=== PATIENT | male | born 1930 | race Caucasian/White ===

== ENCOUNTER → 2016-09-11 | Outpatient (CLI) | payer MEDICARE, OTHER ==
[~2016-09-11] MED LIST: ASPI81TA2 PO; CARV12.5 PO; DOCU-168 PO; FURO20TA4 PO; INSU100V8 SQ; PRED10TA PO; SALINE FLUSH 10ml SYRINGE IVF ONE; TAMS-1 PO; WARF4TAB8 PO
== END ==
LOC: NWCC 11:20
PROVIDERS: ATTEND Surgery
DX: I87.2 Venous insufficiency (chronic) (peripheral) (principal); L97.212 Non-pressure chronic ulcer of right calf with fat layer exposed; L97.812 Non-pressure chronic ulcer of other part of right lower leg with fat layer exposed; R60.0 Localized edema; S91.301A Unspecified open wound, right foot, initial encounter
CPT/HCPCS: 29581; A6209; G0463

== ENCOUNTER → 2016-09-18 | Outpatient (CLI) | payer MEDICARE, OTHER ==
[~2016-09-18] MED LIST changes: +CALMOSEPTINE OINTMENT 3.5 G PACKET TOP ONE; -SALINE FLUSH 10ml SYRINGE IVF ONE; +SILVER NITRATE APPLICATOR TOP ONE
== END ==
LOC: NWCC 10:56
PROVIDERS: ATTEND Surgery
DX: I87.2 Venous insufficiency (chronic) (peripheral) (principal); L97.212 Non-pressure chronic ulcer of right calf with fat layer exposed; L97.812 Non-pressure chronic ulcer of other part of right lower leg with fat layer exposed; R60.0 Localized edema; S91.301A Unspecified open wound, right foot, initial encounter
CPT/HCPCS: 11042; 17250; A6209; A9270; G0463

== ENCOUNTER → 2016-10-02 | Outpatient (CLI) | payer MEDICARE, OTHER ==
[~2016-10-02] MED LIST changes: -SILVER NITRATE APPLICATOR TOP ONE
== END ==
LOC: NWCC 09:54
PROVIDERS: ATTEND Surgery
DX: I87.311 Chronic venous hypertension (idiopathic) with ulcer of right lower extremity (principal); L97.212 Non-pressure chronic ulcer of right calf with fat layer exposed; L97.812 Non-pressure chronic ulcer of other part of right lower leg with fat layer exposed; S91.301A Unspecified open wound, right foot, initial encounter; R60.0 Localized edema
CPT/HCPCS: 11042; A6209; A6210; A9270; G0463

== ENCOUNTER → 2016-10-16 | Outpatient (CLI) | payer MEDICARE, OTHER ==
[~2016-10-16] MED LIST changes: -CALMOSEPTINE OINTMENT 3.5 G PACKET TOP ONE; +SALINE FLUSH 10ml SYRINGE IVF ONE
== END ==
LOC: NWCC 10:51
PROVIDERS: ATTEND Surgery
DX: E11.621 Type 2 diabetes mellitus with foot ulcer (principal); L97.512 Non-pressure chronic ulcer of other part of right foot with fat layer exposed; I87.311 Chronic venous hypertension (idiopathic) with ulcer of right lower extremity; L97.812 Non-pressure chronic ulcer of other part of right lower leg with fat layer exposed; L97.212 Non-pressure chronic ulcer of right calf with fat layer exposed; R60.0 Localized edema; I87.2 Venous insufficiency (chronic) (peripheral); S91.301A Unspecified open wound, right foot, initial encounter
CPT/HCPCS: 15271; A6207; A6209; A6210; A6212; G0463; Q4101

== ENCOUNTER → 2016-10-23 | Outpatient (CLI) | payer MEDICARE, OTHER ==
[~2016-10-23] MED LIST changes: +ASPI-557 PO; +CAPS42.57 TOP; +CARV25TA2 PO; +FOLI1TAB15 PO; +FOLIC ACID PO; +LINA5TAB PO; +OMEP20CA10 PO; -SALINE FLUSH 10ml SYRINGE IVF ONE
== END ==
LOC: NWCC 10:24
PROVIDERS: ATTEND Surgery
DX: E11.621 Type 2 diabetes mellitus with foot ulcer (principal); I87.311 Chronic venous hypertension (idiopathic) with ulcer of right lower extremity; L97.512 Non-pressure chronic ulcer of other part of right foot with fat layer exposed; L97.212 Non-pressure chronic ulcer of right calf with fat layer exposed; L97.812 Non-pressure chronic ulcer of other part of right lower leg with fat layer exposed; S91.301A Unspecified open wound, right foot, initial encounter; R60.0 Localized edema
CPT/HCPCS: 11043; A6207; A6210; G0463

== ENCOUNTER → 2016-10-31 | Outpatient (CLI) | payer MEDICARE, OTHER ==
[~2016-10-31] MED LIST changes: +BISA10SU8 RECTALLY; +ENOX40DI SQ; +MAGN400O4 PO; +PIPE2.254 IV; +POLY17PO18 PO; +SALINE FLUSH 10ml SYRINGE IVF ONE
== END ==
LOC: NWCC 09:50
PROVIDERS: ATTEND Surgery
DX: E11.621 Type 2 diabetes mellitus with foot ulcer (principal); I87.311 Chronic venous hypertension (idiopathic) with ulcer of right lower extremity; L97.212 Non-pressure chronic ulcer of right calf with fat layer exposed; L97.812 Non-pressure chronic ulcer of other part of right lower leg with fat layer exposed; S91.301A Unspecified open wound, right foot, initial encounter; L97.512 Non-pressure chronic ulcer of other part of right foot with fat layer exposed; B96.89 Other specified bacterial agents as the cause of diseases classified elsewhere
CPT/HCPCS: 11042; 11043; 15002; 15271; 87070; 87075; 87076; 87077; 87181; 87186; 87205; A6207; A6209; A6212; G0463; Q4101

== ENCOUNTER 2016-11-06 11:37 | Inpatient (IN) | payer MEDICARE, OTHER ==
[~2016-11-06] VITALS: Ht 182.9 cm; Wt 81.2 kg
--- NOTE | 2016-11-06 11:35 | NUR ---
ADMIT PATIENT WAS ADMITTED TO ROOM 108 AT THIS TIME. PATIENT VITALS ARE STABLE AND PATIENT IS ON ROOM AIR.
[~2016-11-06 11:37] MED LIST changes: -ASPI-557 PO; -BISA10SU8 RECTALLY; -CAPS42.57 TOP; -CARV25TA2 PO; -ENOX40DI SQ; -FOLI1TAB15 PO; -FOLIC ACID PO; -LINA5TAB PO; -MAGN400O4 PO; -OMEP20CA10 PO; -PIPE2.254 IV; -POLY17PO18 PO; -SALINE FLUSH 10ml SYRINGE IVF ONE
[2016-11-06 11:39] VITALS: BP 154/64; PULSE 77; RESP 18; TEMP 96.4; O2SAT 100
[2016-11-06 11:42] VITALS: Ht 182.9 cm; Wt 81.2 kg
--- OUTSIDE RECORDS SUMMARY | 2016-11-06 11:46 | XMS REPORT | Continuity of Care Document ---
Author Author [facility] Organization [facility] Address Unknown Phone Unavailable Support Name Relationship Address Phone NICHOLAS HENSON DO Caregiver [address] [place] [address] Unavailable ADELINE MUÑIZ MD Caregiver [address] [place] [address] Unavailable ADELINE MUÑIZ MD Caregiver [address] [place] [address] Unavailable ELVIRA HERNANDEZ Next Of Kin [address] [place] [address] Insurance Providers Guarantor Cresencio Hernandez Address [address] [place] [address] Email DENIED 16 Payer Medicare Policy Number [id number] Subscriber's Name Cresencio Hernandez Relationship 18 Self Effective Date 96 Payer Mail Handlers Benefit Policy Number [id number] Subscriber's Name Cresencio Hernandez Relationship 18 Self Advance Directives Directive Response Recorded Date/Time Dr Yadav Resuscitation Status Do Not Resuscitate 08/10/16 11:10am Resuscitation Documents on File No 08/10/16 11:03am DPOA for Healthcare Only Yes 08/11/16 12:07pm Living Will No 08/10/16 11:03am Problems Active Problems Medical Problem Onset Date Status Acute on chronic systolic CHF (congestive heart failure) 03/25/2014 Chronic Anemia Unknown Chronic Anticoagulated Unknown Aphasia Unknown Resolved CAD (coronary artery disease) Unknown Chronic CHF (congestive heart failure) Unknown Acute CKD (chronic kidney disease), stage III Unknown Chronic Chest pain Unknown Acute Chronic anemia Unknown Chronic DVT (deep venous thrombosis) Unknown Acute Dyslipidemia Unknown Chronic Dyspnea Unknown Acute Dyspnea Unknown Acute Generalized weakness Unknown HS (hereditary spherocytosis) Unknown Chronic HTN (hypertension) Unknown Chronic Hx of cataract Unknown Hypoglycemia due to insulin Unknown Resolved Ischemic cardiomyopathy Unknown Mononeuritis multiplex Unknown Neuropathy Unknown Non-STEMI (non-ST elevated myocardial infarction) Unknown Acute Peripheral vascular disease Unknown Chronic Radiculopathy Unknown Sinoatrial node dysfunction Unknown Type 2 diabetes mellitus Unknown Chronic VTE (venous thromboembolism) Unknown Past Problems Medical Problem Onset Date Elevated serum creatinine Unknown Hyperkalemia Unknown Medications Current Home Medications Medication Dose Units Route Directions Days Qty Instructions Start Date Aspirin 81 Mg Tablet 81 Mg Oral Daily for Ascad 30 Days 03/25/14 Carvedilol (Coreg) 12.5 Mg Tablet 25 Mg Oral Twice Daily With Meals 30 Days 120 Tablet 08/06/16 Docusate Sodium (Colace) 100 Mg Capsule 100 Mg Oral Twice A Day as needed for Constipation 30 Days 60 Capsule schedule until patient has a bowel movement. hold for loose stools. 08/10/16 Furosemide 20 Mg Tablet 20 Mg Oral Daily 30 Days 30 Tablet 08/17/16 Insulin Glargine,Hum.rec.anlog (Lantus) 100 Unit/Ml Inj 8 Unit Sub-Q Bedtime 30 Days 1 08/10/16 Prednisone 10 Mg Tablet 10 Mg Oral Give With Breakfast 24 Tablet 30 mg daily for 4 days, then 20 mg daily for 4 days, then 10 mg daily for 4 days 08/17/16 Tamsulosin Hcl (Flomax) 0.4 Mg Capsule 0.4 Mg Oral Bedtime 30 Days 30 Capsule Take 1 capsule, by mouth, one time a day at BEDTIME. 08/04/16 Warfarin Sodium (Jantoven) 4 Mg Tablet 4 Mg Oral Give At Noon 10 Days 30 Tablet 08/17/16 Past Home Medications Medication Directions Ordered Status Atorvastatin Calcium (Lipitor) 40 Mg Tablet, 40 Mg Oral Bedtime 09/20/15 Discontinued Carvedilol (Coreg) 12.5 Mg Tablet, 12.5 Mg Oral Twice Daily With Meals Discontinued Dextrose (Glutose 15) 37.5 Gm Gel..gram., 37.5 G Oral As Needed as needed for Hypoglycemia 08/10/16 Discontinued Dextrose 50 % In Water (Dextrose 50%-Water Abboject) 50 Ml Syringe, 25 Ml Intraven As Needed as needed for Hypoglycemia 08/10/16 Discontinued Furosemide 20 Mg Tablet, 20 Mg Oral Per Comments 08/10/16 Discontinued Furosemide 20 Mg Tablet, 1 Tab Oral Daily as needed for Edema 03/25/14 Discontinued Hydrochlorothiazide 12.5 Mg Tablet, 12.5 Mg Oral Daily 02/14/11 Discontinued Insulin Detemir (Levemir Flextouch) 100 Unit/1 Ml Insuln.pen, 4 Unit Sub-Q Bedtime 08/04/16 Discontinued Insulin Detemir (Levemir Flextouch) 100 Unit/1 Ml Insuln.pen, 8 Unit Sub-Q Bedtime 09/15/15 Discontinued Insulin Lispro (Humalog) 100 Unit/1 Ml Cartridge, 1 Dose Sub-Q Per Comments 08/10/16 Discontinued Linagliptin (Tradjenta) 5 Mg Tablet, 1 Tab Oral Daily 08/04/16 Discontinued Metformin Hcl 500 Mg Tablet, 500 Mg Oral Twice Daily With Meals 09/15/15 Discontinued Metformin Hcl 1,000 Mg Tablet, 1000 Mg Oral Twice A Day 02/14/11 Discontinued Metoprolol Tartrate 50 Mg Tablet, 50 Mg Oral Twice A Day 02/14/11 Discontinued Prednisone 20 Mg Tablet, 40 Mg Oral Give With Breakfast 08/10/16 Discontinued Warfarin Sodium (Coumadin) 7.5 Mg Tablet, 7.5 Mg Oral Give At Noon 03/23/14 Discontinued Social History Social History Problem Response Recorded Date/Time Onset Date Status Reason for Hospitalization compression fx L2-L3 08/17/2016 3:37pm Not Applicable Not Applicable Hx Substance Use No 08/01/2016 11:04pm Not Applicable Not Applicable Hx Alcohol Use No 08/01/2016 11:04pm Not Applicable Not Applicable Has the pt used tobacco in the last 12 months No 08/10/2016 11:04am Not Applicable Not Applicable Tobacco Usage none 03/23/2014 6:45pm Not Applicable Not Applicable Query Response Start Date Stop Date Smoking Status Never smoker Hospital Discharge Instructions Instructions: Care Instructions: Reason for Hospitalization: compression fx L2-L3 I was in the hospital because (patient own words): "Dr. Henson was worried about my potassium level." Discharge Diet: Carb consistant Discharge Activity: Activity as tolerated Follow Up Appointments: Dr. Henson on 08/30/16 at 10:45am for follow up. [phone] [facility] will call you for an evaluation. [phone] Wound Center on 08/21/16 at 9:00am for follow up. [phone]. Pending Lab / Results: No Pending Lab Patient Instructions: Continue to work with PT/OT . Continue with wound care at wound center Coumadin 4 mg daily. Check INR at follow up apt with Dr Craig Wound/Incision Care: N/A Pain Scale Utilized to Educate Patient: 0-10 Pain Scale Pain Management/Treatment: Tylenol as needed for pain control Expected Signs/Symptoms: Continued improvement is strengthening Notify Physician If: Fever, chilld, weakness, change is pain or neurologic symtoms During Business Hours:: Please call the physician's office After Business Hours:: Please call [phone] and have the continuous loft operator page the physician. Condition at time of discharge: Fair Plan of Care Discharge Date 08/17/16 4:27pm Disposition 01 DISCHARGED HOME, SELF-CARE Instructions/Education Provided Vertebral Compression Fracture (DC) Prescriptions See Medication Section Care Plan and Goals See Discharge Instructions Section Functional Status Query Response Date Recorded Mobility Status Ambulatory w/assist August 17, 2016 3:37pm Assistive Devices Front Wheeled Walker August 17, 2016 3:37pm Activity Limitations Weakness August 17, 2016 3:37pm Feeding Ability Independent August 17, 2016 3:37pm Toileting Ability Assist August 17, 2016 3:37pm Grooming Ability Assist August 17, 2016 3:37pm Dressing Ability Assist August 17, 2016 3:37pm Driving Ability Dependent August 17, 2016 3:37pm Housework Ability Assist August 17, 2016 3:37pm Meal Preparation Ability Assist August 17, 2016 3:37pm Stair Climbing Ability Assist August 17, 2016 3:37pm Ability to complete ADL's impeded by Impaired Mobility August 17, 2016 3:37pm Cognitive/Perceptual Impairments Impaired vision August 17, 2016 3:37pm Visual Assistive Devices Glasses With patient August 16, 2016 11:01am Preferred Method of Learning Demonstration Listening Hands on August 16, 2016 11:01am Allergies, Adverse Reactions, Alerts No known allergies. Immunizations Query Response on File Recorded Date/Time Hx Influenza Vaccination Y 2015 ( a couple of months ago per pt.) 08/10/16 11 :04am Hx Pneumococcal Vaccination Y 2014 (per pt.) 08/10/16 11:04am Hx Influenza Vaccination Y 2015 ( a couple of months ago per pt.) 08/10/16 11 :04am Influenza Vaccine Hx 2016 (a couple of months ago per pt.) 08/10/16 11:10am Vital Signs Acute Vital Signs Vital Response Date/Time Temperature (Fahrenheit) 97.8 deg F (96.8 - 99.1) 08/17/2016 8:21am Temperature (Calculated Celsius) 36.40741 degrees C (36.0 - 37.3) 08/17/2016 8:21am Pulse Rate (adult) 74 bpm (60 - 100) 08/17/2016 12:26pm Respiratory Rate 18 breaths/min (10 - 20) 08/17/2016 12:26pm O2 Sat by Pulse Oximetry 98 % (90 - 100) 08/17/2016 8:21am Oxygen Delivery Method Room Air 08/17/2016 8:21am Fraction of Inspired Oxygen (FIO2) 21 % 08/02/2016 1:37am Blood Pressure 125/61 mm Hg 08/17/2016 8:21am Blood Pressure Source Automatic Cuff 08/17/2016 8:21am Height (Feet) 6 feet 08/17/2016 2:54pm Height (Inches) 0.00 inches 08/17/2016 2:54pm Weight (Kilograms) 74.800 kg 08/11/2016 1:31am Body Mass Index (BMI) 22.4 08/11/2016 1:31am Results Laboratory Results Test Name Result Units Flags Reference Collection Date/Time Result Date/ Time Comments Thyroid Stimulating Hormone (TSH) 2.77 MIU/L 0.47-4.68 08/02/2016 5: 01am 08/02/2016 6:31am Arterial Blood pH 7.380 7.350-7.450 08/04/2016 9:08/04/2016 9: 46am Arterial Blood Partial Pressure CO2 36 MMHG 34-45 08/04/2016 9: 9:46am Arterial Blood pO2 at Patient Temp 92 MMHG 80-100 08/04/2016 9: 9:46am Arterial Blood HCO3 21 MEQ/L L 22-08/04/2016 9:08/04/2016 9: 46am Arterial Blood Total CO2 22.4 MEQ/L L 23-27 08/04/2016 9:2016 9:46am Arterial Blood Base Excess -3.3 MMOL/L L -2.0-2.0 08/04/2016 9: 9:46am Arterial Blood Oxygen Saturation 97.0 % 95.0-98.0 08/04/2016 9: 9:46am Oxygen Delivery Method (LAB) ROOM AIR 08/04/2016 9:34am 08/04/2016 9:46am Urine Random Creatinine 71.3 MG/DL 08/02/2016 2:39am 08/02/2016 3: 18am Urine Random Sodium 131 MEQ/L H 30-90 08/02/2016 2:39am 08/02/2016 3: 18am Urine Random Urea Nitrogen 738.0 MG/DL 08/02/2016 2:39am 08/02/2016 3 :18am Stool Occult Blood NEGATIVE 08/03/2016 9:59am 08/03/2016 10:12am Angiotensin Converting Enzyme 25 U/L 8 - 53 08/04/2016 4:42am 2016 2:35pm Test Performed by: [place] [address] Vba Developer: Tima Fajardo II, M.D., Ph.D. DANIELLE performed at [facility], [address] [place] [address] Colon Therapist Scotty Rosenthal MD Free Cortisol 0.48 mcg/dL 08/04/2016 4:42am 08/16/2016 4:36pm Adult Reference Ranges for Cortisol, Free, . LC/MS/MS: . 8:00 - 10:00 AM 0.07-0.93 mcg/dL . 4:00 - 6:00 PM 0.04-0.45 mcg/dL . 10:00 - 11:00 PM 0.04-0.35 mcg/dL This test was developed and its analytical performance characteristics have been determined by [email or web address]. It has not been cleared or approved by FDA. This assay has been validated pursuant to the CLIA regulations and is used for clinical purposes. Test Performed by: [email or web address] [place] [address] [place] [address] Cortisol, [place] [address] Colon Therapist Scotty Rosenthal MD Renin <0.6 ng/mL/h 08/04/2016 4:42am 08/08/2016 3:30pm ------REFERENCE VALUE (Peripheral vein specimen) Na-deplete, upright: . Mean: 5.9 . Range: 2.9-10.8 Na-replete, upright: . Mean: 1.0 . Range: < or=0.6-3.0 ADDITIONAL INFORMATION Testing performed by Liquid Chromatography-Tandem Mass Spectrometry (LC-MS/MS). This test was developed and its performance characteristics determined by [facility] in a manner consistent with CLIA requirements. This test has not been cleared or approved by the U.S. Food and Drug Administration. Test Performed by: [place] [address] Vba Developer: Tima Fajardo II, M.D., Ph.D. [place]in [place] [address] Colon Therapist Scotty Rosenthal MD Neutrophils % (Manual) 91.0 % H 33-66 08/09/2016 5:08/09/2016 6: 43am Band Neutrophils % 2.0 % 0-6 08/09/2016 5:08/09/2016 6:43am Lymphocytes % (Manual) 6.0 % L 23-45 08/09/2016 5:08/09/2016 6: 43am Monocytes % (Manual) 1.0 % 0-9.0 08/09/2016 5:08/09/2016 6:43am Band Neutrophils # 0.1 T/MM3 08/09/2016 5:08/09/2016 6:43am Absolute Neutrophils (Manual) 4.1 T/MM3 1.8-7.7 08/09/2016 5:08/09 6:43am Lymphocytes # (Manual) 0.3 T/MM3 L 1-4.8 08/09/2016 5:08/09/2016 6: 43am Monocytes # (Manual) 0.0 T/MM3 0-0.8 08/09/2016 5:08/09/2016 6: 43am Red Cell Morphology Comment ABNORMAL 08/09/2016 5:17am 08/09/2016 6 :43am Poikilocytosis 3+ 08/09/2016 5:17am 08/09/2016 6:43am Ovalocytes 3+ 08/09/2016 5:17am 08/09/2016 6:43am Activated Partial Thromboplast Time 38.1 SEC H 24-36 08/08/2016 1:16pm 08/08/2016 1:48pm Phosphorus Level 4.2 MG/DL 2.5-4.5 08/08/2016 1:16pm 08/08/2016 1:50pm Total Creatine Kinase 168 U/L 55-170 08/08/2016 1:16pm 08/08/2016 1: 50pm Troponin I < 0.012 ng/ml 0-0.12 08/08/2016 1:16pm 08/08/2016 2:01pm Troponin values with a difference of 55% increase from orginal troponin value represent a true biological DELTA value. (%increase Calc=Orginal Troponin value, divided by subsequent Troponin value, multiplied by 100) C-Reactive Protein 211.7 MG/L H 0-9 08/08/2016 1:16pm 08/08/2016 3:19pm Magnesium Level 2.1 MG/DL 1.6-2.3 08/08/2016 1:16pm 08/08/2016 1:50pm Urine Collection Type CLEANCATCH-MIDSTREAM 08/08/2016 2:40pm 2016 2:57pm Urine Color YELLOW YELLOW 08/08/2016 2:40pm 08/08/2016 2:57pm Urine Turbidity CLEAR CLEAR 08/08/2016 2:40pm 08/08/2016 2:57pm Urine Specific [place] 1.015 1.015-1.025 08/08/2016 2:40pm 2016 2:57pm Urine pH 5.5 5.0-8.0 08/08/2016 2:40pm 08/08/2016 2:57pm Urine Leukocyte Esterase NEGATIVE NEGATIVE 08/08/2016 2:40pm 2016 2:57pm Urine Nitrite NEGATIVE NEGATIVE 08/08/2016 2:40pm 08/08/2016 2:57pm Urine Protein NEGATIVE NEGATIVE 08/08/2016 2:40pm 08/08/2016 2:57pm Urine Glucose (UA) NEGATIVE NEGATIVE 08/08/2016 2:40pm 08/08/2016 2: 57pm Urine Ketones NEGATIVE NEGATIVE 08/08/2016 2:40pm 08/08/2016 2:57pm Urine Urobilinogen 0.2 EU/DL NORMAL 08/08/2016 2:40pm 08/08/2016 2: 57pm Urine Bilirubin NEGATIVE NEGATIVE 08/08/2016 2:40pm 08/08/2016 2: 57pm Urine Blood TRACE-INTACT A NEGATIVE 08/08/2016 2:40pm 08/08/2016 2: 57pm Urine WBC NONE SEEN /HPF 0-5 08/08/2016 2:40pm 08/08/2016 3:03pm Urine RBC NONE SEEN /HPF 0-3 08/08/2016 2:40pm 08/08/2016 3:03pm Urine Squamous Epithelial Cells NONE SEEN 08/08/2016 2:40pm 2016 3:03pm Urine Bacteria TRACE H NEGATIVE 08/08/2016 2:40pm 08/08/2016 3:03pm Urine Culture Indicated CULT NOT INDICATED 08/08/2016 2:40pm 2016 3:03pm White Blood Count 7.4 T/MM3 4.5-11.0 08/17/2016 4:am 08/17/2016 5: 10am Red Blood Count 2.96 M/MM3 L 4.50-5.90 08/17/2016 4:08/17/2016 5: 10am Hemoglobin 8.7 GM/DL L 13.5-17.5 08/17/2016 4:08/17/2016 5:10am Hematocrit 26.3 % L 41-53 08/17/2016 4:08/17/2016 5:10am Mean Corpuscular Volume 88.9 UM3 80-100 08/17/2016 4:08/17/2016 5: 10am Mean Corpuscular Hemoglobin 29.4 UUG 26-34 08/17/2016 4:2016 5:10am Mean Corpuscular Hemoglobin Concent 33.1 GM/DL 31-37 08/17/2016 4:08/17/2016 5:10am RDW Standard Deviation 45.8 FL 36.9-50.2 08/17/2016 4:08/17/2016 5 :10am Platelet Count 283 T/MM3 130-400 08/17/2016 4:08/17/2016 5:10am Mean Platelet Volume 10.6 UM3 9.4-12.4 08/17/2016 4:08/17/2016 5: 10am Neutrophils (%) (Auto) 62.3 % 33-66 08/17/2016 4:08/17/2016 5: 10am Lymphocytes (%) (Auto) 27.6 % 23-45 08/17/2016 4:08/17/2016 5: 10am Monocytes (%) (Auto) 9.6 % H 0-9.0 08/17/2016 4:08/17/2016 5:10am Eosinophils (%) (Auto) 0.1 % 0-4 08/17/2016 4:08/17/2016 5:10am Basophils (%) (Auto) 0.1 % 0-2 08/17/2016 4:08/17/2016 5:10am Immature Granulocyte % (Auto) 0.3 % 0.0-0.5 08/17/2016 4:2016 5:10am Absolute Neutrophils (auto) 4.6 T/MM3 1.8-7.7 08/17/2016 4:2016 5:10am Absolute Lymphocytes (auto) 2.0 T/MM3 1-4.8 08/17/2016 4:2016 5:10am Absolute Monocytes (auto) 0.7 T/MM3 0-0.8 08/17/2016 4:08/17/2016 5:10am Absolute Eosinophils (auto) 0.0 T/MM3 0-0.5 08/17/2016 4:2016 5:10am Absolute Basophils (auto) 0.0 T/MM3 0-0.2 08/17/2016 4:08/17/2016 5:10am Absolute Immature Granulocyte (auto 0.02 T/MM3 0.00-0.03 08/17/2016 4: 08/17/2016 5:10am Prothromb Time International Ratio 2.85 H 0.76-1.04 08/17/2016 4:08/17/2016 5:16am THERAPUTIC RANGE=2.00-3.00 FOR ANTI-THROMBOSIS THERAPUTIC RANGE=2.50-3.50 FOR IMPLANTED VALVE Icterus Index < 2 0-7 08/17/2016 4:08/17/2016 5:25am Chemistry Specimen Hemolysis < 15 0-25 08/17/2016 4:08/17/2016 5 :25am 0-25: Specimen Exhibited No Hemolysis. Turbidity < 20 0-20 08/17/2016 4:08/17/2016 5:25am Sodium Level 137 MEQ/L 134-144 08/17/2016 4:08/17/2016 5:25am Potassium Level 4.7 MEQ/L 3.6-5 08/17/2016 4:08/17/2016 5:25am Chloride Level 105 MEQ/L 98-107 08/17/2016 4:08/17/2016 5:25am Carbon Dioxide Level 25 MEQ/L 22-30 08/17/2016 4:08/17/2016 5: 25am Anion Gap 7 MEQ/L 5-15 08/17/2016 4:08/17/2016 5:25am Blood Urea Nitrogen 41.0 MG/DL H 9-20 08/17/2016 4:08/17/2016 5: 25am Creatinine 1.4 MG/DL 0.8-1.5 08/17/2016 4:08/17/2016 5:25am BUN/Creatinine Ratio 29 RATIO H 6-26 08/17/2016 4:08/17/2016 5: 25am Glomerular Filtration Rate Calc 48 08/17/2016 4:08/17/2016 5: 25am Glucose Level 84 MG/DL 75-110 08/17/2016 4:08/17/2016 5:25am Calculated Osmolality 273 MOSM/KG 261-280 08/17/2016 4:08/17/2016 5:25am Calcium Level 8.6 MG/DL 8.4-10.2 08/17/2016 4:08/17/2016 5:25am Total Bilirubin 0.70 MG/DL 0.20-1.30 08/15/2016 5:am 08/15/2016 6: 02am Alkaline Phosphatase 81 U/L 38-126 08/15/2016 5:25am 08/15/2016 6:02am Total Protein 5.8 G/DL L 6.3-8.2 08/15/2016 5:25am 08/15/2016 6:02am Albumin 2.9 G/DL L 3.5-5.0 08/15/2016 5:25am 08/15/2016 6:02am Globulin 2.9 G/DL 2.4-3.6 08/15/2016 5:25am 08/15/2016 6:02am Albumin/Globulin Ratio 1.0 RATIO L 1.1-2.2 08/15/2016 5:25am 08/15/2016 6:02am Aspartate Amino Transf (AST/SGOT) 15 U/L L 17-59 08/15/2016 5:25am 08/15 6:02am Alanine Aminotransferase (ALT/SGPT) 30 U/L 21-72 08/15/2016 5:25am 02/2017 6:02am Glucometer 138 mg/dL H 75-110 08/17/2016 11:49am 08/17/2016 11:52am Microbiology Results Procedure Source Organism/Result Collection Date/Time Result Date/Time Result Status WOUND CULTURE DEEP TISS-AER/AN Unknown BACTEROIDES VULGATUS 07/12/2016 10: 40am 07/19/2016 7:52am Final ENTEROBACTER CLOACAE 07/12/2016 10:40am 07/19/2016 7:52am Final ESCHERICHIA COLI 07/12/2016 10:40am 07/19/2016 7:52am Final FINEGOLDIA MAGNA 07/12/2016 10:40am 07/19/2016 7:52am Final S. AUREUS, METH-RESISTANT 07/12/2016 10:40am 07/19/2016 7:52am Final PEPTONIPHILUS ASACCHAROLY 07/12/2016 10:40am 07/19/2016 7:52am Final Procedures Procedure Status Date Provider(s) Lower extremity study Completed 06/20/16 Extremity study Completed 06/20/16 Patsy subq tissue 20 sq cm/< Completed 06/26/16 Patsy subq tissue add-on Completed 06/26/16 382457"WOUND CLEANSERS, ANY TYPE, ANY SIZE" Completed 06/26/16 E&M LEVEL - FACILITY Completed 06/26/16 Patsy musc/fascia 20 sq cm/< Completed 07/24/16 862270"BORDER, EACH DRESSING" Completed 07/24/16 533284"BORDER, EACH DRESSING" Completed 07/24/16 975470"EQUAL TO 48 SQ. IN., WITHOUT ADHESIVE BORDER, EACH DR Completed [id number] ITEM OR SERVICE Completed 07/24/16 E&M LEVEL - FACILITY Completed 07/24/16 Patsy subq tissue 20 sq cm/< Completed 07/12/16 Patsy subq tissue add-on Completed 07/12/16 Culture othr specimn aerobic Completed 07/12/16 Cultr bacteria except blood Completed 07/12/16 Culture anaerobe ident each Completed 07/12/16 Culture anaerobe ident each Completed 07/12/16 Culture anaerobe ident each Completed 07/12/16 Culture aerobic identify Completed 07/12/16 Culture aerobic identify Completed 07/12/16 Culture type immunologic Completed 07/12/16 Culture type immunologic Completed 07/12/16 Microbe susceptible diffuse Completed 07/12/16 Microbe susceptible diffuse Completed 07/12/16 Microbe susceptible diffuse Completed 07/12/16 Microbe susceptible diffuse Completed 07/12/16 Microbe susceptible diffuse Completed 07/12/16 Microbe susceptible diffuse Completed 07/12/16 Microbe susceptible diffuse Completed 07/12/16 Microbe susceptible diffuse Completed 07/12/16 Microbe susceptible diffuse Completed 07/12/16 Microbe susceptible diffuse Completed 07/12/16 Microbe susceptible diffuse Completed 07/12/16 Microbe susceptible diffuse Completed 07/12/16 Microbe susceptible regis Completed 07/12/16 Microbe susceptible regis Completed 07/12/16 Microbe susceptible regis Completed 07/12/16 Smear gram stain Completed 07/12/16 470913"LESS, EACH DRESSING" Completed 07/12/16 933773"BORDER, EACH DRESSING" Completed 07/12/16 000283"EQUAL TO 48 SQ. IN., WITHOUT ADHESIVE BORDER, EACH DR Completed 680500"WOUND CLEANSERS, ANY TYPE, ANY SIZE" Completed 07/12/16 [id number] ITEM OR SERVICE Completed 07/12/16 E&M LEVEL - FACILITY Completed 07/12/16 Encounters Encounter Location Arrival/Admit Date Discharge/Depart Date Attending Provider Discharged Inpatient [facility] 08/10/16 10:16am 08/17/16 4:27pm ADELINE MUÑIZ MD Discharged Inpatient [facility] 08/09/16 3:15pm 08/10/16 10:15am NICHOLAS HENSON DO Discharged Inpatient [facility] 08/02/16 4:36pm 08/06/16 6:35pm NICHOLAS HENSON DO Registered [facility] 07/24/16 9:48am CRESENCIO HARDIN FACS, MD Registered [facility] 07/12/16 9:49am REX FORD MD Registered [facility] 06/26/16 9:58am CRESENCIO HARDIN FACS, MD Registered [facility] 06/20/16 4:59pm NICHOLAS HENSON DO
--- OUTSIDE RECORDS SUMMARY | 2016-11-06 11:47 | XMS REPORT | Continuity of Care Document ---
Demographics Preferred Language Unknown Marital Status Unknown Alevism Affiliation Unknown Race Unknown Ethnic Group Unknown Author Author [facility] Organization [facility] Address Unknown Phone Unavailable Allergies Active Description Code Type Severity Reaction Onset Reported/Identified Relationship to Patient Clinical Status Yes No Known Allergies NKMA N/A N/A 08/24/2014 Medications Problems Date Dx Coded Attending Type Code Diagnosis Diagnosed By 08/24/2014 Final 416.8 OTHER CHRONIC PULMONARY HEART DISEASES 08/24/2014 Final 428.0 CONGESTIVE HEART FAILURE, UNSPECIFIED 08/24/2014 Final 786.05 SHORTNESS OF BREATH 08/24/2014 Reason 786.2 COUGH 12/13/2014 Final 250.00 Diabetes mellitus without mention of complication, type II or unspecified t 12/13/2014 Final 272.4 OTHER AND UNSPECIFIED HYPERLIPIDEMIA 12/13/2014 Final 403.90 Hypertensive chronic kidney disease, unspecified, with chronic kidney disea 12/13/2014 Final 412 OLD MYOCARDIAL INFARCTION 12/13/2014 Final 414.01 CORONARY ATHEROSCLEROSIS OF [place] CORONARY ARTERY 12/13/2014 Final 414.8 OTHER SPECIFIED FORMS OF CHRONIC ISCHEMIC HEART DISEASE 12/13/2014 Final 426.3 OTHER LEFT BUNDLE BRANCH BLOCK 12/13/2014 Final 428.0 CONGESTIVE HEART FAILURE, UNSPECIFIED 12/13/2014 Reason 428.22 CHRONIC SYSTOLIC HEART FAILURE 12/13/2014 Final 585.9 Chronic kidney disease, unspecified 12/13/2014 Reason 428.22 CHRONIC SYSTOLIC HEART FAILURE Procedures Results Encounters ACCT No. Visit Date/Time Discharge Status Pt. Type Provider Facility Loc./Unit Complaint [id number] 12/07/2014 06:33:00 Document Registration [id number] 08/24/2014 08:57:00 Document Registration
--- OUTSIDE RECORDS SUMMARY | 2016-11-06 11:48 | XMS REPORT | Continuity of Care Document ---
Author Author [facility] Organization [facility] Address Unknown Phone Unavailable Support Name Relationship Address Phone NICHOLAS HENSON DO Caregiver [address] [place] [address] Unavailable ADELINE MUÑIZ MD Caregiver [address] [place] [address] Unavailable ADELINE MUÑIZ MD Caregiver [address] [place] [address] Unavailable ELVIRA HERNANDEZ Next Of Kin [address] [place] [address] Insurance Providers Guarantor Cresencio Hernandez Address [address] [place] [address] Email DENIED 16 Payer Medicare Policy Number [id number] Subscriber's Name Cresencio Hernandez Relationship 18 Self Effective Date 96 Payer Mail Hand[employer] Benefit Policy Number [id number] Subscriber's Name Cresencio Hernandez Relationship 18 Self [...] With Meals 30 Days 120 Tablet 08/06/16 Dextrose (Glutose 15) 37.5 Gm Gel..gram. 37.5 G Oral As Needed as needed for Hypoglycemia 30 Days 30 08/10/16 Dextrose 50 % In Water (Dextrose 50%-Water Abboject) 50 Ml Syringe 25 Ml Intraven As Needed as needed for Hypoglycemia 30 Days 30 Syringe 08/10/16 Docusate Sodium (Colace) 100 Mg Capsule 100 Mg Oral Twice A Day as needed for Constipation 30 Days 60 Capsule schedule until patient has a bowel movement. hold for loose stools. 08/10/16 Furosemide 20 Mg Tablet 20 Mg Oral Per Comments 30 Days 15 Tablet every other day. hold for systolic blood pressures less than 105. 08/10/16 Insulin Glargine,Hum.rec.anlog (Lantus) 100 Unit/Ml Inj 8 Unit Sub-Q Bedtime 30 Days 1 08/10/16 Insulin Lispro (Humalog) 100 Unit/1 Ml Cartridge 1 Dose Sub-Q Per Comments 30 Days 1 Vial per [facility] medium dose sliding scale protocol. 08/10/16 Prednisone 20 Mg Tablet 40 Mg Oral Give With Breakfast 10 Days 20 Tablet Take 2 (20 mg) tablets, by mouth, once a day with breakfast. will start tapering after 2 weeks. 08/10/16 Tamsulosin Hcl (Flomax) 0.4 Mg Capsule 0.4 Mg Oral Bedtime 30 Days 30 Capsule Take 1 capsule, by mouth, one time a day at BEDTIME. 08/04/16 Warfarin Sodium (Coumadin) 7.5 Mg Tablet 7.5 Mg Oral Give At Noon Take 1 tablet, by mouth, 1 time a day (at 5 pm). 03/23/14 Past Home Medications Medication Directions Ordered Status Atorvastatin Calcium (Lipitor) 40 Mg Tablet, 40 Mg Oral Bedtime 09/20/15 Discontinued Carvedilol (Coreg) 12.5 Mg Tablet, 12.5 Mg Oral Twice Daily With Meals Discontinued Furosemide 20 Mg Tablet, 1 Tab Oral Daily as needed for Edema 03/25/14 Discontinued Hydrochlorothiazide 12.5 Mg Tablet, 12.5 Mg Oral Daily 02/14/11 Discontinued Insulin Detemir (Levemir Flextouch) 100 Unit/1 Ml Insuln.pen, 4 Unit Sub-Q Bedtime 08/04/16 Discontinued Insulin Detemir (Levemir Flextouch) 100 Unit/1 Ml Insuln.pen, 8 Unit Sub-Q Bedtime 09/15/15 Discontinued Linagliptin (Tradjenta) 5 Mg Tablet, 1 Tab Oral Daily 08/04/16 Discontinued Metformin Hcl 500 Mg Tablet, 500 Mg Oral Twice Daily With Meals 09/15/15 Discontinued Metformin Hcl 1,000 Mg Tablet, 1000 Mg Oral Twice A Day 02/14/11 Discontinued Metoprolol Tartrate 50 Mg Tablet, 50 Mg Oral Twice A Day 02/14/11 Discontinued Social History Social History Problem Response Recorded Date/Time Onset Date Status Hx Substance Use No 08/01/2016 11:04pm Not Applicable Not Applicable Hx Alcohol Use No 08/01/2016 11:04pm Not Applicable Not Applicable Has the pt used tobacco in the last 12 months No 08/10/2016 11:04am Not Applicable Not Applicable Tobacco Usage none 03/23/2014 6:45pm Not Applicable Not Applicable Query Response Start Date Stop Date Smoking Status Never smoker Hospital Discharge Instructions No hospital discharge instructions. Plan of Care Disposition 30 STILL A PATIENT Prescriptions See Medication Section Functional Status Query Response Date Recorded Mobility Status Ambulatory w/assist August 10, 2016 1:37pm Assistive Devices Front Wheeled Walker August 10, 2016 1:37pm Activity Limitations Weakness Pain August 10, 2016 1:37pm Feeding Ability Independent August 10, 2016 1:37pm Toileting Ability Assist August 10, 2016 1:37pm Grooming Ability Assist August 10, 2016 1:37pm Dressing Ability Assist August 10, 2016 1:37pm Driving Ability Dependent August 10, 2016 1:37pm Housework Ability Assist August 10, 2016 1:37pm Meal Preparation Ability Assist August 10, 2016 1:37pm Stair Climbing Ability Assist August 10, 2016 1:37pm Ability to complete ADL's impeded by Impaired Mobility August 10, 2016 1:37pm Cognitive/Perceptual Impairments Impaired vision August 10, 2016 1:37pm Visual Assistive Devices Glasses With patient August 10, 2016 1:37pm Preferred Method of Learning Demonstration Listening Hands on August 10, 2016 1:37pm Allergies, Adverse Reactions, Alerts No known allergies. Immunizations Query Response on File Recorded Date/Time Hx Influenza Vaccination Y 2015 ( a couple of months ago per pt.) 08/10/16 11 :04am Hx Pneumococcal Vaccination Y 2014 (per pt.) 08/10/16 11:04am Hx Influenza Vaccination Y 2015 ( a couple of months ago per pt.) 08/10/16 11 :04am Influenza Vaccine Hx 2015 (a couple of months ago per pt.) 08/10/16 11:10am Vital Signs Acute Vital Signs Vital Response Date/Time Temperature (Fahrenheit) 97.8 deg F (96.8 - 99.1) 08/13/2016 8:07am Temperature (Calculated Celsius) 36.27974 degrees C (36.0 - 37.3) 08/13/2016 8:07am Pulse Rate (adult) 69 bpm (60 - 100) 08/13/2016 8:07am Respiratory Rate 14 breaths/min (10 - 20) 08/13/2016 8:07am O2 Sat by Pulse Oximetry 95 % (90 - 100) 08/13/2016 8:07am Oxygen Delivery Method Room Air 08/13/2016 8:07am Fraction of Inspired Oxygen (FIO2) 21 % 08/02/2016 1:37am Blood Pressure 101/63 mm Hg 08/13/2016 8:07am Blood Pressure Source Automatic Cuff 08/13/2016 8:07am Height (Feet) 6 feet 08/12/2016 7:55pm Height (Inches) 0.00 inches 08/12/2016 7:55pm Weight (Kilograms) 74.800 kg 08/11/2016 1:31am Body Mass Index (BMI) 22.4 08/11/2016 1:31am Results Laboratory Results Test Name Result Units Flags Reference Collection Date/Time Result Date/ Time Comments Thyroid Stimulating Hormone (TSH) 2.77 MIU/L 0.47-4.68 08/02/2016 5: 01am 08/02/2016 6:31am Arterial Blood pH 7.380 7.350-7.450 08/04/2016 9:34am 08/04/2016 9: 46am Arterial Blood Partial Pressure CO2 36 MMHG 34-45 08/04/2016 9:34am 9:46am Arterial Blood pO2 at Patient Temp 92 MMHG 80-100 08/04/2016 9:34am 9:46am Arterial Blood HCO3 21 MEQ/L L 22-08/04/2016 9:34a08/04/2016 9: 46am Arterial Blood Total CO2 22.4 MEQ/L L 23-27 08/04/2016 9:34am 2016 9:46am Arterial Blood Base Excess -3.3 MMOL/L L -2.0-2.0 08/04/2016 9:34a 9:46am Arterial Blood Oxygen Saturation 97.0 % 95.0-98.0 08/04/2016 9:34am 9:46am Oxygen Delivery Method (LAB) ROOM AIR 08/04/2016 9:34a08/04/2016 9:46am Urine Random Creatinine 71.3 MG/DL 08/02/2016 2:39am 08/02/2016 3: 18am Urine Random Sodium 131 MEQ/L H 30-90 08/02/2016 2:39am 08/02/2016 3: 18am Urine Random Urea Nitrogen 738.0 MG/DL 08/02/2016 2:39am 08/02/2016 3 :18am Stool Occult Blood NEGATIVE 08/03/2016 9:59am 08/03/2016 10:12am Angiotensin Converting Enzyme 25 U/L 8 - 53 08/04/2016 4:42am 2016 2:35pm Test Performed by: [place] [address] Rn Documentation: Tima Fajardo II, M.D., Ph.D. DANIELLE performed at [facility], [address] [place] [address] Rod Buster Scotty Rosenthal MD Renin <0.6 ng/mL/h 08/04/2016 4:42am 08/08/2016 3:30pm ------REFERENCE VALUE (Peripheral vein specimen) Na-deplete, upright: . Mean: 5.9 . Range: 2.9-10.8 Na-replete, upright: . Mean: 1.0 . Range: < or=0.6-3.0 ADDITIONAL INFORMATION Testing performed by Liquid Chromatography-Tandem Mass Spectrometry (LC-MS/MS). This test was developed and its performance characteristics determined by [facility] in a manner consistent with CLIA requirements. This test has not been cleared or approved by the U.S. Food and Drug Administration. Test Performed by: [place] [address] Rn Documentation: Tima Fajardo II, M.D., Ph.D. Renin Activity performed at [facility], [address] [place] [address] Rod Buster Scotty Rosenthal MD Neutrophils % (Manual) 91.0 [...] 43am Red Cell Morphology Comment ABNORMAL 08/09/2016 5:08/09/2016 6 :43am Poikilocytosis 3+ 08/09/2016 5:08/09/2016 6:43am Ovalocytes 3+ 08/09/2016 5:17am 08/09/2016 6:43am [...] CLEAR 08/08/2016 2:40pm 08/08/2016 2:57pm Urine Specific [place] 1.015 1.015-1.025 08/08/2016 2:40pm 2016 2:57pm Urine [...] 08/08/2016 2:40pm 2016 3:03pm White Blood Count 6.4 T/MM3 4.5-11.0 08/13/2016 4:42am 08/13/2016 5: 13am Red Blood Count 2.95 M/MM3 L 4.50-5.90 08/13/2016 4:42am 08/13/2016 5: 13am Hemoglobin 8.5 GM/DL L 13.5-17.5 08/13/2016 4:42am 08/13/2016 5:13am Hematocrit 26.2 % L 41-53 08/13/2016 4:42am 08/13/2016 5:13am Mean Corpuscular Volume 88.8 UM3 80-100 08/13/2016 4:42am 08/13/2016 5: 13am Mean Corpuscular Hemoglobin 28.8 UUG 26-34 08/13/2016 4:42am 2016 5:13am Mean Corpuscular Hemoglobin Concent 32.4 GM/DL 31-37 08/13/2016 4:42am 08/13/2016 5:13am RDW Standard Deviation 44.8 FL 36.9-50.2 08/13/2016 4:42am 08/13/2016 5 :13am Platelet Count 303 T/MM3 130-400 08/13/2016 4:42am 08/13/2016 5:13am Mean Platelet Volume 10.3 UM3 9.4-12.4 08/13/2016 4:42am 08/13/2016 5: 13am Neutrophils (%) (Auto) 68.5 % H 33-66 08/13/2016 4:42am 08/13/2016 5: 13am Lymphocytes (%) (Auto) 18.4 % L 23-45 08/13/2016 4:42am 08/13/2016 5: 13am Monocytes (%) (Auto) 12.9 % H 0-9.0 08/13/2016 4:42am 08/13/2016 5:13am Eosinophils (%) (Auto) 0.2 % 0-4 08/13/2016 4:42am 08/13/2016 5:13am Basophils (%) (Auto) 0.0 % 0-2 08/13/2016 4:42am 08/13/2016 5:13am Immature Granulocyte % (Auto) 0.0 % 0.0-0.5 08/13/2016 4:42am 2016 5:13am Absolute Neutrophils (auto) 4.4 T/MM3 1.8-7.7 08/13/2016 4:42am 2016 5:13am Absolute Lymphocytes (auto) 1.2 T/MM3 1-4.8 08/13/2016 4:42am 2016 5:13am Absolute Monocytes (auto) 0.8 T/MM3 0-0.8 08/13/2016 4:42am 08/13/2016 5:13am Absolute Eosinophils (auto) 0.0 T/MM3 0-0.5 08/13/2016 4:42am 2016 5:13am Absolute Basophils (auto) 0.0 T/MM3 0-0.2 08/13/2016 4:42am 08/13/2016 5:13am Absolute Immature Granulocyte (auto 0.00 T/MM3 0.00-0.03 08/13/2016 4: 42am 08/13/2016 5:13am Prothromb Time International Ratio 2.55 H 0.76-1.04 08/13/2016 4:42am 08/13/2016 5:16am THERAPUTIC RANGE=2.00-3.00 FOR ANTI-THROMBOSIS THERAPUTIC RANGE=2.50-3.50 FOR IMPLANTED VALVE Icterus Index < 2 0-7 08/13/2016 4:42am 08/13/2016 5:23am Chemistry Specimen Hemolysis < 15 0-25 08/13/2016 4:42am 08/13/2016 5 :23am 0-25: Specimen Exhibited No Hemolysis. Turbidity < 20 0-20 08/13/2016 4:42am 08/13/2016 5:23am Sodium Level 137 MEQ/L 134-144 08/13/2016 4:42am 08/13/2016 5:23am Potassium Level 4.2 MEQ/L 3.6-5 08/13/2016 4:42am 08/13/2016 5:23am Chloride Level 106 MEQ/L 98-107 08/13/2016 4:42am 08/13/2016 5:23am Carbon Dioxide Level 24 MEQ/L 22-30 08/13/2016 4:42am 08/13/2016 5: 23am Anion Gap 7 MEQ/L 5-15 08/13/2016 4:42am 08/13/2016 5:23am Blood Urea Nitrogen 43.0 MG/DL H 9-20 08/13/2016 4:42am 08/13/2016 5: 23am Creatinine 1.4 MG/DL 0.8-1.5 08/13/2016 4:42am 08/13/2016 5:23am BUN/Creatinine Ratio 31 RATIO H 6-26 08/13/2016 4:42am 08/13/2016 5: 23am Glomerular Filtration Rate Calc 48 08/13/2016 4:42am 08/13/2016 5: 23am Glucose Level 149 MG/DL H 75-110 08/13/2016 4:42am 08/13/2016 5:23am Calculated Osmolality 278 MOSM/KG 261-280 08/13/2016 4:42am 08/13/2016 5:23am Calcium Level 8.6 MG/DL 8.4-10.2 08/13/2016 4:42am 08/13/2016 5:23am Total Bilirubin 0.90 MG/DL 0.20-1.30 08/13/2016 4:42am 08/13/2016 5: 23am Alkaline Phosphatase 82 U/L 38-126 08/13/2016 4:42am 08/13/2016 5:23am Total Protein 6.0 G/DL L 6.3-8.2 08/13/2016 4:42am 08/13/2016 5:23am Albumin 3.0 G/DL L 3.5-5.0 08/13/2016 4:42am 08/13/2016 5:23am Globulin 3.0 G/DL 2.4-3.6 08/13/2016 4:42am 08/13/2016 5:23am Albumin/Globulin Ratio 1.0 RATIO L 1.1-2.2 08/13/2016 4:42am 08/13/2016 5:23am Aspartate Amino Transf (AST/SGOT) 18 U/L 17-59 08/13/2016 4:42am 2016 5:23am Alanine Aminotransferase (ALT/SGPT) 31 U/L 21-72 08/13/2016 4:42am 12/2016 5:23am Glucometer 145 mg/dL H 75-110 08/13/2016 6:10am 08/13/2016 6:35am Microbiology Results Procedure Source Organism/Result Collection Date/Time [...] 06/26/16 Patsy subq tissue add-on Completed 06/26/16 610069"WOUND CLEANSERS, ANY TYPE, ANY SIZE" Completed 06/26/16 E&M LEVEL - FACILITY Completed 06/26/16 Patsy subq tissue 20 sq cm/< Completed [...] Completed 07/12/16 Smear gram stain Completed 07/12/16 829282"LESS, EACH DRESSING" Completed 07/12/16 618621"BORDER, EACH DRESSING" Completed 07/12/16 [id number]"EQUAL TO 48 SQ. IN., WITHOUT ADHESIVE BORDER, EACH DR Completed 012623"WOUND CLEANSERS, ANY TYPE, ANY SIZE" Completed 07/12/16 [id number] ITEM OR SERVICE Completed 07/12/16 E&M LEVEL - FACILITY Completed 07/12/16 Encounters Encounter Location Arrival/Admit Date Discharge/Depart Date Attending Provider Admitted Inpatient [facility] 08/10/16 10:16am ADELINE MUÑIZ MD Discharged Inpatient [facility] 08/09/16 3:15pm 08/10/16 10:15am NICHOLAS HENSON DO Discharged Inpatient [facility] 08/02/16 4:36pm 08/06/16 6:35pm NICHOLAS HENSON DO Registered [facility] 07/24/16 9:48am CRESENCIO HARDIN FACS, MD [facility] 07/12/16 9:49am REX FORD MD Registered [facility] 06/26/16 9:58am CRESENCIO HARDIN FACS, MD [facility] 06/20/16 4:59pm NICHOLAS HENSON DO
--- OUTSIDE RECORDS SUMMARY | 2016-11-06 11:48 | XMS REPORT | Continuity of Care Document ---
Author Author [facility] Organization [facility] Address Unknown Phone Unavailable Support Name Relationship Address Phone ALEX KEYS DO Caregiver [address] [place] [address] YESSI KAUFMAN MD Caregiver [address] [place] [id number] ALESSIA BANDA Caregiver [address] [place] [phone] ELVIRA HERANNDEZ Next Of Kin [address] [place], [place] [phone] Insurance Providers Payer Name Policy Number Subscriber Name Relationship Medicare [id number] Cresencio Hernandez 18 Self Mail Hand[employer] Benefit [id number] Cresencio Hernandez 18 Self Advance Directives Directive Response Recorded Date/Time Advanced Directives Type Living Will 03/23/14 5:22pm Ordered Resuscitation Status Full Code 03/23/14 4:59pm Resuscitation Documents on File No 03/23/14 6:02pm Chief Complaint and Reason for Visit Chief Complaint CHF Reason for Visit Dyspnea CHF (congestive heart failure) Dyspnea HTN (hypertension) Type 2 diabetes mellitus CAD (coronary artery disease) Dyslipidemia DVT (deep venous thrombosis) Acute on chronic systolic CHF (congestive heart failure) Problems Medical Problems Problem Onset Date Status Dyspnea Unknown Active CHF (congestive heart failure) Unknown Active Dyspnea Unknown Active HTN (hypertension) Unknown Active Type 2 diabetes mellitus Unknown Active CAD (coronary artery disease) Unknown Active Dyslipidemia Unknown Active DVT (deep venous thrombosis) Unknown Active Acute on chronic systolic CHF (congestive heart failure) 03/25/2014 Active Medications Medication Dose Route Sig Days/Qty Instructions Order Date Discontinued Date Status Metoprolol Tartrate 50 Mg PO TWICE A DAY 02/14/11 03/25/14 Discontinued Metformin Hcl 1,000 Mg PO TWICE A DAY 02/14/11 03/25/14 Discontinued Lisinopril 10 Mg PO DAILY 08/10/11 Active Atorvastatin Calcium 10 Mg PO BEDTIME 02/14/11 Active Glipizide 5 Mg PO DAILY 02/14/11 Active Hydrochlorothiazide 12.5 Mg PO DAILY 02/14/11 04/19/12 Discontinued Warfarin Sodium 7.5 Mg PO 1700 Take 1 tablet, by mouth, 1 time a day ( at 5 pm). 03/23/14 Active Aspirin 81 Mg PO DAILY For ASCAD 30 Days 03/25/14 Active Carvedilol 12.5 Mg PO TWICE DAILY WITH MEALS 60 Qty 03/25/14 Active Spironolactone 25 Mg PO DAILY 30 Days 03/25/14 Active Furosemide 1 Tab PO DAILY PRN EDEMA 30 Qty 03/25/14 Active Social History Social History Problem Response Recorded Date/Time Smoking Status Never smoker 03/23/2014 5:58pm Hx Alcohol Use No 03/23/2014 3:59pm Has the pt used tobacco in the last 12 months No 03/23/2014 5:58pm Query Response Start Date Stop Date Smoking Status Never smoker Hospital Discharge Instructions Instructions: Care Instructions: Reason for Hospitalization: Acute CHF I was in the hospital because (patient own words): "I was having congestion." Discharge Diet: 2000 KCAL ADA low sodium, may have 2 quarts fluid/day Discharge Activity: As tolerated Follow Up Appointments: Alessia Banda in 1 week --Need BMP and INR at that time WITH DR. REA 04/05 AT 3:30PM, OFFICE WILL CALL WITH FURTHER INFO Patient Instructions: Daily weight, take Lasix (furosemide) with increased edema of legs, weight gain greater than 2 pounds, or increased shortness of breath Condition at time of discharge: Good Blood Clot prevention 1.Take your anticoagulant (Aspirin, Coumadin, Lovenox,etc) as directed Driving 1.May drive in 4 weeks if you had your LEFT extremity operated on. 2.May drive in 6 weeks if you had your RIGHT extremity operated on. Wound/Incision Care: Tegaderm 1.Clear dressing is to remain in place for 2 weeks. 2.Do not pick at it or scrub it while showering. 3.If the dressing begins to pull up, secure it with 4x4 gauze pad and tape. 4.You may shower; however, do not submerge yourself in water until the incision is completely healed. Mepilex 1.Dressing to remain in place until your follow up appointment. 2.If this dressing starts peeling up slightly, it may be reinforced, if it peels excessively, notify your surgeon's office. 3.You may shower with the dressing in place, but do not submerge in water 4.Do not allow water to seep under the dressing, if it should seep under, remove the dressing and notify your surgeon. Notify Physician If: Call your Surgeon if you have: 1.Chest pain, difficulty breathing, fever>100.5 degrees, chills, heart rate >100, confusion, or persistent nausea/vomitting. 2.Severe pain, swelling, redness, or warmth in either of your legs. 3.During office hours, call [phone] 4. After hours, please call [facility] at [phone], and have the four corner former machine operator page your Surgeon IN THE EVENT OF AN EMERGENCY, seek medical care at the nearest Emergency Room Condition at time of discharge: Good Good Plan of Care Discharge Date 03/25/14 4:05pm Disposition 01 DISCHARGED HOME, SELF-CARE Instructions/Education Provided [facility] [place] Congestive Heart Failure Prescriptions See Medications Section Functional Status Query Response Date Recorded Physical Hygiene Self March 25, 2014 2:53pm Disabilities None March 25, 2014 2:53pm Devices Used None March 25, 2014 2:53pm Dressing Self March 25, 2014 2:53pm Ambulation Self March 25, 2014 2:53pm Diet Self March 25, 2014 2:53pm Mental Status Alert Oriented March 25, 2014 2:53pm Disabilities None March 25, 2014 2:53pm Devices Used None March 25, 2014 2:53pm Physical Hygiene Self March 25, 2014 2:53pm Dressing Self March 25, 2014 2:53pm Ambulation Self March 25, 2014 2:53pm Diet Self March 25, 2014 2:53pm Allergies, Adverse Reactions, Alerts Allergen Type Severity Reaction Status Last Updated No Known Allergies Active 03/23/14 Immunizations Name Given Type Hx Influenza Vaccination Y FALL 2012 Historical Hx Pneumococcal Vaccination No Historical Hx Influenza Vaccination Y FALL 2012 Historical Vital Signs Acute Vital Signs Vital Response Date/Time Temperature (Fahrenheit) 97.0 deg F (96.8 - 99.1) Temperature (Calculated Celsius) 36.02190 degrees C (36.0 - 37.3) Temperature Source Oral Pulse Rate (adult) 88 bpm (60 - 100) Respiratory Rate 16 breaths/min (10 - 20) Height 5 ft 11 in Weight 174 lb Body Mass Index 24.0 kg/m^2 Results Test Source Date Result Interp. Ref. Range Comments Activated Partial Thromboplast Time March 23, 2014 3:59pm 39.0 SEC H 24-36 Alanine Aminotransferase (ALT/SGPT) March 23, 2014 3:59pm 50 U/L N 21-72 Albumin March 23, 2014 3:59pm 3.6 G/DL N 3.5-5.0 Albumin/Globulin Ratio March 23, 2014 3:59pm 1.2 RATIO N 1.1-2.2 Alkaline Phosphatase March 23, 2014 3:59pm 101 U/L N 38-126 Anion Gap March 25, 2014 5:05am 10 MEQ/L N 5-15 Anisocytosis March 06, 2011 9:01am 1+ - Aspartate Amino Transf (AST/SGOT) March 23, 2014 3:59pm 40 U/L N 17- 59 BUN/Creatinine Ratio March 25, 2014 5:05am 19 RATIO N 6-26 Band Neutrophils # April 23, 2012 4:50am 0.3 T/MM3 - Band Neutrophils % April 23, 2012 4:50am 3.0 % N 0-6 Basophils # (Auto) March 25, 2014 5:05am 0.0 T/MM3 N 0-0.2 Basophils (%) (Auto) March 25, 2014 5:05am 0.2 % N 0-2 Blood Urea Nitrogen March 25, 2014 5:05am 30.0 MG/DL H 9-20 Calcium Level March 25, 2014 5:05am 9.3 MG/DL N 8.4-10.2 Calculated Osmolality March 25, 2014 5:05am 273 MOSM/KG N 261-280 Carbon Dioxide Level March 25, 2014 5:05am 31 MEQ/L H 22-30 Chemistry Specimen Hemolysis March 25, 2014 5:05am < 15 0-25 0-25 : No Hemolysis.26-70: Slight Hemolysis - can falsely elevate K and Urine Protein. 71-285: Moderate Hemolysis - can falsely elevate K, Troponin I, CA 19-9, PTH, CSF GLucose, and Urine Protein, and can falsely decrease Phenytoin. 286-999: Gross Hemolysis - can falsely elevate K, Troponin I, CA 19-9, PTH, CSF Glucose, and Urine Protine, and can falsely decrease Phenytoin. Recommend specimen recollection. Chloride Level March 25, 2014 5:05am 97 MEQ/L L 98-107 Cholesterol Level March 24, 2014 4:46am 117 MG/DL L 132-199 Cholesterol/HDL Ratio March 24, 2014 4:46am 3.7 RATIO N 0-5.0 Creatinine March 25, 2014 5:05am 1.6 MG/DL H 0.8-1.5 D-Dimer March 23, 2014 4:00pm 507 NG/ML H 0-224 <224 NG/ML= PRESUMPTIVE NEGATIVE FOR PE OR DVT>224 NG/ML=ADDITIONAL EVALUATION FOR PE OR DVT RECOMMENDED Eosinophils # (Auto) March 25, 2014 5:05am 0.2 T/MM3 N 0-0.5 Eosinophils # (Manual) April 23, 2012 4:50am 0.1 T/MM3 N 0-0.5 Eosinophils % (Manual) April 23, 2012 4:50am 1.0 % N 0-4 Eosinophils (%) (Auto) March 25, 2014 5:05am 1.6 % N 0-4 Erythrocyte Sedimentation Rate April 27, 2008 9:25am 8 MM/HR - Ferritin April 20, 2012 5:20am 270 NG/ML N 18-464 COMMENT janell Globulin March 23, 2014 3:59pm 3.0 G/DL N 2.4-3.6 Glomerular Filtration Rate Calc March 25, 2014 5:05am 42 - Glucometer March 25, 2014 10:55am 281 mg/dL H 75-110 Glucose Level March 25, 2014 5:05am 110 MG/DL N 75-110 HDL Cholesterol Direct March 24, 2014 4:46am 32 MG/DL L 40-60 Hematocrit March 25, 2014 5:05am 34.2 % L 41-53 Hemoglobin March 25, 2014 5:05am 11.2 GM/DL L 13.5-17.5 Hemoglobin A1c March 25, 2014 5:05am 5.8 % L 6-7 <6.0 NON-DIABETIC RANGE6.0-7.0 ADA THERAPEUTIC RANGE >7.0 ACTION SUGGESTED Icterus Index March 25, 2014 5:05am < 2 0-7 Immature Granulocyte # (Auto) March 25, 2014 5:05am 0.02 T/MM3 N 0.00-0.03 Immature Granulocyte % (Auto) March 25, 2014 5:05am 0.2 % N 0.0-0.5 Iron Level April 20, 2012 5:20am 28 UG/DL L 49-181 COMMENT janell LDL Cholesterol, Calculated March 24, 2014 4:46am 71.4 N 66-159 Lab Scanned Report April 29, 2012 11:05am REFERENCE LAB [id number] - Lymphocytes # (Auto) March 25, 2014 5:05am 1.4 T/MM3 N 1-4.8 Lymphocytes # (Manual) April 23, 2012 4:50am 1.6 T/MM3 N 1-4.8 Lymphocytes % (Manual) April 23, 2012 4:50am 14.0 % L 23-45 Lymphocytes (%) (Auto) March 25, 2014 5:05am 13.3 % L 23-45 Magnesium Level March 25, 2014 5:05am 1.6 MG/DL N 1.6-2.3 Mean Corpuscular Hemoglobin March 25, 2014 5:05am 29.6 UUG N 26-34 Mean Corpuscular Hemoglobin Concent March 25, 2014 5:05am 32.7 GM/DL N 31-37 Mean Corpuscular Volume March 25, 2014 5:05am 90.2 UM3 N 80-100 Mean Platelet Volume March 25, 2014 5:05am 9.8 UM3 N 9.4-12.4 Monocytes # (Auto) March 25, 2014 5:05am 1.3 T/MM3 H 0-0.8 Monocytes # (Manual) April 23, 2012 4:50am 1.2 T/MM3 H 0-0.8 Monocytes % (Manual) April 23, 2012 4:50am 11.0 % H 0-9.0 Monocytes (%) (Auto) March 25, 2014 5:05am 12.3 % H 0-9.0 QH-Utx-M-Type Natriuretic Peptide March 23, 2014 3:59pm 22742 PG/ML H 0-175 Rule in cut points: <50 years old=450; 50-75 years old=900; >75 years old=1800; When utilizing ProBNP rule-in cut points, adjustment for impaired renal function is typically not required. Neutrophils # (Auto) March 25, 2014 5:05am 7.7 T/MM3 N 1.8-7.7 Neutrophils # (Manual) April 23, 2012 4:50am 8.0 T/MM3 H 1.8-7.7 Neutrophils % (Manual) April 23, 2012 4:50am 71.0 % H 33-66 Neutrophils (%) (Auto) March 25, 2014 5:05am 72.4 % H 33-66 Ovalocytes March 06, 2011 9:01am 1+ - Platelet Count March 25, 2014 5:05am 419 T/MM3 H 130-400 Potassium Level March 25, 2014 5:05am 3.9 MEQ/L N 3.6-5 Prealbumin March 23, 2014 3:59pm 13.9 MG/DL L 17.6-36.0 Procalcitonin March 23, 2014 3:59pm < 0.05 NG/ML - PCT </=0.5 ng/ mL - sepsis not likely;PCT >0.5 and </=2 ng/mL - sepsis possible; PCT >2 ng/mL - sepsis likely; PCT >/=10 ng/mL - systemic inflammatory response - sepsis or septic shock highly indicated. Prostate Specific Antigen Screen April 27, 2008 9:25am 1.14 NG/ML N 0- 4.0 Prothromb Time International Ratio March 25, 2014 5:06am 2.88 H 0.81 -1.09 THERAPUTIC RANGE=2.00-3.00 FOR ANTI-THROMBOSIS THERAPUTIC RANGE=2.50- 3.50 FOR IMPLANTED VALVE RDW Standard Deviation March 25, 2014 5:05am 43.1 FL N 36.9-50.2 Red Blood Count March 25, 2014 5:05am 3.79 M/MM3 L 4.50-5.90 Sodium Level March 25, 2014 5:05am 138 MEQ/L N 134-144 Thyroid Stimulating Hormone (TSH) March 23, 2014 3:59pm 2.75 MIU/L N 0.47-4.68 COMMENT blood in lab Thyroxine (T4) April 27, 2008 9:25am 7.0 UG/DL N 5.5-11 Total Bilirubin March 23, 2014 3:59pm 0.80 MG/DL N 0.20-1.30 Total Iron Binding Capacity April 20, 2012 5:20am 210 UG/DL L 261-497 COMMENT janell Total Protein March 23, 2014 3:59pm 6.6 G/DL N 6.3-8.2 Triglycerides Level March 24, 2014 4:46am 68 MG/DL N 40-160 Troponin I March 24, 2014 10:19am 0.014 ng/ml N 0-0.12 Turbidity March 25, 2014 5:05am < 20 0-20 Urinalysis Comment March 23, 2014 5:05pm Microscopic not ind. - Has specimen been collected/obtained? Y Urine Bacteria April 27, 2008 9:25am Trace - Urine Bilirubin March 23, 2014 5:05pm Negative - Has specimen been collected/obtained? Y Urine Blood March 23, 2014 5:05pm Negative - Has specimen been collected/obtained? Y Urine Collection Type March 23, 2014 5:05pm Castellanos indwelling - Has specimen been collected/obtained? Y Urine Color March 23, 2014 5:05pm Yellow - Has specimen been collected/obtained? Y Urine Glucose (UA) March 23, 2014 5:05pm Negative - Has specimen been collected/obtained? Y Urine Ketones March 23, 2014 5:05pm Negative - Has specimen been collected/obtained? Y Urine Leukocyte Esterase March 23, 2014 5:05pm Negative - Has specimen been collected/obtained? Y Urine Nitrite March 23, 2014 5:05pm Negative - Has specimen been collected/obtained? Y Urine Protein March 23, 2014 5:05pm Negative - Has specimen been collected/obtained? Y Urine RBC April 20, 2012 12:20am Trace /HPF - Has specimen been collected/obtained? Y Urine Specific [place] March 23, 2014 5:05pm 1.020 - Has specimen been collected/obtained? Y Urine Squamous Epithelial Cells April 27, 2008 9:25am None seen - Urine Turbidity March 23, 2014 5:05pm Clear - Has specimen been collected/obtained? Y Urine Urobilinogen March 23, 2014 5:05pm 0.2 EU/DL - Has specimen been collected/obtained? Y Urine WBC April 20, 2012 12:20am None seen /HPF - Has specimen been collected/obtained? Y Urine pH March 23, 2014 5:05pm 6.0 - Has specimen been collected/ obtained? Y VLDL Cholesterol March 24, 2014 4:46am 13.6 MG/DL N 0-28 Venous Blood Lactate March 23, 2014 3:59pm 1.5 MMOL/L N 0.6-2.2 Vitamin B12 Level March 23, 2014 3:59pm 727 PG/ML N 239-931 White Blood Count March 25, 2014 5:05am 10.6 T/MM3 N 4.5-11.0 Blood Culture Blood March 23, 2014 4:00pm NO GROWTH AFTER 48 HOURS Name: CRESENCIO HERNANDEZ Unit #: [id number] : 1930 Sex: M Loc / Svc: SRG DOS: 03/23/14 Signed Report #: [id number] DIAGNOSTIC IMAGING REPORT TYPE OF EXAM: CHEST, PA & LATERAL Dictated By: BC ALICIA MD INDICATION: ITS.REASON: F/U pulm edema CHEST 2-VIEWS UPRIGHT (PA & LAT): COMPARISON: March 23, 2014 FINDINGS: Congestive failure has improved with resolution of the pulmonary edema. Effusions are smaller. No new airspace consolidation. Heart size and mediastinal contours are unchanged. Impression: Improving congestive failure. . Procedures No known history of procedures. Encounters Encounter Location Date/Time Discharged Inpatient [facility] 03/23/14 5:21pm Recent Diagnosis Dyspnea CHF (congestive heart failure) Dyspnea HTN (hypertension) Type 2 diabetes mellitus CAD (coronary artery disease) Dyslipidemia DVT (deep venous thrombosis) Acute on chronic systolic CHF (congestive heart failure)
--- OUTSIDE RECORDS SUMMARY | 2016-11-06 11:49 | XMS REPORT ---
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
[2016-11-06] MEDS ORDERED: PIPERACILLIN/TAZOBACTAM 3.375 G in NORMAL SALINE 100 ML IV SCH (12:00)
[2016-11-06] MEDS ORDERED: ONDANSETRON 4mg/2ml INJECTION IV PRN (12:00)
[2016-11-06] MEDS ORDERED: MORPHINE SULFATE 2 MG SYRINGE IV PRN (12:00)
[2016-11-06] MEDS ORDERED: FOLIC ACID PO (12:08)
[2016-11-06] MEDS ORDERED: CARV25TA2 PO (12:08)
[2016-11-06] MEDS ORDERED: LINA5TAB PO (12:08)
[2016-11-06] MEDS ORDERED: ASPI-557 PO (12:08)
[2016-11-06 12:14] LABS: BASOPHILS % (AUTO) 0.4 % (0-2); EOSINOPHILS # (AUTO) 0.4 T/MM3 (0-0.5); EOSINOPHILS % (AUTO) 4.4 % (0-4); HCT - HEMATOCRIT 26.7 % (41-53); HGB - HEMOGLOBIN 8.7 GM/DL (13.5-17.5); IMMATURE GRANULOCYTE # (AUTO) 0.01 T/MM3 (0.00-0.03); IMMATURE GRANULOCYTE % (AUTO) 0.1 % (0.0-0.5); LYMPHOCYTES # (AUTO) 1.2 T/MM3 (1-4.8); LYMPHOCYTES % (AUTO) 14.9 % (23-45); MEAN CORPUSCULAR HGB 29.1 UUG (26-34); MEAN CORPUSCULAR HGB CONC(MCHC 32.6 GM/DL (31-37); MEAN CORPUSCULAR VOLUME 89.3 UM3 (80-100); MEAN PLATELET VOLUME 9.4 UM3 (9.4-12.4); MONOCYTES # (AUTO) 0.8 T/MM3 (0-0.8); MONOCYTES % (AUTO) 9.7 % (0-9.0); NEUTROPHILS #(AUTO)-ABSOLUTE 5.8 T/MM3 (1.8-7.7); NEUTROPHILS % (AUTO) 70.5 % (33-66); RED BLOOD COUNT 2.99 M/MM3 (4.50-5.90); WBC - WHITE BLOOD COUNT 8.3 T/MM3 (4.5-11.0)
[2016-11-06 12:23] LABS: ALBUMIN 3.3 G/DL (3.5-5.0); ALKALINE PHOSPHATASE 96 U/L (38-126); ALT (SGPT) 23 U/L (21-72); ANION GAP 11 MEQ/L (5-15); AST (SGOT) 14 U/L (17-59); BUN/CREATININE RATIO 27 RATIO (6-26); CHLORIDE 105 MEQ/L (98-107); CO2 - CARBON DIOXIDE 25 MEQ/L (22-30); CREATININE 1.7 MG/DL (0.8-1.5); GLOMERULAR FILTRATION RATE 38; GLUCOSE 176 MG/DL (75-110); MAGNESIUM 2.3 MG/DL (1.6-2.3); POTASSIUM 4.4 MEQ/L (3.6-5); SODIUM 141 MEQ/L (134-144); TOTAL PROTEIN 6.7 G/DL (6.3-8.2)
[2016-11-06 12:30] LABS: PREALBUMIN 9.8 MG/DL (17.6-36.0)
[2016-11-06 13:00] VITALS: PULSE 77; RESP 18
[2016-11-06 13:15] LABS: INR 1.72 (0.76-1.04); PROTHROMBIN TIME 18.7 SEC (9.31-12.49)
[2016-11-06] MEDS ORDERED: VANCOMYCIN 2,000 MG in NORMAL SALINE 500 ML IV SCH (13:15)
--- NOTE | 2016-11-06 13:19 | HPPDOC ---
PHOEBE MORALES APRN 11/06/16 1249: HPI - Adult Date DATE: 11/06/16 TIME: 12:33 General Chief Complaint: Right lower extremity wound History of Present Illness Tim is a pleasant 86 yr old gentleman who has been under the care of Dr Mcqueen for primary care. He has [place] [facility] [place] as a outpatient for ongoing wound treatment. Today he presented for evaluation by Dr Campbell and was found to have extension of the wound to the right lower ext. . The hospitalist services, Dr. Perkins was contacted directly for direct admission as an inpatient for ongoing acute evaluation and treatment. All admission laboratory studies are pending except for a wound culture taking from the right heel on 10/31/16. C/S reveled Enterobacter Cloacae, Enterococ Facalis, Strep Mitis/Oralis, and Anaerocuccus Prevotii. Tim is seen on initial examination, and is alert and oriented. He reports started outpatient wound treatment last fall, however, recently has been "doctoring it at home" using oxide. Posterior right heel wound extends to the Achilles tendon. Domo has a known history of Diabetes and last documented H[place] [facility] [place]. At this time is was 6.3. Vital signs on admission temperature 96.4, pulse 77, respiration 18, blood pressure 1 5464, room air saturations 100%. We did discuss advanced directives and patient does wish to be a full code. 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 Sinoatrial node dysfunction s/p pacemaker Chronic VTE and anticoagulation. INR goal from 2.0 to 3.0. Coronary artery disease Heriditary spherocytosis and chronic anemia DVT Chronic kidney disease secondary to the above Cataracts in the past Chronic peripheral vascular disease Mononeuritis multiplex Surgical History Patient's Surgical History: Pacemaker placement in 2014 ORIF Right femur- Dr Damico (2011) Coronary stent- 09/2015 (Dr Cole Quezada) Cataract repair in left eye Current Medications Home Meds Active Scripts Furosemide (Furosemide) 20 Mg Tablet, 20 MG PO DAILY for 30 Days, #30 TAB Prov:PHOEBE MORALES APRN 08/17/16 Warfarin Sodium (Jantoven) 4 Mg Tablet, 4 MG PO NOON for 10 Days, #30 TAB Prov:PHOEBE MORALES V PROCEDURE RN 08/17/16 Insulin Glargine,Hum.rec.anlog (Lantus) 100 Unit/Ml Inj, 8 UNIT SQ HS for 30 Days, #1 2 Refills Prov:NICHOLAS MCQUEEN DO 08/10/16 Docusate Sodium (Colace) 100 Mg Capsule, 100 MG PO BID Y for CONSTIPATION for 30 Days, #60 CAP 2 Refills schedule until patient has a bowel movement. hold for loose stools. Prov:NICHOLAS MCQUEEN DO 08/10/16 Tamsulosin HCl (Flomax) 0.4 Mg Capsule, 0.4 MG PO HS for 30 Days, #30 CAP 5 Refills Take 1 capsule, by mouth, one time a day at BEDTIME. Prov:NICHOLAS MCQUEEN DO 08/04/16 Reported Medications Capsaicin (Capsaicin) 42.5 Gm Cream..g., 1 APPLIC TOP PRN Y for ARTHRITIS, G 11/06/16 Omeprazole (Omeprazole) 20 Mg Capsule.dr, 20 MG PO ACB, CAP Take 1 capsule, by mouth, one time a day (before breakfast). 11/06/16 Folic Acid (Folic Acid) 1 Mg Tablet, 1 TAB PO NOON, TAB 11/06/16 Aspirin (Aspir 81) 81 Mg Tablet.dr, 1 TAB PO HS, TAB 11/06/16 Linagliptin (Tradjenta) 5 Mg Tablet, 1 TAB PO DAILY, TAB 11/06/16 Carvedilol (Carvedilol) 25 Mg Tablet, 1 TAB PO BIDWM, TAB BEST WITH FOOD. 11/06/16 Discontinued Scripts Carvedilol (Coreg) 12.5 Mg Tablet, 25 MG PO BIDWM for 30 Days, #120 TAB 5 Refills Prov:NICHOLAS MCQUEEN DO 08/06/16 Allergies: Coded Allergies: No Known Allergies (Unverified , 11/06/16) Family History Family History: Family hx of DM Social History Smoking Status: Never smoker Does patient use chewing tobac: No Second Hand Exposure: No Substance Use Type: does not use Alcohol Intake: none Sexuality: female partner Current Occupational Status: retired Advance Directives: Yes DPOA for Healthcare Only, Yes Full Code Social History Comments PCP Dr Mcqueen Review of Systems Integumentary Skin: infections (RLE wound), see HPI, ulcers All Other Systems All Other Systems: Reviewed (remainder of 10-point ROS Neg.) Physical Exam General General Nourishment: well nourished, well developed Vital Signs Vital Signs Date Time Temp Pulse Resp B/P Pulse Ox O2 Delivery O2 Flow Rate FiO2 11/06/16 11:39 96.4 77 18 154/64 100 Room Air Height (Feet): 6 Height (Inches): 0.00 ENMT Brief: FOUND: mucosa moist, normal dentition, NOT FOUND: pharnyx erythema Neck Brief: NOT FOUND: adenopathy Respiratory Brief: FOUND: clear all miller, equal bilaterally Cardiovascular (brief) Cardiac Brief: FOUND: regular rate, regular rhythm, NOT FOUND: murmur, pedal edema Abdomen (brief) Abdominal Brief: FOUND: BS normo active x4, soft, NOT FOUND: distended, tender Integumentary (brief) Integumentary Brief: FOUND: dry, pink, warm Neurologic RN Documented GCS Eye Opening: Verbal: Motor: Total: Laboratory Laboratory Tests Test 11/06/16 12:06 White Blood Count 8.3T/MM3 Red Blood Count 2.99M/MM3 Hemoglobin 8.7GM/DL Hematocrit 26.7% Mean Corpuscular Volume 89.3UM3 Mean Corpuscular Hemoglobin 29.1UUG Mean Corpuscular Hemoglobin Concent 32.6GM/DL RDW Standard Deviation 43.5FL Platelet Count 344T/MM3 Mean Platelet Volume 9.4UM3 Immature Granulocyte % (Auto) 0.1% Neutrophils (%) (Auto) 70.5% Lymphocytes (%) (Auto) 14.9% Monocytes (%) (Auto) 9.7% Eosinophils (%) (Auto) 4.4% Basophils (%) (Auto) 0.4% Absolute Immature Granulocyte (auto 0.01T/MM3 Absolute Neutrophils (auto) 5.8T/MM3 Absolute Lymphocytes (auto) 1.2T/MM3 Absolute Monocytes (auto) 0.8T/MM3 Absolute Eosinophils (auto) 0.4T/MM3 Absolute Basophils (auto) 0.0T/MM3 Turbidity < 20 Sodium Level 141MEQ/L Potassium Level 4.4MEQ/L Chloride Level 105MEQ/L Carbon Dioxide Level 25MEQ/L Anion Gap 11MEQ/L Blood Urea Nitrogen 45.0MG/DL Creatinine 1.7MG/DL Glomerular Filtration Rate Calc 38 BUN/Creatinine Ratio 27RATIO Glucose Level 176MG/DL Calculated Osmolality 287MOSM/KG Calcium Level 9.0MG/DL Magnesium Level 2.3MG/DL Total Bilirubin 0.70MG/DL Icterus Index < 2 Aspartate Amino Transf (AST/SGOT) 14U/L Alanine Aminotransferase (ALT/SGPT) 23U/L Alkaline Phosphatase 96U/L Total Protein 6.7G/DL Albumin 3.3G/DL Globulin 3.4G/DL Albumin/Globulin Ratio 1.0RATIO Prealbumin 9.8MG/DL Plasma Lactate 1.0MMOL/L Chemistry Specimen Hemolysis < 15 Assessment & Plan Problems: (1) Diabetes with ulcer of lower extremity Status: Acute Assessment & Plan: Present on admission, Right lower ext. Failed outpatient treatment (2) Diabetes mellitus Status: Chronic Qualifiers: Diabetes mellitus type: type 2 (3) CAD (coronary artery disease) Status: Chronic (4) CHF (congestive heart failure) Status: Chronic Qualifiers: Congestive heart failure type: diastolic Congestive heart failure chronicity: chronic Qualified Codes: I50.32 - Chronic diastolic (congestive) heart failure (5) Dyslipidemia Status: Chronic (6) CKD (chronic kidney disease), stage III Status: Chronic (7) Ischemic cardiomyopathy Status: Chronic (8) HS (hereditary spherocytosis) Status: Chronic (9) Chronic anemia Status: Chronic (10) Peripheral vascular disease Status: Chronic (11) DVT (deep venous thrombosis) Status: Chronic (12) Neuropathy Status: Chronic (13) Anticoagulated Status: Chronic Assessment & Plan: Chronically on Coumadin (14) Hx of cataract Status: Resolved Plan/Intensity of Service Admit patient to inpatient status under the care of Dr. Perkins for right lower extremity wound, diabetic ulcer, failed outpatient treatment. On admission, we will obtain the following laboratory studies. CBC, CMP, magnesium, pro calcitonin, pre-albumin, venous lactate, blood culture 2. Will initiate IV Zosyn and Vancomycin for antimicrobial coverage of all 4 pathogens found in wound culture from 10/31/16. Place consult to Dr Castorena to infectious disease treatment recommendations Consult to Dr Campbell for further surgical and wound management Will obtain a hemoglobin A1c for diabetes surveillance. Monitor Accu-Cheks, and continue with home insulin including Lantus 8 units at at bedtime. Will also continue with Tradjenta by mouth daily Given chronic anticoagulation will obtain an INR. Will need to discuss anticoagulation further with Dr Perkins and surgical team. May need to switch to Lovenox if patient will potentially have a surgical procedure. Zofran as needed for nausea and Morphine as needed for pain control SCD to LLE for DVT prophylaxis. Recheck CBC and BMP tomorrow morning to follow blood counts, renal function and electrolytes At time of discharge medical care is to return to PCP Dr Mcqueen at [facility] Code Status Full Code Hospital Course Summary Disclaimer The hospital course summary below is not to be considered part of the above Progress Note. Hospital Course Summary Admit patient to inpatient status under the care of Dr. Perkins for right lower extremity wound, diabetic ulcer, failed outpatient treatment. On admission, we will obtain the following laboratory studies. CBC, CMP, magnesium, pro calcitonin, pre-albumin, venous lactate, blood culture 2. Will initiate IV Zosyn and Vancomycin for antimicrobial coverage of all 4 pathogens found in wound culture from 10/31/16. Place consult to Dr Castorena to infectious disease treatment recommendations Consult to Dr Campbell for further surgical and wound management Will obtain a hemoglobin A1c for diabetes surveillance. Monitor Accu-Cheks, and continue with home insulin including Lantus 8 units at at bedtime. Will also continue with Tradjenta by mouth daily Given chronic anticoagulation will obtain an INR. Will need to discuss anticoagulation further with Dr Perkins and surgical team. May need to switch to Lovenox if patient will potentially have a surgical procedure. Zofran as needed for nausea and Morphine as needed for pain control SCD to LLE for DVT prophylaxis. Recheck CBC and BMP tomorrow morning to follow blood counts, renal function and electrolytes At time of discharge medical care is to return to PCP Dr Mcqueen at [facility] YESSI PERKINS MD 11/06/16 1627: Past Medical History Current Medications Home Meds Active Scripts Furosemide (Furosemide) 20 Mg Tablet, 20 MG PO DAILY for 30 Days, #30 TAB Prov:PHOEBE MORALES APRN 08/17/16 Warfarin Sodium (Jantoven) 4 Mg Tablet, 4 MG PO NOON for 10 Days, #30 TAB Prov:PHOEBE MORALES APRN 08/17/16 Insulin Glargine,Hum.rec.anlog (Lantus) 100 Unit/Ml Inj, 8 UNIT SQ HS for 30 Days, #1 2 Refills Prov:NICHOLAS MCQUEEN DO 08/10/16 Docusate Sodium (Colace) 100 Mg Capsule, 100 MG PO BID Y for CONSTIPATION for 30 Days, #60 CAP 2 Refills schedule until patient has a bowel movement. hold for loose stools. Prov:NICHOLAS MCQUEEN DO 08/10/16 Tamsulosin HCl (Flomax) 0.4 Mg Capsule, 0.4 MG PO HS for 30 Days, #30 CAP 5 Refills Take 1 capsule, by mouth, one time a day at BEDTIME. Prov:NICHOLAS MCQUEEN DO 08/04/16 Reported Medications Capsaicin (Capsaicin) 42.5 Gm Cream..g., 1 APPLIC TOP PRN Y for ARTHRITIS, G 11/06/16 Omeprazole (Omeprazole) 20 Mg Capsule.dr, 20 MG PO ACB, CAP Take 1 capsule, by mouth, one time a day (before breakfast). 11/06/16 Folic Acid (Folic Acid) 1 Mg Tablet, 1 TAB PO NOON, TAB 11/06/16 Aspirin (Aspir 81) 81 Mg Tablet.dr, 1 TAB PO HS, TAB 11/06/16 Linagliptin (Tradjenta) 5 Mg Tablet, 1 TAB PO DAILY, TAB 11/06/16 Carvedilol (Carvedilol) 25 Mg Tablet, 1 TAB PO BIDWM, TAB BEST WITH FOOD. 11/06/16 Discontinued Scripts Carvedilol (Coreg) 12.5 Mg Tablet, 25 MG PO BIDWM for 30 Days, #120 TAB 5 Refills Prov:NICHOLAS MCQUEEN DO 08/06/16 Allergies: Coded Allergies: No Known Allergies (Unverified , 11/06/16) Assessment & Plan Problems: (1) Diabetes with ulcer of lower extremity Status: Acute Assessment & Plan: Present on admission, Right lower ext. Failed outpatient treatment (2) Diabetes mellitus Status: Chronic Qualifiers: Diabetes mellitus type: type 2 (3) CAD (coronary artery disease) Status: Chronic (4) CHF (congestive heart failure) Status: Chronic Qualifiers: Congestive heart failure type: diastolic Congestive heart failure chronicity: chronic Qualified Codes: I50.32 - Chronic diastolic (congestive) heart failure Assessment & Plan: EF 45% last ECHO (5) Ischemic cardiomyopathy Status: Chronic (6) Dyslipidemia Status: Chronic (7) CKD (chronic kidney disease), stage III Status: Chronic (8) HS (hereditary spherocytosis) Status: Chronic (9) Chronic anemia Status: Chronic (10) Peripheral vascular disease Status: Chronic (11) DVT (deep venous thrombosis) Status: Chronic (12) Neuropathy Status: Chronic (13) Anticoagulated Status: Chronic Assessment & Plan: Chronically on Coumadin (14) Hx of cataract Status: Resolved Plan/Intensity of Service Have independently interviewed and examined pt. Chart reviewed. Case discussed with Dr Campbell and my PROCEDURE RN. Care plan developed with my supervision; agree with above. Struggling with a wound on his lower right leg. Not having much pain or discomfort-sometimes feels a 'zig' of pain, but overall not too bothersome. No f /c/sweats. Seen in wound clinic today and Dr Campbell felt wound needed more intensive care than what could be provided in the outpatient setting. Recommending further debridement and wound vac placement. Medically, has been feeling well. Breathing stable-not having SOA, cough or congestion. No chest pressure or pain. Denies ab pain, nausea or decreased appetite. Stools slow at times, but nothing problematic. No urinary symptoms. Lungs: clear CV: regular AB: soft nt/nd +BS MSE: awake alert appropriate; communicates well Plan: Inpatient admission for treatment of leg wound. IV Zosyn and Vanco for coverage-will consult with Dr Castorena for antimicrobial recommendations. PICC line placement due to use of Vancomycin. Consult with Dr Campbell for wound evaluation and treatments. Continue home medications - will hold Coumadin initially due to need for debridement. Monitor blood sugars. Monitor blood counts - will check Iron and Ferritin due to anemia. Continue home medications. DVT Prophylaxis: SCD'S, Coumadin PHOEBE MORALES APRN November 06, 2016 12:49 YESSI PERKINS MD November 06, 2016 16:27
--- NOTE | 2016-11-06 14:08 | NUR ---
VANCOMYCIN CONSULT: Dx: RIGHT FOOT WOUND Current Renal Fx: SCr = 1.7mg/dl. Will give Vancomycin 1,500mg loading dose then 1,000mg ivpb q24h. Will continue to monitor and adjust regimen to maintain therapeutic levels. Thank you.
[2016-11-06] MEDS ORDERED: FOLI1TAB15 PO (14:18)
[2016-11-06] MEDS ORDERED: CAPS42.57 TOP (14:18)
[2016-11-06] MEDS ORDERED: OMEP20CA10 PO (14:18)
[2016-11-06] MEDS ORDERED: VANCOMYCIN 1,500 MG in NORMAL SALINE 500 ML IV ONE ×2 (15:00→17:00)
[2016-11-06] MEDS ORDERED: VANCOMYCIN 1,000 MG in NORMAL SALINE 250 ML IV SCH (15:00)
--- NOTE | 2016-11-06 15:34 | PDWOUND ---
Wound Documentation Wound Management Wound : Location Modifier: Posterior, Proximal Wound Location: Foot (Right achilles tendon) Wound Dressing Frequency: two times per week Wound Duration: three weeks Wound Dressing Status: FOUND: Moist Wound Drainage Amount: Moderate Wound Drainage Description: Serous Wound Drainage Odor: None/Absent Wound General Appearance: FOUND Tendon Visible, FOUND Unapproximated Wound Bed: slough Periwound Description: erythematous Wound Length (cm): 4.7 Wound Width (cm): 3 Wound Depth (cm): 0.4 Exposed: tendon Wound Cleanser: NS Wound Solution/Irrigant: Saline Irrigant Wound Packing Type: FOUND: Black Foam Wound Primary Dressing Type: Clear Adhesive Cover Comments Pt know to the wound clinic. At this time wound measurements obtained, skin prepped with barrier, vac drape, black veraflow cleanse applied to wound bed and covered with clear occlusive drsg. Sensor track applied good suction obtained, instill NS 20ml to dwell for 10mins every 3 1/2 hrs . pt tolerated procedure well. LUZ MUSA RN November 06, 2016 15:33
[2016-11-06 15:44] VITALS: BP 142/55; PULSE 84; RESP 16; TEMP 97; O2SAT 96
[2016-11-06] MEDS ORDERED: MAG-AL + SIM LIQUID 30 ML UDC PO PRN (15:45)
[2016-11-06] MEDS ORDERED: MILK OF MAGNESIA 30 ML SUSP PO PRN (15:45)
[2016-11-06] MEDS ORDERED: POLYETHYL.GLYCOL 3350 PACKET 17gm PO PRN (15:45)
[2016-11-06] MEDS ORDERED: BISACODYL 10 MG SUPPOSITORY RECTALLY PRN (15:45)
[2016-11-06] MEDS ORDERED: NITROGLYCERIN 0.4 MG SUBLINGUAL TABLET SL PRN (15:45)
[2016-11-06] MEDS ORDERED: PRN ORDERS MC (15:45)
[2016-11-06] MEDS: PIPERACILLIN/TAZOBACTAM 2.25 G in NORMAL SALINE 100 ML IV SCH ×2 (16:09→21:23)
--- NOTE | 2016-11-06 17:09 | CONSPD ---
Consultation Info Date DATE: 11/06/16 TIME: 17:04 Date of Consultation: November 06, 2016 Attending Physician: Hospitalist team Reason for Consultation: wound HPI - Adult Date DATE: 11/06/16 TIME: 17:04 General Chief Complaint: Right lower extremity wound History of Present Illness Per Dr. 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 Sinoatrial node dysfunction s/p pacemaker Chronic VTE and anticoagulation. INR goal from 2.0 to 3.0. Coronary artery disease Heriditary spherocytosis and chronic anemia DVT Chronic kidney disease secondary to the above Cataracts in the past Chronic peripheral vascular disease Mononeuritis multiplex Surgical History Patient's Surgical History: Pacemaker and stents in 2014 ORIF Right femur- Dr Damico (2011) Coronary stent- 09/2015 (Dr Cole Quezada) Cataract repair in left eye Current Medications Home Meds Active Scripts Furosemide (Furosemide) 20 Mg Tablet, 20 MG PO DAILY for 30 Days, #30 TAB Prov:PHOEBE MORALES V FLOSSER 08/17/16 Warfarin Sodium (Jantoven) 4 Mg Tablet, 4 MG PO NOON for 10 Days, #30 TAB Prov:PHOEBE MORALES V FLOSSER 08/17/16 Insulin Glargine,Hum.rec.anlog (Lantus) 100 Unit/Ml Inj, 8 UNIT SQ HS for 30 Days, #1 2 Refills Prov:NICHOLAS HENSON DO 08/10/16 Docusate Sodium (Colace) 100 Mg Capsule, 100 MG PO BID Y for CONSTIPATION for 30 Days, #60 CAP 2 Refills schedule until patient has a bowel movement. hold for loose stools. Prov:NICHOLAS HENSON DO 08/10/16 Tamsulosin HCl (Flomax) 0.4 Mg Capsule, 0.4 MG PO HS for 30 Days, #30 CAP 5 Refills Take 1 capsule, by mouth, one time a day at BEDTIME. Prov:NICHOLAS HENSON DO 08/04/16 Reported Medications Capsaicin (Capsaicin) 42.5 Gm Cream..g., 1 APPLIC TOP PRN Y for ARTHRITIS, G 11/06/16 Omeprazole (Omeprazole) 20 Mg Capsule.dr, 20 MG PO ACB, CAP Take 1 capsule, by mouth, one time a day (before breakfast). 11/06/16 Folic Acid (Folic Acid) 1 Mg Tablet, 1 TAB PO NOON, TAB 11/06/16 Aspirin (Aspir 81) 81 Mg Tablet.dr, 1 TAB PO HS, TAB 11/06/16 Linagliptin (Tradjenta) 5 Mg Tablet, 1 TAB PO DAILY, TAB 11/06/16 Carvedilol (Carvedilol) 25 Mg Tablet, 1 TAB PO BIDWM, TAB BEST WITH FOOD. 11/06/16 Discontinued Scripts Carvedilol (Coreg) 12.5 Mg Tablet, 25 MG PO BIDWM for 30 Days, #120 TAB 5 Refills Prov:NICHOLAS HENSON DO 08/06/16 Allergies: Coded Allergies: No Known Allergies (Unverified , 11/06/16) Family History Family History: Family hx of DM Social History Smoking Status: Never smoker Does patient use chewing tobac: No Second Hand Exposure: No Substance Use Type: does not use Alcohol Intake: none Sexuality: female partner Current Occupational Status: retired Advance Directives: Yes DPOA for Healthcare Only, Yes Full Code GS Review of Systems Gastrointestional REPORTS constipation Musculoskeletal REPORTS joint pain Neurological REPORTS muscle weakness Endocrine REPORTS diabetes Hematologic REPORTS easy bruising, REPORTS history of blood clots, REPORTS use of blood thinners 10-point Review of Systems otherwise negative except HPI GS Physical Exam Vital Signs Date Time Temp Pulse Resp B/P Pulse Ox O2 Delivery O2 Flow Rate FiO2 11/06/16 15:44 97.0 84 16 142/55 96 Room Air Height (Feet): 6 Height (Inches): 0.00 Weight (Kilograms): 75.200 BMI 22.5 Wound Management Wound : Location Modifier: Posterior, Proximal Wound Location: Foot (Right achilles tendon) Wound Dressing Frequency: two times per week Wound Duration: three weeks Wound Dressing Status: FOUND: Moist Wound Drainage Amount: Moderate Wound Drainage Description: Serous Wound Drainage Odor: None/Absent Wound General Appearance: FOUND Tendon Visible, FOUND Unapproximated Wound Bed: slough Periwound Description: erythematous Wound Length (cm): 4.7 Wound Width (cm): 3 Wound Depth (cm): 0.4 Exposed: tendon Wound Cleanser: NS Wound Solution/Irrigant: Saline Irrigant Wound Packing Type: FOUND: Black Foam Wound Primary Dressing Type: Clear Adhesive Cover Laboratory Laboratory Tests 11/06/16 12:06 Laboratory Tests 11/06/16 12:06 FLORENTINO MCCALL APRN November 06, 2016 17:07
[2016-11-06 17:20] VITALS: PULSE 84; RESP 16; O2SAT 96
[2016-11-06] MEDS: CARVEDILOL 25 MG TABLET PO SCH (18:45)
--- NOTE | 2016-11-06 19:13 | CONSF ---
DATE OF CONSULTATION November 06, 2016 FINDINGS Mr. Hernandez is an 86-year-old gentleman who is well known to my wound care practice. I saw the patient earlier in our wound center in followup in regards to a wound involving his right anterior tibial surface as well as a new wound that had recently begun to develop involving the right posterior heel/Achilles region. The patient was noted upon entering the wound center today that he was "limping" to a greater extent than usual. The patient's inform me that the "wound was looking worse" involving the posterior heel region. Tim denied any increasing pain or discomfort associated with the wound. He denied any element of fever or chills. PAST MEDICAL HISTORY, PAST SURGICAL HISTORY, MEDICATIONS, ALLERGIES, SOCIAL HISTORY, FAMILY HISTORY, REVIEW OF SYSTEMS Performed by my nurse practitioner, Rigo Decker APRN. PHYSICAL EXAMINATION GENERAL: Mr. Hernandez is an 86-year-old male whom I saw earlier today in our wound center. He did not appear to be in acute distress. VITAL SIGNS: Last recorded vitals include temperature 97.0, pulse 64, respirations 16, blood pressure 142/55, SAO2 96% on room air. HEENT: Normocephalic. PERRL. NECK: Supple. Without lymphadenopathy. CHEST: Clear to auscultation bilaterally. HEART: Regular rate and rhythm. Normal S1 and S2 without gallops, murmurs or clicks. ABDOMEN: Palpation of the abdomen reveals it to be soft and nontender. I do not appreciate any evidence for hepatosplenomegaly or other abnormal masses. EXTREMITIES: Attention was focused to the right lower extremity. The wound involving the right anterior tibial surface has made marked improvement. There is reepithelialization occurring. There is no necrotic material present. Attention was then focused to the wound involving the right posterior heel/Achilles region. Unfortunately, there was liberty purulence coming forth from the wound. There has been significant progression of necrosis involving the wound. A good portion of the Achilles tendon was frankly necrotic. There was a component of some periwound erythema. NEURO: Cranial nerves II-XII grossly intact. Patient is without focal motor or sensory deficits. LABORATORY/RADIOGRAPHIC EVALUATION The patient had a CBC upon admission and was found to be anemic with a hemoglobin of 8.7. He did not have marked leukocytosis with a white count of 8.3. CMP was obtained as well as a CRP. Creatinine was elevated with a BUN and creatinine of 45.0 and 1.7, respectively. Blood sugar was elevated at 176. CRP was elevated at 119. INR was 1.72. The patient had blood cultures obtained upon admission. The patient had prior wound cultures obtained on 10/31/2016. Results were polymicrobial in nature with Enterobacter, Strep and Anaerococcus. ASSESSMENT An 86-year-old gentleman with multiple associated medical comorbidities with progressive necrosis and increasing infection involving right lower extremity. PLAN It was my recommendation to the patient that he be admitted to our facility for further care and initiation of broad-spectrum antibiotics and utilization of a VeraFlo wound VAC. At the wound center earlier today a sharp surgical excisional debridement of the necrotic fascia was undertaken and perhaps 80% of the necrotic material was able to be debrided at the bedside. There is still a portion of the necrotic material, however, that does tunnel beneath the surface of the skin which could not be formally debrided at the bedside in the wound center. Hospitalist system was gracious enough to admit the patient for further care. I agree with current management of this patient by placing him on broad-spectrum antibiotics including vancomycin and consulting ID physician for further antibiotic recommendations. From a wound care standpoint, it would be my recommendation that we place a VeraFlo wound VAC to the wound involving right lower extremity. Hopefully within the next 24-48 hours the patient will be able to be returned to the operative suite where a more formal debridement will be able to be undertaken of the necrotic material still present within the wound. Hopefully we can prevent further necrosis of his Achilles tendon. Will continue to follow along in the patient's care at this time. GREY
[2016-11-06] MEDS ORDERED: DEXTROSE 50% SYRINGE 50ml (Eq. 1 AMP) IV PRN (19:30)
[2016-11-06] MEDS ORDERED: GLUCOSE ORAL GEL 40% 37.5 G TUBE PO PRN (19:30)
--- NOTE | 2016-11-06 19:38 | NUR ---
SHIFT SUMMARY PATIENT IS ALERT AND ORIENTED X3. PATIENT VITALS ARE STABLE AND PATIENT IS ON ROOM AIR. PATIENT DENIES CP, NAUSEA, AND SOA. PATIENT HAS AMBULATED TO THE BATHROOM ONLY AT THIS TIME. PATIENT IS UP WITH 2X ASSIST. PATIENT DRESSING IS CLEAN, DRY, AND INTACT. WOUND VAC IS PATENT AND DRAINING. WILL CONTINUE TO MONITOR.
[2016-11-06] MEDS: TAMSULOSIN 0.4 MG CAPSULE PO SCH (21:15)
[2016-11-06] MEDS: DOCUSATE SODIUM 100 MG CAPSULE PO SCH (21:15)
[2016-11-06] MEDS: INSULIN GLARGINE 100 UNIT/ML SQ SCH (21:24)
[2016-11-06] MEDS: INSULIN REGULAR 100 UNIT/ML SQ PRN (21:24)
[2016-11-06 22:35] LABS: BLOOD, URINE NEGATIVE (NEGATIVE); COLOR,URINE YELLOW (YELLOW); LEUKOCYTE ESTERASE ,URINE NEGATIVE (NEGATIVE); NITRITE,URINE NEGATIVE (NEGATIVE)
[2016-11-06 23:10] VITALS: BP 114/54; PULSE 75; RESP 16; TEMP 99.1; O2SAT 94
--- NOTE | 2016-11-06 23:23 | NUR ---
Chart Check 24 hour chart check completed
[2016-11-07 04:00] VITALS: TEMP 97.7
[2016-11-07] MEDS: PIPERACILLIN/TAZOBACTAM 2.25 G in NORMAL SALINE 100 ML IV SCH ×4 (04:00→21:12)
[2016-11-07 05:19] LABS: BASOPHILS % (AUTO) 0.3 % (0-2); EOSINOPHILS # (AUTO) 0.4 T/MM3 (0-0.5); EOSINOPHILS % (AUTO) 4.9 % (0-4); HCT - HEMATOCRIT 23.7 % (41-53); HGB - HEMOGLOBIN 7.6 GM/DL (13.5-17.5); IMMATURE GRANULOCYTE # (AUTO) 0.02 T/MM3 (0.00-0.03); IMMATURE GRANULOCYTE % (AUTO) 0.3 % (0.0-0.5); LYMPHOCYTES # (AUTO) 1.5 T/MM3 (1-4.8); LYMPHOCYTES % (AUTO) 19.7 % (23-45); MEAN CORPUSCULAR HGB 28.8 UUG (26-34); MEAN CORPUSCULAR HGB CONC(MCHC 32.1 GM/DL (31-37); MEAN CORPUSCULAR VOLUME 89.8 UM3 (80-100); MEAN PLATELET VOLUME 9.8 UM3 (9.4-12.4); MONOCYTES # (AUTO) 0.8 T/MM3 (0-0.8); MONOCYTES % (AUTO) 10.3 % (0-9.0); NEUTROPHILS #(AUTO)-ABSOLUTE 4.8 T/MM3 (1.8-7.7); NEUTROPHILS % (AUTO) 64.5 % (33-66); RED BLOOD COUNT 2.64 M/MM3 (4.50-5.90); WBC - WHITE BLOOD COUNT 7.4 T/MM3 (4.5-11.0)
[2016-11-07 05:30] LABS: INR 1.86 (0.76-1.04); PROTHROMBIN TIME 20.3 SEC (9.31-12.49)
[2016-11-07 05:34] LABS: ANION GAP 10 MEQ/L (5-15); BUN/CREATININE RATIO 23 RATIO (6-26); CALCIUM 8.6 MG/DL (8.4-10.2); CHLORIDE 109 MEQ/L (98-107); CO2 - CARBON DIOXIDE 23 MEQ/L (22-30); CREATININE 1.6 MG/DL (0.8-1.5); GLOMERULAR FILTRATION RATE 41; GLUCOSE 98 MG/DL (75-110); SODIUM 142 MEQ/L (134-144)
--- NOTE | 2016-11-07 05:56 | NUR ---
HGB THIS RN NOTIFIED DR. FARRAR VIA TIGER TEXT OF PTS HGB THIS MORNING OF 7.6. NO NEW ORDERS AT THIS TIME. WILL CONTINUE TO MONITOR.
[2016-11-07] MEDS: OMEPRAZOLE 20 MG CAPSULE PO SCH (06:38)
--- NOTE | 2016-11-07 06:39 | NUR ---
SHIFT SUMMARY PATIENT HAS SLEPT SOUNDLY THROUGHOUT THE NIGHT, ALERT AND ORIENTED X 3. VSS, ON RA. DENIES PAIN/N/V/SOA. PT USING URINAL AT BEDSIDE. UP WITH ASSIST X 1-2 WITH GB AND WALKER. PATIENT DRESSING ON RLE C/D/I. WOUND VAC INSTILLING NS, WITH MINIMAL SEROUS DRAINAGE. NPO SINCE MIDNIGHT FOR POSSIBLE I & D TODAY PER SHIFT CHANGE REPORT LAST NIGHT. IVL IN RIGHT UPPER PICC LINE, FLUSHES AND ASPIRATES WELL. SCD ON LEFT LEG. BGM THIS AM WAS 97. BED LOCKED AND LOW, BED ALARM ON. CALL LIGHT WITHIN REACH. WILL CONTINUE TO MONITOR.
[2016-11-07 07:16] VITALS: BP 97/56; PULSE 77; RESP 16; TEMP 96.6; O2SAT 95
[2016-11-07 07:55] VITALS: BP 111/60
[2016-11-07 08:04] VITALS: PULSE 77; RESP 18
[2016-11-07] MEDS: ENOXAPARIN 40 MG/0.4 ML INJECTION SQ SCH (08:39)
[2016-11-07] MEDS: LINAGLIPTIN 5 MG TABLET PO SCH (08:39)
[2016-11-07] MEDS: FUROSEMIDE 20 MG TABLET PO SCH (08:39)
[2016-11-07] MEDS: DOCUSATE SODIUM 100 MG CAPSULE PO SCH ×2 (08:39→21:12)
[2016-11-07] MEDS: CARVEDILOL 25 MG TABLET PO SCH ×2 (08:39→17:38)
--- NOTE | 2016-11-07 09:30 | PNPDOC ---
PHOEBE MORALES V POLICE CAPTAIN 11/07/16 0909: Subjective Date DATE: 11/07/16 TIME: 08:57 Subjective Tim is seen this morning resting in bed. He is alert and doing well and reports that he slept well. Denies having any pain to his foot, and wound vac is intact with 50 ml of output overnight. Otherwise no complaints, as he denies abdominal pain, or shortness of breath. Noted Hgb decreased overnight to 7.6. BP this morning was a little low initially at 97/56. Objective Vital Signs Vital signs Vital Signs Date Time Temp Pulse Resp B/P Pulse Ox O2 Delivery O2 Flow Rate FiO2 11/07/16 08:04 77 18 11/07/16 07:55 111/60 11/07/16 07:16 96.6 95 Room Air Height (Feet): 6 Height (Inches): 0.00 Weight (Kilograms): 94.700 General General Appearance: Alert, Orientated x 3, Cooperative, No Acute Distress Eyes (Brief) Eyes: FOUND: EOMI ENMT (Brief) ENMT: FOUND: mucosa moist, normal dentition, NOT FOUND: pharnyx erythema Neck (Brief) Neck: FOUND: midline, NOT FOUND: adenopathy, carotid bruits, tracheal deviation Respiratory (Brief) Respiratory: FOUND: clear all miller, equal bilaterally, NOT FOUND: wheezes Cardiovascular (Brief) Cardiac: FOUND: regular rate, regular rhythm, NOT FOUND: murmur, pedal edema Capillary Refill: <2 sec Abdomen (Brief) Abdominal: FOUND: BS normo active x4, soft, NOT FOUND: distended, tender Extremities (Brief) Extremity : Side: Right Extremity: leg (wound), foot Lymphatic (Brief) Lymphatic: NOT FOUND: adenopathy Musculoskeletal (Brief) Musculoskeletal: NOT FOUND: tenderness Integumentary (Brief) Integumentary: FOUND: dry, pink, warm Neurologic (Brief) Neurological: FOUND: cranial 2-12 intact Psychiatric (Brief) Psychiatric: FOUND: alert, attentive, normal affect, oriented Laboratory Laboratory Laboratory Tests 11/06/16 12:06 11/07/16 04:21 Laboratory Tests 11/06/16 12:06 11/07/16 04:21 Microbiology Microbiology Microbiology Date/Time Source Procedure Growth Status 11/06/16 12:06 Peripheral/Iv Start Blood Culture - Preliminary CULTURE INITIATED - RESULTS PENDING Resulted 11/06/16 12:06 Peripheral/Iv Start Blood Culture - Preliminary CULTURE INITIATED - RESULTS PENDING Resulted Assessment & Plan Problems: (1) Diabetes with ulcer of lower extremity Status: Acute Assessment & Plan: Present on admission, Right lower ext. Failed outpatient treatment (2) Diabetes mellitus Status: Chronic Qualifiers: Diabetes mellitus type: type 2 (3) CAD (coronary artery disease) Status: Chronic (4) CHF (congestive heart failure) Status: Chronic Qualifiers: Congestive heart failure type: diastolic Congestive heart failure chronicity: chronic Qualified Codes: I50.32 - Chronic diastolic (congestive) heart failure Assessment & Plan: EF 45% last ECHO (5) Ischemic cardiomyopathy Status: Chronic (6) Dyslipidemia Status: Chronic (7) CKD (chronic kidney disease), stage III Status: Chronic (8) HS (hereditary spherocytosis) Status: Chronic (9) Chronic anemia Status: Chronic (10) Peripheral vascular disease Status: Chronic (11) DVT (deep venous thrombosis) Status: Chronic (12) Neuropathy Status: Chronic (13) Anticoagulated Status: Chronic Assessment & Plan: Chronically on Coumadin (14) Hx of cataract Status: Resolved (15) Anemia Status: Chronic Plan/Intensity of Service 11/07/16 Appreciate surgical management as per Dr Campbell. Continue with wound Vac to right lower ext Vancomycin and Zosyn IV for antimicrobial coverage. Appreciate consultation with Dr Castorena for ongoing ID recommendations Hgb is decreased to 7.6 this morning. Further anemia workup including stool for occult blood, Iron studies are pending. Likely related to chronic anemia. Chronic Coumadin on hold since admission and Lovenox 40 mg SQ daily started. Will need to hold on day surgical procedure. INR this morning 1.86 Monitor blood sugars and continue on Tradjenta and Novolin sliding scale One episode of hypotension this morning. Continue to monitor. Recheck CBC and BMP tomorrow to follow blood counts, renal function and electrolytes Code Status Full Code Hospital Course Summary Disclaimer The hospital course summary below is not to be considered part of the above Progress Note. Hospital Course Summary Admit patient to inpatient status under the care of Dr. Perkins for right lower extremity wound, diabetic ulcer, failed outpatient treatment. On admission, we will obtain the following laboratory studies. CBC, CMP, magnesium, pro calcitonin, pre-albumin, venous lactate, blood culture 2. Will initiate IV Zosyn and Vancomycin for antimicrobial coverage of all 4 pathogens found in wound culture from 10/31/16. Place consult to Dr Castorena to infectious disease treatment recommendations Consult to Dr Campbell for further surgical and wound management Will obtain a hemoglobin A1c for diabetes surveillance. Monitor Accu-Cheks, and continue with home insulin including Lantus 8 units at at bedtime. Will also continue with Tradjenta by mouth daily Given chronic anticoagulation will obtain an INR. Will need to discuss anticoagulation further with Dr Perkins and surgical team. May need to switch to Lovenox if patient will potentially have a surgical procedure. Zofran as needed for nausea and Morphine as needed for pain control SCD to LLE for DVT prophylaxis. Recheck CBC and BMP tomorrow morning to follow blood counts, renal function and electrolytes At time of discharge medical care is to return to PCP Dr Mcqueen at [facility] 11/07/16 Appreciate surgical management as per Dr Campbell. Continue with wound Vac to right lower ext Vancomycin and Zosyn IV for antimicrobial coverage. Appreciate consultation with Dr Castorena for ongoing ID recommendations Hgb is decreased to 7.6 this morning. Further anemia workup including stool for occult blood, Iron studies are pending. Likely related to chronic anemia. Chronic Coumadin on hold since admission and Lovenox 40 mg SQ daily started. Will need to hold on day surgical procedure. INR this morning 1.86 Monitor blood sugars and continue on Tradjenta and Novolin sliding scale One episode of hypotension this morning. Continue to monitor. Recheck CBC and BMP tomorrow to follow blood counts, renal function and electrolytes YESSI PERKINS MD 11/07/16 0674: Assessment & Plan Problems: (1) Diabetes with ulcer of lower extremity Status: Acute Assessment & Plan: Present on admission, Right lower ext. Failed outpatient treatment (2) Diabetes mellitus Status: Chronic Qualifiers: Diabetes mellitus type: type 2 (3) CAD (coronary artery disease) Status: Chronic (4) CHF (congestive heart failure) Status: Chronic Qualifiers: Congestive heart failure type: diastolic Congestive heart failure chronicity: chronic Qualified Codes: I50.32 - Chronic diastolic (congestive) heart failure Assessment & Plan: EF 45% last ECHO (5) Ischemic cardiomyopathy Status: Chronic (6) Dyslipidemia Status: Chronic (7) CKD (chronic kidney disease), stage III Status: Chronic (8) HS (hereditary spherocytosis) Status: Chronic (9) Chronic anemia Status: Chronic (10) Peripheral vascular disease Status: Chronic (11) DVT (deep venous thrombosis) Status: Chronic (12) Neuropathy Status: Chronic (13) Anticoagulated Status: Chronic Assessment & Plan: Chronically on Coumadin (14) Hx of cataract Status: Resolved (15) Anemia Status: Chronic Plan/Intensity of Service Have independently interviewed and examined pt. Chart reviewed. Case discussed with CM and my POLICE CAPTAIN. Care plan developed with my supervision; agree with above. Doing well. No f/c. Not having pain to LE. Breathing well. No chest pain. No ab pain or nausea. Lungs: clear bilaterally, no distress on RA. CV; regular AB: soft nt/nd BS decreased MSE: awake alert appropriate Plan; Continue with Zosyn and Vancomycin for antimicrobial coverage. Wound Vac placed. Sx debridement anticipated tomorrow - will hold tomorrows am dose of Lovenox until after Sx and recheck INR. Continue supportive care. DVT Prophylaxis: SCD'S, Lovenox, Coumadin PHOEBE MORALES APRN November 07, 2016 09:09 YESSI PERKINS MD November 07, 2016 13:58
[2016-11-07] MEDS: INSULIN REGULAR 100 UNIT/ML SQ PRN ×2 (11:49→21:12)
[2016-11-07] MEDS: FOLIC ACID 1 MG TABLET PO SCH (11:50)
--- NOTE | 2016-11-07 13:21 | NUR ---
CM CM IN TO VISIT PT. CM EXPLAINS ROLE AND PROVIDED CONTACT INFORMATION. PT DENIES HOME NEEDS AND IS AWARE TO CONTACT CM SHOULD NEEDS ARISE.
--- NOTE | 2016-11-07 14:33 | CONSF ---
DATE OF CONSULTATION November 07, 2016 CHIEF COMPLAINT Infectious disease consultation was requested by Dr. Campbell for antibiotic recommendations for a right Achilles wound. HISTORY OF PRESENT ILLNESS Mr. Hernandez is an 86-year-old man who has been following with Dr. Campbell in the wound clinic in regards to a wound on the right anterior tibia which he states is related to an injury he sustained from dropping a foreign object on his leg. He had his leg wrapped with Bogdan bandages and he states that the wrapping was really tight and then he developed a blister posterior to the right heel in the Achilles area and that progressed and became a more significant wound. He was seen on November 06 in the wound clinic by Dr. Campbell and there was liberty purulence coming from this wound with necrosis noted. A good portion of the Achilles tendon was necrotic. This was debrided at the bedside, but the patient was admitted for a more formal debridement procedure. He had blood cultures drawn and was started initially on vancomycin and Zosyn. There are plans for him to go to surgery tomorrow with Dr. Campbell. He had a wound culture from this wound obtained October 31 which had moderate gram-positive cocci in pairs, few gram-negative rods on the gram stain and it grew Enterobacter cloacae heavy growth, also heavy growth of Enterococcus faecalis, moderate growth of Strep mitis and moderate growth of Anaerococcus prevotii. The susceptibilities for the Enterobacter are resistance only to cefazolin. The Enterococcus was sensitive to linezolid and vancomycin. Ampicillin is not reported. PAST MEDICAL HISTORY Diabetes mellitus, insulin-requiring. Coronary artery disease. Congestive heart failure. Hyperlipidemia. Chronic kidney disease stage 3. Hereditary spherocytosis. Peripheral vascular disease. He has a history of right lower extremity DVT. He has peripheral neuropathy. He also relates a history of a right femur fracture. He has a history of mononeuritis multiplex. PAST SURGICAL HISTORY He is status post pacemaker placement and stents - 2014. Open reduction internal fixation, right femur, by Dr. Damico - 2011. Coronary stents - September 2015. Cataract repair in the left eye. FAMILY HISTORY Family history is significant for diabetes. SOCIAL HISTORY He is retired and worked for the post [employer] in [place]. He never smoked. No history of alcohol or drug use. ALLERGIES No known medical allergies. CURRENT MEDICATIONS Are reviewed in the electronic medical record. He is on vancomycin and Zosyn. REVIEW OF SYSTEMS He denies any recent fevers, chills or sweats. He denies any nausea, vomiting or diarrhea. He denies any cough or shortness of breath. He denies any headache or visual changes. He denies any dysuria or other urinary complaints. He reports some discomfort related to his wound on the right posterior heel area. The rest of the review of systems is negative other than that mentioned above. PHYSICAL EXAMINATION Temperature 96.6. Blood pressure 111/60. Pulse 77. Respirations 16. Oxygen saturation 95% on room air. GENERAL: He appears comfortable and is in no acute distress. HEENT: Pupils equal, round, reactive to light. Extraocular movements are intact. Dentition is fair. NECK: Supple. HEART: Regular rate and rhythm. No murmurs noted. LUNGS: Clear to auscultation bilaterally anteriorly. ABDOMEN: Soft and nontender. He has bowel sounds present. No guarding or rebound. EXTREMITIES: No joint effusions are noted. He has 1+ pitting edema noted to the right lower extremity. He does not have any significant edema noted to the left lower extremity. He has a wound VAC over the right Achilles tendon area. He has superficial wound on the right anterior tibial area which appears relatively clean and without any significant erythema or drainage noted. He has a PICC line in the right upper extremity. NEURO EXAM: Grossly nonfocal. He is alert and oriented x 3. Speech is normal. Affect is appropriate. LABORATORY Was reviewed. IMPRESSION 1. Wound infection, right posterior heel area, with necrosis of the Achilles tendon noted and purulence, status post superficial debridement, outpatient cultures with Enterobacter cloacae, Enterococcus faecalis, Strep mitis and an anaerobe. 2. Diabetes mellitus type 2, insulin-requiring. 3. History of right lower extremity DVT. 4. Chronic systolic congestive heart failure. 5. Status post pacemaker placement. 6. Coronary artery disease. 7. Hereditary spherocytosis. 8 Chronic kidney disease. 9. Status post open reduction internal fixation of the right femur. RECOMMENDATIONS I would continue with broad-spectrum antibiotics including vancomycin and Zosyn for now. I would anticipate that he would have additional wound cultures obtained in his surgery which is scheduled for tomorrow. I discussed with the patient that with necrotic tendon I would anticipate that he would need approximately 4 weeks of IV antibiotic therapy for that. If there is concern for infection of the bone, then I would extend that to 6 weeks. I will follow up with him next week. If he is discharged before I am able to return to follow up with him then I would be happy to see him in followup in the wound clinic. Thank you for allowing me to participate in the care of this patient. GREY
[2016-11-07 16:12] VITALS: BP 131/66; PULSE 77; RESP 16; TEMP 97.8; O2SAT 86
--- NOTE | 2016-11-07 16:25 | NUR ---
High Risk Screen R/T to decubitus ulcer Diet:CC 1800 Based on Damon Del Castillo with an activity factor of 1.3 and an injury factor of 1.0 calorie needs are ~ 2179 Patient was agreeable to increasing his diet to CC 1999 & adding Arginaid to his lunch time trays. Nursing has been notified to advance diet to CC 1999 RD available @ 1400 Addendum: 11/07/16 at [address] Student charting reviewed by Global Implementation Manager.
[2016-11-07] MEDS: VANCOMYCIN 1,000 MG in NORMAL SALINE 250 ML IV SCH (16:28)
--- NOTE | 2016-11-07 17:28 | NUR ---
SHIFT SUMMARY PT A&OX3. VS STABLE ON RA. PT UP WITH X1 AND WALKER. PT HAD A COPIOUS BM TODAY. DENIES PAIN AND N/V. DRESSSING TO THE RLE C/D/I. WOUND VAC IN PLACE TO RIGHT HEEL WITH NS, MINIMAL SEROUS OUTPUT THIS SHIFT. PICC LINE TO THE RIGHT UPPER ARM FLUSHES AND ASPIRATES WELL, GREEN CUROS CAP IN PLACE. SIDE RAILS UP X2, CALL LIGHT W/IN REACH, BED ALARM ON.
--- NOTE | 2016-11-07 20:25 | PNF ---
DATE OF SERVICE 11/07/ Tim this evening was in good spirits. He denied much in way of pain or discomfort. EXAM VITAL SIGNS: Afebrile, normotensive. Last recorded vitals include temperature 97.8, pulse 77, respirations 16, blood pressure 131/66, SAO2 86% on room air. CHEST: Clear to auscultation bilaterally. HEART: Regular rate and rhythm. Normal S1 and S2 without gallops, murmurs or clicks. EXTREMITIES: Attention was focused to his right lower extremity. Wound VAC is in place and functioning involving the right lower extremity. I did not see any significant periwound erythema surrounding the Steri-Drape upon the wound VAC. ASSESSMENT 86-year-old gentleman with progressive necrotic wound involving right posterior heel. Patient with associated polymicrobial infection. PLAN I did review Dr. Castorena's notes who has recommended continuation of broad-spectrum antibiotics over the course of the next four weeks intravenously. It was my recommendation to Tim that we take him to the operative suite and perform a more formal debridement tomorrow. I did discuss with the patient what an excisional surgical debridement of his residual necrotic material involving the right posterior heel region would entail and its associated risks which included but was not inclusive of bleeding and/or infection. I do see that his INR is elevated at 1.8. I do feel that this debridement can be carried out with his elevated INR. I do see that his Coumadin has been held and that he is currently on Lovenox. Will recheck INR in a.m. MTDD
[2016-11-07] MEDS: INSULIN GLARGINE 100 UNIT/ML SQ SCH ×2 (21:11→21:20)
[2016-11-07] MEDS: TAMSULOSIN 0.4 MG CAPSULE PO SCH (21:12)
--- NOTE | 2016-11-07 22:54 | NUR ---
SHIFT SUMMARY PATIENT IS ALERT AND ORIENTED X3 THIS SHIFT. VITAL SIGNS ARE STABLE ON ROOM AIR. PATIENT IS UP WITH ASSIST X1. PATIENT DID AWAKE A LITTLE DISORIENTED BELIEVING THAT HE WAS AT HOME, BUT WAS EASILY REORIENTED TO CURRENT ENVIRONMENT. BED ALARM IS IN USE. PATIENT DENIES ANY PAIN, NAUSEA, OR VOMITING THIS SHIFT. PATIENT HAS HAD 75ML OUT OF WOUND VAC SINCE LAST DOCUMENTATION. DRESSINGS ARE DRY AND INTACT. CONSENT FOR PROCEDURE TOMORROW IS SIGNED AND ON THE CHART. WILL CONTINUE TO MONITOR.
[2016-11-08] VITALS (29 sets, daily range): BP systolic 108–153; BP diastolic 48–85; PULSE 64–85; RESP 14–24; TEMP 96.1–98.5; O2SAT 94–100
[2016-11-08] MEDS: ACETAMINOPHEN 325 MG TABLET PO PRN (02:13)
[2016-11-08] MEDS: PIPERACILLIN/TAZOBACTAM 2.25 G in NORMAL SALINE 100 ML IV SCH ×4 (02:30→21:27)
--- NOTE | 2016-11-08 02:30 | NUR ---
Wound vac sucking / Pain Pt's bed alarm alarming and I went into the room. Pt confused to where he was and what he was doing. Pt able to be reoriented, but in the process of him attempting to get up, Pt pulled on wound vac area of the heel and wound vac was making loud sucking noise. Wound vac put on hold and area around heel reinforced with wound vac sealant tape and wound vac turned back on. Sealed complete and loud sucking noise gone away. Pt c/o pain in bilateral knees and didn't want "anything heavy", tylenol offered and Pt did take tylenol, see eMAR. Will continue to monitor. Call light in reach. Bed locked and low. Bed alarm on.
[2016-11-08] MEDS: NS 500 ML IV PRN (02:31)
[2016-11-08 05:11] LABS: BASOPHILS % (AUTO) 0.3 % (0-2); EOSINOPHILS # (AUTO) 0.6 T/MM3 (0-0.5); EOSINOPHILS % (AUTO) 7.1 % (0-4); HCT - HEMATOCRIT 24.5 % (41-53); HGB - HEMOGLOBIN 7.7 GM/DL (13.5-17.5); IMMATURE GRANULOCYTE # (AUTO) 0.02 T/MM3 (0.00-0.03); IMMATURE GRANULOCYTE % (AUTO) 0.3 % (0.0-0.5); LYMPHOCYTES # (AUTO) 1.5 T/MM3 (1-4.8); LYMPHOCYTES % (AUTO) 19.6 % (23-45); MEAN CORPUSCULAR HGB 28.4 UUG (26-34); MEAN CORPUSCULAR HGB CONC(MCHC 31.4 GM/DL (31-37); MEAN CORPUSCULAR VOLUME 90.4 UM3 (80-100); MEAN PLATELET VOLUME 9.8 UM3 (9.4-12.4); MONOCYTES # (AUTO) 0.7 T/MM3 (0-0.8); MONOCYTES % (AUTO) 8.7 % (0-9.0); RED BLOOD COUNT 2.71 M/MM3 (4.50-5.90); WBC - WHITE BLOOD COUNT 7.8 T/MM3 (4.5-11.0)
[2016-11-08 05:18] LABS: INR 1.9 (0.76-1.04); PROTHROMBIN TIME 20.7 SEC (9.31-12.49)
[2016-11-08 05:23] LABS: ANION GAP 10 MEQ/L (5-15); BUN/CREATININE RATIO 18 RATIO (6-26); CALCIUM 8.7 MG/DL (8.4-10.2); CHLORIDE 109 MEQ/L (98-107); CO2 - CARBON DIOXIDE 24 MEQ/L (22-30); CREATININE 1.7 MG/DL (0.8-1.5); GLOMERULAR FILTRATION RATE 38; GLUCOSE 83 MG/DL (75-110); SODIUM 143 MEQ/L (134-144)
[2016-11-08] MEDS: OMEPRAZOLE 20 MG CAPSULE PO SCH (05:46)
--- NOTE | 2016-11-08 06:37 | NUR ---
Summary Pt has been pleasant and cooperative. Pt has been oriented to self, place and part of date. Pt would wake up not knowing where he was until reoriented and then Pt calm and cool. Pt takes meds whole without difficulty with sip of water. Pt remains NPO except for medications. Pt in no acute distress. Pt wound vac remains sucking as it should; and settings remain the same, output of 45mls including NS that is draining wound. Pt pain in knees is better. No other c/o voiced. Pt in bed and slept most of the night. Bed locked and low. Bed alarm on. Call light in reach.
[2016-11-08] MEDS: CARVEDILOL 25 MG TABLET PO SCH ×2 (08:58→17:38)
[2016-11-08] MEDS: FUROSEMIDE 20 MG TABLET PO SCH (08:58)
[2016-11-08] MEDS: DOCUSATE SODIUM 100 MG CAPSULE PO SCH ×2 (08:58→21:27)
[2016-11-08] MEDS: LINAGLIPTIN 5 MG TABLET PO SCH (08:58)
--- NOTE | 2016-11-08 12:05 | PNPDOC ---
PHOEBE MORALES V GMAT INSTRUCTOR 11/08/16 1204: Subjective Date DATE: 11/08/16 TIME: 11:58 Subjective Tim is seen today in follow up. He is resting in bed anxiously awaiting surgical procedure later today. He denies having any pain or feeling shortness of breath. Denies foot pain and wound vac is intact. Hemoglobin remains decreased at 7.7. Blood pressure remained stable 133/67 Objective Vital Signs Vital signs Vital Signs Date Time Temp Pulse Resp B/P Pulse Ox O2 Delivery O2 Flow Rate FiO2 11/08/16 07:20 71 16 11/08/16 07:14 97.3 133/67 100 Room Air Height (Feet): 6 Height (Inches): 0.00 Weight (Kilograms): 74.600 General General Appearance: Alert, Orientated x 3, Cooperative, No Acute Distress Eyes (Brief) Eyes: FOUND: EOMI ENMT (Brief) ENMT: FOUND: mucosa moist, normal dentition, NOT FOUND: pharnyx erythema Neck (Brief) Neck: FOUND: midline, NOT FOUND: adenopathy, carotid bruits, tracheal deviation Respiratory (Brief) Respiratory: FOUND: clear all miller, equal bilaterally, NOT FOUND: wheezes Cardiovascular (Brief) Cardiac: FOUND: regular rate, regular rhythm, NOT FOUND: murmur, pedal edema Capillary Refill: <2 sec Abdomen (Brief) Abdominal: FOUND: BS normo active x4, soft, NOT FOUND: distended, tender Extremities (Brief) Extremity : Side: Right Extremity: foot Lymphatic (Brief) Lymphatic: NOT FOUND: adenopathy Musculoskeletal (Brief) Musculoskeletal: NOT FOUND: tenderness Integumentary (Brief) Integumentary: FOUND: dry, pink, warm Neurologic (Brief) Neurological: FOUND: cranial 2-12 intact Psychiatric (Brief) Psychiatric: FOUND: alert, attentive, normal affect, oriented Laboratory Laboratory Laboratory Tests 11/06/16 12:06 11/07/16 04:21 11/08/16 04:30 Laboratory Tests 11/06/16 12:06 11/07/16 04:21 11/08/16 04:30 Microbiology Microbiology Microbiology Date/Time Source Procedure Growth Status 11/06/16 12:06 Peripheral/Iv Start Blood Culture - Preliminary NO GROWTH AFTER 24 HOURS Resulted 11/06/16 12:06 Peripheral/Iv Start Blood Culture - Preliminary NO GROWTH AFTER 24 HOURS Resulted Assessment & Plan Problems: (1) Diabetes with ulcer of lower extremity Status: Acute Assessment & Plan: Present on admission, Right lower ext. Failed outpatient treatment (2) Diabetes mellitus Status: Chronic Qualifiers: Diabetes mellitus type: type 2 (3) CAD (coronary artery disease) Status: Chronic (4) CHF (congestive heart failure) Status: Chronic Qualifiers: Congestive heart failure type: diastolic Congestive heart failure chronicity: chronic Qualified Codes: I50.32 - Chronic diastolic (congestive) heart failure Assessment & Plan: EF 45% last ECHO (5) Ischemic cardiomyopathy Status: Chronic (6) Dyslipidemia Status: Chronic (7) CKD (chronic kidney disease), stage III Status: Chronic (8) HS (hereditary spherocytosis) Status: Chronic (9) Chronic anemia Status: Chronic (10) Peripheral vascular disease Status: Chronic (11) DVT (deep venous thrombosis) Status: Chronic (12) Neuropathy Status: Chronic (13) Anticoagulated Status: Chronic Assessment & Plan: Chronically on Coumadin (14) Hx of cataract Status: Resolved (15) Anemia Status: Chronic Plan/Intensity of Service 11/08/16 Planning for foot wound debridement this afternoon with Dr Campbell. Lovenox on hold today for scheduled procedure. Continue with Zosyn and Vancomycin for antimicrobial coverage. Ratio Dr. Castorena recommendations. Will continue with IV antibiotics 4 weeks. If wound appears to have osteomyelitis. She recommends extending this to 6 weeks of treatment. Patient continues to have anemia, hemoglobin today 7.7. Iron studies pending, Stool for occult blood was negative. Likely chronic anemia. Will consider transfusion if Hgb drops <7. Continue to monitor blood sugars. Fasting sugar this morning 97. Patient currently nothing by mouth. Continue to monitor renal function, creatinine 1.7. Baseline appears 1.4. Recheck CBC and BMP tomorrow morning to follow renal function, electrolytes and blood counts Code Status Full Code Hospital Course Summary Disclaimer The hospital course summary below is not to be considered part of the above Progress Note. Hospital Course Summary Admit patient to inpatient status under the care of Dr. Perkins for right lower extremity wound, diabetic ulcer, failed outpatient treatment. On admission, we will obtain the following laboratory studies. CBC, CMP, magnesium, pro calcitonin, pre-albumin, venous lactate, blood culture 2. Will initiate IV Zosyn and Vancomycin for antimicrobial coverage of all 4 pathogens found in wound culture from 10/31/16. Place consult to Dr Castorena to infectious disease treatment recommendations Consult to Dr Campbell for further surgical and wound management Will obtain a hemoglobin A1c for diabetes surveillance. Monitor Accu-Cheks, and continue with home insulin including Lantus 8 units at at bedtime. Will also continue with Tradjenta by mouth daily Given chronic anticoagulation will obtain an INR. Will need to discuss anticoagulation further with Dr Perkins and surgical team. May need to switch to Lovenox if patient will potentially have a surgical procedure. Zofran as needed for nausea and Morphine as needed for pain control SCD to LLE for DVT prophylaxis. Recheck CBC and BMP tomorrow morning to follow blood counts, renal function and electrolytes At time of discharge medical care is to return to PCP Dr Mcqueen at [facility] 11/07/16 Appreciate surgical management as per Dr Campbell. Continue with wound Vac to right lower ext Vancomycin and Zosyn IV for antimicrobial coverage. Appreciate consultation with Dr Castorena for ongoing ID recommendations Hgb is decreased to 7.6 this morning. Further anemia workup including stool for occult blood, Iron studies are pending. Likely related to chronic anemia. Chronic Coumadin on hold since admission and Lovenox 40 mg SQ daily started. Will need to hold on day surgical procedure. INR this morning 1.86 Monitor blood sugars and continue on Tradjenta and Novolin sliding scale One episode of hypotension this morning. Continue to monitor. Recheck CBC and BMP tomorrow to follow blood counts, renal function and electrolytes 11/08/16 Planning for foot wound debridement this afternoon with Dr Campbell. Lovenox on hold today for scheduled procedure. Continue with Zosyn and Vancomycin for antimicrobial coverage. Ratio Dr. Castorena recommendations. Will continue with IV antibiotics 4 weeks. If wound appears to have osteomyelitis. She recommends extending this to 6 weeks of treatment. Patient continues to have anemia, hemoglobin today 7.7. Iron studies pending, Stool for occult blood was negative. Likely chronic anemia. Will consider transfusion if Hgb drops <7. Continue to monitor blood sugars. Fasting sugar this morning 97. Patient currently nothing by mouth. Continue to monitor renal function, creatinine 1.7. Baseline appears 1.4. Recheck CBC and BMP tomorrow morning to follow renal function, electrolytes and blood counts YESSI PERKINS MD 11/08/16 1801: Assessment & Plan Plan/Intensity of Service Have independently interviewed and examined pt. Chart reviewed. Case discussed with CM and my GMAT INSTRUCTOR. Care plan developed with my supervision; agree with above. Doing well this evening. Tolerated Sx well. No post op pain-not hurting or feeling uncomfortable. No f/c. Breathing well-not having SOA, cough or congestion. No nausea. Lungs: decreased, no distress CV: regular AB: soft nt/nd +BS MSE: awake alert appropriate Plan: Continue antimicrobial therapy. Continue wound vac. Will check Iron due to anemia. Can restart Lovenox. Recheck INR in am along with CBC. Continue with supportive care. PHOEBE MORALES APRN November 08, 2016 12:04 YESSI PERKINS MD November 08, 2016 18:01
[2016-11-08] MEDS: FOLIC ACID 1 MG TABLET PO SCH (12:28)
--- NOTE | 2016-11-08 13:03 | NUR ---
OFF UNIT PT TRANSFERRED TO PERIANESTHESIA AT THIS TIME VIA CART. VS STABLE ON RA.
[2016-11-08] MEDS: NORMAL SALINE 1,000 ML IV PRN (13:34)
--- NOTE | 2016-11-08 13:51 | ANESPREOP ---
Anesthesia Record Date and Time DATE: 11/08/16 TIME: 13:40 Proposed Surgical Procedure lower leg wound debridement Allergies: Coded Allergies: No Known Allergies (Unverified , 11/06/16) Ht/Wt/BMI Height: 6 ' 0.00 " Weight: 74.600 kg BMI: 22.5 kg/m2 Vital Signs Date Time Temp Pulse Resp B/P Pulse Ox O2 Delivery O2 Flow Rate FiO2 11/08/16 13:08 97.6 74 16 151/68 100 Room Air Medications Inpatient Medications Current Medications Medications (Trade) Dose Ordered Sig/Antoine Start Time Stop Time Status Last Admin Dose Admin Piperacillin Sod/ Tazobactam Sod/ Sodium Chloride (Zosyn/NS) 100 ml @ 200 mls/hr Q6H 11/06/16 12:00 11/06/16 14:56 DC Ondansetron HCl (Zofran) 4 mg Q6H PRN 11/06/16 12:00 Morphine Sulfate 1-2 Q2H PRN 11/06/16 12:00 Vancomycin HCl 2000 mg/Sodium Chloride 500 ml @ 250 mls/hr Q12H 11/06/16 13:15 11/06/16 13:32 DC Vancomycin HCl/ Sodium Chloride (Vancocin/NS) 250 ml @ 250 mls/hr Q24H 11/06/16 15:00 Cancel Sodium Chloride 500 ml 500 ml PRN PRN 11/06/16 15:00 11/08/16 02:31 500 ML Piperacillin Sod/ Tazobactam Sod/ Sodium Chloride (Zosyn/NS) 100 ml @ 200 mls/hr Q6H 11/06/16 15:00 11/08/16 08:58 200 MLS/HR Carvedilol (Coreg) 25 mg BIDWM 11/06/16 17:30 11/08/16 08:58 25 MG Folic Acid (Folate) 1 mg NOON 11/07/16 12:00 11/08/16 12:28 1 MG Furosemide (Lasix) 20 mg DAILY 11/07/16 09:00 11/08/16 08:58 20 MG Insulin Glargine (Lantus) 8 unit HS 11/06/16 22:00 11/07/16 21:20 8 UNIT Linagliptin (Tradjenta) 5 mg DAILY 11/07/16 09:00 11/08/16 08:58 5 MG Omeprazole (Prilosec) 20 mg ACB 11/07/16 06:30 11/08/16 05:46 20 MG Tamsulosin HCl (FLOMAX 0.4 mg) 0.4 mg HS 11/06/16 22:00 11/07/16 21:12 0.4 MG Miscellaneous Medication (May use PRN orders) PRN PRN 11/06/16 15:45 Magnesium Hydroxide (Mom) 30 ml DAILY PRN 11/06/16 15:45 Bisacodyl (Dulcolax) 10 mg DAILY PRN 11/06/16 15:45 Al Hydroxide/Mg Hydroxide (Maalox) 30 ml Q3H PRN 11/06/16 15:45 Acetaminophen (Tylenol Regular Strength) 1-2 TABS PO Q5H PRN 11/06/16 15:45 11/08/16 02:13 650 MG Nitroglycerin (Nitrostat) 0.4 mg Q5M PRN 11/06/16 15:45 Docusate Sodium (Colace) 100 mg BID 11/06/16 21:00 11/08/16 08:58 100 MG Polyethylene Glycol 17 g 17 g DAILY PRN 11/06/16 15:45 Vancomycin HCl/ Sodium Chloride (Vancocin/NS) 250 ml @ 250 mls/hr Q24H 11/07/16 16:00 11/07/16 16:28 250 MLS/HR Glucose (Glutose 15) 37.5 g PRN PRN 11/06/16 19:30 Dextrose (D50w) 25 ml PRN PRN 11/06/16 19:30 Insulin Human Regular (Novolin R) SS PRN 11/06/16 19:30 11/07/16 21:12 2 UNIT Enoxaparin Sodium 40 mg 40 mg DAILY 11/07/16 09:00 Future Hold 11/07/16 08:39 40 MG Sodium Chloride (Normal Saline IV) 1,000 ml @ 0 mls/hr Q0M PRN 11/08/16 13:29 11/08/16 13:34 50 MLS/HR Aspirin (Aspir 81) 81 Mg Tablet.dr, 1 TAB PO HS, (Reported) Last Taken: on 11/05/162199 Capsaicin (Capsaicin) 42.5 Gm Cream..g., 1 APPLIC TOP PRN PRN for ARTHRITIS, (Reported) Last Taken: on Unknown Date & Time Carvedilol (Carvedilol) 25 Mg Tablet, 1 TAB PO BIDWM, (Reported) BEST WITH FOOD. Last Taken: on Unknown Date & Time Docusate Sodium (Colace) 100 Mg Capsule , 100 MG PO BID PRN for CONSTIPATION schedule until patient has a bowel movement. hold for loose stools. Last Taken: on Unknown Date & Time Folic Acid (Folic Acid) 1 Mg Tablet, 1 TAB PO NOON, (Reported) Last Taken: on Unknown Date & Time Furosemide (Furosemide) 20 Mg Tablet, 20 MG PO DAILY Last Taken: on 11/06/16 0800 Insulin Glargine,Hum.rec.anlog (Lantus) 100 Unit /Ml Inj, 8 UNIT SQ HS Last Taken: on 11/05/16 2200 Linagliptin (Tradjenta) 5 Mg Tablet, 1 TAB PO DAILY, (Reported) Last Taken: on Unknown Date & Time Omeprazole (Omeprazole) 20 Mg Capsule.dr , 20 MG PO ACB, (Reported) Take 1 capsule, by mouth, one time a day (before breakfast). Last Taken: on Unknown Date & Time Tamsulosin HCl (Flomax) 0.4 Mg Capsule, 0.4 MG PO HS Take 1 capsule, by mouth, one time a day at BEDTIME. Last Taken: on 11/05/16 2200 Warfarin Sodium (Jantoven) 4 Mg Tablet, 4 MG PO NOON Last Taken: on 11/06/16 0800 Discontinued Medications Carvedilol (Coreg) 12.5 Mg Tablet, 25 MG PO BIDWM Discontinued Reason: Wrong Medication Currently on Beta Crystal: Yes Beta Crystal Last Taken: COREG @ 0858 11/08/16 Medical/Surgical History Anesthesia PMH: Reports: *Diabetes, *Hypertension, *[place] (2007, 09/21/15), CHF, Clotting Problems (takes coumadin q day, HX OF BLOOD CLOT RIGHT LEG), Deep Vein Thrombosis, Pacemaker, Pneumonia (MAYBE), Denies: *Angina, *Dyspnea, Asthma, Blood Transfusion Reac, COPD, CVA/Stroke/TIA, Cancer, Headaches, Reflux, Renal Disease, Seizures, Sleep Apnea, Thyroid Disease Smoking Status: Never smoker Use Chewing Tobacco?: No Second Hand Exposure: No Substance Use Type: does not use Alcohol Intake: none Past Surgical History Orthopedic Surgeries: No Abdominal Surgeries: No Genitourinary Surgeries: No Cardiac Surgeries: Yes - pacemaker placement in 2015, coronary stents Endocrine Surgeries: No Reproductive Surgeries: No Neurological Surgeries: No Ear Surgeries: No Nose Surgeries: No Throat Surgeries: No Other Surgeries: Yes - cataract repair in both eyes, molars removed Anesthesia Adverse Reactions: FOUND none Family Hx of Anesthesia Advers: none Hx of Motion Sickness: No Pertinent Findings Laboratory Tests 11/08/16 04:30 Test 11/08/16 04:30 Prothromb Time International Ratio 1.90 (0.76-1.04) EKG Ectopy: PVC Physical Exam Respiratory: Lungs clear Cardiovascular: FOUND Regular rate, rhythm Airway Assessment Mallampati Score: II TMD: 3 Fingerbreadths Neck Extension: Fair Overall Assessment: No Airway Concerns ASA: 3 Plan Anesthesia Plan: TIVA Discussion Discussed risks/options/alternatives of anesthesia and questions answered. Patient consents. Nursing pain assessment noted. Present: Spouse Attestation Statement Prior to the delivery of any anesthetic medication, I examined the patient, developed the plan, obtained the patient's consent and discussed the risk and benefits of the procedure with the patient/guardian. PAO KIRBY CRNA November 08, 2016 13:51
[2016-11-08] MEDS ORDERED: FENTANYL 100mcg/2ml INJECTION ONE (13:55)
[2016-11-08] MEDS ORDERED: BUPIVACAINE 0.25%/EPI 1:200,000 30ml SDV ONE (14:10)
--- NOTE | 2016-11-08 15:03 | ANESPO ---
Post-Op Note Date 11/08/16 Time: 15:03 Status Pt Participated in Evaluation: Pt participated in person Vital Signs Date Time Temp Pulse Resp B/P Pulse Ox O2 Delivery O2 Flow Rate FiO2 11/08/16 13:08 97.6 74 16 151/68 100 Room Air Respiratory Function: Airway patent Cardiovascular Function: Regular pulse Mental Status: Alert/oriented Pain Level Intensity: 0 Unable to Assess Pain Due To: Pt Sleeping Hydration: IV infusing Complications during Recovery None apparent Follow-Up Instructions Instructions Per Surgeon PAO KIRBY CRNA November 08, 2016 15:03
--- NOTE | 2016-11-08 15:35 | NUR ---
Back to floor Pt transferred self from cart to bed at this time. Pt A&O X3. VS stable on RA. Family present in room at time of transfer. Post op VS started. Wound vac in place to right heel. Mepilex dressing to right rao, c/d/i. Mepilex dressing to skin tear on left elbow, drainage circled. Side rails up X2, call light w/in reach, bed alarm on.
--- NOTE | 2016-11-08 15:42 | NUR ---
STATUS: AFTER TRANSFERRING PATIENT FROM CART TO BED, WOUND VAC DRESSING APPEARS TO HAVE SMALL AMOUNT BLOODY DRAINAGE AT BASE OF DRESSING AND DOES NOT APPEAR TO BE FULLY DEPRESSED WITH SUCTION. NO APPARENT LEAK IDENTIFIED. JAKE MUSA WITH WOUND CARE NOTIFIED AND WILL SEE PATIENT AND ASSESS DRESSING IN PATIENT ROOM. REPORT GIVEN TO XOCHITL ROMAN RN.
[2016-11-08] MEDS ORDERED: HYDROCODONE/APAP 5 mg/325 mg TABLET PO PRN (16:00)
[2016-11-08] MEDS: VANCOMYCIN 1,000 MG in NORMAL SALINE 250 ML IV SCH (16:54)
--- NOTE | 2016-11-08 17:15 | PDWOUND ---
Wound Documentation Wound Management Wound : Location Modifier: Posterior, Proximal Wound Location: Foot (Right achilles tendon) Wound Type: Surgical Wound Dressing Frequency: two times per week Wound Duration: three weeks Wound Dressing Status: FOUND: Moist Wound Drainage Amount: Moderate Wound Drainage Description: Serous Wound Drainage Odor: None/Absent Wound General Appearance: FOUND Tendon Visible, FOUND Unapproximated Wound Bed: gran red, slough Periwound Description: erythematous Wound Length (cm): 7 Wound Width (cm): 5 Wound Depth (cm): 1 Exposed: tendon Wound Cleanser: NS Wound Solution/Irrigant: Saline Irrigant Wound Packing Type: FOUND: Black Foam Wound Primary Dressing Type: Clear Adhesive Cover Comments Pt in OR post debridment, wound larger after I & D. instilling NS every 3.5 hours at 20cc to dwell for 20 mins. LUZ MUSA RN November 08, 2016 17:15
--- NOTE | 2016-11-08 18:34 | NUR ---
SUMMARY PT A&OX3. VS STABLE ON RA. PT HAS BEEN USING URINAL WITH ADEQUATE URINE OUTPUT. PT DENIES PAIN AND NAUSEA AT THIS TIME. WOUND VAC IN PLACE TO THE RIGHT HEEL. MEPILEX DRESSING TO THE RIGHT MCMAHAN, C/D/I. MEPILEX DRESSING TO THE LEFT ELBOW, DRAINAGE CIRCLED. PT TOLERATED DINNER WELL WITH NO COMPLAINTS OF NAUSEA. PICC LINE TO THE RIGHT UPPER ARM FLUSHES AND ASPIRATES WELL, GREEN CUROS CAP IN PLACE. POSITIONING SELF IN BED. SIDE RAILS UP X2, CALL LIGHT W/IN REACH, BED ALARM ON.
[2016-11-08 18:56] LABS: BASOPHILS % (AUTO) 0.5 % (0-2); EOSINOPHILS # (AUTO) 0.4 T/MM3 (0-0.5); EOSINOPHILS % (AUTO) 5.4 % (0-4); HCT - HEMATOCRIT 26.2 % (41-53); HGB - HEMOGLOBIN 8.3 GM/DL (13.5-17.5); IMMATURE GRANULOCYTE # (AUTO) 0.01 T/MM3 (0.00-0.03); IMMATURE GRANULOCYTE % (AUTO) 0.1 % (0.0-0.5); LYMPHOCYTES # (AUTO) 1.4 T/MM3 (1-4.8); LYMPHOCYTES % (AUTO) 18.3 % (23-45); MEAN CORPUSCULAR HGB 28.7 UUG (26-34); MEAN CORPUSCULAR HGB CONC(MCHC 31.7 GM/DL (31-37); MEAN CORPUSCULAR VOLUME 90.7 UM3 (80-100); MEAN PLATELET VOLUME 9.9 UM3 (9.4-12.4); MONOCYTES # (AUTO) 0.7 T/MM3 (0-0.8); MONOCYTES % (AUTO) 8.4 % (0-9.0); NEUTROPHILS #(AUTO)-ABSOLUTE 5.2 T/MM3 (1.8-7.7); NEUTROPHILS % (AUTO) 67.3 % (33-66); RED BLOOD COUNT 2.89 M/MM3 (4.50-5.90); WBC - WHITE BLOOD COUNT 7.7 T/MM3 (4.5-11.0)
[2016-11-08] MEDS: TAMSULOSIN 0.4 MG CAPSULE PO SCH (21:27)
[2016-11-08] MEDS: INSULIN REGULAR 100 UNIT/ML SQ PRN (21:28)
[2016-11-08] MEDS: INSULIN GLARGINE 100 UNIT/ML SQ SCH (21:28)
[2016-11-09 00:49] LABS: TOTAL IRON BINDING CAPACITY 181 UG/DL (261-497)
--- NOTE | 2016-11-09 02:15 | NUR ---
Chart Check 24 hour chart check completed
[2016-11-09 02:56] LABS: IRON 21 UG/DL (49-181); IRON % SAT (TRANSF %SAT)(CALC) 12 % (13-59)
[2016-11-09] MEDS: PIPERACILLIN/TAZOBACTAM 2.25 G in NORMAL SALINE 100 ML IV SCH ×4 (02:56→21:00)
[2016-11-09 03:32] LABS: FERRITIN 204 NG/ML (18-464)
[2016-11-09 04:14] VITALS: BP 107/56; PULSE 85; RESP 16; TEMP 99.3; O2SAT 96
--- NOTE | 2016-11-09 04:29 | NUR ---
STATUS PATIENT IS ALTER AND ORIENTEDX3.PATIENT SLEPT BETWEEN CARES. PATIENT DENIES ANY PAIN ,NAUSEA OR VOMITING THIS SHIFT. GOOD BLOOD RETURN AND FLUSHED WELL THROUGH PICC . WOUND VAC IN PLACE .DRESSING DRY AND INTACT. PATIENT USED URINAL AND HAD ADEQUATE URINE OUTPUT. ON ROOM AIR. SCD USED TO LT LEG. T 99.3 THIS MORNING. ENCOURAGE PATIENT TO DRINK MORE FLUIDS.SIDE RAIL UPX2. CALL LIGHT WITHIN REACH . BED ALARM ON.CONTINUE TO MONITOR.
[2016-11-09 05:19] LABS: BASOPHILS % (AUTO) 0.4 % (0-2); EOSINOPHILS # (AUTO) 0.4 T/MM3 (0-0.5); HCT - HEMATOCRIT 25.1 % (41-53); LYMPHOCYTES # (AUTO) 1.2 T/MM3 (1-4.8); LYMPHOCYTES % (AUTO) 14.3 % (23-45); MEAN CORPUSCULAR HGB 28.7 UUG (26-34); MEAN CORPUSCULAR HGB CONC(MCHC 31.9 GM/DL (31-37); MEAN PLATELET VOLUME 9.9 UM3 (9.4-12.4); MONOCYTES # (AUTO) 0.9 T/MM3 (0-0.8); MONOCYTES % (AUTO) 10.3 % (0-9.0); NEUTROPHILS #(AUTO)-ABSOLUTE 5.9 T/MM3 (1.8-7.7); RED BLOOD COUNT 2.79 M/MM3 (4.50-5.90); WBC - WHITE BLOOD COUNT 8.5 T/MM3 (4.5-11.0)
[2016-11-09 05:29] LABS: ANION GAP 11 MEQ/L (5-15); BUN/CREATININE RATIO 15 RATIO (6-26); CALCIUM 8.4 MG/DL (8.4-10.2); CHLORIDE 111 MEQ/L (98-107); CO2 - CARBON DIOXIDE 23 MEQ/L (22-30); CREATININE 1.7 MG/DL (0.8-1.5); GLOMERULAR FILTRATION RATE 38; GLUCOSE 72 MG/DL (75-110); POTASSIUM 3.7 MEQ/L (3.6-5); SODIUM 145 MEQ/L (134-144)
[2016-11-09] MEDS: OMEPRAZOLE 20 MG CAPSULE PO SCH (05:41)
[2016-11-09 07:55] VITALS: BP 144/64; PULSE 79; RESP 16; TEMP 98.4; O2SAT 98
[2016-11-09] MEDS: DOCUSATE SODIUM 100 MG CAPSULE PO SCH ×2 (09:00→21:34)
[2016-11-09] MEDS: LINAGLIPTIN 5 MG TABLET PO SCH (09:00)
[2016-11-09] MEDS: FUROSEMIDE 20 MG TABLET PO SCH (09:00)
[2016-11-09] MEDS: CARVEDILOL 25 MG TABLET PO SCH ×2 (09:00→17:54)
[2016-11-09 10:19] LABS: INR 1.67 (0.76-1.04); PROTHROMBIN TIME 18.2 SEC (9.31-12.49)
--- NOTE | 2016-11-09 10:54 | PNPDOC ---
PHOEBE MORALES V BOARD FINISHER 11/09/16 1047: Subjective Date DATE: 11/09/16 TIME: 10:43 Subjective Tim is seen this morning while eating breakfast. He is in good spirits and is without complaints of pain or shortness of breath. Tolerated surgical debridement of foot wound yesterday afternoon and wound vac remains intact. Appetite is good and bowels are moving regularly. BP 144/64. Objective Vital Signs Vital signs Vital Signs Date Time Temp Pulse Resp B/P Pulse Ox O2 Delivery O2 Flow Rate FiO2 11/09/16 07:55 98.4 79 16 144/64 98 Room Air Height (Feet): 6 Height (Inches): 0.00 Weight (Kilograms): 74.500 General General Appearance: Alert, Orientated x 3, Cooperative, No Acute Distress Eyes (Brief) Eyes: FOUND: EOMI ENMT (Brief) ENMT: FOUND: mucosa moist, normal dentition, NOT FOUND: pharnyx erythema Neck (Brief) Neck: FOUND: midline, NOT FOUND: adenopathy, carotid bruits, tracheal deviation Respiratory (Brief) Respiratory: FOUND: clear all miller, equal bilaterally, NOT FOUND: wheezes Cardiovascular (Brief) Cardiac: FOUND: regular rate, regular rhythm, NOT FOUND: murmur, pedal edema Capillary Refill: <2 sec Abdomen (Brief) Abdominal: FOUND: BS normo active x4, soft, NOT FOUND: distended, tender Extremities (Brief) Extremity : Side: Right Extremity: foot (wound Vac in place) Lymphatic (Brief) Lymphatic: NOT FOUND: adenopathy Musculoskeletal (Brief) Musculoskeletal: NOT FOUND: tenderness Integumentary (Brief) Integumentary: FOUND: dry, pink, warm Neurologic (Brief) Neurological: FOUND: cranial 2-12 intact Psychiatric (Brief) Psychiatric: FOUND: alert, attentive, normal affect, oriented Laboratory Laboratory Laboratory Tests 11/08/16 04:30 11/09/16 04:10 Laboratory Tests 11/08/16 04:30 11/08/16 18:05 11/09/16 04:10 Microbiology Microbiology Microbiology Date/Time Source Procedure Growth Status 11/06/16 12:06 Peripheral/Iv Start Blood Culture - Preliminary NO GROWTH AFTER 48 HOURS Resulted 11/06/16 12:06 Peripheral/Iv Start Blood Culture - Preliminary NO GROWTH AFTER 48 HOURS Resulted Assessment & Plan Problems: (1) Diabetes with ulcer of lower extremity Status: Acute Assessment & Plan: Present on admission, Right lower ext. Failed outpatient treatment (2) Diabetes mellitus Status: Chronic Qualifiers: Diabetes mellitus type: type 2 (3) CAD (coronary artery disease) Status: Chronic (4) CHF (congestive heart failure) Status: Chronic Qualifiers: Congestive heart failure type: diastolic Congestive heart failure chronicity: chronic Qualified Codes: I50.32 - Chronic diastolic (congestive) heart failure Assessment & Plan: EF 45% last ECHO (5) Ischemic cardiomyopathy Status: Chronic (6) Dyslipidemia Status: Chronic (7) CKD (chronic kidney disease), stage III Status: Chronic (8) HS (hereditary spherocytosis) Status: Chronic (9) Chronic anemia Status: Chronic (10) Peripheral vascular disease Status: Chronic (11) DVT (deep venous thrombosis) Status: Chronic (12) Neuropathy Status: Chronic (13) Anticoagulated Status: Chronic Assessment & Plan: Chronically on Coumadin (14) Hx of cataract Status: Resolved (15) Anemia Status: Chronic Plan/Intensity of Service 11/09/16 Tim tolerated wound debridement procedure well yesterday Continue with Vanco and Zosyn IV for antimicrobial coverage. Blood cultures remain negative. Awaiting further culture results from yesterday procedure He will need 4-6 weeks of to microbial coverage depending on if there is increased suspicion for osteomyelitis Will resume Lovenox subcutaneous daily for DVT prophylaxis. Continue to follow anemia. Hemoglobin today 8.0. Continue to monitor renal function. As creatinine is slightly elevated from baseline. Currently 1.7. Baseline appears to be 1.4 Continue to monitor Accu-Cheks, continue Lantus 8 units at at bedtime and sliding scale NovoLog [place] as needed for pain control. We'll recheck CBC and BMP tomorrow morning to follow blood counts, renal function and electrolytes. Code Status Full Code Hospital Course Summary Disclaimer The hospital course summary below is not to be considered part of the above Progress Note. Hospital Course Summary Admit patient to inpatient status under the care of Dr. Perkins for right lower extremity wound, diabetic ulcer, failed outpatient treatment. On admission, we will obtain the following laboratory studies. CBC, CMP, magnesium, pro calcitonin, pre-albumin, venous lactate, blood culture 2. Will initiate IV Zosyn and Vancomycin for antimicrobial coverage of all 4 pathogens found in wound culture from 10/31/16. Place consult to Dr Castorena to infectious disease treatment recommendations Consult to Dr Campbell for further surgical and wound management Will obtain a hemoglobin A1c for diabetes surveillance. Monitor Accu-Cheks, and continue with home insulin including Lantus 8 units at at bedtime. Will also continue with Tradjenta by mouth daily Given chronic anticoagulation will obtain an INR. Will need to discuss anticoagulation further with Dr Perkins and surgical team. May need to switch to Lovenox if patient will potentially have a surgical procedure. Zofran as needed for nausea and Morphine as needed for pain control SCD to LLE for DVT prophylaxis. Recheck CBC and BMP tomorrow morning to follow blood counts, renal function and electrolytes At time of discharge medical care is to return to PCP Dr Mcqueen at [facility] 11/07/16 Appreciate surgical management as per Dr Campbell. Continue with wound Vac to right lower ext Vancomycin and Zosyn IV for antimicrobial coverage. Appreciate consultation with Dr Castorena for ongoing ID recommendations Hgb is decreased to 7.6 this morning. Further anemia workup including stool for occult blood, Iron studies are pending. Likely related to chronic anemia. Chronic Coumadin on hold since admission and Lovenox 40 mg SQ daily started. Will need to hold on day surgical procedure. INR this morning 1.86 Monitor blood sugars and continue on Tradjenta and Novolin sliding scale One episode of hypotension this morning. Continue to monitor. Recheck CBC and BMP tomorrow to follow blood counts, renal function and electrolytes 11/08/16 Planning for foot wound debridement this afternoon with Dr Campbell. Lovenox on hold today for scheduled procedure. Continue with Zosyn and Vancomycin for antimicrobial coverage. Ratio Dr. Castorena recommendations. Will continue with IV antibiotics 4 weeks. If wound appears to have osteomyelitis. She recommends extending this to 6 weeks of treatment. Patient continues to have anemia, hemoglobin today 7.7. Iron studies pending, Stool for occult blood was negative. Likely chronic anemia. Will consider transfusion if Hgb drops <7. Continue to monitor blood sugars. Fasting sugar this morning 97. Patient currently nothing by mouth. Continue to monitor renal function, creatinine 1.7. Baseline appears 1.4. Recheck CBC and BMP tomorrow morning to follow renal function, electrolytes and blood counts 11/09/16 Tim tolerated wound debridement procedure well yesterday Continue with Vanco and Zosyn IV for antimicrobial coverage. Blood cultures remain negative. Awaiting further culture results from yesterday procedure He will need 4-6 weeks of to microbial coverage depending on if there is increased suspicion for osteomyelitis Will resume Lovenox subcutaneous daily for DVT prophylaxis. Continue to follow anemia. Hemoglobin today 8.0. Continue to monitor renal function. As creatinine is slightly elevated from baseline. Currently 1.7. Baseline appears to be 1.4 Continue to monitor Accu-Cheks, continue Lantus 8 units at at bedtime and sliding scale NovoLog [place] as needed for pain control. We'll recheck CBC and BMP tomorrow morning to follow blood counts, renal function and electrolytes. YESSI PERKINS MD 11/09/16 7726: Assessment & Plan Plan/Intensity of Service Have independently interviewed and examined pt. Chart reviewed. Case discussed with CM, Dr Campbell and my BOARD FINISHER. Care plan developed with my supervision; agree with above. Doing well. Notes minimal discomfort to right leg-mild pain, slightly tight. No f/c/sweats. Breathing well-not SOA or having cough/congestion. No chest pain or pressure. Denies nausea or ab pain. Stools moving daily. Lungs: decreased, no distress CV: regular AB: Soft nt/nd +BS EXT: not edema. Wound vac in place on RLE MSE: awake alert appropriate Plan: Continue with vancomycin and Zosyn for antimicrobial cover. Continue wound vac. Consult PT to help improve functional status. Restart Coumadin-pharm to manage per protocol. Recheck CBC in am due to anemia. Monitor BMP due to CKD and medication use. Daily INR ordered. DVT Prophylaxis: Lovenox PHOEBE MORALES APRN November 09, 2016 10:47 YESSI PERKINS MD November 09, 2016 16:27
[2016-11-09] MEDS: FOLIC ACID 1 MG TABLET PO SCH (12:49)
[2016-11-09] MEDS: INSULIN REGULAR 100 UNIT/ML SQ PRN ×3 (12:49→21:34)
--- NOTE | 2016-11-09 12:51 | OPNOTEF ---
DATE OF SERVICE 11/08/2016 SURGEON Tim Campbell MD PREOPERATIVE DIAGNOSIS Wound involving right posterior heel with associated necrotic tissue. POSTOPERATIVE DIAGNOSIS Wound involving right posterior heel with associated necrotic tissue. PROCEDURE Excisional surgical debridement of necrotic subcutaneous tissues and fascia from right posterior ankle/heel region. Area debrided 5 cm x 2.5 cm. Application of wound VAC. ANESTHESIA TIVA/local BRIEF HISTORY/INDICATIONS Mr. Hernandez is an 86-year-old diabetic gentleman who has had the misfortune of developing progressive wound involving the left posterior heel/ankle region. He was found to have frankly necrotic tissue within the depth of the wound. He was admitted to the hospital for further care. It was recommended that he undergo additional excisional surgical debridement in an operative setting. For completeness please refer to notes included in the patient's chart. DESCRIPTION OF PROCEDURE After informed consent was obtained, patient was brought to the operative suite, placed on the table in supine fashion. The right lower extremity was then prepped and draped in sterile fashion. Formal time-out was then completed. 0.25% Marcaine was injected circumferentially around the wound which was present involving the right posterior ankle/distal calf region. Wound itself was on the order of about 5 cm x 2.5 cm. Unfortunately there was necrotic subcutaneous tissues and a good portion of the underlying Achilles tendon was frankly necrotic as well. A 15 blade and tissue forceps were utilized and the necrotic tissue was sharply debrided until a minimal amount of bleeding began to occur. At the cephalad aspect of the wound, an incision was made at this location for the wound did tunnel in a cephalad fashion. A 2 cm incision was made along the cephalad aspect of the wound. Dissection was carried down to the underlying subcutaneous tissue. One could see some residual necrotic Achilles tendon at this location. This additional tendon was debrided sharply back to viable tissue. Surgical curette was also utilized during the process of debridement and once all nonviable tissue had been debrided, the wound was irrigated with saline. A VeraFlo wound VAC was subsequently applied. Patient is in the process of awakening from his anesthetic and will be sent back to the recovery room once deemed in stable condition. [facility] HOSPITALRudy
--- NOTE | 2016-11-09 14:25 | NUR ---
CM CM IN TO VISIT WITH PT. PT DENIES HOME NEEDS AT THIS TIME AND IS AWARE TO CONTACT CM SHOULD NEEDS ARISE.
--- NOTE | 2016-11-09 16:43 | NUR ---
VANCOMYCIN CONSULT: Vancomycin Trough = 13.7 mcg/ml. Today's SCr = 1.7 mg/dl. Will increase Vancomycin to 1250 mg IV q24hrs. Will continue to monitor and make adjustments accordingly. Thank you.
--- NOTE | 2016-11-09 17:07 | NUR ---
COUMADIN CONSULT (Initial): Dx: DVT PROPHYLAXIS Baseline INR = 1.67. Will give Warfarin 4 mg today. This is patient's home dose. Will continue to monitor and make adjustments accordingly. Thank you.
[2016-11-09] MEDS ORDERED: WARFARIN 4 MG TABLET PO ONE (17:15)
[2016-11-09 17:49] VITALS: BP 143/63; PULSE 78; RESP 18; TEMP 97.8; O2SAT 92
--- NOTE | 2016-11-09 18:13 | PNF ---
DATE OF SERVICE 11/09/2016 FINDINGS Mr. Hernandez today is without complaints. He denied much in the way of incisional discomfort. EXAM VITAL SIGNS: Afebrile, normotensive. Please refer to EMR. EXTREMITIES: Attention was focused to the right lower extremity. Wound VAC is in place involving posterior heel region. The skin surrounding the Steri-Drape is without evidence for significant erythema. ASSESSMENT 86-year-old gentleman with progressive wound involving right posterior heel with associated infection/cellulitis. PLAN Patient doing well today. We were yesterday able to debride the majority of the necrotic material throughout the wound bed. All visible nonviable tissue was able to be excised. Will continue with negative wound pressure therapy and broad-spectrum antibiotics over the course of the weekend. On Saturday hopefully the patient will be able to be discharged to home with home VAC and arrangements for outpatient infusion for his infected tendon/fascia. I am not planning on seeing the patient over the course of the weekend. If assistance is needed from general surgical standpoint, please contact Dr. Arellano. GREY
--- NOTE | 2016-11-09 18:37 | NUR ---
SHIFT SUMMARY PATIENT IS ALERT AND ORIENTED X3. PATIENT VITALS ARE STABLE AND PATIENT IS ON ROOM AIR. PATIENT HAS NOT REQUIRED PRN PO PAIN MEDICATION THIS SHIFT. PATIENT WOUND VAC IS PATENT AND DRAINING. PATIENT DRESSING IS CLEAN, DRY, AND INTACT. PATIENT IS UP WITH 2X ASSIST WITH GB, AND PERSONAL 4 WHEEL WALKER. PATIENT HAS REQUIRED SS INSULIN. WILL CONTINUE TO MONITOR.
[2016-11-09] MEDS: VANCOMYCIN 1,250 MG in NORMAL SALINE 250 ML IV SCH (18:51)
[2016-11-09 20:00] VITALS: BP 120/65; PULSE 87; RESP 19; TEMP 98.5; O2SAT 98
[2016-11-09] MEDS: INSULIN GLARGINE 100 UNIT/ML SQ SCH (21:34)
[2016-11-09] MEDS: TAMSULOSIN 0.4 MG CAPSULE PO SCH (21:34)
[2016-11-09] MEDS: NS 500 ML IV PRN (23:23)
[2016-11-09 23:57] VITALS: BP 147/66; PULSE 88; RESP 12; TEMP 100.3; O2SAT 94
[2016-11-10 02:15] VITALS: TEMP 100.1
[2016-11-10] MEDS: ACETAMINOPHEN 325 MG TABLET PO PRN (02:51)
[2016-11-10] MEDS: PIPERACILLIN/TAZOBACTAM 2.25 G in NORMAL SALINE 100 ML IV SCH ×4 (03:00→21:33)
[2016-11-10 04:04] VITALS: BP 103/52; PULSE 83; RESP 14; TEMP 99.7; O2SAT 93
--- NOTE | 2016-11-10 04:52 | NUR ---
SHIFT SUMMARY PATIENT IS ALERT AND ORIENTED X3 THIS SHIFT. VITAL SIGNS HAVE BEEN STABLE ON ROOM AIR. PATIENT HAS NOT LEFT BED THIS SHIFT. URINAL AT BEDSIDE. CANISTER AND SALINE BAG WERE CHANGED ON WOUND VAC THIS SHIFT. WOUND VAC IS PATENT AND DRAINING WITH DRESSING CLEAN, DRY, AND INTACT. PATIENT HAD AN EPISODE OF "NOT FEELING WELL" LATE THIS SHIFT. DURING THIS TIME HE REPORTED PAIN AT AN 8. HE WAS SAT UP ON THE EDGE OF THE BED AND OFFERED THE AVAILABLE NORCO 5, BUT DECLINED IN FAVOR OF AVAILABLE TYLENOL. AFTER CHECKING BACK HE REPORTED INCREASED COMFORT AND DESIRED TO LAY BACK DOWN AT THIS TIME. PATIENT HAS SLEPT WELL SINCE. WILL CONTINUE TO MONITOR.
[2016-11-10 05:15] LABS: BASOPHILS % (AUTO) 0.3 % (0-2); EOSINOPHILS # (AUTO) 0.3 T/MM3 (0-0.5); EOSINOPHILS % (AUTO) 3.1 % (0-4); HCT - HEMATOCRIT 26.6 % (41-53); HGB - HEMOGLOBIN 8.5 GM/DL (13.5-17.5); IMMATURE GRANULOCYTE # (AUTO) 0.01 T/MM3 (0.00-0.03); IMMATURE GRANULOCYTE % (AUTO) 0.1 % (0.0-0.5); LYMPHOCYTES % (AUTO) 9.6 % (23-45); MEAN CORPUSCULAR HGB 28.6 UUG (26-34); MEAN CORPUSCULAR VOLUME 89.6 UM3 (80-100); MONOCYTES % (AUTO) 10.2 % (0-9.0); NEUTROPHILS #(AUTO)-ABSOLUTE 7.6 T/MM3 (1.8-7.7); NEUTROPHILS % (AUTO) 76.7 % (33-66); RED BLOOD COUNT 2.97 M/MM3 (4.50-5.90); WBC - WHITE BLOOD COUNT 9.9 T/MM3 (4.5-11.0)
[2016-11-10 05:16] LABS: INR 1.51 (0.76-1.04); PROTHROMBIN TIME 16.5 SEC (9.31-12.49)
[2016-11-10 05:27] LABS: ANION GAP 13 MEQ/L (5-15); BUN/CREATININE RATIO 14 RATIO (6-26); CALCIUM 8.9 MG/DL (8.4-10.2); CHLORIDE 107 MEQ/L (98-107); CO2 - CARBON DIOXIDE 22 MEQ/L (22-30); CREATININE 1.7 MG/DL (0.8-1.5); GLOMERULAR FILTRATION RATE 38; GLUCOSE 104 MG/DL (75-110); POTASSIUM 3.7 MEQ/L (3.6-5); SODIUM 142 MEQ/L (134-144)
[2016-11-10] MEDS: OMEPRAZOLE 20 MG CAPSULE PO SCH (06:14)
[2016-11-10 07:40] VITALS: BP 118/66; PULSE 91; RESP 16; TEMP 99.8; O2SAT 100
[2016-11-10] MEDS: CARVEDILOL 25 MG TABLET PO SCH ×3 (08:00→18:32)
[2016-11-10] MEDS: FUROSEMIDE 20 MG TABLET PO SCH (08:53)
[2016-11-10] MEDS: DOCUSATE SODIUM 100 MG CAPSULE PO SCH ×3 (08:53→21:00)
[2016-11-10] MEDS: NORMAL SALINE 1,000 ML IV PRN (08:53)
[2016-11-10] MEDS: ENOXAPARIN 40 MG/0.4 ML INJECTION SQ SCH (08:54)
[2016-11-10] MEDS: LINAGLIPTIN 5 MG TABLET PO SCH (08:54)
--- NOTE | 2016-11-10 10:43 | NUR ---
COUMADIN CONSULT: s: 86 yo male was admitted with a wound on his right posterior heel extending to his Achilles tendon. He has been treated at the wound center and apparently lately he has been treating at home. He was admitted to hospital to treat the wound more aggressively. He is taking Coumadin 4 mg daily for DVT prophyllaxis. O: Date INR Dose 11/09 1.67 4 mg 11/10 1.51 Plan 5 mg A/P: I plan to give Warfarin 5 mg po today as the INR is subtherapeutic and has dropped from 1.67 yesterday. The pharmacy will continue to monitor the INRs and adjust the dosage of the Coumadin accordingly. Thanks for the Warfarin Dosing Protocol, Liam Goetz RPh.
[2016-11-10] MEDS: INSULIN REGULAR 100 UNIT/ML SQ PRN ×2 (11:38→21:34)
[2016-11-10] MEDS: FERROUS SULFATE 324 MG TABLET PO SCH (11:39)
[2016-11-10] MEDS: FOLIC ACID 1 MG TABLET PO SCH (11:39)
[2016-11-10 12:00] VITALS: BP 116/68; PULSE 83; RESP 16; TEMP 99.3; O2SAT 97
[2016-11-10] MEDS ORDERED: WARFARIN 5 MG TABLET PO SCH (12:00)
--- NOTE | 2016-11-10 12:12 | PNPDOC ---
PHOEBE MORALES V MARYLOU 11/10/16 1200: Subjective Date DATE: 11/10/16 TIME: 11:53 Subjective Tim is seen today in follow up. He is up sitting in the chair today. He is alert and pleasant and states he would like to be at home as he has some much yard work to do. He does complain of having some right knee discomfort as he feels that he is moving his right foot and leg differently with the wound VAC intact. He is noted to have some minimal right medial knee swelling. No warmth or erythema is noted. Low-grade temp overnight max of 100.3 Objective Vital Signs Vital signs Vital Signs Date Time Temp Pulse Resp B/P Pulse Ox O2 Delivery O2 Flow Rate FiO2 11/10/16 07:40 99.8 91 16 118/66 100 Room Air Height (Feet): 6 Height (Inches): 0.00 Weight (Kilograms): 74.600 General General Appearance: Alert, Orientated x 3, Cooperative, No Acute Distress Eyes (Brief) Eyes: FOUND: EOMI ENMT (Brief) ENMT: FOUND: mucosa moist, normal dentition, NOT FOUND: pharnyx erythema Neck (Brief) Neck: FOUND: midline, NOT FOUND: adenopathy, carotid bruits, tracheal deviation Respiratory (Brief) Respiratory: FOUND: clear all miller, equal bilaterally, NOT FOUND: wheezes Cardiovascular (Brief) Cardiac: FOUND: regular rate, regular rhythm, NOT FOUND: murmur, pedal edema Capillary Refill: <2 sec Abdomen (Brief) Abdominal: FOUND: BS normo active x4, soft, NOT FOUND: distended, tender Extremities (Brief) Extremity : Side: Right Extremity: foot (wound Vac intact), other (knee, swelling) Lymphatic (Brief) Lymphatic: NOT FOUND: adenopathy Musculoskeletal (Brief) Musculoskeletal: NOT FOUND: tenderness Integumentary (Brief) Integumentary: FOUND: dry, pink, warm Neurologic (Brief) Neurological: FOUND: cranial 2-12 intact Psychiatric (Brief) Psychiatric: FOUND: alert, attentive, normal affect, oriented Laboratory Laboratory Laboratory Tests 11/09/16 04:10 11/10/16 03:46 Laboratory Tests 11/08/16 18:05 11/09/16 04:10 11/10/16 03:46 Assessment & Plan Problems: (1) Diabetes with ulcer of lower extremity Status: Acute Assessment & Plan: Present on admission, Right lower ext. Failed outpatient treatment (2) Diabetes mellitus Status: Chronic Qualifiers: Diabetes mellitus type: type 2 (3) CAD (coronary artery disease) Status: Chronic (4) CHF (congestive heart failure) Status: Chronic Qualifiers: Congestive heart failure type: diastolic Congestive heart failure chronicity: chronic Qualified Codes: I50.32 - Chronic diastolic (congestive) heart failure Assessment & Plan: EF 45% last ECHO (5) Ischemic cardiomyopathy Status: Chronic (6) Dyslipidemia Status: Chronic (7) CKD (chronic kidney disease), stage III Status: Chronic (8) HS (hereditary spherocytosis) Status: Chronic (9) Chronic anemia Status: Chronic (10) Peripheral vascular disease Status: Chronic (11) DVT (deep venous thrombosis) Status: Chronic (12) Neuropathy Status: Chronic (13) Anticoagulated Status: Chronic Assessment & Plan: Chronically on Coumadin (14) Hx of cataract Status: Resolved (15) Anemia Status: Chronic Plan/Intensity of Service 11/10/16 Continue with vancomycin and Zosyn for antimicrobial coverage. Recommended between 4 and 6 weeks of IV coverage. Wound culture from 10/31 did reveal multi organism growth that is covered by Zosyn and vancomycin. Awaiting further cultures from surgical debridement on 11/08 Wound Vac to RLE. Appreciate consultation by Dr. Campbell and Dr. Castorena for ongoing recommendations. May use ice or heat to left knee due to increased pain. Monitor for evidence of erythema or warmth. Hgb has remained stable at 8.5, will continue to monitor. Continue to monitor renal function is patient's chronic creatinine appears to be 1.4-1.7 Intended to monitor blood sugars, Lantus 8 units at at bedtime along with sliding scale Novolin. Lovenox subcutaneous daily bridging to therapeutic INR with Coumadin. Being managed by pharmacy. Will recheck CBC and BMP tomorrow morning to follow blood counts, renal function , electrolytes Code Status Full Code Hospital Course Summary Disclaimer The hospital course summary below is not to be considered part of the above Progress Note. Hospital Course Summary Admit patient to inpatient status under the care of Dr. Perkins for right lower extremity wound, diabetic ulcer, failed outpatient treatment. On admission, we will obtain the following laboratory studies. CBC, CMP, magnesium, pro calcitonin, pre-albumin, venous lactate, blood culture 2. Will initiate IV Zosyn and Vancomycin for antimicrobial coverage of all 4 pathogens found in wound culture from 10/31/16. Place consult to Dr Castorena to infectious disease treatment recommendations Consult to Dr Campbell for further surgical and wound management Will obtain a hemoglobin A1c for diabetes surveillance. Monitor Accu-Cheks, and continue with home insulin including Lantus 8 units at at bedtime. Will also continue with Tradjenta by mouth daily Given chronic anticoagulation will obtain an INR. Will need to discuss anticoagulation further with Dr Perkins and surgical team. May need to switch to Lovenox if patient will potentially have a surgical procedure. Zofran as needed for nausea and Morphine as needed for pain control SCD to LLE for DVT prophylaxis. Recheck CBC and BMP tomorrow morning to follow blood counts, renal function and electrolytes At time of discharge medical care is to return to PCP Dr Mcqueen at [facility] 11/07/16 Appreciate surgical management as per Dr Campbell. Continue with wound Vac to right lower ext Vancomycin and Zosyn IV for antimicrobial coverage. Appreciate consultation with Dr Castorena for ongoing ID recommendations Hgb is decreased to 7.6 this morning. Further anemia workup including stool for occult blood, Iron studies are pending. Likely related to chronic anemia. Chronic Coumadin on hold since admission and Lovenox 40 mg SQ daily started. Will need to hold on day surgical procedure. INR this morning 1.86 Monitor blood sugars and continue on Tradjenta and Novolin sliding scale One episode of hypotension this morning. Continue to monitor. Recheck CBC and BMP tomorrow to follow blood counts, renal function and electrolytes 11/08/16 Planning for foot wound debridement this afternoon with Dr Campbell. Lovenox on hold today for scheduled procedure. Continue with Zosyn and Vancomycin for antimicrobial coverage. Ratio Dr. Castorena recommendations. Will continue with IV antibiotics 4 weeks. If wound appears to have osteomyelitis. She recommends extending this to 6 weeks of treatment. Patient continues to have anemia, hemoglobin today 7.7. Iron studies pending, Stool for occult blood was negative. Likely chronic anemia. Will consider transfusion if Hgb drops <7. Continue to monitor blood sugars. Fasting sugar this morning 97. Patient currently nothing by mouth. Continue to monitor renal function, creatinine 1.7. Baseline appears 1.4. Recheck CBC and BMP tomorrow morning to follow renal function, electrolytes and blood counts 11/09/16 Tim tolerated wound debridement procedure well yesterday Continue with Vanco and Zosyn IV for antimicrobial coverage. Blood cultures remain negative. Awaiting further culture results from yesterday procedure He will need 4-6 weeks of to microbial coverage depending on if there is increased suspicion for osteomyelitis Will resume Lovenox subcutaneous daily for DVT prophylaxis. Continue to follow anemia. Hemoglobin today 8.0. Continue to monitor renal function. As creatinine is slightly elevated from baseline. Currently 1.7. Baseline appears to be 1.4 Continue to monitor Accu-Cheks, continue Lantus 8 units at at bedtime and sliding scale NovoLog Oliver as needed for pain control. We'll recheck CBC and BMP tomorrow morning to follow blood counts, renal function and electrolytes. 11/10/16 Continue with vancomycin and Zosyn for antimicrobial coverage. Recommended between 4 and 6 weeks of IV coverage. Wound culture from 10/31 did reveal multi organism growth that is covered by Zosyn and vancomycin. Awaiting further cultures from surgical debridement on 11/08 Wound Vac to RLE. Appreciate consultation by Dr. Campbell and Dr. Castorena for ongoing recommendations. May use ice or heat to left knee due to increased pain. Monitor for evidence of erythema or warmth. Hgb has remained stable at 8.5, will continue to monitor. Continue to monitor renal function is patient's chronic creatinine appears to be 1.4-1.7 Intended to monitor blood sugars, Lantus 8 units at at bedtime along with sliding scale Novolin. Lovenox subcutaneous daily bridging to therapeutic INR with Coumadin. Being managed by pharmacy. Will recheck CBC and BMP tomorrow morning to follow blood counts, renal function , electrolytes GAIL CORDERO MD 11/10/16 1530: Assessment & Plan Assessment 11/10/2016-I reviewed this chart, the patient history, and the WAREHOUSE SHIPPING RECEIVING CLERK's/PA's documented findings as above. We discussed and formulated the assessment and plan as above with the additions below.-Dr. Cordero Patient is seen this afternoon in his room. He states he is feeling well. He denies any shortness of breath or cough. He denies any headache, chest pain or abdominal pain. He does have some pain in the back of his right leg and foot but it is getting better. He denies any nausea, vomiting or diarrhea. He states he's having normal bowel movements. He feels like he is urinating without difficulties. He noticed some feverishness and not feeling well last night but feels well today. On exam he is alert and oriented 3 and in no acute distress. HEENT reveals sclerae to be anicteric and oral pharynx is moist. Neck is supple. Chest is clear to auscultation. Cardiovascular reveals a regular rate and rhythm without murmur. Abdomen is soft and nontender. Extremities reveal +1 pedal and pretibial edema. Impression and plan Regarding right heel necrotic and infected wound-continue Zosyn and vancomycin. Continue wound VAC. Feverishness-currently resolved, check blood cultures if he continues to have fever Regarding history of right lower extremity DVT-Coumadin was on hold for his procedure yesterday. Coumadin restarted today. He is on low-dose Lovenox 40 mg once daily Regarding chronic kidney disease-creatinine is 1.7 and baseline is around 1.3- 1.4. Postvoid residual was 255. Will check renal sonogram Regarding iron deficiency anemia-start oral iron now and consider IV iron when infection is better Regarding chronic systolic CHF with ejection fraction of 45%, continue Lasix and Coreg. Regarding anemia/hereditary spherocytosis, continue to monitor-no transfusion needed at this time Regarding diabetes, continue current treatment DVT Prophylaxis: Lovenox, Coumadin PHOEBE MORALES APRN November 10, 2016 12:00 GAIL CORDERO MD November 10, 2016 15:30
--- NOTE | 2016-11-10 15:00 | NUR ---
PHYSICIAN CONTACT DR. WILKES IN ROOM FOR PT EVAL/ASSMT
[2016-11-10] MEDS: VANCOMYCIN 1,250 MG in NORMAL SALINE 250 ML IV SCH (15:53)
[2016-11-10 16:00] VITALS: BP 129/63; PULSE 88; RESP 16; TEMP 99.7; O2SAT 100
--- NOTE | 2016-11-10 18:41 | NUR ---
SUMMARY PT IMPROVED IN TRANSFERS WITH EACH TIME. STILL RECOMMEND 2 PEOPLE ASSIST. PT CONTINUES TO DENY DISCOMFORT. TOLERATING SOLID FOOD WITHOUT N/V. WOUND VAC REMAINS PATENT WITH SEROUS DRAINAGE IN CANISTER.
[2016-11-10 20:41] VITALS: BP 111/40; PULSE 74; RESP 20; TEMP 98.4; O2SAT 92
[2016-11-10] MEDS: INSULIN GLARGINE 100 UNIT/ML SQ SCH (21:34)
[2016-11-10] MEDS: TAMSULOSIN 0.4 MG CAPSULE PO SCH (21:35)
[2016-11-11] VITALS (7 sets, daily range): BP systolic 103–138; BP diastolic 44–63; PULSE 74–80; RESP 14–18; TEMP 97.7–99.2; O2SAT 95–100
[2016-11-11] MEDS: PIPERACILLIN/TAZOBACTAM 2.25 G in NORMAL SALINE 100 ML IV SCH ×4 (02:29→20:48)
[2016-11-11 03:46] LABS: HCT - HEMATOCRIT 22.6 % (41-53); HGB - HEMOGLOBIN 7.2 GM/DL (13.5-17.5); MEAN CORPUSCULAR HGB 28.7 UUG (26-34); MEAN CORPUSCULAR HGB CONC(MCHC 31.9 GM/DL (31-37); MEAN PLATELET VOLUME 9.8 UM3 (9.4-12.4); RED BLOOD COUNT 2.51 M/MM3 (4.50-5.90); WBC - WHITE BLOOD COUNT 8.8 T/MM3 (4.5-11.0)
[2016-11-11 03:54] LABS: ANION GAP 10 MEQ/L (5-15); BUN/CREATININE RATIO 17 RATIO (6-26); CALCIUM 8.7 MG/DL (8.4-10.2); CHLORIDE 108 MEQ/L (98-107); CO2 - CARBON DIOXIDE 21 MEQ/L (22-30); CREATININE 1.6 MG/DL (0.8-1.5); GLOMERULAR FILTRATION RATE 41; GLUCOSE 105 MG/DL (75-110); MAGNESIUM 1.9 MG/DL (1.6-2.3); PHOSPHORUS 3.7 MG/DL (2.5-4.5); POTASSIUM 3.7 MEQ/L (3.6-5); SODIUM 139 MEQ/L (134-144)
[2016-11-11 03:56] LABS: INR 1.53 (0.76-1.04); PROTHROMBIN TIME 16.7 SEC (9.31-12.49)
[2016-11-11 05:52] LABS: BAND NEUTROPHILS # 0.3 T/MM3; EOSINOPHILS # (MANUAL) 0.5 T/MM3 (0-0.5); LYMPHOCYTES # (MANUAL) 1.8 T/MM3 (1-4.8); MONOCYTES # (MANUAL) 0.8 T/MM3 (0-0.8); NEUTROPHILS #(MANUAL)-ABSOLUTE 5.5 T/MM3 (1.8-7.7); NUCLEATED RED BLOOD CELLS 1; TOTAL CELLS COUNTED 100 %
[2016-11-11 05:53] LABS: ANISOCYTOSIS 3+; OVALOCYTES 3+; POIKILOCYTOSIS 3+
[2016-11-11] MEDS: OMEPRAZOLE 20 MG CAPSULE PO SCH (06:10)
--- NOTE | 2016-11-11 09:12 | NUR ---
COUMADIN CONSULT: s: 86 yo male was admitted with a wound on his right posterior heel extending to his Achilles tendon. He has been treated at the wound center and apparently lately he has been treating at home. He was admitted to hospital to treat the wound more aggressively. He is taking Coumadin 4 mg daily for DVT prophyllaxis. O: Date INR Dose 11/09 1.67 4 mg 11/10 1.51 5 MG 11/11 1.53 Plan 5 mg A/P: I plan to give Warfarin 5 mg po today as the INR is still subtherapeutic and but has increased from 1.51 yesterday. The pharmacy will continue to monitor the INRs and adjust the dosage of the Coumadin accordingly. Thanks for the Warfarin Dosing Protocol, Liam Goetz RPh.
[2016-11-11] MEDS: LINAGLIPTIN 5 MG TABLET PO SCH (09:24)
[2016-11-11] MEDS: DOCUSATE SODIUM 100 MG CAPSULE PO SCH ×2 (09:25→20:47)
[2016-11-11] MEDS: ENOXAPARIN 40 MG/0.4 ML INJECTION SQ SCH (09:25)
[2016-11-11] MEDS: CARVEDILOL 25 MG TABLET PO SCH ×2 (09:25→17:56)
[2016-11-11] MEDS: FERROUS SULFATE 324 MG TABLET PO SCH (09:25)
[2016-11-11] MEDS: FUROSEMIDE 20 MG TABLET PO SCH (09:25)
--- NOTE | 2016-11-11 09:48 | NUR ---
RENAL DOSING: S: 86 yr old male who has been under the care of Dr Mcqueen for primary care. He has been seeing the [facility] wound [facility] center as a outpatient for ongoing wound treatment. Today he presented for evaluation by Dr Campbell and was found to have extension of the wound to the right lower ext. All admission laboratory studies are pending except for a wound culture taking from the right heel on 10/31/16. C/S reveled Enterobacter Cloacae, Enterococ Facalis, Strep Mitis/Oralis, and Anaerocuccus Prevotii. The patient is was seen on initial examination, and is alert and oriented. He reports started outpatient wound treatment last fall, however, recently has been "doctoring it at home" using oxide. Posterior right heel wound extends to the Achilles tendon. Domo has a known history of Diabetes and last documented Hgb A1c at [facility] was in 2016. At this time is was 6.3. Vital signs on admission temperature 96.4, pulse 77, respiration 18, blood pressure 154/64, room air saturations 100%. O: SCr = 1.6 mg/dL CrCl ~ 36 mL/min A/P: Need watch renal function closely as both Pip/Tazo and Vanco are renal toxic. Recommend continuing the Pip.Tazo 2.25 g iv every 6 hours. The Vanco is being adjusted by Pharmacy Vancomycin Pharmacokinetic Program. Thanks, Liam Goetz RP.
[2016-11-11] MEDS: FOLIC ACID 1 MG TABLET PO SCH (11:32)
--- NOTE | 2016-11-11 11:41 | PNPDOC ---
MIMI CONNOR HOSE WRAPPER 11/11/16 1130: Subjective Date DATE: 11/11/16 TIME: 11:26 Subjective Tim was sleeping comfortably in bed and I did not awaken him. His right leg was exposed and the wound vac was intact. I spoke with his nurse - he had his renal sono this morning. She reported that he had a black bowel movement, but he told her that's fairly typical since he's on iron. Stool was neg for occult blood on 11/07. Continues to have low-grade temps. He's been eating well. Objective Vital Signs Vital signs Vital Signs Date Time Temp Pulse Resp B/P Pulse Ox O2 Delivery O2 Flow Rate FiO2 11/11/16 08:00 98.9 74 18 127/59 100 Room Air Height (Feet): 6 Height (Inches): 0.00 Weight (Kilograms): 74.600 General General Appearance: No Acute Distress Respiratory (Brief) Respiratory: FOUND: clear all miller, equal bilaterally Cardiovascular (Brief) Cardiac: FOUND: regular rate, regular rhythm Abdomen (Brief) Abdominal: NOT FOUND: distended Extremities (Brief) Extremity : Side: Right Extremity: leg Extremity Finding: FOUND: edema Comments dressing to right rao + wound vac intact and draining Musculoskeletal (Brief) Musculoskeletal: NOT FOUND: deformity Integumentary (Brief) Integumentary: FOUND: dry Laboratory Laboratory Laboratory Tests 11/10/16 03:46 11/11/16 03:13 Laboratory Tests 11/10/16 03:46 11/11/16 03:13 Assessment & Plan Problems: (1) Diabetes with ulcer of lower extremity Status: Acute Assessment & Plan: Present on admission, Right lower ext. Failed outpatient treatment (2) Anemia Status: Chronic (3) CHF (congestive heart failure) Status: Chronic Qualifiers: Congestive heart failure type: diastolic Congestive heart failure chronicity: chronic Qualified Codes: I50.32 - Chronic diastolic (congestive) heart failure Assessment & Plan: EF 45% last ECHO (4) Ischemic cardiomyopathy Status: Chronic (5) CAD (coronary artery disease) Status: Chronic (6) Dyslipidemia Status: Chronic (7) CKD (chronic kidney disease), stage III Status: Chronic (8) HS (hereditary spherocytosis) Status: Chronic (9) Peripheral vascular disease Status: Chronic (10) DVT (deep venous thrombosis) Status: Chronic (11) Neuropathy Status: Chronic (12) Anticoagulated Status: Chronic Assessment & Plan: Chronically on Coumadin Assessment Polymicrobial right heel wound-continue Zosyn and vancomycin. Continue wound VAC. History of right lower extremity DVT-Coumadin and Lovenox 40 mg once daily Chronic kidney disease-baseline creatinine is around 1.3-1.4. Iron deficiency anemia-start oral iron now and consider IV iron when infection is better Chronic systolic CHF with ejection fraction of 45%, continue Lasix and Coreg. Anemia/hereditary spherocytosis, continue to monitor Diabetes, continue current treatment Plan/Intensity of Service Acute on chronic anemia - hgb down to 7.2. Repeat hgb has been ordered as well as type and screen. Repeat stool for occult blood (neg on 11/07). INR still subtherapeutic - continues on Lovenox for now. Continue vancomycin and Zosyn and wound vac/wound care per Dr. Castorena, Dr. Campbell. BC neg at 4 days. Elevated creatinine - renal u/s done this am. Report pending. DM2 - most blood sugars have been less than 180; cont current mgt. DVT Prophylaxis: Lovenox, Coumadin Code Status Full Code Hospital Course Summary Disclaimer The hospital course summary below is not to be considered part of the above Progress Note. Hospital Course Summary Admit patient to inpatient status under the care of Dr. Perkins for right lower extremity wound, diabetic ulcer, failed outpatient treatment. On admission, we will obtain the following laboratory studies. CBC, CMP, magnesium, pro calcitonin, pre-albumin, venous lactate, blood culture 2. Will initiate IV Zosyn and Vancomycin for antimicrobial coverage of all 4 pathogens found in wound culture from 10/31/16. Place consult to Dr Castorena to infectious disease treatment recommendations Consult to Dr Campbell for further surgical and wound management Will obtain a hemoglobin A1c for diabetes surveillance. Monitor Accu-Cheks, and continue with home insulin including Lantus 8 units at at bedtime. Will also continue with Tradjenta by mouth daily Given chronic anticoagulation will obtain an INR. Will need to discuss anticoagulation further with Dr Perkins and surgical team. May need to switch to Lovenox if patient will potentially have a surgical procedure. Zofran as needed for nausea and Morphine as needed for pain control SCD to LLE for DVT prophylaxis. Recheck CBC and BMP tomorrow morning to follow blood counts, renal function and electrolytes At time of discharge medical care is to return to PCP Dr Mcqueen at [facility] 11/07/16 Appreciate surgical management as per Dr Campbell. Continue with wound Vac to right lower ext Vancomycin and Zosyn IV for antimicrobial coverage. Appreciate consultation with Dr Castorena for ongoing ID recommendations Hgb is decreased to 7.6 this morning. Further anemia workup including stool for occult blood, Iron studies are pending. Likely related to chronic anemia. Chronic Coumadin on hold since admission and Lovenox 40 mg SQ daily started. Will need to hold on day surgical procedure. INR this morning 1.86 Monitor blood sugars and continue on Tradjenta and Novolin sliding scale One episode of hypotension this morning. Continue to monitor. Recheck CBC and BMP tomorrow to follow blood counts, renal function and electrolytes 11/08/16 Planning for foot wound debridement this afternoon with Dr Campbell. Lovenox on hold today for scheduled procedure. Continue with Zosyn and Vancomycin for antimicrobial coverage. Ratio Dr. Castorena recommendations. Will continue with IV antibiotics 4 weeks. If wound appears to have osteomyelitis. She recommends extending this to 6 weeks of treatment. Patient continues to have anemia, hemoglobin today 7.7. Iron studies pending, Stool for occult blood was negative. Likely chronic anemia. Will consider transfusion if Hgb drops <7. Continue to monitor blood sugars. Fasting sugar this morning 97. Patient currently nothing by mouth. Continue to monitor renal function, creatinine 1.7. Baseline appears 1.4. Recheck CBC and BMP tomorrow morning to follow renal function, electrolytes and blood counts 11/09/16 Tim tolerated wound debridement procedure well yesterday Continue with Vanco and Zosyn IV for antimicrobial coverage. Blood cultures remain negative. Awaiting further culture results from yesterday procedure He will need 4-6 weeks of to microbial coverage depending on if there is increased suspicion for osteomyelitis Will resume Lovenox subcutaneous daily for DVT prophylaxis. Continue to follow anemia. Hemoglobin today 8.0. Continue to monitor renal function. As creatinine is slightly elevated from baseline. Currently 1.7. Baseline appears to be 1.4 Continue to monitor Accu-Cheks, continue Lantus 8 units at at bedtime and sliding scale NovoLog Alden as needed for pain control. We'll recheck CBC and BMP tomorrow morning to follow blood counts, renal function and electrolytes. 11/10/16 Continue with vancomycin and Zosyn for antimicrobial coverage. Recommended between 4 and 6 weeks of IV coverage. Wound culture from 10/31 did reveal multi organism growth that is covered by Zosyn and vancomycin. Awaiting further cultures from surgical debridement on 11/08 Wound Vac to RLE. Appreciate consultation by Dr. Campbell and Dr. Castorena for ongoing recommendations. May use ice or heat to left knee due to increased pain. Monitor for evidence of erythema or warmth. Hgb has remained stable at 8.5, will continue to monitor. monitor blood sugars, Lantus 8 units at at bedtime along with sliding scale Novolin. Lovenox subcutaneous daily bridging to therapeutic INR with Coumadin. Being managed by pharmacy. 11/11/16 Acute on chronic anemia - hgb down to 7.2. Repeat hgb has been ordered as well as type and screen. Repeat stool for occult blood (neg on 11/07). INR still subtherapeutic - continues on Lovenox for now. Continue vancomycin and Zosyn and wound vac/wound care per Dr. Castorena, Dr. Campbell. BC neg at 4 days. Elevated creatinine - renal u/s done this am. Report pending. DM2 - most blood sugars have been less than 180; cont current mgt. GAIL CORDERO MD 11/11/16 1624: Assessment & Plan Assessment 11/11/2016-I reviewed this chart, the patient history, and the HOSE WRAPPER's/PA's documented findings as above. We discussed and formulated the assessment and plan as above with the additions below.-Dr. Cordero Patient states he's feeling well. He denies feeling feverish or having chills or sweats. He is eating and drinking well. He denies any shortness of breath or cough. He denies any chest pain or abdominal pain. He states he felt constipated earlier but no longer feels constipated after having good bowel movements. He is urinating without difficulties. He denies any lightheadedness. Hemoglobin this afternoon was 7.4 up from 7.2. The patient had mild elevated temperature without true fever. He has no left shift or elevated white count. On exam he is alert and oriented and in no acute distress. Chest is clear to auscultation. Cardiovascular reveals regular rate and rhythm. Abdomen is soft and nontender. Extremities reveal +1 edema. Right lower extremity has wound VAC in place and anterior rao has a new dressing. Overall, the patient appears to be doing well. We'll start incentive spirometer regarding mild elevation in temperature. Continue Vanco and Zosyn. Continue wound VAC. Repeat CBC and basic metabolic profile tomorrow. Renal function is stable. Congestive heart failure appears to be stable. The patient does not appear to need a transfusion at this time. He would like to avoid a transfusion if possible. Oral iron was started and we can consider IV iron in the future. B- 12 level was ordered and is pending. MIMI CONNOR APRN November 11, 2016 11:30 GAIL CORDERO MD November 11, 2016 16:24
[2016-11-11] MEDS ORDERED: WARFARIN 5 MG TABLET PO SCH (12:00)
[2016-11-11 12:02] LABS: HGB - HEMOGLOBIN 7.4 GM/DL (13.5-17.5)
[2016-11-11] MEDS: NORMAL SALINE 1,000 ML IV PRN (15:09)
[2016-11-11] MEDS: VANCOMYCIN 1,250 MG in NORMAL SALINE 250 ML IV SCH (15:58)
[2016-11-11] MEDS: INSULIN REGULAR 100 UNIT/ML SQ PRN (17:20)
--- NOTE | 2016-11-11 17:43 | DI ---
Indication: ITS.REASON: rule out hydronephrosis PROCEDURE: US RENAL: Encounter: Initial Comparison: August 02, 2016 Technique: Grayscale and color Doppler sonographic imaging of both kidneys was performed. FINDINGS: Both kidneys are present with normal cortical thickness and echogenicity. No evidence for collecting system dilatation, contour deforming mass, nephrolithiasis, or abnormal perinephric fluid collection. The right kidney measures 11 cm in length, and the left kidney measures 10.9 cm in length. IMPRESSION: Normal renal sonogram. There is a preliminary report by [facility]. .
--- NOTE | 2016-11-11 18:18 | NUR ---
END OF SHIFT REPORT PATIENT A/OX3. VITAL SIGNS STABLE. ROOM AIR. AFEBRILE. NO PRNS GIVEN DURING THE SHIFT. PT DENIES N/V, CHEST PAIN, AND SOA. PATIENT STATES RIGHT LEG IS "SORE" BUT NOT PAINFUL. UP WITH ASSIST X1-2. STAND PIVOT WITH GB TO CHAIR. WOUND VAC DRESSING REINFORCED DURING THE SHIFT. WOUND VAC WAS ALARMING BROKEN SEAL. NEW MEPILEX APPLIED TO RIGHT LEG. WILL CONTINUE TO MONITOR.
[2016-11-11] MEDS: TAMSULOSIN 0.4 MG CAPSULE PO SCH (20:47)
[2016-11-11] MEDS: INSULIN GLARGINE 100 UNIT/ML SQ SCH (20:57)
--- NOTE | 2016-11-11 22:06 | NUR ---
left elbow dressing promogran dressing with moderate drainage on left elbow skin tear. this rn removed promogran dressing and tegaderm and applied new promogran 4x4 dressing and secured with tegaderm. will continue to monitor.
--- NOTE | 2016-11-11 22:43 | NUR ---
Chart Check 24 hour chart check completed
[2016-11-12] VITALS (9 sets, daily range): BP systolic 102–165; BP diastolic 51–70; PULSE 62–88; RESP 16–20; TEMP 97.5–98.9; O2SAT 92–99
[2016-11-12] MEDS: PIPERACILLIN/TAZOBACTAM 2.25 G in NORMAL SALINE 100 ML IV SCH ×2 (02:14→08:38)
[2016-11-12 05:02] LABS: BASOPHILS % (AUTO) 0.5 % (0-2); EOSINOPHILS # (AUTO) 0.7 T/MM3 (0-0.5); EOSINOPHILS % (AUTO) 8.5 % (0-4); HCT - HEMATOCRIT 23.2 % (41-53); HGB - HEMOGLOBIN 7.4 GM/DL (13.5-17.5); IMMATURE GRANULOCYTE # (AUTO) 0.02 T/MM3 (0.00-0.03); IMMATURE GRANULOCYTE % (AUTO) 0.2 % (0.0-0.5); LYMPHOCYTES # (AUTO) 1.2 T/MM3 (1-4.8); LYMPHOCYTES % (AUTO) 14.5 % (23-45); MEAN CORPUSCULAR HGB 28.6 UUG (26-34); MEAN CORPUSCULAR HGB CONC(MCHC 31.9 GM/DL (31-37); MEAN CORPUSCULAR VOLUME 89.6 UM3 (80-100); MONOCYTES # (AUTO) 0.9 T/MM3 (0-0.8); MONOCYTES % (AUTO) 11.3 % (0-9.0); NEUTROPHILS #(AUTO)-ABSOLUTE 5.3 T/MM3 (1.8-7.7); RED BLOOD COUNT 2.59 M/MM3 (4.50-5.90); WBC - WHITE BLOOD COUNT 8.1 T/MM3 (4.5-11.0)
--- NOTE | 2016-11-12 05:11 | NUR ---
SHIFT SUMMARY PATIENT ALERT AND ORIENTED X 3. PT SLEPT OFF AND ON DURING THE NIGHT, SWITCHING FROM LAYING DOWN IN BED TO SITTING AT SIDE OF BED A FEW TIMES. VSS, PT ON RA. PT DENIES PAIN/N/V/SOA. NO PRNS GIVEN. USING URINAL AT BEDSIDE. WOUND VAC DRESSING C/D/I WITH MINIMAL SEROUS DRAINAGE. DRESSING ON RIGHT MCMAHAN C/D/I, DRESSING ON LEFT ELBOW CHANGED LAST NIGHT-SEE PREVIOUS NOTE. 1800 ADA DIET. IVL IN RIGHT PICC, FLUSHES AND ASPIRATES WELL. SCD ON LEFT LOWER EXT. BED LOCKED AND LOW, BED ALARM ON. CALL LIGHT WITHIN REACH. WILL CONTINUE TO MONITOR.
[2016-11-12 05:19] LABS: INR 1.45 (0.76-1.04); PROTHROMBIN TIME 15.8 SEC (9.31-12.49)
[2016-11-12 05:29] LABS: ANION GAP 10 MEQ/L (5-15); BUN/CREATININE RATIO 16 RATIO (6-26); CALCIUM 8.8 MG/DL (8.4-10.2); CHLORIDE 108 MEQ/L (98-107); CO2 - CARBON DIOXIDE 22 MEQ/L (22-30); CREATININE 1.6 MG/DL (0.8-1.5); GLOMERULAR FILTRATION RATE 41; GLUCOSE 92 MG/DL (75-110); POTASSIUM 3.6 MEQ/L (3.6-5); SODIUM 140 MEQ/L (134-144)
[2016-11-12] MEDS: OMEPRAZOLE 20 MG CAPSULE PO SCH (05:30)
[2016-11-12] MEDS ORDERED: CYANOCOBALAMIN (B-12) 500mcg TABLET PO ONE (07:45)
--- NOTE | 2016-11-12 08:12 | NUR ---
RENAL DOSING: Today's SCr = 1.6 mg/dl. Calculated CrCl = 39 ml/min. I will continue the Pip/Tazo 2.25 g iv every 6 hours and Vanco 1,250 mg iv every 24 hours as currently ordered. The pharmacy will continue to review the renal function and adjust the medications accordingly. Thanks, Liam Goetz [facility]
[2016-11-12] MEDS: CARVEDILOL 25 MG TABLET PO SCH (08:38)
[2016-11-12] MEDS: LINAGLIPTIN 5 MG TABLET PO SCH (08:38)
[2016-11-12] MEDS: ENOXAPARIN 40 MG/0.4 ML INJECTION SQ SCH (08:38)
[2016-11-12] MEDS: DOCUSATE SODIUM 100 MG CAPSULE PO SCH ×2 (08:39→09:30)
[2016-11-12] MEDS: FERROUS SULFATE 324 MG TABLET PO SCH (08:39)
[2016-11-12] MEDS: FUROSEMIDE 20 MG TABLET PO SCH (08:39)
--- NOTE | 2016-11-12 09:33 | NUR ---
WARFARIN CONSULT S: 86 y/o M on warfarin for hx of recurrent DVTs; home dose is 4 mg daily. Goal INR 2-3. O: Date INR Warfarin Dose (last home dose on 11/06) 11/09 1.67 4 mg 11/10 1.51 5 mg 11/11 1.53 5 mg 11/12 1.45 PLAN: 5 mg A/P: INR subtherapeutic; likely partly due to no warfarin doses on 11/07 and 11/08 (consult was started on 11/09). Will order warfarin 5 mg PO today. Will continue to monitor & make adjustments accordingly. Thank you for the consult. Lupe Patricio, PharmD, BCPS
--- NOTE | 2016-11-12 10:02 | PNPDOC ---
Subjective Date DATE: 11/12/16 TIME: 09:12 Subjective Tim is doing well today. He states he would like to be discharged home if possible. However, he states that he is worried about his , "running the machine". He has many questions about being discharged home with a wound VAC and also about IV antibiotics. He knows that he will need some physical therapy , because walking is still a little bit difficult. He has anemia, but he denies any symptoms such as difficulty breathing, weakness, dizziness, lightheadedness , or difficulty breathing. He denies any abdominal pain, nausea or vomiting. Objective Vital Signs Vital signs Vital Signs Date Time Temp Pulse Resp B/P Pulse Ox O2 Delivery O2 Flow Rate FiO2 11/12/16 07:40 98.5 88 16 143/67 94 Room Air Height (Feet): 6 Height (Inches): 0.00 Weight (Kilograms): 74.600 General General Appearance: Alert, Orientated x 3, Well Nourished, Well Developed, No Acute Distress Eyes (Brief) Eyes: FOUND: PERRL, NOT FOUND: scleral icterus ENMT (Brief) ENMT: FOUND: mucosa moist, NOT FOUND: pharnyx erythema Respiratory (Brief) Respiratory: FOUND: clear all miller, equal bilaterally Cardiovascular (Brief) Cardiac: FOUND: murmur, regular rate, regular rhythm Abdomen (Brief) Abdominal: FOUND: BS normo active x4, soft, NOT FOUND: distended, tender Extremities (Brief) Extremity : Side: Bilateral Extremity: leg Extremity Finding: FOUND: edema (1+) Musculoskeletal (Brief) Musculoskeletal: FOUND: extremities move equally Integumentary (Brief) Integumentary: FOUND: dry, warm, NOT FOUND: pink (PALLOR) Comments dressing to right anterior rao Wound vac removed - achilles tendon exposed; granulation tissue noted. Dr. Campbell at bedside. Psychiatric (Brief) Psychiatric: FOUND: alert, attentive, normal affect, oriented Laboratory Laboratory Laboratory Tests 11/11/16 03:13 11/12/16 03:52 Laboratory Tests 11/11/16 03:13 11/11/16 11:50 11/12/16 03:52 Assessment & Plan Problems: (1) Diabetes with ulcer of lower extremity Status: Acute Assessment & Plan: Present on admission, Right lower ext. Failed outpatient treatment (2) Anemia Status: Chronic (3) CHF (congestive heart failure) Status: Chronic Qualifiers: Congestive heart failure type: diastolic Congestive heart failure chronicity: chronic Qualified Codes: I50.32 - Chronic diastolic (congestive) heart failure Assessment & Plan: EF 45% last ECHO (4) Ischemic cardiomyopathy Status: Chronic (5) CAD (coronary artery disease) Status: Chronic (6) Dyslipidemia Status: Chronic (7) CKD (chronic kidney disease), stage III Status: Chronic (8) HS (hereditary spherocytosis) Status: Chronic (9) Peripheral vascular disease Status: Chronic (10) DVT (deep venous thrombosis) Status: Chronic (11) Neuropathy Status: Chronic (12) Anticoagulated Status: Chronic Assessment & Plan: Chronically on Coumadin Plan/Intensity of Service Acute on chronic anemia - hgb 7.4. Continue iron. Patient would prefer not to have a blood transfusion if possible. B12 level was low-normal at 390, and he received a dose of vitamin B12 this morning. INR still subtherapeutic - continues on Lovenox for now. Continue vancomycin and Zosyn and wound vac/wound care per Dr. Castorena, Dr. Campbell. Dr. Campbell will be applying a home wound VAC today. BC neg after 5 days. Elevated creatinine -improving, creatinine is 1.6. Renal ultrasound done yesterday was negative. DM2 - most blood sugars have been less than 180; cont current mgt. Discussed with case management, they are planning on reviewing discharge options with the patient and his . DVT Prophylaxis: Lovenox, Coumadin Code Status Full Code Hospital Course Summary Disclaimer The hospital course summary below is not to be considered part of the above Progress Note. Hospital Course Summary Admit patient to inpatient status under the care of Dr. Perkins for right lower extremity wound, diabetic ulcer, failed outpatient treatment. On admission, we will obtain the following laboratory studies. CBC, CMP, magnesium, pro calcitonin, pre-albumin, venous lactate, blood culture 2. Will initiate IV Zosyn and Vancomycin for antimicrobial coverage of all 4 pathogens found in wound culture from 10/31/16. Place consult to Dr Castorena to infectious disease treatment recommendations Consult to Dr Campbell for further surgical and wound management Will obtain a hemoglobin A1c for diabetes surveillance. Monitor Accu-Cheks, and continue with home insulin including Lantus 8 units at at bedtime. Will also continue with Tradjenta by mouth daily Given chronic anticoagulation will obtain an INR. Will need to discuss anticoagulation further with Dr Perkins and surgical team. May need to switch to Lovenox if patient will potentially have a surgical procedure. Zofran as needed for nausea and Morphine as needed for pain control SCD to LLE for DVT prophylaxis. Recheck CBC and BMP tomorrow morning to follow blood counts, renal function and electrolytes At time of discharge medical care is to return to PCP Dr Mcqueen at [facility] 11/07/16 Appreciate surgical management as per Dr Campbell. Continue with wound Vac to right lower ext Vancomycin and Zosyn IV for antimicrobial coverage. Appreciate consultation with Dr Castorena for ongoing ID recommendations Hgb is decreased to 7.6 this morning. Further anemia workup including stool for occult blood, Iron studies are pending. Likely related to chronic anemia. Chronic Coumadin on hold since admission and Lovenox 40 mg SQ daily started. Will need to hold on day surgical procedure. INR this morning 1.86 Monitor blood sugars and continue on Tradjenta and Novolin sliding scale One episode of hypotension this morning. Continue to monitor. Recheck CBC and BMP tomorrow to follow blood counts, renal function and electrolytes 11/08/16 Planning for foot wound debridement this afternoon with Dr Campbell. Lovenox on hold today for scheduled procedure. Continue with Zosyn and Vancomycin for antimicrobial coverage. Ratio Dr. Castorena recommendations. Will continue with IV antibiotics 4 weeks. If wound appears to have osteomyelitis. She recommends extending this to 6 weeks of treatment. Patient continues to have anemia, hemoglobin today 7.7. Iron studies pending, Stool for occult blood was negative. Likely chronic anemia. Will consider transfusion if Hgb drops <7. Continue to monitor blood sugars. Fasting sugar this morning 97. Patient currently nothing by mouth. Continue to monitor renal function, creatinine 1.7. Baseline appears 1.4. Recheck CBC and BMP tomorrow morning to follow renal function, electrolytes and blood counts 11/09/16 Tim tolerated wound debridement procedure well yesterday Continue with Vanco and Zosyn IV for antimicrobial coverage. Blood cultures remain negative. Awaiting further culture results from yesterday procedure He will need 4-6 weeks of to microbial coverage depending on if there is increased suspicion for osteomyelitis Will resume Lovenox subcutaneous daily for DVT prophylaxis. Continue to follow anemia. Hemoglobin today 8.0. Continue to monitor renal function. As creatinine is slightly elevated from baseline. Currently 1.7. Baseline appears to be 1.4 Continue to monitor Accu-Cheks, continue Lantus 8 units at at bedtime and sliding scale NovoLog [place] as needed for pain control. We'll recheck CBC and BMP tomorrow morning to follow blood counts, renal function and electrolytes. 11/10/16 Continue with vancomycin and Zosyn for antimicrobial coverage. Recommended between 4 and 6 weeks of IV coverage. Wound culture from 10/31 did reveal multi organism growth that is covered by Zosyn and vancomycin. Awaiting further cultures from surgical debridement on 11/08 Wound Vac to RLE. Appreciate consultation by Dr. Campbell and Dr. Castorena for ongoing recommendations. May use ice or heat to left knee due to increased pain. Monitor for evidence of erythema or warmth. Hgb has remained stable at 8.5, will continue to monitor. monitor blood sugars, Lantus 8 units at at bedtime along with sliding scale Novolin. Lovenox subcutaneous daily bridging to therapeutic INR with Coumadin. Being managed by pharmacy. 11/11/16 Acute on chronic anemia - hgb down to 7.2. Repeat hgb has been ordered as well as type and screen. Repeat stool for occult blood (neg on 11/07). INR still subtherapeutic - continues on Lovenox for now. Continue vancomycin and Zosyn and wound vac/wound care per Dr. Castorena, Dr. Campbell. BC neg at 4 days. Elevated creatinine - renal u/s done this am. Report pending. DM2 - most blood sugars have been less than 180; cont current mgt. 11/12/16 Acute on chronic anemia - hgb 7.4. Continue iron. Patient would prefer not to have a blood transfusion if possible. B12 level was low-normal at 390, and he received a dose of vitamin B12 this morning. INR still subtherapeutic - continues on Lovenox for now. Continue vancomycin and Zosyn and wound vac/wound care per Dr. Castorena, Dr. Campbell. Dr. Campbell will be applying a home wound VAC today. BC neg after 5 days. Elevated creatinine -improving, creatinine is 1.6. Renal ultrasound done yesterday was negative. DM2 - most blood sugars have been less than 180; cont current mgt. Discussed with case management, they are planning on reviewing discharge options with the patient and his . MIMI CONNOR REMOTELY PILOTED [employer]ICLE [employer]ER November 12, 2016 09:14
[2016-11-12] MEDS ORDERED: IRON DEXTRAN 100mg/2ml INJECTION IV ONE (10:30)
--- NOTE | 2016-11-12 10:30 | PDWOUND ---
Wound Documentation Wound Management Wound : Location Modifier: Posterior, Proximal Wound Location: Foot (Right achilles tendon) Wound Type: Surgical Wound Dressing Frequency: two times per week Wound Duration: three weeks Wound Dressing Status: FOUND: Moist Wound Drainage Amount: Moderate Wound Drainage Description: Serous Wound Drainage Odor: None/Absent Wound General Appearance: FOUND Tendon Visible, FOUND Unapproximated Wound Bed: gran red Periwound Description: erythematous Wound Length (cm): 5.5 Wound Width (cm): 2.5 Wound Depth (cm): 0.5 Exposed: tendon Wound Cleanser: NS Wound Packing Type: FOUND: Black Foam Wound Primary Dressing Type: Clear Adhesive Cover Comments After MD saw pt this am with wound vac off and assessed the site orders to place wound vac no instill. periwound skin protected in the usual manner, black foam to the wound bed, covered with clear occlusive drsg, sensor track in place and good suction obtained. Pt instructed to not pull on tubing and to ask for help when wanting to get out of bed. LUZ MUSA RN November 12, 2016 10:29
[2016-11-12] MEDS: NORMAL SALINE 1,000 ML IV PRN (10:53)
--- NOTE | 2016-11-12 10:53 | NUR ---
IRON TEST DOSE IRON TEST DOSE ADMINISTERED AT THIS TIME. RIGHT UPPER PICC FLUSHES/ASPIRATES WELL PRIOR TO ADMINISTRATION. BASELINE VITAL SIGNS ARE FOLLOWS: 148/69, HR 77, PULSE OX 93% ON ROOM AIR, 16 RR, AND 97.5 ORALLY. NORMAL SALINE STARTED AT 15 MLS/HR PER PHARMACY PROTOCOL. THIS RN TO BE IN THE ROOM FOR THE FIRST FIFTEEN MINUTES ASSESSING VS AND S/S OF A REACTION. PT AT THIS CURRENT TIME DENIES ITCHING, THROAT TINGLING, ETC. WILL CONTINUE TO MONITOR.
--- NOTE | 2016-11-12 11:36 | NUR ---
IRU referral received. Spoke with Mr. Hernandez about rehab option. He feels he would benefit from participation to regain strength and return home. Acceptance pending OT evaluation and medical records receptionist determination. CM notified of status.
--- NOTE | 2016-11-12 11:40 | NUR ---
CM IN TO VISIT WITH PT AND . PT AND HAVE CHOSEN TO GO [place] IR[place] [facility] [place] PT AND AWARE TO CONTACT CM SHOULD NEEDS ARISE.
--- NOTE | 2016-11-12 11:56 | PNPDOC ---
Subjective Date DATE: 11/12/16 TIME: 11:51 Subjective He denies F/C, N/V/D. Has no specific complaints today. Objective Vital Signs: RN Vital Signs have been reviewed: Yes, Temperature: 97.5, Heart Rate: 74, Respiratory Rate: 18, BP: 165/70, Pulse Oximetry: 98 Height (Feet): 6 Height (Inches): 0.00 General: FOUND: Alert, NOT FOUND: Acute Distress Skin: NOT FOUND: Rash HEENT: FOUND NC/AT, NOT FOUND Oral Lesions Neck: NOT FOUND: Meningismus Cardiac: FOUND: Murmur (II/ JUAN MANUEL), Regular Rate/Rhythm Lungs: FOUND: Clear to Auscultation, NOT FOUND: Respiratory Distress Abdomen: FOUND: Non-tender, Soft Extremities: NOT FOUND Edema (Bilateral Lower Extremitites) Neurological: FOUND A/A/A, NOT FOUND Focal Deficits Psychological: FOUND Intact and Appropriate Wound RLE with VAC on, wrapped IV Site: PICC Antbiotics Zosyn, Vancomycin Laboratory Laboratory Tests 11/12/16 03:52 Laboratory Tests 11/12/16 03:52 Cultures Outpatient cultures reviewed. Assessment & Plan Assessment IMPRESSION 1. Wound infection, right posterior heel area, with necrosis of the Achilles tendon noted and purulence, status post superficial debridement, outpatient cultures with Enterobacter cloacae, Enterococcus faecalis, Strep mitis and an anaerobe. S/p operative debridement 11/09/16, no additional cultures obtained. 2. Diabetes mellitus type 2, insulin-requiring. 3. History of right lower extremity DVT. 4. Chronic systolic congestive heart failure. 5. Status post pacemaker placement. 6. Coronary artery disease. 7. Hereditary spherocytosis. 8 Chronic kidney disease. 9. Status post open reduction internal fixation of the right femur. Plan/Intensity of Service I would recommend continuing with IV antibiotics for 2-3 weeks, most likely followed by po. Will D/C Vancomycin and continue Zosyn. He states he is looking at going to the IRU. If he is discharged, he could be changed to [place]. KOKO MYLES MD November 12, 2016 11:56
[2016-11-12] MEDS ORDERED: WARFARIN 5 MG TABLET PO ONE (12:00)
[2016-11-12] MEDS: FOLIC ACID 1 MG TABLET PO SCH (12:09)
[2016-11-12] MEDS ORDERED: IRON DEXTRAN IV ONE (13:00)
[2016-11-12] MEDS ORDERED: NORMAL SALINE IV ONE (13:00)
[2016-11-12] MEDS ORDERED: BISA10SU8 RECTALLY (13:17)
[2016-11-12] MEDS ORDERED: POLY17PO18 PO (13:17)
[2016-11-12] MEDS ORDERED: MAGN400O4 PO (13:17)
[2016-11-12] MEDS ORDERED: ENOX40DI SQ (13:17)
[2016-11-12] MEDS ORDERED: PIPE2.254 IV (13:18)
--- NOTE | 2016-11-12 13:23 | DSPDOC ---
MIMI CONNOR ELEMENTARY ASSISTANT TEACHER 11/12/16 1203: General Date Date DATE: 11/12/16 TIME: 11:59 Attending Physician Eliza Cordero MD Admitting Physician Eliza Cordero MD Consulting Physician Koko Myles MD, John MD Admitting Diagnosis RLE wound failing outpatient treatment Discharge Diagnosis Diabetic ulcer, right lower extremity anemia chronic kidney disease stage III Procedures 11/06/16 PICC line 11/08/16 Excisional surgical debridement of necrotic subcutaneous tissues and fascia from right posterior ankle/heel region. Area debrided 5 cm x 2.5 cm. Application of wound VAC. 11/12/16 wound VAC changed Laboratory Laboratory Tests Test 11/11/16 03:13 11/11/16 03:15 11/11/16 06:10 11/11/16 11:36 White Blood Count 8.8T/MM3 (4.5-11.0) Red Blood Count 2.51M/MM3 (4.50-5.90) Hemoglobin 7.2GM/DL (13.5-17.5) Hematocrit 22.6% (41-53) Mean Corpuscular Volume 90.0UM3 (80-100) Mean Corpuscular Hemoglobin 28.7UUG (26-34) Mean Corpuscular Hemoglobin Concent 31.9GM/DL (31-37) RDW Standard Deviation 42.1FL (36.9-50.2) Platelet Count 275T/MM3 (130-400) Mean Platelet Volume 9.8UM3 (9.4-12.4) Neutrophils % (Manual) 62.0% (33-66) Band Neutrophils % 3.0% (0-6) Lymphocytes % (Manual) 20.0% (23-45) Monocytes % (Manual) 9.0% (0-9.0) Eosinophils % (Manual) 6.0% (0-4) Absolute Neutrophils (Manual) 5.5T/MM3 (1.8-7.7) Band Neutrophils # 0.3T/MM3 Lymphocytes # (Manual) 1.8T/MM3 (1-4.8) Monocytes # (Manual) 0.8T/MM3 (0-0.8) Eosinophils # (Manual) 0.5T/MM3 (0-0.5) Nucleated Red Blood Cells 1 Poikilocytosis 3+ Anisocytosis 3+ Ovalocytes 3+ Red Cell Morphology Comment Abnormal Prothromb Time International Ratio 1.53 (0.76-1.04) Turbidity < 20 (0-20) Sodium Level 139MEQ/L (134-144) Potassium Level 3.7MEQ/L (3.6-5) Chloride Level 108MEQ/L (98-107) Carbon Dioxide Level 21MEQ/L (22-30) Anion Gap 10MEQ/L (5-15) Blood Urea Nitrogen 27.0MG/DL (9-20) Creatinine 1.6MG/DL (0.8-1.5) Glomerular Filtration Rate Calc 41 BUN/Creatinine Ratio 17RATIO (6-26) Glucose Level 105MG/DL (75-110) Calculated Osmolality 273MOSM/KG (261-280) Calcium Level 8.7MG/DL (8.4-10.2) Phosphorus Level 3.7MG/DL (2.5-4.5) Magnesium Level 1.9MG/DL (1.6-2.3) Icterus Index < 2 (0-7) Albumin 3.0G/DL (3.5-5.0) Chemistry Specimen Hemolysis < 15 (0-25) Vitamin B12 Level 390PG/ML (239-931) Glucometer 104mg/dL (75-110) 144mg/dL (75-110) Test 11/11/16 11:50 11/11/16 17:16 11/11/16 20:41 11/12/16 03:52 Hemoglobin 7.4GM/DL (13.5-17.5) 7.4GM/DL (13.5-17.5) Glucometer 179mg/dL (75-110) 146mg/dL (75-110) White Blood Count 8.1T/MM3 (4.5-11.0) Red Blood Count 2.59M/MM3 (4.50-5.90) Hematocrit 23.2% (41-53) Mean Corpuscular Volume 89.6UM3 (80-100) Mean Corpuscular Hemoglobin 28.6UUG (26-34) Mean Corpuscular Hemoglobin Concent 31.9GM/DL (31-37) RDW Standard Deviation 41.9FL (36.9-50.2) Platelet Count 313T/MM3 (130-400) Mean Platelet Volume 10.0UM3 (9.4-12.4) Immature Granulocyte % (Auto) 0.2% (0.0-0.5) Neutrophils (%) (Auto) 65.0% (33-66) Lymphocytes (%) (Auto) 14.5% (23-45) Monocytes (%) (Auto) 11.3% (0-9.0) Eosinophils (%) (Auto) 8.5% (0-4) Basophils (%) (Auto) 0.5% (0-2) Absolute Immature Granulocyte (auto 0.02T/MM3 (0.00-0.03) Absolute Neutrophils (auto) 5.3T/MM3 (1.8-7.7) Absolute Lymphocytes (auto) 1.2T/MM3 (1-4.8) Absolute Monocytes (auto) 0.9T/MM3 (0-0.8) Absolute Eosinophils (auto) 0.7T/MM3 (0-0.5) Absolute Basophils (auto) 0.0T/MM3 (0-0.2) Prothromb Time International Ratio 1.45 (0.76-1.04) Turbidity < 20 (0-20) Sodium Level 140MEQ/L (134-144) Potassium Level 3.6MEQ/L (3.6-5) Chloride Level 108MEQ/L (98-107) Carbon Dioxide Level 22MEQ/L (22-30) Anion Gap 10MEQ/L (5-15) Blood Urea Nitrogen 25.0MG/DL (9-20) Creatinine 1.6MG/DL (0.8-1.5) Glomerular Filtration Rate Calc 41 BUN/Creatinine Ratio 16RATIO (6-26) Glucose Level 92MG/DL (75-110) Calculated Osmolality 273MOSM/KG (261-280) Calcium Level 8.8MG/DL (8.4-10.2) Icterus Index < 2 (0-7) Chemistry Specimen Hemolysis < 15 (0-25) Test 11/12/16 05:33 11/12/16 11:30 Glucometer 96mg/dL (75-110) 127mg/dL (75-110) Microbiology Blood cultures: No growth after [address]: CRESENCIO HARDIN MD, FACS, CWS Source: HEEL RIGHT Procedure Result Verified MICROBIOLOGY GRAM STAIN Final 10/31/16-2924 RESULT MODERATE GRAM POSITIVE COCCI IN PAIRS FEW GRAM NEGATIVE RODS FEW WHITE BLOOD CELLS WOUND CULTURE DEEP TISS-AER/AN Final 11/04/16-6224 Organism 1 ENTEROBACTER CLOACAE QUANTITY: HEAVY GROWTH Organism 2 ENTEROCOC FAECALIS - (GROUP D) QUANTITY: HEAVY GROWTH Organism 3 STREP MITIS/ORALIS QUANTITY: MODERATE GROWTH Organism 4 ANAEROCOCCUS PREVOTII QUANTITY: MODERATE GROWTH Radiology Renal ultrasound on 11/11/16: Normal. History of Present Illness Cresencio is a pleasant 86 yr old gentleman who has been under the care of Dr. Mcqueen for primary care. He has been [place] [facility] [place] [facility] as a outpatient for ongoing wound treatment. Today he presented for evaluation by Dr Hardin and was found to have extension of the wound to the right lower ext. The hospitalist services, Dr. Perkins was contacted directly for direct admission as an inpatient for ongoing acute evaluation and treatment. All admission laboratory studies are pending except for a wound culture taking from the right heel on 10/31/16. C/S reveled Enterobacter Cloacae, Enterococ Facalis, Strep Mitis/Oralis, and Anaerocuccus Prevotii. Cresencio is seen on initial examination, and is alert and oriented. He reports started outpatient wound treatment last fall, however, recently has been "doctoring it at home" using oxide. Posterior right heel wound extends to the Achilles tendon. Patient has a known history of Diabetes and last documented Hgb A1c at [facility] was in 2016. At this time is was 6.3. Vital signs on admission temperature 96.4, pulse 77, respiration 18, blood pressure 154/64, room air saturations 100%. We did discuss advanced directives and patient does wish to be a full code. Hospital Course Mr. Hernandez was admitted to inpatient status on 11/06/16 for right lower extremity wound, diabetic ulcer, failed outpatient treatment. A PICC line was inserted and he was started on IV Zosyn and Vancomycin. Dr. Myles and Dr. Hardin were both consulted. Home insulin regimen was continued for DM2 with relatively good glucose control. Coumadin was held and he was bridged with Lovenox. He went to the OR on 11/08/16 for debridement and placement of wound VAC. Dr. Myles recommended 4 weeks of antibiotics from the date of debridement. Labs during hospitalization were closely monitored - his hgb decreased into the low-7 range. He never had symptoms with anemia and did not want a blood transfusion if he could safely avoid it. Stool was negative for occult blood. Iron studies were drawn and he was noted to have iron deficiency. Oral iron was initiated and IV iron was also ordered. Creatinine was elevated above baseline - he typically runs around 1.4 but he was consistently 1.7. A renal ultrasound was done, showing normal kidneys. Dr. Hardin and Dr. Myles both saw him on - his wound VAC was changed. Dr. Myles stopped Vancomycin and continued Zosyn for 2-3 more weeks. While Coumadin was restarted after surgery, INR was slow to increase and Lovenox was continued at time of discharge. Discharge options were explored, and the patient was felt to be a good candidate for IRU. He was transferred there in stable condition on 11/12/16, where wound care and ID consultation plus IV abx (Zosyn) will be continued. Also, he should continue IS while in IRU. This is a general summation of [facility] course. Please refer to acute hospitalization documents for more details. Time spent in discharge process: 40 min. Problems: (1) Diabetes with ulcer of lower extremity Status: Acute (2) Anemia Status: Chronic (3) CHF (congestive heart failure) Status: Chronic Assessment & Plan: EF 45% last ECHO (4) Ischemic cardiomyopathy Status: Chronic (5) CAD (coronary artery disease) Status: Chronic (6) Dyslipidemia Status: Chronic (7) CKD (chronic kidney disease), stage III Status: Chronic (8) HS (hereditary spherocytosis) Status: Chronic (9) Peripheral vascular disease Status: Chronic (10) DVT (deep venous thrombosis) Status: Chronic (11) Neuropathy Status: Chronic (12) Anticoagulated Status: Chronic Assessment & Plan: Chronically on Coumadin DVT Prophylaxis: Lovenox, Coumadin Code Status Full Code Home Meds Active Scripts Piperacillin Sodium/Tazobactam (Zosyn 2.25 Gram Vial) 2.25 Gm Vial, 2.25 G IV Q6H for 21 Days, VIAL Prov:MIMI CONNOR APRN 11/12/16 Polyethylene Glycol 3350 (Healthylax) 17 Gm Powd.pack, 17 G PO DAILY Y for CONSTIPATION for 30 Days Prov:MIMI CONNOR APRN 11/12/16 Magnesium Hydroxide (Milk of Magnesia) 400 Mg/5 Ml Oral.susp, 30 ML PO DAILY Y for CONSTIPATION for 30 Days Prov:MIMI CONNOR APRN 11/12/16 Bisacodyl (Bisacodyl) 10 Mg Supp.rect, 10 MG RECTALLY DAILY Y for CONSTIPATION for 7 Days Prov:MIMI CONNOR APRN 11/12/16 Enoxaparin Sodium (Lovenox) 40 Mg/0.4 Ml Inj, 40 MG SQ DAILY for 30 Days, #30 Prov:MIMI CONNOR APRN 11/12/16 Furosemide (Furosemide) 20 Mg Tablet, 20 MG PO DAILY for 30 Days, #30 TAB Prov:PHOEBE MORALES APRN 08/17/16 Warfarin Sodium (Jantoven) 4 Mg Tablet, 4 MG PO NOON for 10 Days, #30 TAB Prov:PHOEBE MORALES APRN 08/17/16 Insulin Glargine,Hum.rec.anlog (Lantus) 100 Unit/Ml Inj, 8 UNIT SQ HS for 30 Days, #1 2 Refills Prov:NICHOLAS MCQUEEN DO 08/10/16 Docusate Sodium (Colace) 100 Mg Capsule, 100 MG PO BID Y for CONSTIPATION for 30 Days, #60 CAP 2 Refills schedule until patient has a bowel movement. hold for loose stools. Prov:NICHOLAS MCQUEEN DO 08/10/16 Tamsulosin HCl (Flomax) 0.4 Mg Capsule, 0.4 MG PO HS for 30 Days, #30 CAP 5 Refills Take 1 capsule, by mouth, one time a day at BEDTIME. Prov:NICHOLAS MCQUEEN DO 08/04/16 Reported Medications Capsaicin (Capsaicin) 42.5 Gm Cream..g., 1 APPLIC TOP PRN Y for ARTHRITIS, G 11/06/16 Omeprazole (Omeprazole) 20 Mg Capsule.dr, 20 MG PO ACB, CAP Take 1 capsule, by mouth, one time a day (before breakfast). 11/06/16 Folic Acid (Folic Acid) 1 Mg Tablet, 1 TAB PO NOON, TAB 11/06/16 Aspirin (Aspir 81) 81 Mg Tablet.dr, 1 TAB PO HS, TAB 11/06/16 Linagliptin (Tradjenta) 5 Mg Tablet, 1 TAB PO DAILY, TAB 11/06/16 Carvedilol (Carvedilol) 25 Mg Tablet, 1 TAB PO BIDWM, TAB BEST WITH FOOD. 11/06/16 Discontinued Scripts Carvedilol (Coreg) 12.5 Mg Tablet, 25 MG PO BIDWM for 30 Days, #120 TAB 5 Refills Prov:NICHOLAS MCQUEEN DO 08/06/16 Face to Face Encounter I met with patient on the day of dismissal and discussed follow up appointments , medications, and safety plan. Discharge Disposition DC to IRU, stable Copies To 1: KOKO MYLES MD; CRESENCIO HARDIN MD, FACS, CWS; NICHOLAS MCQUEEN DO Documentation Requirements Documenting Diagnosis Anemia, Chronic Kidney Disease, Diabetes Chronic Kidney Disease Stage of CKD: Stage 3 GFR 30-59 Anemia Anemia Etiology: Iron Deficiency Anemia Acuity: Chronic Diabetes Diabetes Type: Type 2 Diabetes Is Diabetes Contolled?: Contolled Related to Diabetes: Related to ELIZA CORDERO MD 11/12/16 7255: Hospital Course 11/12/2016-I reviewed this chart, the patient history, and the ELEMENTARY ASSISTANT TEACHER's/PA's documented findings as above. We discussed and formulated the assessment and plan as above with the additions below.-Dr. Cordero Patient states he's feeling well today. He denies any pain. He denies shortness of breath or chest discomfort. He states he's eating and drinking well. He is having normal bowel movements. He states he's not having difficulties urinating. On exam he is alert and oriented 3 and in no acute distress. Chest is clear to auscultation. Cardiovascular reveals a regular rate and rhythm. Abdomen is soft and nontender. Extremities reveal +1 pretibial edema. Lab today shows hemoglobin stable at 7.4. Platelets are normal. BUNs 25 and creatinine is stable at 1.6. Vitamin B-12 was 390. Regarding his polymicrobial Achilles area wound, Dr. Myles has recommended 2-3 weeks of Zosyn and then possibly switching to oral antibiotics. The patient will continued to require wound VAC and he did not think his could handle this at home. Plans were made for transfer to inpatient rehabilitation here at [facility] to continue his 2-3 week course of IV Zosyn and continue wound care with wound VAC. He will also work with therapy to get stronger. Regarding iron deficiency anemia, I did speak with Dr. Myles and she stated it would be okay to give IV iron. He has received about half of his IV iron dose and is feeling well. His oral iron can be discontinued. Regarding history of DVT, continue with oral Coumadin and pharmacy consultation. Continue Lovenox low-dose bridging until INR is therapeutic. We'll repeat CBC, BMP and INR tomorrow. For borderline low B-12 will give oral B 12 in light of his anemia. Continue to monitor renal function regarding chronic kidney disease. The patient appears stable for transfer to inpatient rehabilitation. Discussed today with Dr. Hardin, Dr. Myles, and case management. Problems: Home Meds Active Scripts Piperacillin Sodium/Tazobactam (Zosyn 2.25 Gram Vial) 2.25 Gm Vial, 2.25 G IV Q6H for 21 Days, VIAL Prov:MIMI CONNOR APRN 11/12/16 Polyethylene Glycol 3350 (Healthylax) 17 Gm Powd.pack, 17 G PO DAILY Y for CONSTIPATION for 30 Days Prov:MIMI CONNOR APRN 11/12/16 Magnesium Hydroxide (Milk of Magnesia) 400 Mg/5 Ml Oral.susp, 30 ML PO DAILY Y for CONSTIPATION for 30 Days Prov:MIMI CONNOR APRN 11/12/16 Bisacodyl (Bisacodyl) 10 Mg Supp.rect, 10 MG RECTALLY DAILY Y for CONSTIPATION for 7 Days Prov:MIMI CONNOR ELEMENTARY ASSISTANT TEACHER 11/12/16 Enoxaparin Sodium (Lovenox) 40 Mg/0.4 Ml Inj, 40 MG SQ DAILY for 30 Days, #30 Prov:MIMI CONNOR ELEMENTARY ASSISTANT TEACHER 11/12/16 Furosemide (Furosemide) 20 Mg Tablet, 20 MG PO DAILY for 30 Days, #30 TAB Prov:PHOEBE MORALES V ELEMENTARY ASSISTANT TEACHER 08/17/16 Warfarin Sodium (Jantoven) 4 Mg Tablet, 4 MG PO NOON for 10 Days, #30 TAB Prov:PHOEBE MORALES V ELEMENTARY ASSISTANT TEACHER 08/17/16 Insulin Glargine,Hum.rec.anlog (Lantus) 100 Unit/Ml Inj, 8 UNIT SQ HS for 30 Days, #1 2 Refills Prov:NICHOLAS MCQUEEN DO 08/10/16 Docusate Sodium (Colace) 100 Mg Capsule, 100 MG PO BID Y for CONSTIPATION for 30 Days, #60 CAP 2 Refills schedule until patient has a bowel movement. hold for loose stools. Prov:NICHOLAS MCQUEEN DO 08/10/16 Tamsulosin HCl (Flomax) 0.4 Mg Capsule, 0.4 MG PO HS for 30 Days, #30 CAP 5 Refills Take 1 capsule, by mouth, one time a day at BEDTIME. Prov:NICHOLAS MCQUEEN DO 08/04/16 Reported Medications Capsaicin (Capsaicin) 42.5 Gm Cream..g., 1 APPLIC TOP PRN Y for ARTHRITIS, G 11/06/16 Omeprazole (Omeprazole) 20 Mg Capsule.dr, 20 MG PO ACB, CAP Take 1 capsule, by mouth, one time a day (before breakfast). 11/06/16 Folic Acid (Folic Acid) 1 Mg Tablet, 1 TAB PO NOON, TAB 11/06/16 Aspirin (Aspir 81) 81 Mg Tablet.dr, 1 TAB PO HS, TAB 11/06/16 Linagliptin (Tradjenta) 5 Mg Tablet, 1 TAB PO DAILY, TAB 11/06/16 Carvedilol (Carvedilol) 25 Mg Tablet, 1 TAB PO BIDWM, TAB BEST WITH FOOD. 11/06/16 Discontinued Scripts Carvedilol (Coreg) 12.5 Mg Tablet, 25 MG PO BIDWM for 30 Days, #120 TAB 5 Refills Prov:NICHOLAS MCQUEEN DO 08/06/16 Copies To 1: KOKO MYLES MD; CRESENCIO HARDIN MD, FACS, CWS; NICHOLAS MCQUEEN KAREN D APRN November 12, 2016 12:03 ELIZA CORDERO MD November 12, 2016 17:25
--- NOTE | 2016-11-12 13:55 | NUR ---
High Risk Screen F/U Diet: CC 2201 internal corrosion specialist visited with patient about PO intake and appetite. Patient is eating 100% of recorded intake. With CKD patient's intake of sodium and protein has been moderate. RD available @ 1947
--- NOTE | 2016-11-12 14:45 | NUR ---
MEDICATIONS PATIENT CURRENTLY HAS IV IRON INFUSING THROUGH SINCE LUMEN PICC IN RIGHT UPPER ARM. PATIENT TO HAVE ZOSYN AT 1500 AND VANCO AT 1600. BOTH OF THESE MEDICATIONS ARE IV. IV IRON WILL NOT BE DONE UNTIL 1800. THIS RN LOOKED FOR AN IV SITE BUT COULD NOT FIND PERIPHERAL ACCESS. PER DR. WILKES, ANTIBIOTICS CAN BE RETIMED UNTIL AFTER PATIENT'S IV IRON IS COMPLETE. WILL CONTINUE TO MONITOR.
--- NOTE | 2016-11-12 16:05 | NUR ---
DISMISSAL PATIENT DISMISSED TO IRU AT THIS TIME VIA WHEELCHAIR AND ESCORTED BY THIS RN. PERSONAL BELONGINGS SENT WITH PATIENT. A/OX3 AND STABLE ON ROOM AIR AT TIME OF TRANSFER. REPORT CALLED TO ESAU SANDHU ON IRU. TOPICS DISCUSSED INCLUDED: MEDICATIONS, COG STATUS, FUNCTIONAL STATUS, WOUND CARE, AND FAMILY SUPPORT. RIGHT UPPER ARM PICC REMAINS IN PLACE. IV IRON INFUSING AT TIME OF DISCHARGE.
--- NOTE | 2016-11-12 16:32 | NUR ---
PT NOTE: Pt not seen d/t being D/C to IRU. Call [phone] with questions.
[2016-11-12] MEDS ORDERED: VANCOMYCIN 1,250 MG in NORMAL SALINE 250 ML IV SCH (19:00)
--- NOTE | 2016-11-13 07:42 | PNF ---
DATE 11/12/2016 FINDINGS Mr. Hernandez was seen earlier this morning on rounds. He was in good spirits. His mobility is still fairly limited. He did have a hard time getting out of the chair and into the bed. This did require a moderate amount of assistance. VITALS: Afebrile. Normotensive. Please refer to EMR. CHEST: Clear to auscultation bilaterally. HEART: Regular rate and rhythm. Normal S1 and S2 without gallops, murmurs or clicks. EXTREMITIES: Attention was focused the area of concern involving the right posterior heel/Achilles region. I am quite pleased to see the appearance of the wound. There is good granulation tissue now forming within the wound itself. There has been no further necrosis. There is no liberty purulent material that is present. ASSESSMENT 86-year-old gentleman with history of traumatic wound involving right anterior tibial surface and new development of a wound involving right posterior heel with associated cellulitis/infection. A prior wound culture was polymicrobial in nature. PLAN Infectious Disease has recommended that we continue with ongoing IV antibiotics. I was pleased to find out the patient apparently has qualified for our rehab facility. I do believe this would aid greatly in the patient's recovery. Hopefully the patient will be able to be transferred to our rehab facility and we will be able to continue with negative wound pressure therapy to facilitate healing and ongoing intravenous antibiotics. I am pleased with the patient's progress at this time. [facility]
== END 2016-11-12 16:05 | DRG 623 ==
LOC: SRG 11:37
PROVIDERS: ADMIT Hospitalist; ATTEND Internal Medicine
PROC: 0JBQ0ZZ Excision of Right Foot Subcutaneous Tissue and Fascia, Open Approach (ICD-10-PCS; principal; 2016-11-08 14:13)
DX: E11.621 Type 2 diabetes mellitus with foot ulcer (principal); L97.412 Non-pressure chronic ulcer of right heel and midfoot with fat layer exposed; L03.115 Cellulitis of right lower limb; I13.0 Hypertensive heart and chronic kidney disease with heart failure and stage 1 through stage 4 chronic kidney disease, or unspecified chronic kidney disease; I50.32 Chronic diastolic (congestive) heart failure; E78.5 Hyperlipidemia, unspecified; I25.10 Atherosclerotic heart disease of native coronary artery without angina pectoris; E11.22 Type 2 diabetes mellitus with diabetic chronic kidney disease; N18.3 Chronic kidney disease, stage 3 (moderate); E11.51 Type 2 diabetes mellitus with diabetic peripheral angiopathy without gangrene; E11.40 Type 2 diabetes mellitus with diabetic neuropathy, unspecified; I25.5 Ischemic cardiomyopathy; D58.0 Hereditary spherocytosis; D50.9 Iron deficiency anemia, unspecified; B95.2 Enterococcus as the cause of diseases classified elsewhere; Z86.718 Personal history of other venous thrombosis and embolism; Z95.0 Presence of cardiac pacemaker; Z79.4 Long term (current) use of insulin; Z79.899 Other long term (current) drug therapy; Z79.82 Long term (current) use of aspirin; Z79.01 Long term (current) use of anticoagulants
CPT/HCPCS: 36415; 80048; 80053; 80069; 80202; 81003; 82272; 82607; 82728; 82948; 83036; 83540; 83550; 83605; 83735; 84134; 84145; 85007; 85018; 85025; 85027; 85610; 86140; 86850; 86900; 86901; 87040

== ENCOUNTER 2016-11-12 16:10 | Inpatient (IN) | payer MEDICARE, OTHER ==
[~2016-11-12] VITALS: Ht 182.9 cm; Wt 73.2 kg
[2016-11-12 16:10] VITALS: BP 138/69; PULSE 83; RESP 20; TEMP 98.7; O2SAT 98; Ht 182.9 cm; Wt 73.2 kg
[~2016-11-12 16:10] MED LIST changes: +ASPI-557 PO; -ASPI81TA2 PO; +BISA10SU8 RECTALLY; +CAPS42.57 TOP; -CARV12.5 PO; +CARV25TA2 PO; +ENOX40DI SQ; +FOLI1TAB15 PO; +LINA5TAB PO; +MAGN400O4 PO; +OMEP20CA10 PO; +PIPE2.254 IV; +POLY17PO18 PO; -PRED10TA PO
[2016-11-12 16:50] VITALS: BP 146/70; PULSE 83; RESP 20; TEMP 98.7; O2SAT 97
--- OUTSIDE RECORDS SUMMARY | 2016-11-12 17:02 | XMS REPORT | Continuity of Care Document ---
Demographics Preferred Language Unknown Marital Status Unknown Spiritism Affiliation Unknown Race Unknown Ethnic Group Unknown Author Author [facility] Organization [facility] Address Unknown Phone Unavailable Allergies [...] INFARCTION 12/13/2014 Final 414.01 CORONARY ATHEROSCLEROSIS OF [place] CORONARY ARTERY 12/13/2014 Final 414.8 OTHER SPECIFIED [...] Status Pt. Type Provider Facility Loc./Unit Complaint [id number] 12/07/2014 06:33:00 Document Registration [id number] 08/24/2014 08:57:00 Document Registration
--- OUTSIDE RECORDS SUMMARY | 2016-11-12 17:04 | XMS REPORT | Continuity of Care Document ---
Author Author [facility] Organization [facility] Address Unknown Phone Unavailable Support Name Relationship Address Phone ALEX KEYS DO Caregiver [address] [place] [address] YESSI KAUFMAN MD Caregiver [address] [place] [phone] ALESSIA BANDA Caregiver [address] [place] [phone] ELVIRA HERNANDEZ Next Of Kin [address] [place], [place] [phone] Insurance Providers Payer Name Policy Number Subscriber Name Relationship Medicare [id number] Cresencio Hernandez 18 Self Mail Hand[employer] Benefit [id number] Cresencio Hernandez 18 Self Advance Directives Directive [...] of your legs. 3.During office hours, call [phone] 4. After hours, please call [facility] at [phone], and have the cutter operator page your Surgeon IN THE EVENT OF AN EMERGENCY, seek medical care at the nearest Emergency Room Condition at time of discharge: Good Good Plan of Care Discharge Date 03/25/14 4:05pm Disposition 01 DISCHARGED HOME, SELF-CARE Instructions/Education Provided [facility] Congestive Heart Failure Prescriptions See Medications Section [...] F (96.8 - 99.1) Temperature (Calculated Celsius) 36.12322 degrees C (36.0 - 37.3) Temperature Source [...] Report April 29, 2012 11:05am REFERENCE LAB [id number] - Lymphocytes # (Auto) March 25, 2014 [...] 25, 2014 5:05am 12.3 % H 0-9.0 NA-Ihs-I-Type Natriuretic Peptide March 23, 2014 3:59pm 16253 PG/ML H 0-175 Rule in cut points: [...] Has specimen been collected/obtained? Y Urine Specific [place] March 23, 2014 5:05pm 1.020 - Has [...] 48 HOURS Name: CRESENCIO HERNANDEZ Unit #: [id number] : 1930 Sex: M Loc / Svc: SRG DOS: 03/23/14 Signed Report #: [id number] DIAGNOSTIC IMAGING REPORT TYPE OF EXAM: CHEST, [...] procedures. Encounters Encounter Location Date/Time Discharged Inpatient [facility] 03/23/14 5:21pm Recent Diagnosis Dyspnea CHF (congestive heart failure) Dyspnea HTN (hypertension) Type 2 diabetes mellitus CAD (coronary artery disease) Dyslipidemia DVT (deep venous thrombosis) Acute on chronic systolic CHF (congestive heart failure)
--- OUTSIDE RECORDS SUMMARY | 2016-11-12 17:04 | XMS REPORT | Continuity of Care Document ---
Author Author [facility] Organization [facility] Address Unknown Phone Unavailable Support Name Relationship Address Phone YESSI KAUFMAN MD Caregiver [address] [place] [address] [place] [address] Unavailable GAIL WILKES MD Caregiver [address] [place] [address] [place] [address] Unavailable NICHOLAS HENSON DO Caregiver [address] [place] [address] Unavailable ELVIRA HERNANDEZ Next Of Kin [address] [place] [address] Insurance Providers Guarantor Cresencio Hernandez Address [address] [place] [address] Email DIRECT ADMIT 11/06/16 Payer Medicare Policy Number [id number] Subscriber's Name Cresencio Hernandez Relationship 18 Self Effective Date 07/08/96 Payer [employer] Benefit Policy Number [id number] Subscriber's Name Cresencio Hernandez Relationship 18 Self Advance Directives Directive Response Recorded Date/Time Ordered Resuscitation Status Full Code 11/06/16 11:54am Resuscitation Documents on File Yes 11/06/16 11:44am DPOA for Healthcare Only Yes 11/06/16 5:09pm Living Will Yes 11/06/16 11:44am Problems Active Problems Medical Problem Onset Date Status Acute on chronic systolic CHF (congestive heart failure) 03/25/2014 Chronic Anemia Unknown Chronic Anemia Unknown Chronic Anticoagulated Unknown Chronic Aphasia Unknown Resolved CAD (coronary artery disease) Unknown Chronic CAD (coronary artery disease) Unknown Chronic CHF (congestive heart failure) Unknown Chronic CKD (chronic kidney disease), stage III Unknown Chronic Chest pain Unknown Acute Chronic anemia Unknown Chronic DVT (deep venous thrombosis) Unknown Chronic Diabetes mellitus Unknown Chronic Diabetes with ulcer of lower extremity Unknown Acute Dyslipidemia Unknown Chronic Dyspnea Unknown Acute Generalized weakness Unknown HS (hereditary spherocytosis) Unknown Chronic HTN (hypertension) Unknown Chronic Hx of cataract Unknown Resolved Hypoglycemia due to insulin Unknown Resolved Ischemic cardiomyopathy Unknown Chronic L2 vertebral fracture Unknown Acute Mononeuritis multiplex Unknown Neuropathy Unknown Chronic Non-STEMI (non-ST elevated myocardial infarction) Unknown Acute Peripheral vascular disease Unknown Chronic Radiculopathy Unknown Chronic Sinoatrial node dysfunction Unknown Type 2 diabetes mellitus Unknown Chronic VTE (venous thromboembolism) Unknown Past Problems Medical Problem Onset Date Elevated serum creatinine Unknown Hyperkalemia Unknown Medications Current Home Medications Medication Dose Units Route Directions Days Qty Instructions Start Date Aspirin (Aspir 81) 81 Mg Tablet.dr 1 Tab Oral Bedtime 11/06/16 Bisacodyl 10 Mg Supp.rect 10 Mg Rectally Daily as needed for Constipation 7 Days 11/12/16 Capsaicin 42.5 Gm Cream..g. 1 Applic Topically As Needed as needed for Arthritis 11/06/16 Carvedilol 25 Mg Tablet 1 Tab Oral Twice Daily With Meals BEST WITH FOOD. 11/06/16 Docusate Sodium (Colace) 100 Mg Capsule 100 Mg Oral Twice A Day as needed for Constipation 30 Days 60 Capsule schedule until patient has a bowel movement. hold for loose stools. 08/10/16 Enoxaparin Sodium (Lovenox) 40 Mg/0.4 Ml Inj 40 Mg Sub-Q Daily 30 Days 30 11/12/16 Folic Acid 1 Mg Tablet 1 Tab Oral Give At Noon 11/06/16 Furosemide 20 Mg Tablet 20 Mg Oral Daily 30 Days 30 Tablet 08/17/16 Insulin Glargine,Hum.rec.anlog (Lantus) 100 Unit/Ml Inj 8 Unit Sub-Q Bedtime 30 Days 1 08/10/16 Linagliptin (Tradjenta) 5 Mg Tablet 1 Tab Oral Daily 11/06/16 Magnesium Hydroxide (Milk Of Magnesia) 400 Mg/5 Ml Oral.susp 30 Ml Oral Daily as needed for Constipation 30 Days 11/12/16 Omeprazole 20 Mg Capsule. 20 Mg Oral Before Breakfast Take 1 capsule, by mouth, one time a day (before breakfast). 11/06/16 Piperacillin Sodium/Tazobactam (Zosyn 2.25 Gram Vial) 2.25 Gm Vial 2.25 G Intraven Every 6 Hours 21 Days 11/12/16 Polyethylene Glycol 3350 (Healthylax) 17 Gm Powd.pack 17 G Oral Daily as needed for Constipation 30 Days 11/12/16 Tamsulosin Hcl (Flomax) 0.4 Mg Capsule 0.4 [...] 09/20/15 Discontinued Carvedilol (Coreg) 12.5 Mg Tablet, 25 Mg Oral Twice Daily With Meals Discontinued Carvedilol (Coreg) 12.5 Mg Tablet, 12.5 [...] Date/Time Onset Date Status Reason for Hospitalization diabetic ulcer 11/12/2016 2:41pm Not Applicable Not Applicable Hx Substance Use No 08/01/2016 11:04pm Not Applicable Not Applicable Hx Alcohol Use No 08/01/2016 11:04pm Not Applicable Not Applicable Has the pt used tobacco in the last 12 months No 11/06/2016 11:54am Not Applicable Not Applicable Tobacco Usage none 03/23/2014 6:45pm Not Applicable Not Applicable Query Response Start Date Stop Date Smoking Status Never smoker Hospital Discharge Instructions Instructions: Care Instructions: Reason for Hospitalization: diabetic ulcer I was in the hospital because (patient own words): "INFECTION ON MY RIGHT LOWER LEG" Discharge Diet: Diabetic, 2200 kcal/day Discharge Activity: Per Dr. Muñiz Follow Up Appointments: Dr. Raffaele Hardin PCP 1-2 weeks after IRU discharge Pending Lab / Results: Follow up w/ provider Patient Instructions: You are being discharged to IRU. Continue Zosyn x 2-[address] Castorena and Dr. Hardin will continue to see you while on IRU. We will continue to monitor your blood sugars and hgb levels. Pharmacy will help us dose your Coumadin, but you will receive Lovenox until your INR is therapeutic. Wound/Incision Care: per Dr. Hardin and Wound Care team Durable Medical Equipment: wound VAC Pain Scale Utilized to Educate Patient: 0-10 Pain Scale Pain Management/Treatment: Tylenol as needed Expected Signs/Symptoms: pain - will monitor while in IRU Notify Physician If: fever, new symptoms or any concerns During Business Hours:: Please call for your nurse After Business Hours:: Please call [phone] and have the plant control operator page the physician. Condition at time of discharge: Good Plan of Care Discharge Date 11/12/16 4:05pm Disposition 62 TO REHAB UNIT/FACILITY Instructions/Education Provided Acute Wound Care (DC) Wound Healing and Your Diet (DC) Blood Transfusion (GEN) Prescriptions See Medication Section Care Plan and Goals See Discharge Instructions Section Functional Status Query Response Date Recorded Mobility Status Ambulatory w/assist November 12, 2016 2:41pm Assistive Devices Front Wheeled Walker November 12, 2016 2:41pm Feeding Ability Independent November 12, 2016 2:41pm Toileting Ability Assist November 12, 2016 11:51am Grooming Ability Assist November 12, 2016 2:41pm Dressing Ability Assist November 12, 2016 2:41pm Driving Ability Dependent November 12, 2016 2:41pm Housework Ability Dependent November 12, 2016 2:41pm Meal Preparation Ability Dependent November 12, 2016 2:41pm Stair Climbing Ability Dependent November 12, 2016 2:41pm Ability to complete ADL's impeded by Impaired Mobility November 12, 2016 2:41pm Cognitive/Perceptual Impairments None November 12, 2016 2:41pm Visual Assistive Devices Glasses With patient November 12, 2016 11:51am Preferred Method of Learning Hands on November 12, 2016 11:51am Allergies, Adverse Reactions, Alerts No known allergies. Immunizations Query Response on File Recorded Date/Time Hx Influenza Vaccination Y 2015 ( a couple of months ago per pt.) 11/06/16 11 :54am Hx Pneumococcal Vaccination Y 201411/06/16 11:54am Hx Influenza Vaccination Y 2015 ( a couple of months ago per pt.) 11/06/16 11 :54am Influenza Vaccine Hx 04/201611/06/16 7:15pm Vital Signs Acute Vital Signs Vital Response Date/Time Temperature (Fahrenheit) 97.5 deg F (96.8 - 99.1) 11/12/2016 2:50pm Temperature (Calculated Celsius) 36.81845 degrees C (36.0 - 37.3) 11/12/2016 2:50pm Temperature Source Oral 11/12/2016 2:50pm Pulse Rate (adult) 78 bpm (60 - 100) 11/12/2016 2:50pm Respiratory Rate 20 breaths/min (10 - 20) 11/12/2016 2:50pm O2 Sat by Pulse Oximetry 98 % (90 - 100) 11/12/2016 2:50pm Oxygen Delivery Method Room Air 11/12/2016 2:50pm Oxygen Delivery Method Room Air 11/08/2016 8:04pm Blood Pressure 114/63 mm Hg 11/12/2016 2:50pm Blood Pressure Source Automatic Cuff 11/12/2016 2:50pm Height (Feet) 6 feet 11/12/2016 11:56am Height (Inches) 0.00 inches 11/12/2016 11:56am Weight (Kilograms) 81.200 kg 11/12/2016 11:05am Body Mass Index (BMI) 22.5 11/06/2016 11:42am Results Laboratory Results Test Name Result Units Flags Reference Collection Date/Time Result Date/ Time Comments White Blood Count 8.1 T/MM3 4.5-11.0 11/12/2016 3:5211/12/2016 5: 02am Red Blood Count 2.59 M/MM3 L 4.50-5.90 11/12/2016 3:5211/12/2016 5: 02am Hemoglobin 7.4 GM/DL L 13.5-17.5 11/12/2016 3:52am 11/12/2016 5:02am Hematocrit 23.2 % L 41-53 11/12/2016 3:52am 11/12/2016 5:02am Mean Corpuscular Volume 89.6 UM3 80-100 11/12/2016 3:52am 11/12/2016 5: 02am Mean Corpuscular Hemoglobin 28.6 UUG 26-34 11/12/2016 3:522016 5:02am Mean Corpuscular Hemoglobin Concent 31.9 GM/DL 31-37 11/12/2016 3:5211/12/2016 5:02am RDW Standard Deviation 41.9 FL 36.9-50.2 11/12/2016 3:52am 11/12/2016 5 :02am Platelet Count 313 T/MM3 130-400 11/12/2016 3:52am 11/12/2016 5:02am Mean Platelet Volume 10.0 UM3 9.4-12.4 11/12/2016 3:52am 11/12/2016 5: 02am Neutrophils (%) (Auto) 65.0 % 33-66 11/12/2016 3:52am 11/12/2016 5: 02am Lymphocytes (%) (Auto) 14.5 % L 23-45 11/12/2016 3:5211/12/2016 5: 02am Monocytes (%) (Auto) 11.3 % H 0-9.0 11/12/2016 3:5211/12/2016 5:02am Eosinophils (%) (Auto) 8.5 % H 0-4 11/12/2016 3:5211/12/2016 5:02am Basophils (%) (Auto) 0.5 % 0-2 11/12/2016 3:52am 11/12/2016 5:02am Immature Granulocyte % (Auto) 0.2 % 0.0-0.5 11/12/2016 3:2016 5:02am Absolute Neutrophils (auto) 5.3 T/MM3 1.8-7.7 11/12/2016 3:2016 5:02am Absolute Lymphocytes (auto) 1.2 T/MM3 1-4.8 11/12/2016 3:2016 5:02am Absolute Monocytes (auto) 0.9 T/MM3 H 0-0.8 11/12/2016 3:2016 5:02am Absolute Eosinophils (auto) 0.7 T/MM3 H 0-0.5 11/12/2016 3:2016 5:02am Absolute Basophils (auto) 0.0 T/MM3 0-0.2 11/12/2016 3:11/12/2016 5:02am Absolute Immature Granulocyte (auto 0.02 T/MM3 0.00-0.03 11/12/2016 3: 11/12/2016 5:02am Neutrophils % (Manual) 62.0 % 33-66 11/11/2016 3:11/11/2016 5: 53am Band Neutrophils % 3.0 % 0-6 11/11/2016 3:11/11/2016 5:53am Lymphocytes % (Manual) 20.0 % L 23-45 11/11/2016 3:11/11/2016 5: 53am Monocytes % (Manual) 9.0 % 0-9.0 11/11/2016 3:11/11/2016 5:53am Eosinophils % (Manual) 6.0 % H 0-4 11/11/2016 3:11/11/2016 5:53am Band Neutrophils # 0.3 T/MM3 11/11/2016 3:11/11/2016 5:53am Absolute Neutrophils (Manual) 5.5 T/MM3 1.8-7.7 11/11/2016 3:11/11 5:53am Lymphocytes # (Manual) 1.8 T/MM3 1-4.8 11/11/2016 3:11/11/2016 5: 53am Monocytes # (Manual) 0.8 T/MM3 0-0.8 11/11/2016 3:11/11/2016 5: 53am Eosinophils # (Manual) 0.5 T/MM3 0-0.5 11/11/2016 3:11/11/2016 5: 53am Nucleated Red Blood Cells 1 11/11/2016 3:11/11/2016 5:53am Red Cell Morphology Comment ABNORMAL 11/11/2016 3:11/11/2016 5 :53am Anisocytosis 3+ 11/11/2016 3:11/11/2016 5:53am Poikilocytosis 3+ 11/11/2016 3:11/11/2016 5:53am Ovalocytes 3+ 11/11/2016 3:11/11/2016 5:53am Prothromb Time International Ratio 1.45 H 0.76-1.04 11/12/2016 3:5211/12/2016 5:19am THERAPUTIC RANGE=2.00-3.00 FOR ANTI-THROMBOSIS THERAPUTIC RANGE=2.50-3.50 FOR IMPLANTED VALVE Icterus Index < 2 0-7 11/12/2016 3:52am 11/12/2016 5:29am Chemistry Specimen Hemolysis < 15 0-25 11/12/2016 3:5211/12/2016 5 :29am 0-25: Specimen Exhibited No Hemolysis. Turbidity < 20 0-20 11/12/2016 3:5211/12/2016 5:29am Sodium Level 140 MEQ/L 134-144 11/12/2016 3:5211/12/2016 5:29am Potassium Level 3.6 MEQ/L 3.6-5 11/12/2016 3:52am 11/12/2016 5:29am Chloride Level 108 MEQ/L H 98-107 11/12/2016 3:52am 11/12/2016 5:29am Carbon Dioxide Level 22 MEQ/L 22-30 11/12/2016 3:52am 11/12/2016 5: 29am Anion Gap 10 MEQ/L 5-15 11/12/2016 3:52am 11/12/2016 5:29am Blood Urea Nitrogen 25.0 MG/DL H 9-20 11/12/2016 3:52am 11/12/2016 5: 29am Creatinine 1.6 MG/DL H 0.8-1.5 11/12/2016 3:52am 11/12/2016 5:29am BUN/Creatinine Ratio 16 RATIO 6-26 11/12/2016 3:52am 11/12/2016 5:29am Glomerular Filtration Rate Calc 41 11/12/2016 3:52am 11/12/2016 5: 29am Glucose Level 92 MG/DL 75-110 11/12/2016 3:52am 11/12/2016 5:29am Calculated Osmolality 273 MOSM/KG 261-280 11/12/2016 3:5211/12/2016 5:29am Calcium Level 8.8 MG/DL 8.4-10.2 11/12/2016 3:52am 11/12/2016 5:29am Phosphorus Level 3.7 MG/DL 2.5-4.5 11/11/2016 3:1311/11/2016 3:54am Total Bilirubin 0.70 MG/DL 0.20-1.30 11/06/2016 12:06pm 11/06/2016 12: 23pm Alkaline Phosphatase 96 U/L 38-126 11/06/2016 12:pm 11/06/2016 12: 23pm Total Protein 6.7 G/DL 6.3-8.2 11/06/2016 12:pm 11/06/2016 12:23pm Albumin 3.0 G/DL L 3.5-5.0 11/11/2016 3:1311/11/2016 3:54am Globulin 3.4 G/DL 2.4-3.6 11/06/2016 12:06pm 11/06/2016 12:23pm Albumin/Globulin Ratio 1.0 RATIO L 1.1-2.2 11/06/2016 12:06pm 2016 12:23pm Aspartate Amino Transf (AST/SGOT) 14 U/L L 17-59 11/06/2016 12:pm 08/2016 12:23pm Alanine Aminotransferase (ALT/SGPT) 23 U/L 21-72 11/06/2016 12:pm 08/2016 12:23pm C-Reactive Protein 119.0 MG/L H 0-9 11/06/2016 12:06pm 11/06/2016 4: 07pm Magnesium Level 1.9 MG/DL 1.6-2.3 11/11/2016 3:13am 11/11/2016 3:54am Plasma Lactate 1.0 MMOL/L 0.6-2.2 11/06/2016 12:06pm 11/06/2016 12: 24pm Procalcitonin < 0.05 NG/ML 11/06/2016 12:06pm 11/06/2016 12:39pm PCT </=0.5 ng/mL - sepsis not likely; PCT >0.5 and </=2 ng/mL - sepsis possible; PCT >2 ng/mL - sepsis likely; PCT >/=10 ng/mL - systemic inflammatory response - sepsis or septic shock highly indicated. Iron Level 21 UG/DL L 49-181 11/07/2016 4:21am 11/09/2016 2:56am Total Iron Binding Capacity 181 UG/DL L 261-497 11/07/2016 4:21am 2016 12:49am Percent Iron Saturation 12 % L 13-59 11/07/2016 4:21am 11/09/2016 2: 56am Ferritin 204 NG/ML 18-464 11/07/2016 4:21am 11/09/2016 3:32am Vitamin B12 Level 390 PG/ML 239-931 11/11/2016 3:15am 11/12/2016 2: 38am Vancomycin Level Trough 13.66 UG/ML L 15-20 11/09/2016 3:33pm 2016 4:07pm Prealbumin 9.8 MG/DL L 17.6-36.0 11/06/2016 12:06pm 11/06/2016 12:30pm Hemoglobin A1c 6.9 % 6.1-7.9 11/06/2016 12:01pm 11/06/2016 12:56pm < 6.0 NON-DIABETIC RANGE 6.1-7.9 [employer] [employer] TARGET RANGE >8.0 ACTION SUGGESTED Stool Occult Blood NEGATIVE 11/07/2016 10:14am 11/07/2016 10:27am Urine Color YELLOW YELLOW 11/06/2016 10:28pm 11/06/2016 10:35pm Urine Turbidity CLEAR CLEAR 11/06/2016 10:28pm 11/06/2016 10:35pm Urine Specific [place] 1.015 1.015-1.025 11/06/2016 10:28pm 2016 10:35pm Urine pH 7.0 5.0-8.0 11/06/2016 10:28pm 11/06/2016 10:35pm Urine Leukocyte Esterase NEGATIVE NEGATIVE 11/06/2016 10:28pm 2016 10:35pm Urine Nitrite NEGATIVE NEGATIVE 11/06/2016 10:28pm 11/06/2016 10: 35pm Urine Protein NEGATIVE NEGATIVE 11/06/2016 10:28pm 11/06/2016 10: 35pm Urine Glucose (UA) NEGATIVE NEGATIVE 11/06/2016 10:28pm 11/06/2016 10 :35pm Urine Ketones NEGATIVE NEGATIVE 11/06/2016 10:28pm 11/06/2016 10: 35pm Urine Urobilinogen 1.0 EU/DL NORMAL 11/06/2016 10:28pm 11/06/2016 10: 35pm Urine Bilirubin NEGATIVE NEGATIVE 11/06/2016 10:28pm 11/06/2016 10: 35pm Urine Blood NEGATIVE NEGATIVE 11/06/2016 10:28pm 11/06/2016 10:35pm Urinalysis Comment MICROSCOPIC NOT IND. 11/06/2016 10:28pm 2016 10:35pm Glucometer 241 mg/dL H 75-110 11/12/2016 2:30pm 11/12/2016 2:37pm Microbiology Results Procedure Source Organism/Result Collection Date/Time Result Date/Time Result Status WOUND CULTURE DEEP TISS-AER/AN Heel, Right ANAEROCOCCUS PREVOTII 10/31/2016 10:30am 11/04/2016 6:44am Final ENTEROBACTER CLOACAE 10/31/2016 10:30am 11/04/2016 6:44am Final ENTEROCOC FAECALIS - (GROUP D) 10/31/2016 10:30am 11/04/2016 6:44am Final STREP MITIS/ORALIS 10/31/2016 10:30am 11/04/2016 6:44am Final Blood Culture Peripheral/Iv Start NO GROWTH AFTER 5 DAYS 11/06/2016 12: 06pm 11/11/2016 12:10pm Final Name: CRESENCIO HERNANDEZ Unit #: [id number] : 1930 Sex: M Admit Date: 11/06/16 Loc / Svc: SRG Discharge Date: DIAGNOSTIC IMAGING REPORT Report #: [id number] [facility] WONG Ar[place] Indication: ITS.REASON: rule out hydronephrosis PROCEDURE: US RENAL: Encounter: Initial Comparison: August 02, 2016 Technique: Grayscale and color Doppler sonographic imaging of both kidneys was performed. FINDINGS: Both kidneys are present with normal cortical thickness and echogenicity. No evidence for collecting system dilatation, contour deforming mass, nephrolithiasis, or abnormal perinephric fluid collection. The right kidney measures 11 cm in length, and the left kidney measures 10.9 cm in length. IMPRESSION: Normal renal sonogram. There is a preliminary report by [facility]. . Procedures Procedure Status Date Provider(s) Gait training therapy Completed 08/10/16 ADELINE MUÑIZ MD Pt eval mod complex 30 min Completed 08/10/16 ADELINE MUÑIZ MD Therapeutic exercises Completed 08/10/16 ADELINE MUÑIZ MD Ot eval mod complex 45 min Completed 08/10/16 ADELINE MUÑIZ MD GAIT TRAINING/AMBULAT TREATMENT USING ASSIST EQUIPMENT Completed 08/10/16 ADELINE MUÑIZ MD THERAPEUTIC EXERCISE TREATMENT OF MUSCULOSK WHOLE Completed 08/10/16 ADELINE MUÑIZ MD HOME MANAGEMENT TREATMENT Completed 08/10/16 ADELINE MUÑIZ MD [id number]"BORDER, EACH DRESSING" Completed 08/21/16 [id number] ITEM OR SERVICE Completed 08/21/16 E&M LEVEL - FACILITY Completed 08/21/16 Patsy subq tissue 20 sq cm/< Completed 09/04/16 Apply multlay comprs lwr leg Completed 09/04/16 [id number]"BORDER, EACH DRESSING" Completed 09/04/16 [id number]"BORDER, EACH DRESSING" Completed 09/04/16 [id number]"BORDER, EACH DRESSING" Completed 09/04/16 [id number] ITEM OR SERVICE Completed 09/04/16 E&M LEVEL - FACILITY Completed 09/04/16 Apply multlay comprs lwr leg Completed 09/11/16 [id number]"BORDER, EACH DRESSING" Completed 09/11/16 [id number]"BORDER, EACH DRESSING" Completed 09/11/16 E&M LEVEL - FACILITY Completed 09/11/16 Patsy subq tissue 20 sq cm/< Completed 09/18/16 Chemical cautery tissue Completed 09/18/16 [id number]"BORDER, EACH DRESSING" Completed 09/18/16 [id number] ITEM OR SERVICE Completed 09/18/16 [id number] ITEM OR SERVICE Completed 09/18/16 E&M LEVEL - FACILITY Completed 09/18/16 Patsy subq tissue 20 sq cm/< Completed 10/02/16 [id number]"BORDER, EACH DRESSING" Completed 10/02/16 [id number]"EQUAL TO 48 SQ. IN., WITHOUT ADHESIVE BORDER, EACH DR Completed [id number] ITEM OR SERVICE Completed 10/02/16 E&M LEVEL - FACILITY Completed 10/02/16 Skin sub graft trnk/arm/leg Completed 10/16/16 [id number] Completed 10/16/16 [id number]"BORDER, EACH DRESSING" Completed 10/16/16 046535"EQUAL TO 48 SQ. IN., WITHOUT ADHESIVE BORDER, EACH DR Completed [id number]"BORDER, EACH DRESSING" Completed 10/16/16 E&M LEVEL - FACILITY Completed 10/16/16 APLIGRAF SKIN SUBSTITUTE Completed 10/16/16 APLIGRAF SKIN SUBSTITUTE Completed 10/16/16 Patsy musc/fascia 20 sq cm/< Completed 10/23/16 [id number] Completed 10/23/16 [id number] Completed 10/23/16 [id number]"EQUAL TO 48 SQ. IN., WITHOUT ADHESIVE BORDER, EACH DR Completed E&M LEVEL - FACILITY Completed 10/23/16 Wound debridement Completed 11/08/16 CRESENCIO HARDIN MD, FACS, CWS Encounters Encounter Location Arrival/Admit Date Discharge/Depart Date Attending Provider Discharged Inpatient [facility] 11/06/16 11:37am 11/12/16 4:05pm GAIL WILKES MD Registered [facility] 11/06/16 10:26am CRESENCIO HARDIN FACS, MD [facility] 10/31/16 9:50am CRESENCIO HARDIN FACS, MD [facility] 10/23/16 10:24am CRESENCIO HARDIN FACS, MD [facility] 10/16/16 10:51am CRESENCIO HARDIN FACS, MD Registered [facility] 10/02/16 9:54am CRESECNIO HARDIN FACS, MD Registered [facility] 09/25/16 1:50pm NICHOLAS HENSON DO Registered [facility] 09/18/16 10:56am CRESENCIO AHRDIN FACS, MD Registered [facility] 09/11/16 11:20am CRESENCIO HARDIN FACS, MD Registered [facility] 09/04/16 9:55am CRESENCIO HARDIN FACS, MD Registered [facility] 08/21/16 8:59am CRESENCIO HARDIN FACS, MD Discharged Inpatient [facility] 08/10/16 10:16am 08/17/16 4:27pm ADELINE MUÑIZ MD
[2016-11-12] MEDS ORDERED: POLYETHYL.GLYCOL 3350 PACKET 17gm PO PRN (17:15)
[2016-11-12] MEDS ORDERED: PRN ORDERS MC (17:15)
[2016-11-12] MEDS ORDERED: BISACODYL 10 MG SUPPOSITORY RECTALLY PRN (17:15)
[2016-11-12] MEDS ORDERED: DOCUSATE SODIUM 100 MG CAPSULE PO PRN (17:15)
[2016-11-12] MEDS ORDERED: MILK OF MAGNESIA 30 ML SUSP PO PRN (17:15)
[2016-11-12] MEDS ORDERED: TAZOBACTAM IV SCH (18:00)
[2016-11-12] MEDS ORDERED: PIPERACILLIN IV SCH (18:00)
[2016-11-12 18:05] VITALS: BP 143/67; PULSE 79; RESP 20; TEMP 98.8; O2SAT 99
[2016-11-12 18:54] VITALS: BP 154/67; PULSE 91; RESP 16; TEMP 98.7; O2SAT 97
[2016-11-12] MEDS: CARVEDILOL 25 MG TABLET PO SCH (19:26)
[2016-11-12] MEDS: PIPERACILLIN/TAZOBACTAM 2.25 G in NORMAL SALINE 100 ML IV SCH (19:31)
[2016-11-12] MEDS: ASPIRIN *EC* 81mg TABLET PO SCH (20:42)
[2016-11-12] MEDS: DOCUSATE SODIUM 100 MG CAPSULE PO SCH (20:43)
[2016-11-12] MEDS: TAMSULOSIN 0.4 MG CAPSULE PO SCH (20:43)
[2016-11-12 21:04] VITALS: BP 116/53; PULSE 80; TEMP 98.9; O2SAT 93
[2016-11-12] MEDS: INSULIN GLARGINE 100 UNIT/ML SQ SCH (22:06)
[2016-11-13] MEDS: PIPERACILLIN/TAZOBACTAM 2.25 G in NORMAL SALINE 100 ML IV SCH ×5 (00:54→23:51)
[2016-11-13 04:50] LABS: BASOPHILS % (AUTO) 0.2 % (0-2); EOSINOPHILS # (AUTO) 0.3 T/MM3 (0-0.5); EOSINOPHILS % (AUTO) 3.8 % (0-4); HCT - HEMATOCRIT 22.8 % (41-53); HGB - HEMOGLOBIN 7.5 GM/DL (13.5-17.5); IMMATURE GRANULOCYTE # (AUTO) 0.02 T/MM3 (0.00-0.03); IMMATURE GRANULOCYTE % (AUTO) 0.2 % (0.0-0.5); LYMPHOCYTES % (AUTO) 11.4 % (23-45); MEAN CORPUSCULAR HGB 29.2 UUG (26-34); MEAN CORPUSCULAR HGB CONC(MCHC 32.9 GM/DL (31-37); MEAN CORPUSCULAR VOLUME 88.7 UM3 (80-100); MEAN PLATELET VOLUME 9.9 UM3 (9.4-12.4); MONOCYTES % (AUTO) 11.4 % (0-9.0); NEUTROPHILS #(AUTO)-ABSOLUTE 6.3 T/MM3 (1.8-7.7); RED BLOOD COUNT 2.57 M/MM3 (4.50-5.90); WBC - WHITE BLOOD COUNT 8.6 T/MM3 (4.5-11.0)
[2016-11-13 04:56] LABS: INR 1.55 (0.76-1.04); PROTHROMBIN TIME 16.9 SEC (9.31-12.49)
[2016-11-13 05:01] LABS: ANION GAP 11 MEQ/L (5-15); BUN/CREATININE RATIO 16 RATIO (6-26); CHLORIDE 106 MEQ/L (98-107); CO2 - CARBON DIOXIDE 21 MEQ/L (22-30); CREATININE 1.6 MG/DL (0.8-1.5); GLOMERULAR FILTRATION RATE 41; GLUCOSE 145 MG/DL (75-110); POTASSIUM 3.8 MEQ/L (3.6-5); SODIUM 138 MEQ/L (134-144)
[2016-11-13] MEDS: OMEPRAZOLE 20 MG CAPSULE PO SCH (06:24)
[2016-11-13] MEDS ORDERED: FERROUS SULFATE 324 MG TABLET PO SCH (08:00)
[2016-11-13 08:33] VITALS: BP 133/68; PULSE 79; RESP 20; TEMP 98.9; O2SAT 100
[2016-11-13] MEDS: FUROSEMIDE 20 MG TABLET PO SCH (08:36)
[2016-11-13] MEDS: CARVEDILOL 25 MG TABLET PO SCH ×2 (08:36→17:44)
[2016-11-13] MEDS: CYANOCOBALAMIN (B-12) 500mcg TABLET PO SCH (08:37)
[2016-11-13] MEDS: DOCUSATE SODIUM 100 MG CAPSULE PO SCH ×2 (08:37→21:00)
[2016-11-13] MEDS: ENOXAPARIN 40 MG/0.4 ML INJECTION SQ SCH (08:38)
[2016-11-13] MEDS: LINAGLIPTIN 5 MG TABLET PO SCH (08:38)
[2016-11-13] MEDS: ACETAMINOPHEN 325 MG TABLET PO PRN (09:27)
--- NOTE | 2016-11-13 10:11 | CONSPD ---
PHOEBE MORALES V INVASIVE CARDIOLOGIST 11/13/16 1002: Consultation Info Date DATE: 11/13/16 TIME: 09:54 Date of Consultation: November 13, 2016 Attending Physician: Gil Reason for Consultation: medical management of diabetes HPI - Adult Date DATE: 11/13/16 TIME: 09:54 General Chief Complaint: right lower extremity wound History of Present Illness Tim is a pleasant 86-year-old male who is well known to the hospitalist services as he was recently admitted acutely on 11/06/16 for evaluation and treatment of a right lower extremity wound. He is generally under the primary care of Dr. Henson at [facility], however is being followed by the hospitalist services. He underwent excisional surgical debridement of necrotic subcutaneous tissue from the right posterior ankle/heel region. The area of debridement was approximately 5 centimeters by 2.5 centimeters. This procedure was completed on 11/08/16. At that time, a wound VAC was placed. He is followed by both Dr. Campbell as well as Dr. Castorena in consultation. Vancomycin was stopped on 11/12 and it is recommended to continue Zosyn for the next 2-3 weeks. Postprocedure chronic Coumadin was restarted and patient is currently using Lovenox to bridge until INR is therapeutic. Tim has had some anemia which has been followed carefully. He declined a blood transfusion if at all possible. Other anemia workup was performed including Hemoccult stool, which were negative as well as iron studies. Iron was found to be low at 21 and he did receive IV iron supplementation on 11/12. Given Tim's level of independence prior to this incident. He was accepted to the inpatient rehabilitation unit for ongoing therapy and strengthening. He is seen this morning during breakfast. 6. He states that he is "grouchy" however is unable to define the cause. He denies having any pain or shortness of breath. He states he was able to sleep overnight. Did review this morning's laboratory studies. The WBC count 8.6, RBCs 2.57, hemoglobin 7.5, hematocrit 22.8, platelet count 331. Sodium is 138, potassium 3.8, BUNs 26, creatinine 1.6 , fasting glucose 145. Vital signs are all within normal limits. 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 Sinoatrial node dysfunction s/p pacemaker Chronic VTE and anticoagulation. INR goal from 2.0 to 3.0. Coronary artery disease Heriditary spherocytosis and chronic anemia DVT Chronic kidney disease secondary to the above Cataracts in the past Chronic peripheral vascular disease Mononeuritis multiplex Surgical History Patient's Surgical History: Debridement of right foot wound with wound Vac placement- 11/08/16 ( Dr Campbell) Pacemaker and stents in 2014 ORIF Right femur- Dr Damico (2011) Coronary stent- 09/2015 (Dr Cole Quezada) Cataract repair in left eye Current Medications Home Meds Active Scripts Piperacillin Sodium/Tazobactam (Zosyn 2.25 Gram Vial) 2.25 Gm Vial, 2.25 G IV Q6H for 21 Days, VIAL Prov:MIMI CONNOR APRN 11/12/16 Polyethylene Glycol 3350 (Healthylax) 17 Gm Powd.pack, 17 G PO DAILY Y for CONSTIPATION for 30 Days Prov:MIMI CONNOR APRN 11/12/16 Magnesium Hydroxide (Milk of Magnesia) 400 Mg/5 Ml Oral.susp, 30 ML PO DAILY Y for CONSTIPATION for 30 Days Prov:MIMI CONNOR APRN 11/12/16 Bisacodyl (Bisacodyl) 10 Mg Supp.rect, 10 MG RECTALLY DAILY Y for CONSTIPATION for 7 Days Prov:MIMI CONNOR APRN 11/12/16 Enoxaparin Sodium (Lovenox) 40 Mg/0.4 Ml Inj, 40 MG SQ DAILY for 30 Days, #30 Prov:MIMI CONNOR APRN 11/12/16 Furosemide (Furosemide) 20 Mg Tablet, 20 MG PO DAILY for 30 Days, #30 TAB Prov:PHOEBE MORALES APRN 08/17/16 Warfarin Sodium (Jantoven) 4 Mg Tablet, 4 MG PO NOON for 10 Days, #30 TAB Prov:PHOEBE MORALES APRN 08/17/16 Insulin Glargine,Hum.rec.anlog (Lantus) 100 Unit/Ml Inj, 8 UNIT SQ HS for 30 Days, #1 2 Refills Prov:NICHOLAS HENSON DO 08/10/16 Docusate Sodium (Colace) 100 Mg Capsule, 100 MG PO BID Y for CONSTIPATION for 30 Days, #60 CAP 2 Refills schedule until patient has a bowel movement. hold for loose stools. Prov:NICHOLAS HENSON DO 08/10/16 Tamsulosin HCl (Flomax) 0.4 Mg Capsule, 0.4 MG PO HS for 30 Days, #30 CAP 5 Refills Take 1 capsule, by mouth, one time a day at BEDTIME. Prov:NICHOLAS HENSON DO 08/04/16 Reported Medications Capsaicin (Capsaicin) 42.5 Gm Cream..g., 1 APPLIC TOP PRN Y for ARTHRITIS, G 11/06/16 Omeprazole (Omeprazole) 20 Mg Capsule.dr, 20 MG PO ACB, CAP Take 1 capsule, by mouth, one time a day (before breakfast). 11/06/16 Folic Acid (Folic Acid) 1 Mg Tablet, 1 TAB PO NOON, TAB 11/06/16 Aspirin (Aspir 81) 81 Mg Tablet.dr, 1 TAB PO HS, TAB 11/06/16 Linagliptin (Tradjenta) 5 Mg Tablet, 1 TAB PO DAILY, TAB 11/06/16 Carvedilol (Carvedilol) 25 Mg Tablet, 1 TAB PO BIDWM, TAB BEST WITH FOOD. 11/06/16 Discontinued Scripts Carvedilol (Coreg) 12.5 Mg Tablet, 25 MG PO BIDWM for 30 Days, #120 TAB 5 Refills Prov:NICHOLAS HENSON DO 08/06/16 Allergies: Coded Allergies: No Known Allergies (Unverified , 11/06/16) Family History Family History: Family hx of DM Social History Does patient use chewing tobac: No Second Hand Exposure: No Substance Use Type: does not use Alcohol Intake: none Sexuality: female partner Current Occupational Status: retired Advance Directives: Yes Full Code, No DPOA for Healthcare Only Social History Comments PCP Dr Henson- [facility] Review of Systems Constitutional: REPORTS: fatigue Integumentary Skin: infections (Right foot wound. Wound Vac intact), see HPI All Other Systems All Other Systems: Reviewed (remainder of 10-point ROS Neg.) Physical Exam General General Nourishment: well nourished, well developed Vital Signs Vital Signs Date Time Temp Pulse Resp B/P Pulse Ox O2 Delivery O2 Flow Rate FiO2 11/13/16 08:33 98.9 79 20 133/68 100 Room Air Height (Feet): 6 Height (Inches): 0.00 Eyes Brief: FOUND: EOMI, PERRL ENMT Brief: FOUND: mucosa moist, normal dentition Respiratory Brief: FOUND: clear all miller, equal bilaterally, NOT FOUND: wheezes Cardiovascular (brief) Cardiac Brief: FOUND: regular rate, regular rhythm, NOT FOUND: murmur, pedal edema Abdomen (brief) Abdominal Brief: FOUND: BS normo active x4, soft, NOT FOUND: distended, tender Musculoskeletal (brief) Musculoskeletal Brief: FOUND: tenderness (Right foot) Comments Wound VAC intact to the right foot/heel Integumentary (brief) Integumentary Brief: FOUND: dry, pink, warm Neurologic (brief) Neurological Brief: FOUND: cranial 2-12 intact Neurologic RN Documented GCS Eye Opening: Verbal: Motor: Total: Psychiatric (brief) FOUND: alert, attentive, normal affect, oriented Laboratory Laboratory Tests Test 11/12/16 17:33 11/12/16 20:38 11/13/16 04:15 11/13/16 06:05 Glucometer 225mg/dL 254mg/dL 156mg/dL White Blood Count 8.6T/MM3 Red Blood Count 2.57M/MM3 Hemoglobin 7.5GM/DL Hematocrit 22.8% Mean Corpuscular Volume 88.7UM3 Mean Corpuscular Hemoglobin 29.2UUG Mean Corpuscular Hemoglobin Concent 32.9GM/DL RDW Standard Deviation 41.3FL Platelet Count 331T/MM3 Mean Platelet Volume 9.9UM3 Immature Granulocyte % (Auto) 0.2% Neutrophils (%) (Auto) 73.0% Lymphocytes (%) (Auto) 11.4% Monocytes (%) (Auto) 11.4% Eosinophils (%) (Auto) 3.8% Basophils (%) (Auto) 0.2% Absolute Immature Granulocyte (auto 0.02T/MM3 Absolute Neutrophils (auto) 6.3T/MM3 Absolute Lymphocytes (auto) 1.0T/MM3 Absolute Monocytes (auto) 1.0T/MM3 Absolute Eosinophils (auto) 0.3T/MM3 Absolute Basophils (auto) 0.0T/MM3 Prothromb Time International Ratio 1.55 Turbidity < 20 Sodium Level 138MEQ/L Potassium Level 3.8MEQ/L Chloride Level 106MEQ/L Carbon Dioxide Level 21MEQ/L Anion Gap 11MEQ/L Blood Urea Nitrogen 26.0MG/DL Creatinine 1.6MG/DL Glomerular Filtration Rate Calc 41 BUN/Creatinine Ratio 16RATIO Glucose Level 145MG/DL Calculated Osmolality 274MOSM/KG Calcium Level 9.0MG/DL Icterus Index 3 Chemistry Specimen Hemolysis < 15 Impression/Recommendation Problems: (1) Diabetes with ulcer of lower extremity Status: Acute Assessment & Plan: Right lower extremity wound, wound VAC intact (2) Anemia Status: Chronic (3) CAD (coronary artery disease) Status: Chronic (4) Diabetes mellitus Status: Chronic (5) CHF (congestive heart failure) Status: Chronic (6) CAD (coronary artery disease) Status: Chronic (7) HTN (hypertension) Status: Chronic (8) Dyslipidemia Status: Chronic (9) CKD (chronic kidney disease), stage III Status: Chronic (10) Peripheral vascular disease Status: Chronic (11) HS (hereditary spherocytosis) Status: Chronic (12) Anticoagulated Status: Chronic Assessment & Plan: Chronically anticoagulated on Coumadin Recommendation Agree with admission to the inpatient rehabilitation unit under the care of Dr. Madera for ongoing therapy for strengthening and improve function. Consultation placed to the wound team for ongoing evaluation and changing of wound VAC. Appreciate ongoing consultation by Dr. Castorena for long-term recommendations. At this time we'll continue with IV Zosyn for the next 2-3 weeks. Vancomycin was discontinued yesterday, 11/12/16. Will monitor patient's diabetes closely. Continue on Lantus 8 units at at bedtime and Cogentin 5 milligrams daily. Patient chronically anticoagulated on Coumadin. INR today 1.55. Patient being bridged with subcutaneous Lovenox. Coumadin dosing managed by pharmacy. NT need to monitor regular hemoglobin given anemia. Hemoglobin today is 7.5. Iron was found to be low, and patient did receive IV iron supplementation yesterday 11/12. Patient would like to avoid blood transfusion if safely possible. Will continue to monitor carefully. Appreciate the patient for medical management of his 6 existing comorbidities. The hospitalist services will continue to follow patient during his stay on the IRU unit. At time of discharge medical care [facility], Dr. Henson. 1230- Into re-evaluate patient after phone call from nursing staff regarding pain in bilateral lower ext with increased stiffness. She complains of myalgias to bilateral thighs and knees. Complains of pain with flexion and extension of the lower extremities, this is new today. Denies any back pain, numbness or tingling to the lower extremities. No change in urinary or bowel continence. Did discuss potential IV iron side effect with pharmacist. He does verify this is likely a side effect to iron. The patient received yesterday. There is no specific treatment. However, this should resolve on its own over time. Discussed this with patient and . GAIL CORDERO MD 11/13/16 1722: Past Medical History Current Medications Home Meds Active Scripts Piperacillin Sodium/Tazobactam (Zosyn 2.25 Gram Vial) 2.25 Gm Vial, 2.25 G IV Q6H for 21 Days, VIAL Prov:MIMI CONNOR APRN 11/12/16 Polyethylene Glycol 3350 (Healthylax) 17 Gm Powd.pack, 17 G PO DAILY Y for CONSTIPATION for 30 Days Prov:MIMI CONNOR APRN 11/12/16 Magnesium Hydroxide (Milk of Magnesia) 400 Mg/5 Ml Oral.susp, 30 ML PO DAILY Y for CONSTIPATION for 30 Days Prov:MIMI CONNOR APRN 11/12/16 Bisacodyl (Bisacodyl) 10 Mg Supp.rect, 10 MG RECTALLY DAILY Y for CONSTIPATION for 7 Days Prov:MIMI CONNOR APRN 11/12/16 Enoxaparin Sodium (Lovenox) 40 Mg/0.4 Ml Inj, 40 MG SQ DAILY for 30 Days, #30 Prov:MIMI CONNOR APRN 11/12/16 Furosemide (Furosemide) 20 Mg Tablet, 20 MG PO DAILY for 30 Days, #30 TAB Prov:PHOEBE MORALES APRN 08/17/16 Warfarin Sodium (Jantoven) 4 Mg Tablet, 4 MG PO NOON for 10 Days, #30 TAB Prov:PHOEBE MORALES APRN 08/17/16 Insulin Glargine,Hum.rec.anlog (Lantus) 100 Unit/Ml Inj, 8 UNIT SQ HS for 30 Days, #1 2 Refills Prov:NICHOLAS HENSON DO 08/10/16 Docusate Sodium (Colace) 100 Mg Capsule, 100 MG PO BID Y for CONSTIPATION for 30 Days, #60 CAP 2 Refills schedule until patient has a bowel movement. hold for loose stools. Prov:NICHOLAS HENSON DO 08/10/16 Tamsulosin HCl (Flomax) 0.4 Mg Capsule, 0.4 MG PO HS for 30 Days, #30 CAP 5 Refills Take 1 capsule, by mouth, one time a day at BEDTIME. Prov:NICHOLAS HENSON DO 08/04/16 Reported Medications Capsaicin (Capsaicin) 42.5 Gm Cream..g., 1 APPLIC TOP PRN Y for ARTHRITIS, G 11/06/16 Omeprazole (Omeprazole) 20 Mg Capsule.dr, 20 MG PO ACB, CAP Take 1 capsule, by mouth, one time a day (before breakfast). 11/06/16 Folic Acid (Folic Acid) 1 Mg Tablet, 1 TAB PO NOON, TAB 11/06/16 Aspirin (Aspir 81) 81 Mg Tablet.dr, 1 TAB PO HS, TAB 11/06/16 Linagliptin (Tradjenta) 5 Mg Tablet, 1 TAB PO DAILY, TAB 11/06/16 Carvedilol (Carvedilol) 25 Mg Tablet, 1 TAB PO BIDWM, TAB BEST WITH FOOD. 11/06/16 Discontinued Scripts Carvedilol (Coreg) 12.5 Mg Tablet, 25 MG PO BIDWM for 30 Days, #120 TAB 5 Refills Prov:NICHOLAS HENSON DO 08/06/16 Allergies: Coded Allergies: No Known Allergies (Unverified , 11/06/16) Impression/Recommendation Impression 11/13/2016-I reviewed this chart, the patient history, and the INVASIVE CARDIOLOGIST's/PA's documented findings as above. We discussed and formulated the assessment and plan as above with the additions below.-Dr. Cordero Patient was seen this evening. He states that his leg pains are better now than they were earlier. He states he has been having some leg pains for a week or 2. He states his legs were not any weaker today than they have been. He states overall he is feeling better now though. He is eating and drinking well. He denies any shortness of breath. On exam he is alert and oriented 3 and in no acute distress. He did get a skin tear on his right wrist and his nurse did cover it. Chest is clear to auscultation. Cardiovascular reveals a regular rate and rhythm. Abdomen is soft and nontender. We'll continue with current treatment. Will consult the dietitian regarding malnutrition with low prealbumin. Continue with vitamin B-12 supplementation. Regarding diabetes, we'll monitor Accu-Cheks. Hemoglobin A1c last week showed fairly good control at 6.9. Thank you for this consultation and we will continue to follow along with you. PHOEBE MORALES APRN November 13, 2016 10:02 GAIL CORDERO MD November 13, 2016 17:22
[2016-11-13] MEDS: HYDROCODONE/APAP 5 mg/325 mg TABLET PO PRN (10:35)
[2016-11-13] MEDS ORDERED: WARFARIN 6 MG TABLET PO ONE (12:00)
--- NOTE | 2016-11-13 13:28 | HPPDOC ---
HPI Date DATE: 11/13/16 TIME: 13:21 General Chief Complaint: right lower extremity wound History of Present Illness 86 yo male with right foot wound. He has been going to wound clinic for care of a pressure ulcer on foot. However , he c/o increasing pain from the foot and a new ulceration was noted. Sharp debridement was performed and a Wound VAC was placed. Pt is unable to maintain ADL's due to pain and debility from the combination of wounds. No fever or chills, no n/v. He has pronounced weakness by history. 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 Sinoatrial node dysfunction s/p pacemaker Chronic VTE and anticoagulation. INR goal from 2.0 to 3.0. Coronary artery disease Heriditary spherocytosis and chronic anemia DVT Chronic kidney disease secondary to the above Cataracts in the past Chronic peripheral vascular disease Mononeuritis multiplex Surgical History Patient's Surgical History: Debridement of right foot wound with wound Vac placement- 11/08/16 ( Dr Campbell) Pacemaker and stents in 2014 ORIF Right femur- Dr Damico (2011) Coronary stent- 09/2015 (Dr Cole Quezada) Cataract repair in left eye Current Medications Home Meds Active Scripts Piperacillin Sodium/Tazobactam (Zosyn 2.25 Gram Vial) 2.25 Gm Vial, 2.25 G IV Q6H for 21 Days, VIAL Prov:MIMI CONNOR APRN 11/12/16 Polyethylene Glycol 3350 (Healthylax) 17 Gm Powd.pack, 17 G PO DAILY Y for CONSTIPATION for 30 Days Prov:MIMI CONNOR APRN 11/12/16 Magnesium Hydroxide (Milk of Magnesia) 400 Mg/5 Ml Oral.susp, 30 ML PO DAILY Y for CONSTIPATION for 30 Days Prov:MIMI CONNOR APRN 11/12/16 Bisacodyl (Bisacodyl) 10 Mg Supp.rect, 10 MG RECTALLY DAILY Y for CONSTIPATION for 7 Days Prov:MIMI CONNOR APRN 11/12/16 Enoxaparin Sodium (Lovenox) 40 Mg/0.4 Ml Inj, 40 MG SQ DAILY for 30 Days, #30 Prov:MIMI CONNOR APRN 11/12/16 Furosemide (Furosemide) 20 Mg Tablet, 20 MG PO DAILY for 30 Days, #30 TAB Prov:PHOEBE MORALES V [employer]LLANT CHARGE LOADER 08/17/16 Warfarin Sodium (Jantoven) 4 Mg Tablet, 4 MG PO NOON for 10 Days, #30 TAB Prov:PHOEBE MORALES V [employer]LL[employer]GE LOADER 08/17/16 Insulin Glargine,Hum.rec.anlog (Lantus) 100 Unit/Ml Inj, 8 UNIT SQ HS for 30 Days, #1 2 Refills Prov:NICHOLAS HENSON DO 08/10/16 Docusate Sodium (Colace) 100 Mg Capsule, 100 MG PO BID Y for CONSTIPATION for 30 Days, #60 CAP 2 Refills schedule until patient has a bowel movement. hold for loose stools. Prov:NICHOLAS HENSON DO 08/10/16 Tamsulosin HCl (Flomax) 0.4 Mg Capsule, 0.4 MG PO HS for 30 Days, #30 CAP 5 Refills Take 1 capsule, by mouth, one time a day at BEDTIME. Prov:NICHOLAS HENSON DO 08/04/16 Reported Medications Capsaicin (Capsaicin) 42.5 Gm Cream..g., 1 APPLIC TOP PRN Y for ARTHRITIS, G 11/06/16 Omeprazole (Omeprazole) 20 Mg Capsule.dr, 20 MG PO ACB, CAP Take 1 capsule, by mouth, one time a day (before breakfast). 11/06/16 Folic Acid (Folic Acid) 1 Mg Tablet, 1 TAB PO NOON, TAB 11/06/16 Aspirin (Aspir 81) 81 Mg Tablet.dr, 1 TAB PO HS, TAB 11/06/16 Linagliptin (Tradjenta) 5 Mg Tablet, 1 TAB PO DAILY, TAB 11/06/16 Carvedilol (Carvedilol) 25 Mg Tablet, 1 TAB PO BIDWM, TAB BEST WITH FOOD. 11/06/16 Discontinued Scripts Carvedilol (Coreg) 12.5 Mg Tablet, 25 MG PO BIDWM for 30 Days, #120 TAB 5 Refills Prov:NICHOLAS HENSON DO 08/06/16 Allergies: Coded Allergies: No Known Allergies (Unverified , 11/06/16) Family History Family History: Family hx of DM Social History Smoking Status: Never smoker Does patient use chewing tobac: No Second Hand Exposure: No Substance Use Type: does not use Alcohol Intake: none Sexuality: female partner Current Occupational Status: retired Advance Directives: Yes Full Code, No DPOA for Healthcare Only Review of Systems Cardiovascular see HPI Pulmonary Respiratory: see HPI GI Upper Abdomen: see HPI Musculoskeletal General: see HPI Integumentary Skin: see HPI All Other Systems All Other Systems: Reviewed Physical Exam General General Nourishment: well nourished, apparent age, adult General Body Habitus: well groomed Vital Signs Vital Signs Date Time Temp Pulse Resp B/P Pulse Ox O2 Delivery O2 Flow Rate FiO2 11/13/16 08:33 98.9 79 20 133/68 100 Room Air Height (Feet): 6 Height (Inches): 0.00 Eyes Brief: FOUND: EOMI, PERRL ENMT Brief: FOUND: TM clear, TM good light reflex Neck Brief: NOT FOUND: adenopathy, carotid bruits, thyromegaly Respiratory Brief: FOUND: clear all miller, equal bilaterally Cardiovascular (brief) Cardiac Brief: FOUND: regular rate, regular rhythm Abdomen (brief) Abdominal Brief: FOUND: BS normo active x4, soft, NOT FOUND: tender Integumentary (brief) Comments Generaliized weakness with 4+ LE bilat. Neurologic RN Documented GCS Eye Opening: Verbal: Motor: Total: Psychiatric (brief) FOUND: alert, oriented Laboratory Laboratory Tests Test 11/12/16 17:33 11/12/16 20:38 11/13/16 04:15 11/13/16 06:05 Glucometer 225mg/dL 254mg/dL 156mg/dL White Blood Count 8.6T/MM3 Red Blood Count 2.57M/MM3 Hemoglobin 7.5GM/DL Hematocrit 22.8% Mean Corpuscular Volume 88.7UM3 Mean Corpuscular Hemoglobin 29.2UUG Mean Corpuscular Hemoglobin Concent 32.9GM/DL RDW Standard Deviation 41.3FL Platelet Count 331T/MM3 Mean Platelet Volume 9.9UM3 Immature Granulocyte % (Auto) 0.2% Neutrophils (%) (Auto) 73.0% Lymphocytes (%) (Auto) 11.4% Monocytes (%) (Auto) 11.4% Eosinophils (%) (Auto) 3.8% Basophils (%) (Auto) 0.2% Absolute Immature Granulocyte (auto 0.02T/MM3 Absolute Neutrophils (auto) 6.3T/MM3 Absolute Lymphocytes (auto) 1.0T/MM3 Absolute Monocytes (auto) 1.0T/MM3 Absolute Eosinophils (auto) 0.3T/MM3 Absolute Basophils (auto) 0.0T/MM3 Prothromb Time International Ratio 1.55 Turbidity < 20 Sodium Level 138MEQ/L Potassium Level 3.8MEQ/L Chloride Level 106MEQ/L Carbon Dioxide Level 21MEQ/L Anion Gap 11MEQ/L Blood Urea Nitrogen 26.0MG/DL Creatinine 1.6MG/DL Glomerular Filtration Rate Calc 41 BUN/Creatinine Ratio 16RATIO Glucose Level 145MG/DL Calculated Osmolality 274MOSM/KG Calcium Level 9.0MG/DL Icterus Index 3 Chemistry Specimen Hemolysis < 15 Test 11/13/16 10:16 Glucometer 215mg/dL Assessment & Plan Problems: (1) Radiculopathy Status: Chronic Assessment & Plan: PT and OT will work to increase strength and improve the pts pain control.. (2) Neuropathy Status: Chronic Assessment & Plan: allowed for decub ulcer on foot. Medical to manage. (3) Decubitus ulcer of heel, right, unstageable Assessment & Plan: Wound covered with wound VAC. Wound care to manage. (4) Type 2 diabetes mellitus Status: Chronic (5) Myopathy Assessment & Plan: PT and OT will manage care plan. reeval in 48 hours. Code Status Full Code Interventions to Obtain Goals PT Treatment Plan: Therapeutic Exercise, Gait Training, Functional Activities , Patient/Family Education, Balance/Proprioception OT Treatment Plan: ADL's (basic care), Ther. Exercise for ADL's Hospital Course Summary Disclaimer The hospital course summary below is not to be considered part of the above Progress Note. ADELINE MUÑIZ MD November 13, 2016 13:24
--- NOTE | 2016-11-13 13:39 | IRU24PDOC ---
24 Hour Post Admission Eval Relevant Changes Relevant Changes: No I have reviewed the patient's information and concur with the finding and results of the pre-admission screen. Certification I certify the patient for rehabilitation. Patient Condition Prior Medical Conditions: (1) Radiculopathy Status: Chronic Additional Information: PT and OT will work to increase strength and improve the pts pain control.. (2) Neuropathy Status: Chronic Additional Information: allowed for decub ulcer on foot. Medical to manage. (3) Decubitus ulcer of heel, right, unstageable Additional Information: Wound covered with wound VAC. Wound care to manage. (4) Type 2 diabetes mellitus Status: Chronic (5) Myopathy Additional Information: PT and OT will manage care plan. reeval in 48 hours. Current Medical Conditions: (1) Radiculopathy Status: Chronic Additional Information: PT and OT will work to increase strength and improve the pts pain control.. (2) Neuropathy Status: Chronic Additional Information: allowed for decub ulcer on foot. Medical to manage. (3) Decubitus ulcer of heel, right, unstageable Additional Information: Wound covered with wound VAC. Wound care to manage. (4) Type 2 diabetes mellitus Status: Chronic (5) Myopathy Additional Information: PT and OT will manage care plan. reeval in 48 hours. Prior Functional Condition Lives With: Spouse Residence Type: Private home/apartment Assistive Devices: 4-Wheeled Walker Prior Functional Status: Indep. at home or school Current Functional Status Failed Alternative Therapy Tri: Arrived from acute care Patient Requirements * Patient has been determined to have significant functional limitations requiring at least two therapy disciplines. * Rehabilitation medical practitioner will provide admission approval, assessment and oversight and program coordination at least daily. * Intensive rehabilitative nursing services on site and available 24 hours a day. * The treatment plan will be developed within 24 hours of admission. * Interdisciplinary and goal oriented treatment by professional nursing, social worker clinical, and rehabilitation therapist. * Interdisciplinary team meeting weekly inclusive of ongoing comprehensive discharge planning. First team meeting by . Weekly meetings to follow. * Rehab Physician is the team meeting leader. * Pharmacy and diagnostic services will be available. * Ongoing comprehensive rehab program with at least 2 disciplines and greater than or equal to 3 hours a day, 5 days a week. Limitations require: limited mobility, ADL impairment Physical Therapy Minutes: 90 Occupational Therapy Minutes: 90 Therapy The patient is to receive therapy at least 5 days a week. Current Functional Status: Using assistive device PT Treatment Plan: Therapeutic Exercise, Gait Training, Functional Activities , Patient/Family Education, Balance/Proprioception Treatment Plan Frequency: five times per week Treatment Plan Duration: two weeks Plan of Care Comment: 6x/week for first week; 5x/week for following weeks OT Treatment Plan: ADL's (basic care), Ther. Exercise for ADL's OT Treatment Plan Frequency: five times per week OT Treatment Plan Duration: three weeks ROM Deficit: Left Lower Extremity, Right Lower Extremity ROM Comment: AROM of R knee lacking 40 degrees from 0 - with pain AROM of L knee lacking 80 degrees from 0 - with pain PROM of R knee lacking 60 degrees from 0 - with pain PROM of L knee lacking 70 degrees from 0 - with pain B ankle DF AROM/PROM grossly WFL (some pain with R ankle DF d/t surgical site and wound vac) B hip flex AROM/PROM is grossly WFL See OT eval for UE ROM Muscle Weakness Location: Left Lower Extremity, Right Lower Extremity Complication/Comorbidities Patient Complication Risk: (1) Radiculopathy Status: Chronic Comments: PT and OT will work to increase strength and improve the pts pain control.. (2) Neuropathy Status: Chronic Comments: allowed for decub ulcer on foot. Medical to manage. (3) Decubitus ulcer of heel, right, unstageable Comments: Wound covered with wound VAC. Wound care to manage. (4) Type 2 diabetes mellitus Status: Chronic (5) Myopathy Comments: PT and OT will manage care plan. reeval in 48 hours. Impact on Functional Outcomes Limitedd ability to increase balance and strength with decub ulcer of foot. Barriers to Discharge: weakness, endurance, pain control, medical stability Plan to Avoid Complications Plan to Avoid Complications The patient cannot receive this care in a lesser intensive setting such as Retirement or Outpatient Therapy due to the patient requiring the following medical supervisin ofDiabetes and profound myopathy. The patient requires oversight by a rehabilitation physician to manage their rehabilitation treatment plan and the multidisciplinary approach to care that can only be provided in an IRF and requires a multidisciplinary approach to care , provided by professional PTs, OTs, STs, dieticians, RTs, rehabilitation nurses and is not available in lesser levels of care. The frequency and duration for therapy, as recommended by the professional Rehabilitation therapists, meet the patient's initial rehabilitation treatment plan needs and will be further evaluated on a weekly basis for progress and/or changes needed. ADELINE MUÑIZ MD November 13, 2016 13:39
[2016-11-13 14:11] LABS: ALBUMIN 2.9 G/DL (3.5-5.0); ALBUMIN/GLOBULIN RATIO 0.9 RATIO (1.1-2.2); ALKALINE PHOSPHATASE 72 U/L (38-126); ALT (SGPT) < 6 U/L (21-72); AST (SGOT) 18 U/L (17-59); CK - CPK 46 U/L (55-170); TOTAL PROTEIN 6.1 G/DL (6.3-8.2)
[2016-11-13 16:08] VITALS: BP 122/57; PULSE 71; RESP 20; TEMP 97.8; O2SAT 98
[2016-11-13] MEDS: ASPIRIN *EC* 81mg TABLET PO SCH (21:04)
[2016-11-13] MEDS: TAMSULOSIN 0.4 MG CAPSULE PO SCH (21:05)
[2016-11-13] MEDS: INSULIN GLARGINE 100 UNIT/ML SQ SCH (21:07)
[2016-11-14 01:00] VITALS: BP 120/59; PULSE 78; RESP 18; TEMP 98; O2SAT 98
[2016-11-14] MEDS: ACETAMINOPHEN 325 MG TABLET PO PRN (04:21)
[2016-11-14 05:40] LABS: INR 1.5 (0.90-1.23)
[2016-11-14 05:41] LABS: BASOPHILS % (AUTO) 0.2 % (0-2); EOSINOPHILS # (AUTO) 0.3 T/MM3 (0-0.5); HCT - HEMATOCRIT 21.4 % (41-53); HGB - HEMOGLOBIN 7.1 GM/DL (13.5-17.5); IMMATURE GRANULOCYTE # (AUTO) 0.02 T/MM3 (0.00-0.03); IMMATURE GRANULOCYTE % (AUTO) 0.2 % (0.0-0.5); LYMPHOCYTES # (AUTO) 0.7 T/MM3 (1-4.8); LYMPHOCYTES % (AUTO) 8.8 % (23-45); MEAN CORPUSCULAR HGB 29.3 UUG (26-34); MEAN CORPUSCULAR HGB CONC(MCHC 33.2 GM/DL (31-37); MEAN CORPUSCULAR VOLUME 88.4 UM3 (80-100); MEAN PLATELET VOLUME 9.6 UM3 (9.4-12.4); MONOCYTES # (AUTO) 1.2 T/MM3 (0-0.8); MONOCYTES % (AUTO) 13.8 % (0-9.0); NEUTROPHILS #(AUTO)-ABSOLUTE 6.1 T/MM3 (1.8-7.7); RED BLOOD COUNT 2.42 M/MM3 (4.50-5.90); WBC - WHITE BLOOD COUNT 8.4 T/MM3 (4.5-11.0)
[2016-11-14] MEDS: PIPERACILLIN/TAZOBACTAM 2.25 G in NORMAL SALINE 100 ML IV SCH ×3 (06:05→19:24)
[2016-11-14] MEDS: OMEPRAZOLE 20 MG CAPSULE PO SCH (06:05)
[2016-11-14] MEDS: CYANOCOBALAMIN (B-12) 500mcg TABLET PO SCH (08:54)
[2016-11-14] MEDS: DOCUSATE SODIUM 100 MG CAPSULE PO SCH ×2 (08:54→21:47)
[2016-11-14] MEDS: LINAGLIPTIN 5 MG TABLET PO SCH (08:54)
[2016-11-14] MEDS: CARVEDILOL 25 MG TABLET PO SCH ×2 (08:54→19:22)
[2016-11-14] MEDS: FUROSEMIDE 20 MG TABLET PO SCH (08:54)
[2016-11-14] MEDS: ENOXAPARIN 40 MG/0.4 ML INJECTION SQ SCH (08:55)
[2016-11-14 09:00] VITALS: BP 108/60; PULSE 83; RESP 16; TEMP 99; O2SAT 92
[2016-11-14 09:10] VITALS: PULSE 83
--- NOTE | 2016-11-14 11:07 | PNPDOC ---
PHOEBE MORALES [facility] [employer] 11/14/16 1106: Subjective Date DATE: 11/14/16 TIME: 10:57 Subjective Tim is sen this morning while up in the chair. He is in good spirits and states that his lower extremity is improved from yesterday however he continues to feel "stiff". Denies feeling short of breath or having chest pain. No GI complaints. Hgb this morning is down to 7.1. Blood pressure low at 108/60. Objective Vital Signs Vital signs Vital Signs Date Time Temp Pulse Resp B/P Pulse Ox O2 Delivery O2 Flow Rate FiO2 11/14/16 09:10 83 11/14/16 09:00 99.0 16 108/60 92 Room Air Height (Feet): 6 Height (Inches): 0.00 Weight (Kilograms): 78.600 General General Appearance: Alert, Orientated x 3, Cooperative, No Acute Distress Eyes (Brief) Eyes: FOUND: EOMI ENMT (Brief) ENMT: FOUND: mucosa moist, normal dentition, NOT FOUND: pharnyx erythema Neck (Brief) Neck: FOUND: midline, NOT FOUND: adenopathy, carotid bruits, tracheal deviation Respiratory (Brief) Respiratory: FOUND: clear all miller, equal bilaterally, NOT FOUND: wheezes Cardiovascular (Brief) Cardiac: FOUND: regular rate, regular rhythm, NOT FOUND: murmur, pedal edema Capillary Refill: <2 sec Abdomen (Brief) Abdominal: FOUND: BS normo active x4, soft, NOT FOUND: distended, tender Lymphatic (Brief) Lymphatic: NOT FOUND: adenopathy Musculoskeletal (Brief) Musculoskeletal: NOT FOUND: tenderness Comments Lower ext myalgias Integumentary (Brief) Integumentary: FOUND: dry, pink, warm Neurologic (Brief) Neurological: FOUND: cranial 2-12 intact Psychiatric (Brief) Psychiatric: FOUND: alert, attentive, normal affect, oriented Laboratory Laboratory Laboratory Tests 11/13/16 04:15 Laboratory Tests 11/13/16 04:15 11/14/16 05:17 Assessment & Plan Problems: (1) Diabetes with ulcer of lower extremity Status: Acute Assessment & Plan: Right lower extremity wound, wound VAC intact (2) Anemia Status: Chronic (3) CAD (coronary artery disease) Status: Chronic (4) Diabetes mellitus Status: Chronic (5) CHF (congestive heart failure) Status: Chronic (6) CAD (coronary artery disease) Status: Chronic (7) HTN (hypertension) Status: Chronic (8) Dyslipidemia Status: Chronic (9) CKD (chronic kidney disease), stage III Status: Chronic (10) Peripheral vascular disease Status: Chronic (11) HS (hereditary spherocytosis) Status: Chronic (12) Anticoagulated Status: Chronic Assessment & Plan: Chronically anticoagulated on Coumadin (13) Myalgia Plan/Intensity of Service 11/14/16 Given continued decrease in Hgb and lower ext weakness patient has agreed to a blood transfusion today. Suspect he will benefit from transfusion and this will improve strength. BP this morning is low at 108/60. Lower extremity myalgias seems to be slightly better today. However, he continues to have stiffness in the bilateral knees, and quads. INR today remains subtherapeutic at 1.5. Continue with bridging of Lovenox until therapeutic Continue with wound Vac care as per wound team. Chassell as needed for pain control. Continue with Zosyn IV for antimicrobial coverage as recommended by Dr Castorena. She recommends 2-3 more weeks of IV treatment which would be between November 26-, then followed by PO treatment. Will discuss further with Dr Castorena Will recheck CBC and BMP tomorrow morning to follow anemia, renal function and electrolytes. Code Status Full Code Hospital Course Summary Disclaimer The hospital course summary below is not to be considered part of the above Progress Note. Hospital Course Summary 11/14/16 Given continued decrease in Hgb and lower ext weakness patient has agreed to a blood transfusion today. Suspect he will benefit from transfusion and this will improve strength. BP this morning is low at 108/60. Lower extremity myalgias seems to be slightly better today. However, he continues to have stiffness in the bilateral knees, and quads. INR today remains subtherapeutic at 1.5. Continue with bridging of Lovenox until therapeutic Continue with wound Vac care as per wound team. Chassell as needed for pain control. Continue with Zosyn IV for antimicrobial coverage as recommended by Dr Castorena. She recommends 2-3 more weeks of IV treatment which would be between November 26-, then followed by PO treatment. Will discuss further with Dr Castorena Will recheck CBC and BMP tomorrow morning to follow anemia, renal function and electrolytes. GAIL WILKES MD 11/14/16 1904: PHOEBE MORALES APRN November 14, 2016 11:06 GAIL WILKES MD November 14, 2016 19:04
[2016-11-14] MEDS ORDERED: WARFARIN 7.5 MG TABLET PO SCH (12:00)
[2016-11-14] MEDS ORDERED: ACETAMINOPHEN 325 MG TABLET PO ONE (12:45)
[2016-11-14] MEDS ORDERED: DiphenhydrAMINE 25 MG CAPSULE PO ONE (12:45)
--- NOTE | 2016-11-14 12:49 | PDIRUTEAM ---
Multidisciplinary Team Meeting Nursing Hx Incontinence: No Bladder Goal: 7+ Complete [place] Castellanos Y/N: No Bladder Continent or Incontine: Continent Incontinent Product Used: Pull-up Number of Times Incontinent of: 0 Bowel Goal: 7+ Complete [place] Bowel Incontinent/Continent: Continent Bowel Number of Accidents: 0 Cleaning Ability-Bowel: 2 Maximum Assistance Toileting Ability: 3 Moderate Assistance Vital Signs Vital Signs Date Time Temp Pulse Resp B/P Pulse Ox O2 Delivery O2 Flow Rate FiO2 11/14/16 09:10 83 11/14/16 09:00 99.0 16 108/60 92 Room Air Current Medications Current Medications Medications (Trade) Dose Ordered Sig/Antoine Route PRN Reason Start Time Stop Time Status Last Admin Dose Admin Docusate Sodium (Colace) 100 mg BID PO 11/12/16 21:00 11/14/16 08:54 Aspirin (Ecotrin) 81 mg HS PO 11/12/16 22:00 11/13/16 21:04 Carvedilol (Coreg) 25 mg BIDWM PO 11/12/16 17:30 11/14/16 08:54 Enoxaparin Sodium (Lovenox) 40 mg DAILY SQ 11/13/16 09:00 11/14/16 08:55 Furosemide (Lasix) 20 mg DAILY PO 11/13/16 09:00 11/14/16 08:54 Linagliptin (Tradjenta) 5 mg DAILY PO 11/13/16 09:00 11/14/16 08:54 Omeprazole (Prilosec) 20 mg ACB PO 11/13/16 06:30 11/14/16 06:05 Tamsulosin HCl (FLOMAX 0.4 mg) 0.4 mg HS PO 11/12/16 22:00 11/13/16 21:05 Cyanocobalamin (Vit. B-12) 1,000 mcg DAILY PO 11/13/16 09:00 11/14/16 08:54 Insulin Glargine 8 unit 8 unit HS SQ 11/12/16 22:00 11/13/16 21:07 Piperacillin Sod/ Tazobactam Sod/ Sodium Chloride (Zosyn/NS) 100 ml @ 200 mls/hr Q6H IV 11/12/16 18:00 11/14/16 12:32 Acetaminophen (Tylenol Regular Strength) per prn orders Q3H PRN PO PAIN 11/13/16 09:15 11/14/16 04:21 Acetaminophen/ Hydrocodone Bitart ([place] 5/325) 1 tab Q4H PRN PO PAIN 11/13/16 10:15 11/13/16 10:35 Warfarin Sodium (COUMADIN 7.5 mg) 7.5 mg NOON PO 11/14/16 12:00 11/14/16 12:30 DC 11/14/16 12:31 Comments Blood transfusion, but stools black today. Cont coumadin. Physical Therapy Bed Transfer Ability: 2 Maximum Assistance Bed Transfer Assistance Needed: 1 Person Chair Transfer Ability: 1 Total Assistance Chair Transfer Assistance Need: 2 Persons Overall Wheelchair Transfer Ab: 1 Total Assistance Wheelchair Transfer Assistance: 2 Persons Wheelchair Transfer FIM Score: sit-stand lift Overall Toilet / Commode Trans: 1 Total Assistance Ambulation Ability: 0 Activity Does Not Occur Comments unable to walk,even with assist. Occupational Therapy Grooming Ability: 5 Supervision/Setup Bathing Ability: 4 Minimal Assistance Upper Body Dressing Ability: 5 Supervision/Setup Lower Body Dressing Ability: 2 Maximum Assistance Lower Body Dressing Assistance: 1 Person Toileting Assistance Needed: 2 Persons Toileting FIM Score Reason: urinal self Comments Myalgia after IV IRON. FIMS improving slightly. Care Plan Condition at time of discharge: Fair IRU Discharge Disposition: Home Health Service Interventions/Goals Chronic anemia.. checking guiac stools. COnt with wound vac. Reeval in one week. At least three more weeks of iv antibiotic. ADELINE MUÑIZ MD November 14, 2016 12:48
--- NOTE | 2016-11-14 14:23 | CONSF ---
DATE OF CONSULTATION November 14, 2016 CHIEF COMPLAINT Infectious Disease consultation was requested by Dr. Campbell for antibiotic recommendations for infected and necrotic wound. HISTORY OF PRESENT ILLNESS Mr. Hernandez is an 86-year-old man who I saw during his recent hospitalization on November 07 at [facility]. He was admitted November 06 from the Wound Clinic with an infected and necrotic appearing wound over the right Achilles tendon. The patient had reported that he had been following in the Wound Clinic for right anterior tibial wound related to an injury he sustained from dropping a foreign object on this leg. He had his leg wrapped with Bogdan bandages and he thought that the wrapping was really tight and that this potentially caused a blister to develop posterior to his right heel in the Achilles area. This progressed and on November 06 when he was seen in the Wound Clinic by Dr. Campbell there was liberty purulence coming from this wound with necrosis noted. A good portion of the Achilles tendon was necrotic. This was debrided at the bedside and he was admitted for formal debridement procedure. He had blood cultures drawn November 06 which were negative. He had a wound culture obtained on October 31 in the clinic which had moderate gram-positive cocci in pairs, few gram-negative rods, few white cells on the gram stain and grew heavy growth of Enterobacter cloacae, Enterococcus faecalis, moderate growth of strep mitis and an anaerobe. The Enterobacter was resistant to cefazolin only. The Enterococcus was sensitive to linezolid and vancomycin and penicillin was not reported. Strep mitis was sensitive to ampicillin. He was taken to the operating room by Dr. Campbell on November 09 and had additional debridement of some residual necrotic Achilles tendon. The wound was noted to be 5 cm x 2.5 cm. A wound VAC was applied. There were no additional cultures obtained. He was treated with Zosyn and vancomycin. The vancomycin was discontinued on November 12. I had recommended treating him with IV antibiotics for at least 2-3 weeks followed by some additional oral antibiotics. He was transferred to the IRU yesterday for further cares. PAST MEDICAL HISTORY Diabetes mellitus, insulin-requiring. Coronary artery disease. Congestive heart failure. Hyperlipidemia. Chronic kidney disease stage III. Hereditary spherocytosis. Peripheral vascular disease. History of right lower extremity DVT. Peripheral neuropathy. History of right femur fracture. History of mononeuritis multiplex. PAST SURGICAL HISTORY He is status post pacemaker placement and stents 2014. Open reduction internal fixation right femur by Dr. Damico 2011. Coronary stents September 2015. Cataract repair on the left eye. FAMILY HISTORY Significant for diabetes. SOCIAL HISTORY He is retired. He worked for the [employer] in [place]. No history of tobacco, alcohol or drug use. ALLERGIES No known medical allergies. CURRENT MEDICATIONS Reviewed. He is on Zosyn 2.25 g IV q.6h. REVIEW OF SYSTEMS The patient denies any recent fevers, chills or sweats. He reports some weakness but states that he was able to get up several times this morning and seemed to be doing okay with that although now feels more weak. He has had some pain in his right foot and ankle region but this is not been uncontrolled. He denies any cough or shortness of breath or chest pain. He denies any nausea, vomiting or diarrhea. Denies any itching or rashes. He denies any dysuria or other urinary complaints. His appetite is good. The rest of the review of systems is negative other than that mentioned above. PHYSICAL EXAMINATION VITALS: Temperature 99.0. Blood pressure 108/60. Pulse 83. Respirations 16. Oxygen saturation 92% on room air. His height is 72 inches. Weight is 79 kg. GENERAL: He appears comfortable and is in no acute distress. HEENT: Pupils equal, round, reactive to light. Extraocular movements intact. Oropharynx is clear. Dentition is fair. NECK: Supple. HEART: Regular rate and rhythm. No murmurs noted. LUNGS: Clear to auscultation bilaterally anteriorly. ABDOMEN: Soft and nontender. He has bowel sounds present. No guarding or rebound. : He does not have a Castellanos catheter in place. EXTREMITIES: He has a wound VAC on the right posterior ankle area. He has 2-3+ edema of the right lower extremity and he has 1-2+ edema of the left lower extremity. He has a PICC line in place without any surrounding redness or edema. NEURO EXAM: Grossly nonfocal. He is alert, oriented x3. Speech is normal. SKIN: No rashes. PSYCHIATRIC: His mood and affect are appropriate. LABORATORY Laboratory was reviewed. White count from today is 8.4, hemoglobin 7.1, platelets 300. Creatinine is 1.6. CRP on November 06 was 119. IMPRESSION 1. Wound infection right posterior heel area with necrosis of the Achilles tendon, status post debridement on November 09, 2016, outpatient wound cultures with Enterobacter cloacae, Enterococcus faecalis, strep mitis and an anaerobe. 2. Diabetes mellitus type 2, insulin-requiring. 3. History of right lower extremity DVT. 4. Chronic systolic congestive heart failure. 5. Status post pacemaker placement. 6. Coronary artery disease. 7. Hereditary spherocytosis. 8. Chronic kidney disease. 9. Status post open reduction internal fixation of the right femur. PLAN/RECOMMENDATIONS I would recommend continue with the Zosyn for at least two weeks after debridement procedure on November 09 so this would go through November 23. After that, I would anticipate changing him to oral antibiotics such as Augmentin. However, if he continues to have exposed tendon, then I would continue the IV antibiotics. I would recommend continuing to monitor a CBC and CMP at least on a weekly basis. I will recheck a CRP for monitoring purposes. Thank you for allowing me to participate in the care of this patient. GREY
[2016-11-14 15:53] VITALS: BP 116/65; PULSE 79; RESP 16; TEMP 98.2; O2SAT 92
[2016-11-14 19:48] LABS: HGB - HEMOGLOBIN 7.7 GM/DL (13.5-17.5)
[2016-11-14 20:07] VITALS: BP 124/66; PULSE 78; RESP 12; TEMP 98.5; O2SAT 98
[2016-11-14] MEDS: INSULIN GLARGINE 100 UNIT/ML SQ SCH (21:46)
[2016-11-14] MEDS: TAMSULOSIN 0.4 MG CAPSULE PO SCH (21:47)
[2016-11-14] MEDS: ASPIRIN *EC* 81mg TABLET PO SCH (21:47)
[2016-11-15] MEDS: PIPERACILLIN/TAZOBACTAM 2.25 G in NORMAL SALINE 100 ML IV SCH ×4 (00:29→17:42)
[2016-11-15] MEDS: ACETAMINOPHEN 325 MG TABLET PO PRN (01:11)
[2016-11-15 04:49] LABS: BASOPHILS % (AUTO) 0.3 % (0-2); EOSINOPHILS # (AUTO) 0.3 T/MM3 (0-0.5); EOSINOPHILS % (AUTO) 3.5 % (0-4); HCT - HEMATOCRIT 23.6 % (41-53); HGB - HEMOGLOBIN 7.6 GM/DL (13.5-17.5); IMMATURE GRANULOCYTE # (AUTO) 0.02 T/MM3 (0.00-0.03); IMMATURE GRANULOCYTE % (AUTO) 0.2 % (0.0-0.5); LYMPHOCYTES # (AUTO) 1.1 T/MM3 (1-4.8); LYMPHOCYTES % (AUTO) 12.3 % (23-45); MEAN CORPUSCULAR HGB 28.9 UUG (26-34); MEAN CORPUSCULAR HGB CONC(MCHC 32.2 GM/DL (31-37); MEAN CORPUSCULAR VOLUME 89.7 UM3 (80-100); MEAN PLATELET VOLUME 9.6 UM3 (9.4-12.4); MONOCYTES # (AUTO) 1.2 T/MM3 (0-0.8); NEUTROPHILS #(AUTO)-ABSOLUTE 6.5 T/MM3 (1.8-7.7); NEUTROPHILS % (AUTO) 70.7 % (33-66); RED BLOOD COUNT 2.63 M/MM3 (4.50-5.90); WBC - WHITE BLOOD COUNT 9.1 T/MM3 (4.5-11.0)
[2016-11-15 05:05] LABS: ANION GAP 11 MEQ/L (5-15); BUN/CREATININE RATIO 15 RATIO (6-26); CALCIUM 8.7 MG/DL (8.4-10.2); CHLORIDE 106 MEQ/L (98-107); CO2 - CARBON DIOXIDE 24 MEQ/L (22-30); CREATININE 1.7 MG/DL (0.8-1.5); GLOMERULAR FILTRATION RATE 38; GLUCOSE 104 MG/DL (75-110); POTASSIUM 3.8 MEQ/L (3.6-5); SODIUM 141 MEQ/L (134-144)
[2016-11-15 05:32] LABS: INR 2.02 (0.76-1.04)
[2016-11-15] MEDS: OMEPRAZOLE 20 MG CAPSULE PO SCH (06:16)
[2016-11-15 08:00] VITALS: BP 118/62; PULSE 82; RESP 18; TEMP 96.1; O2SAT 97
[2016-11-15] MEDS: ENOXAPARIN 40 MG/0.4 ML INJECTION SQ SCH (09:12)
[2016-11-15] MEDS: LINAGLIPTIN 5 MG TABLET PO SCH (09:12)
[2016-11-15] MEDS: CYANOCOBALAMIN (B-12) 500mcg TABLET PO SCH (09:13)
[2016-11-15] MEDS: CARVEDILOL 25 MG TABLET PO SCH ×2 (09:13→17:41)
[2016-11-15] MEDS: FUROSEMIDE 20 MG TABLET PO SCH (09:13)
[2016-11-15] MEDS: DOCUSATE SODIUM 100 MG CAPSULE PO SCH ×2 (09:13→21:35)
[2016-11-15] MEDS: FOLIC ACID 1 MG TABLET PO SCH (11:16)
[2016-11-15] MEDS ORDERED: WARFARIN 6 MG TABLET PO SCH (12:00)
--- NOTE | 2016-11-15 15:23 | PDWOUND ---
Wound Documentation Wound Management Wound : Location Modifier: Right Wound Location: Other (Achilles) Wound Type: Other (Ulcer) Wound Dressing Frequency: two times per week Wound Dressing Status: FOUND: Changed Wound Drainage Amount: Moderate Wound Drainage Description: Serosanguineous Wound General Appearance: FOUND Draining, FOUND Tendon Visible, FOUND Well Approximated Wound Bed: gran red Periwound Description: Macerated Wound Length (cm): 4.5 Wound Width (cm): 3 Wound Depth (cm): 0.3 Exposed: subtissue, tendon Wound Cleanser: soap and water Wound Packing Type: FOUND: Black Foam Wound Primary Dressing Type: Bogdan Wraps, Other (drape) Comments NPWT dressing KCI Veriflow changed today. Wound Documentation Wound Management Wound : Location Modifier: Right Wound Location: Other (Anterior Tibia ) Wound Type: Stasis Ulcer Wound Dressing Frequency: two times per week Wound Dressing Status: FOUND: Changed Wound Drainage Amount: Moderate Wound Drainage Description: Serosanguineous Wound General Appearance: FOUND Draining, FOUND Well Approximated Wound Bed: gran red, slough Periwound Description: Indurated, Other (Denuded) Wound Length (cm): 2.4 Wound Width (cm): 2.0 Wound Depth (cm): 0.1 Exposed: subtissue Wound Cleanser: soap and water Wound Primary Dressing Type: Aquacel AG, Mepilex, Bogdan Wraps Comments dressings changed today. GAIL ALONSO RN November 15, 2016 15:18
[2016-11-15 16:02] VITALS: BP 133/66; PULSE 90; RESP 18; TEMP 98.3; O2SAT 95
[2016-11-15 19:46] VITALS: BP 133/59; PULSE 91; RESP 16; TEMP 98.9; O2SAT 97
--- NOTE | 2016-11-15 19:52 | PDIRUOPC ---
Overall Plan of Care Date DATE: 11/15/16 TIME: 19:48 Relevant Changes Relevant Changes: No I have reviewed the patient's information and concur with the finding and results of the pre-admission screen. Certification I certify the patient for rehabilitation. Patient Impairments Prior Medical Conditions: (1) Radiculopathy Status: Chronic Additional Information: PT and OT will work to increase strength and improve the pts pain control.. (2) Neuropathy Status: Chronic Additional Information: allowed for decub ulcer on foot. Medical to manage. (3) Decubitus ulcer of heel, right, unstageable Additional Information: Wound covered with wound VAC. Wound care to manage. (4) Type 2 diabetes mellitus Status: Chronic (5) Myopathy Additional Information: PT and OT will manage care plan. reeval in 48 hours. Current Medical Conditions: (1) Radiculopathy Status: Chronic Additional Information: PT and OT will work to increase strength and improve the pts pain control.. (2) Neuropathy Status: Chronic Additional Information: allowed for decub ulcer on foot. Medical to manage. (3) Decubitus ulcer of heel, right, unstageable Additional Information: Wound covered with wound VAC. Wound care to manage. (4) Type 2 diabetes mellitus Status: Chronic (5) Myopathy Additional Information: PT and OT will manage care plan. reeval in 48 hours. Medical Prognosis Fair IRF Tx That Should Address Dx: (1) Myopathy (2) Neuropathy Dx Requiring Medical FU: (1) Decubitus ulcer of heel, right, unstageable (2) Diabetes mellitus Vital Signs Vital Signs Date Time Temp Pulse Resp B/P Pulse Ox O2 Delivery O2 Flow Rate FiO2 11/15/16 16:02 98.3 90 18 133/66 95 Room Air 11/14/16 15:53 2.00 Laboratory Laboratory Tests Test 11/13/16 20:37 11/14/16 05:17 11/14/16 06:02 11/14/16 10:34 Glucometer 190mg/dL 101mg/dL 185mg/dL White Blood Count 8.4T/MM3 Red Blood Count 2.42M/MM3 Hemoglobin 7.1GM/DL Hematocrit 21.4% Mean Corpuscular Volume 88.4UM3 Mean Corpuscular Hemoglobin 29.3UUG Mean Corpuscular Hemoglobin Concent 33.2GM/DL RDW Standard Deviation 41.7FL Platelet Count 300T/MM3 Mean Platelet Volume 9.6UM3 Immature Granulocyte % (Auto) 0.2% Neutrophils (%) (Auto) 73.0% Lymphocytes (%) (Auto) 8.8% Monocytes (%) (Auto) 13.8% Eosinophils (%) (Auto) 4.0% Basophils (%) (Auto) 0.2% Absolute Immature Granulocyte (auto 0.02T/MM3 Absolute Neutrophils (auto) 6.1T/MM3 Absolute Lymphocytes (auto) 0.7T/MM3 Absolute Monocytes (auto) 1.2T/MM3 Absolute Eosinophils (auto) 0.3T/MM3 Absolute Basophils (auto) 0.0T/MM3 Prothromb Time International Ratio 1.50 Test 11/14/16 14:08 11/14/16 14:45 11/14/16 19:19 11/14/16 21:46 Glucometer 185mg/dL 140mg/dL Stool Occult Blood Negative Hemoglobin 7.7GM/DL Test 11/15/16 04:28 11/15/16 06:43 11/15/16 10:20 11/15/16 14:33 White Blood Count 9.1T/MM3 Red Blood Count 2.63M/MM3 Hemoglobin 7.6GM/DL Hematocrit 23.6% Mean Corpuscular Volume 89.7UM3 Mean Corpuscular Hemoglobin 28.9UUG Mean Corpuscular Hemoglobin Concent 32.2GM/DL RDW Standard Deviation 43.0FL Platelet Count 317T/MM3 Mean Platelet Volume 9.6UM3 Immature Granulocyte % (Auto) 0.2% Neutrophils (%) (Auto) 70.7% Lymphocytes (%) (Auto) 12.3% Monocytes (%) (Auto) 13.0% Eosinophils (%) (Auto) 3.5% Basophils (%) (Auto) 0.3% Absolute Immature Granulocyte (auto 0.02T/MM3 Absolute Neutrophils (auto) 6.5T/MM3 Absolute Lymphocytes (auto) 1.1T/MM3 Absolute Monocytes (auto) 1.2T/MM3 Absolute Eosinophils (auto) 0.3T/MM3 Absolute Basophils (auto) 0.0T/MM3 Prothromb Time International Ratio 2.02 Turbidity < 20 Sodium Level 141MEQ/L Potassium Level 3.8MEQ/L Chloride Level 106MEQ/L Carbon Dioxide Level 24MEQ/L Anion Gap 11MEQ/L Blood Urea Nitrogen 25.0MG/DL Creatinine 1.7MG/DL Glomerular Filtration Rate Calc 38 BUN/Creatinine Ratio 15RATIO Glucose Level 104MG/DL Calculated Osmolality 275MOSM/KG Calcium Level 8.7MG/DL Icterus Index < 2 Chemistry Specimen Hemolysis < 15 Glucometer 94mg/dL 125mg/dL 159mg/dL Anticipated Interventions The patient requires inpatient IRF care for PT, OT, and/or ST for residuals remaining from [] resulting in muscular weakness and strength deficits. ROM Deficit: Right Lower Extremity Strength Deficits: Left Lower Extremity, Right Lower Extremity FIM Scores Ambulation Distance: 0 Wheelchair Propulsion Distance: 168 Ambulation Ability: 0 Activity Does Not Occur Ambulation Assistance Needed: 1 Person Wheelchair Propulsion Ability: 5 Supervision/Setup Wheelchair Propulsion Ass[place]: 1 Person Wheelchair FIM Score Reason: SBA; 2/7 per FIM distance Stairs: 0 Activity Does Not Occur Eating Ability-FIM: 5 Supervision/Setup Grooming Ability: 5 Supervision/Setup Bathing Ability: 4 Minimal Assistance Upper Body Dressing Ability: 5 Supervision/Setup Lower Body Dressing Ability: 2 Maximum Assistance Lower Body Dressing Assistance: 1 Person Toileting Ability: 1 Total Assistance Toileting Assistance Needed: 2 Persons Toileting FIM Score Reason: urine only with urinal Bed Transfer Ability: 1 Total Assistance Bed Transfer Assistance Needed: 1 Person Chair Transfer Ability: 2 Maximum Assistance Chair Transfer Assistance Need: 1 Person Overall Wheelchair Transfer Ab: 2 Maximum Assistance Overall Toilet / Commode Trans: 1 Total Assistance Toilet / Commode Transfer Assi: 2 Persons Comprehension Ability: 5 Supervision/Setup Comprehension FIM Score Reason: difficulty following directions, requiring repeated explanation Social Interaction: 5 Supervision/Setup Social Interaction FIM Score R: extra time Problem Solvin Moderate Assistance Problem Solving FIM Score Reas: puts legs on wqrong side of bed, pulling against wound vac. Expression Ability: 5 Supervision/Setup Memory: 5 Supervision/Setup Memory FIM Score Reason: could not find remote minutes after use. It was beside him in bed Expression FIM Score Reason: passive, requiring coaxing to communicate needs Current Functional Status Failed Alternative Therapy: Arrived from acute care Patient Requires * Patient has been determined to have significant functional limitations requiring at least two therapy disciplines. * Rehabilitation medical practitioner will provide admission approval, assessment and oversight and program coordination at least daily. * Intensive rehabilitative nursing services on site and available 24 hours a day. * The treatment plan will be developed within 24 hours of admission. * Interdisciplinary and goal oriented treatment by professional nursing, mental health social worker, and rehabilitation therapist. * Interdisciplinary team meeting weekly inclusive of ongoing comprehensive discharge planning. First team meeting by day seven. Weekly meetings to follow. * Rehab Physician is the team meeting leader. * Pharmacy and diagnostic services will be available. * Ongoing comprehensive rehab program with at least 2 disciplines and greater than or equal to 3 hours a day, 5 days a week. Limitations require: limited mobility, ADL impairment Physical Therapy Minutes: 90 Occupational Therapy Minutes: 90 Therapy The patient is to receive therapy at least 5 days a week. PT Treatment Plan: Therapeutic Exercise, Gait Training, Functional Activities , Patient/Family Education, Balance/Proprioception Treatment Plan Frequency: five times per week Treatment Plan Duration: two weeks Plan of Care Comment: 6x/week for first week; 5x/week for following weeks OT Treatment Plan: ADL's (basic care), Ther. Exercise for ADL's OT Treatment Plan Frequency: five times per week OT Treatment Plan Duration: three weeks Anticapted LOS/Outcomes Anticipated Functional Outcome Improvement in strength and stability Anticipated DC Destination: Home Health Service Home Safety Plan The patient will be provided with the development of a Home Safety Plan for return to a home or home-like environment and to ensure safety post discharge. Complicating Conditions Complications since IRF admit: (1) Radiculopathy Status: Chronic Comments: PT and OT will work to increase strength and improve the pts pain control.. (2) Neuropathy Status: Chronic Comments: allowed for decub ulcer on foot. Medical to manage. (3) Decubitus ulcer of heel, right, unstageable Comments: Wound covered with wound VAC. Wound care to manage. (4) Type 2 diabetes mellitus Status: Chronic (5) Myopathy Comments: PT and OT will manage care plan. reeval in 48 hours. Other Contributing Factors: Plan to Avoid Complications Barriers to Attaining Goals: weakness, balance, endurance, pain control, medical limitation Plan to Avoid Complications The patient cannot receive this care in a lesser intensive setting such as [facility] or Outpatient Therapy due to the patient requiring the following DM type II and decubitous ulcer requiring wound care consult. The patient requires oversight by a rehabilitation physician to manage their rehabilitation treatment plan and the multidisciplinary approach to care that can only be provided in an IRF and requires a multidisciplinary approach to care , provided by professional PTs, OTs, STs, dieticians, RTs, rehabilitation nurses and is not available in lesser levels of care. The frequency and duration for therapy, as recommended by the professional Rehabilitation therapists, meet the patient's initial rehabilitation treatment plan needs and will be further evaluated on a weekly basis for progress and/or changes needed. ADELINE MUÑIZ MD November 15, 2016 19:51
[2016-11-15] MEDS ORDERED: INSULIN REGULAR 100 UNIT/ML SQ ONE (21:15)
[2016-11-15] MEDS: ASPIRIN *EC* 81mg TABLET PO SCH (21:35)
[2016-11-15] MEDS: INSULIN GLARGINE 100 UNIT/ML SQ SCH (21:35)
[2016-11-15] MEDS: TAMSULOSIN 0.4 MG CAPSULE PO SCH (21:35)
[2016-11-16 04:53] LABS: BASOPHILS % (AUTO) 0.2 % (0-2); EOSINOPHILS # (AUTO) 0.3 T/MM3 (0-0.5); EOSINOPHILS % (AUTO) 2.3 % (0-4); HCT - HEMATOCRIT 24.4 % (41-53); HGB - HEMOGLOBIN 7.8 GM/DL (13.5-17.5); IMMATURE GRANULOCYTE # (AUTO) 0.04 T/MM3 (0.00-0.03); IMMATURE GRANULOCYTE % (AUTO) 0.3 % (0.0-0.5); LYMPHOCYTES # (AUTO) 1.1 T/MM3 (1-4.8); LYMPHOCYTES % (AUTO) 7.8 % (23-45); MEAN CORPUSCULAR HGB 28.9 UUG (26-34); MEAN CORPUSCULAR VOLUME 90.4 UM3 (80-100); MEAN PLATELET VOLUME 9.7 UM3 (9.4-12.4); MONOCYTES # (AUTO) 1.4 T/MM3 (0-0.8); MONOCYTES % (AUTO) 9.9 % (0-9.0); NEUTROPHILS #(AUTO)-ABSOLUTE 10.8 T/MM3 (1.8-7.7); NEUTROPHILS % (AUTO) 79.5 % (33-66); WBC - WHITE BLOOD COUNT 13.6 T/MM3 (4.5-11.0)
[2016-11-16 04:57] LABS: INR 2.5 (0.76-1.04); PROTHROMBIN TIME 27.2 SEC (9.31-12.49)
[2016-11-16 05:04] LABS: ANION GAP 10 MEQ/L (5-15); BUN/CREATININE RATIO 15 RATIO (6-26); CALCIUM 8.8 MG/DL (8.4-10.2); CHLORIDE 107 MEQ/L (98-107); CO2 - CARBON DIOXIDE 23 MEQ/L (22-30); CREATININE 1.7 MG/DL (0.8-1.5); GLOMERULAR FILTRATION RATE 38; GLUCOSE 68 MG/DL (75-110); PHOSPHORUS 3.2 MG/DL (2.5-4.5); POTASSIUM 3.6 MEQ/L (3.6-5); SODIUM 140 MEQ/L (134-144)
[2016-11-16 05:35] LABS: C-REACTIVE PROTEIN 159.9 MG/L (0-9)
[2016-11-16] MEDS: OMEPRAZOLE 20 MG CAPSULE PO SCH (06:18)
[2016-11-16] MEDS: PIPERACILLIN/TAZOBACTAM 2.25 G in NORMAL SALINE 100 ML IV SCH ×5 (06:18→18:14)
[2016-11-16 08:00] VITALS: BP 128/64; PULSE 80; RESP 12; TEMP 97.5; O2SAT 100
[2016-11-16] MEDS: ENOXAPARIN 40 MG/0.4 ML INJECTION SQ SCH (08:51)
[2016-11-16] MEDS: FUROSEMIDE 20 MG TABLET PO SCH (08:51)
[2016-11-16] MEDS: FOLIC ACID 1 MG TABLET PO SCH (08:51)
[2016-11-16] MEDS: LINAGLIPTIN 5 MG TABLET PO SCH (08:51)
[2016-11-16] MEDS: CARVEDILOL 25 MG TABLET PO SCH ×2 (08:52→18:14)
[2016-11-16] MEDS: DOCUSATE SODIUM 100 MG CAPSULE PO SCH ×2 (08:52→21:00)
[2016-11-16] MEDS: CYANOCOBALAMIN (B-12) 500mcg TABLET PO SCH (08:52)
--- NOTE | 2016-11-16 09:01 | PNPDOC ---
Subjective Date DATE: 11/16/16 TIME: 08:45 Subjective Tim was seen in the dining area. He stated that he felt encouraged this morning because he was able to stand up 4 times in a row, but now he's a little disappointed because his legs are weaker again. He is surprised at how weak his legs have become over a relatively short time period. He notes that his has a "lofty" goal - for him to be able to walk well when he's discharged home. He's not sure he will get there, but knows that he will have some ups and downs in the recovery process. He sometimes hasn't felt like wearing his boot due to heat and mobility concerns. He denies any pain. We discussed his hgb level - he notes that he had a dear friend pass away from "a batch of bad blood", and this is why he's hesitant to have transfusions (though he did consent to one on the ). Otherwise, he denies chest pain, SOA, abdominal pain or GI complaints. Objective Vital Signs Vital signs Vital Signs Date Time Temp Pulse Resp B/P Pulse Ox O2 Delivery O2 Flow Rate FiO2 11/15/16 19:46 98.9 91 16 133/59 97 Room Air 11/14/16 15:53 2.00 Height (Feet): 6 Height (Inches): 0.00 Weight (Kilograms): 78.600 General General Appearance: Alert, Orientated x 3, Well Nourished, Well Developed, No Acute Distress Eyes (Brief) Eyes: FOUND: PERRL, NOT FOUND: scleral icterus ENMT (Brief) ENMT: FOUND: mucosa moist Respiratory (Brief) Respiratory: FOUND: clear all miller, equal bilaterally Cardiovascular (Brief) Cardiac: FOUND: regular rate, regular rhythm Abdomen (Brief) Abdominal: FOUND: BS normo active x4, soft, NOT FOUND: distended, tender Extremities (Brief) Extremity : Comments cam walker on right lower ext Integumentary (Brief) Integumentary: FOUND: dry, warm, NOT FOUND: pink (pallor) Psychiatric (Brief) Psychiatric: FOUND: alert, attentive, normal affect, oriented Laboratory Laboratory Laboratory Tests 11/15/16 04:28 11/16/16 04:24 Laboratory Tests 11/14/16 19:19 11/15/16 04:28 11/16/16 04:24 Assessment & Plan Problems: (1) Diabetes with ulcer of lower extremity Status: Acute Assessment & Plan: Right lower extremity wound, wound VAC intact (2) Anemia Status: Chronic (3) CAD (coronary artery disease) Status: Chronic (4) Diabetes mellitus Status: Chronic (5) CHF (congestive heart failure) Status: Chronic (6) CAD (coronary artery disease) Status: Chronic (7) HTN (hypertension) Status: Chronic (8) Dyslipidemia Status: Chronic (9) CKD (chronic kidney disease), stage III Status: Chronic (10) Peripheral vascular disease Status: Chronic (11) HS (hereditary spherocytosis) Status: Chronic (12) Anticoagulated Status: Chronic Assessment & Plan: Chronically anticoagulated on Coumadin (13) Myalgia Plan/Intensity of Service Leukocytosis today - WBC increased to 13.6 - He continues on Zosyn per Dr. Castorena. He's been afebrile and other SIRS criteria have not been consistently noted. CRP has increased from last assessment. It was 119 on 11/06/16 and today it is 159.9. Anticipate discussion with Dr. Castorena today. Mild hypoglycemia this morning; fasting was 68. Review of blood sugars reveal no other episodes of hypoglycemia. Lantus HS dose reduced to 6U. INR up to 2.50 - DC Lovenox. Hgb stable at 7.8 s/p PRBC transfusion on 11/14 DVT Prophylaxis: Coumadin Code Status Full Code Hospital Course Summary Disclaimer The hospital course summary below is not to be considered part of the above Progress Note. Hospital Course Summary 11/14/16 Given continued decrease in Hgb and lower ext weakness patient has agreed to a blood transfusion today. Suspect he will benefit from transfusion and this will improve strength. BP this morning is low at 108/60. Lower extremity myalgias seems to be slightly better today. However, he continues to have stiffness in the bilateral knees, and quads. INR today remains subtherapeutic at 1.5. Continue with bridging of Lovenox until therapeutic Continue with wound Vac care as per wound team. [place] as needed for pain control. Continue with Zosyn IV for antimicrobial coverage as recommended by Dr Castorena. She recommends 2-3 more weeks of IV treatment which would be between November 26-, then followed by PO treatment. Will discuss further with Dr Castorena Will recheck CBC and BMP tomorrow morning to follow anemia, renal function and electrolytes. 11/16/16 Leukocytosis today - WBC increased to 13.6 - He continues on Zosyn per Dr. Castorena. He's been afebrile and other SIRS criteria have not been consistently noted. CRP has increased from last assessment. It was 119 on 11/06/16 and today it is 159.9. Anticipate discussion with Dr. Csatorena today. Mild hypoglycemia this morning; fasting was 68. Review of blood sugars reveal no other episodes of hypoglycemia. Lantus HS dose reduced to 6U. INR up to 2.50 - DC Lovenox. Hgb stable at 7.8 s/p PRBC transfusion on 11/14 MIMI [employer] November 16, 2016 08:50
[2016-11-16] MEDS ORDERED: WARFARIN 5 MG TABLET PO SCH (12:00)
[2016-11-16 16:00] VITALS: BP 127/64; PULSE 81; RESP 12; TEMP 98.1; O2SAT 96
[2016-11-16 19:51] VITALS: BP 146/69; PULSE 82; RESP 16; TEMP 98.1; O2SAT 94
[2016-11-16] MEDS: ASPIRIN *EC* 81mg TABLET PO SCH (22:02)
[2016-11-16] MEDS: TAMSULOSIN 0.4 MG CAPSULE PO SCH (22:02)
[2016-11-16] MEDS: INSULIN GLARGINE 100 UNIT/ML SQ SCH (22:08)
[2016-11-17] MEDS: PIPERACILLIN/TAZOBACTAM 2.25 G in NORMAL SALINE 100 ML IV SCH ×4 (00:22→17:45)
[2016-11-17 04:33] LABS: BASOPHILS % (AUTO) 0.5 % (0-2); EOSINOPHILS # (AUTO) 0.7 T/MM3 (0-0.5); EOSINOPHILS % (AUTO) 7.6 % (0-4); HCT - HEMATOCRIT 24.3 % (41-53); HGB - HEMOGLOBIN 7.7 GM/DL (13.5-17.5); IMMATURE GRANULOCYTE # (AUTO) 0.02 T/MM3 (0.00-0.03); IMMATURE GRANULOCYTE % (AUTO) 0.2 % (0.0-0.5); LYMPHOCYTES # (AUTO) 1.2 T/MM3 (1-4.8); LYMPHOCYTES % (AUTO) 14.5 % (23-45); MEAN CORPUSCULAR HGB 28.8 UUG (26-34); MEAN CORPUSCULAR HGB CONC(MCHC 31.7 GM/DL (31-37); MEAN PLATELET VOLUME 9.8 UM3 (9.4-12.4); MONOCYTES # (AUTO) 0.9 T/MM3 (0-0.8); MONOCYTES % (AUTO) 10.8 % (0-9.0); NEUTROPHILS #(AUTO)-ABSOLUTE 5.7 T/MM3 (1.8-7.7); NEUTROPHILS % (AUTO) 66.4 % (33-66); RED BLOOD COUNT 2.67 M/MM3 (4.50-5.90); WBC - WHITE BLOOD COUNT 8.5 T/MM3 (4.5-11.0)
[2016-11-17 04:49] LABS: INR 2.62 (0.76-1.04); PROTHROMBIN TIME 28.6 SEC (9.31-12.49)
[2016-11-17 04:56] LABS: ANION GAP 11 MEQ/L (5-15); BUN/CREATININE RATIO 15 RATIO (6-26); CALCIUM 8.8 MG/DL (8.4-10.2); CHLORIDE 108 MEQ/L (98-107); CO2 - CARBON DIOXIDE 22 MEQ/L (22-30); CREATININE 1.7 MG/DL (0.8-1.5); GLOMERULAR FILTRATION RATE 38; GLUCOSE 105 MG/DL (75-110); POTASSIUM 3.7 MEQ/L (3.6-5); SODIUM 141 MEQ/L (134-144)
[2016-11-17] MEDS: OMEPRAZOLE 20 MG CAPSULE PO SCH (05:08)
[2016-11-17 08:30] VITALS: BP 140/71; PULSE 74; RESP 16; TEMP 98.5; O2SAT 95
[2016-11-17 08:35] VITALS: PULSE 74; RESP 16
[2016-11-17] MEDS: CARVEDILOL 25 MG TABLET PO SCH ×2 (08:53→17:45)
[2016-11-17] MEDS: FUROSEMIDE 20 MG TABLET PO SCH (08:53)
[2016-11-17] MEDS: LINAGLIPTIN 5 MG TABLET PO SCH (08:53)
[2016-11-17] MEDS: FOLIC ACID 1 MG TABLET PO SCH (08:53)
[2016-11-17] MEDS: DOCUSATE SODIUM 100 MG CAPSULE PO SCH ×2 (08:53→21:29)
[2016-11-17] MEDS: CYANOCOBALAMIN (B-12) 500mcg TABLET PO SCH (08:54)
[2016-11-17] MEDS ORDERED: WARFARIN 5 MG TABLET PO SCH (12:00)
[2016-11-17 16:36] VITALS: BP 151/70; PULSE 74; RESP 16; TEMP 97.9; O2SAT 95
--- NOTE | 2016-11-17 17:34 | PNPDOC ---
IRU Subjective Date DATE: 11/16/16 TIME: 1530 Pt seen 11/16/16 at approx 1530 Subjective Pt is working with PT at time of visit. Has been cooperating and gaining strength. IRU Objective Vital Signs Vital signs Vital Signs Date Time Temp Pulse Resp B/P Pulse Ox O2 Delivery O2 Flow Rate FiO2 11/17/16 16:36 97.9 74 16 151/70 95 Room Air 11/14/16 15:53 2.00 Height (Feet): 6 Height (Inches): 0.00 Weight (Kilograms): 78.600 General General Appearance: Alert Respiratory (Brief) Respiratory: FOUND: clear all miller, equal bilaterally Cardiovascular (Brief) Cardiac: FOUND: regular rate, regular rhythm Extremities (Brief) Extremity : Comments no cce Laboratory Laboratory Laboratory Tests Test 11/16/16 04:24 11/16/16 10:12 11/16/16 14:28 11/16/16 22:08 White Blood Count 13.6T/MM3 Red Blood Count 2.70M/MM3 Hemoglobin 7.8GM/DL Hematocrit 24.4% Mean Corpuscular Volume 90.4UM3 Mean Corpuscular Hemoglobin 28.9UUG Mean Corpuscular Hemoglobin Concent 32.0GM/DL RDW Standard Deviation 43.6FL Platelet Count 360T/MM3 Mean Platelet Volume 9.7UM3 Immature Granulocyte % (Auto) 0.3% Neutrophils (%) (Auto) 79.5% Lymphocytes (%) (Auto) 7.8% Monocytes (%) (Auto) 9.9% Eosinophils (%) (Auto) 2.3% Basophils (%) (Auto) 0.2% Absolute Immature Granulocyte (auto 0.04T/MM3 Absolute Neutrophils (auto) 10.8T/MM3 Absolute Lymphocytes (auto) 1.1T/MM3 Absolute Monocytes (auto) 1.4T/MM3 Absolute Eosinophils (auto) 0.3T/MM3 Absolute Basophils (auto) 0.0T/MM3 Prothromb Time International Ratio 2.50 Turbidity < 20 Sodium Level 140MEQ/L Potassium Level 3.6MEQ/L Chloride Level 107MEQ/L Carbon Dioxide Level 23MEQ/L Anion Gap 10MEQ/L Blood Urea Nitrogen 25.0MG/DL Creatinine 1.7MG/DL Glomerular Filtration Rate Calc 38 BUN/Creatinine Ratio 15RATIO Glucose Level 68MG/DL Calculated Osmolality 271MOSM/KG Calcium Level 8.8MG/DL Phosphorus Level 3.2MG/DL Icterus Index < 2 C-Reactive Protein 159.9MG/L Albumin 3.0G/DL Chemistry Specimen Hemolysis < 15 Glucometer 164mg/dL 150mg/dL 200mg/dL Test 11/17/16 04:09 11/17/16 10:58 11/17/16 14:30 White Blood Count 8.5T/MM3 Red Blood Count 2.67M/MM3 Hemoglobin 7.7GM/DL Hematocrit 24.3% Mean Corpuscular Volume 91.0UM3 Mean Corpuscular Hemoglobin 28.8UUG Mean Corpuscular Hemoglobin Concent 31.7GM/DL RDW Standard Deviation 44.4FL Platelet Count 378T/MM3 Mean Platelet Volume 9.8UM3 Immature Granulocyte % (Auto) 0.2% Neutrophils (%) (Auto) 66.4% Lymphocytes (%) (Auto) 14.5% Monocytes (%) (Auto) 10.8% Eosinophils (%) (Auto) 7.6% Basophils (%) (Auto) 0.5% Absolute Immature Granulocyte (auto 0.02T/MM3 Absolute Neutrophils (auto) 5.7T/MM3 Absolute Lymphocytes (auto) 1.2T/MM3 Absolute Monocytes (auto) 0.9T/MM3 Absolute Eosinophils (auto) 0.7T/MM3 Absolute Basophils (auto) 0.0T/MM3 Prothromb Time International Ratio 2.62 Turbidity < 20 Sodium Level 141MEQ/L Potassium Level 3.7MEQ/L Chloride Level 108MEQ/L Carbon Dioxide Level 22MEQ/L Anion Gap 11MEQ/L Blood Urea Nitrogen 26.0MG/DL Creatinine 1.7MG/DL Glomerular Filtration Rate Calc 38 BUN/Creatinine Ratio 15RATIO Glucose Level 105MG/DL Calculated Osmolality 276MOSM/KG Calcium Level 8.8MG/DL Icterus Index < 2 Chemistry Specimen Hemolysis < 15 Glucometer 136mg/dL 167mg/dL Assessment & Plan Problems: (1) Radiculopathy Status: Chronic Assessment & Plan: PT and OT working to increase mobility and decrease pain. (2) Neuropathy Status: Chronic Assessment & Plan: Continue with plan of care involving PT and OT to increase strength and stamina due to myopathy. (3) Decubitus ulcer of heel, right, unstageable Assessment & Plan: medical to manage (4) Type 2 diabetes mellitus Status: Chronic Assessment & Plan: medical to manage (5) Myopathy Assessment & Plan: Pt is making progress per PT and OT. see FIMS. Code Status Full Code Interventions to Obtain Goals PT Treatment Plan: Therapeutic Exercise, Gait Training, Functional Activities , Patient/Family Education, Balance/Proprioception OT Treatment Plan: ADL's (basic care), Ther. Exercise for ADL's Hospital Course Summary Disclaimer The hospital course summary below is not to be considered part of the above Progress Note. Hospital Course Summary 11/14/16 Given continued decrease in Hgb and lower ext weakness patient has agreed to a blood transfusion today. Suspect he will benefit from transfusion and this will improve strength. BP this morning is low at 108/60. Lower extremity myalgias seems to be slightly better today. However, he continues to have stiffness in the bilateral knees, and quads. INR today remains subtherapeutic at 1.5. Continue with bridging of Lovenox until therapeutic Continue with wound Vac care as per wound team. [place] as needed for pain control. Continue with Zosyn IV for antimicrobial coverage as recommended by Dr Castorena. She recommends 2-3 more weeks of IV treatment which would be between November 26-, then followed by PO treatment. Will discuss further with Dr Castorena Will recheck CBC and BMP tomorrow morning to follow anemia, renal function and electrolytes. 11/16/16 Leukocytosis today - WBC increased to 13.6 - He continues on Zosyn per Dr. Castorena. He's been afebrile and other SIRS criteria have not been consistently noted. CRP has increased from last assessment. It was 119 on 11/06/16 and today it is 159.9. Anticipate discussion with Dr. Castorena today. Mild hypoglycemia this morning; fasting was 68. Review of blood sugars reveal no other episodes of hypoglycemia. Lantus HS dose reduced to 6U. INR up to 2.50 - DC Lovenox. Hgb stable at 7.8 s/p PRBC transfusion on 11/14 ADELINE MUÑIZ MD November 17, 2016 17:33
--- NOTE | 2016-11-17 17:37 | PNPDOC ---
IRU Subjective Date DATE: 11/17/16 TIME: 17:35 Subjective Pt resting today, feels like he has been worked quite hard by staff, but is willing to cont with therapies. IRU Objective Vital Signs Vital signs Vital Signs Date Time Temp Pulse Resp B/P Pulse Ox O2 Delivery O2 Flow Rate FiO2 11/17/16 16:36 97.9 74 16 151/70 95 Room Air 11/14/16 15:53 2.00 Height (Feet): 6 Height (Inches): 0.00 Weight (Kilograms): 78.600 General General Appearance: Alert Respiratory (Brief) Respiratory: FOUND: clear all miller, equal bilaterally Cardiovascular (Brief) Cardiac: FOUND: regular rate, regular rhythm Laboratory Laboratory Laboratory Tests Test 11/16/16 04:24 11/16/16 10:12 11/16/16 14:28 11/16/16 22:08 White Blood Count 13.6T/MM3 Red Blood Count 2.70M/MM3 Hemoglobin 7.8GM/DL Hematocrit 24.4% Mean Corpuscular Volume 90.4UM3 Mean Corpuscular Hemoglobin 28.9UUG Mean Corpuscular Hemoglobin Concent 32.0GM/DL RDW Standard Deviation 43.6FL Platelet Count 360T/MM3 Mean Platelet Volume 9.7UM3 Immature Granulocyte % (Auto) 0.3% Neutrophils (%) (Auto) 79.5% Lymphocytes (%) (Auto) 7.8% Monocytes (%) (Auto) 9.9% Eosinophils (%) (Auto) 2.3% Basophils (%) (Auto) 0.2% Absolute Immature Granulocyte (auto 0.04T/MM3 Absolute Neutrophils (auto) 10.8T/MM3 Absolute Lymphocytes (auto) 1.1T/MM3 Absolute Monocytes (auto) 1.4T/MM3 Absolute Eosinophils (auto) 0.3T/MM3 Absolute Basophils (auto) 0.0T/MM3 Prothromb Time International Ratio 2.50 Turbidity < 20 Sodium Level 140MEQ/L Potassium Level 3.6MEQ/L Chloride Level 107MEQ/L Carbon Dioxide Level 23MEQ/L Anion Gap 10MEQ/L Blood Urea Nitrogen 25.0MG/DL Creatinine 1.7MG/DL Glomerular Filtration Rate Calc 38 BUN/Creatinine Ratio 15RATIO Glucose Level 68MG/DL Calculated Osmolality 271MOSM/KG Calcium Level 8.8MG/DL Phosphorus Level 3.2MG/DL Icterus Index < 2 C-Reactive Protein 159.9MG/L Albumin 3.0G/DL Chemistry Specimen Hemolysis < 15 Glucometer 164mg/dL 150mg/dL 200mg/dL Test 11/17/16 04:09 11/17/16 10:58 11/17/16 14:30 White Blood Count 8.5T/MM3 Red Blood Count 2.67M/MM3 Hemoglobin 7.7GM/DL Hematocrit 24.3% Mean Corpuscular Volume 91.0UM3 Mean Corpuscular Hemoglobin 28.8UUG Mean Corpuscular Hemoglobin Concent 31.7GM/DL RDW Standard Deviation 44.4FL Platelet Count 378T/MM3 Mean Platelet Volume 9.8UM3 Immature Granulocyte % (Auto) 0.2% Neutrophils (%) (Auto) 66.4% Lymphocytes (%) (Auto) 14.5% Monocytes (%) (Auto) 10.8% Eosinophils (%) (Auto) 7.6% Basophils (%) (Auto) 0.5% Absolute Immature Granulocyte (auto 0.02T/MM3 Absolute Neutrophils (auto) 5.7T/MM3 Absolute Lymphocytes (auto) 1.2T/MM3 Absolute Monocytes (auto) 0.9T/MM3 Absolute Eosinophils (auto) 0.7T/MM3 Absolute Basophils (auto) 0.0T/MM3 Prothromb Time International Ratio 2.62 Turbidity < 20 Sodium Level 141MEQ/L Potassium Level 3.7MEQ/L Chloride Level 108MEQ/L Carbon Dioxide Level 22MEQ/L Anion Gap 11MEQ/L Blood Urea Nitrogen 26.0MG/DL Creatinine 1.7MG/DL Glomerular Filtration Rate Calc 38 BUN/Creatinine Ratio 15RATIO Glucose Level 105MG/DL Calculated Osmolality 276MOSM/KG Calcium Level 8.8MG/DL Icterus Index < 2 Chemistry Specimen Hemolysis < 15 Glucometer 136mg/dL 167mg/dL Assessment & Plan Problems: (1) Radiculopathy Status: Chronic Assessment & Plan: Pain managed at rest today. (2) Neuropathy Status: Chronic Assessment & Plan: Continues to have numbness radiating to feet. Cont with activity as tolerated. (3) Decubitus ulcer of heel, right, unstageable Assessment & Plan: medical management (4) Type 2 diabetes mellitus Status: Chronic Assessment & Plan: managed by medical. (5) Myopathy Assessment & Plan: Pt will work with PT and OT as per plan of care. Reeval on saturday. DVT Prophylaxis: SCD'S Code Status Full Code Interventions to Obtain Goals PT Treatment Plan: Therapeutic Exercise, Gait Training, Functional Activities , Patient/Family Education, Balance/Proprioception OT Treatment Plan: ADL's (basic care), Ther. Exercise for ADL's Hospital Course Summary Disclaimer The hospital course summary below is not to be considered part of the above Progress Note. Hospital Course Summary 11/14/16 Given continued decrease in Hgb and lower ext weakness patient has agreed to a blood transfusion today. Suspect he will benefit from transfusion and this will improve strength. BP this morning is low at 108/60. Lower extremity myalgias seems to be slightly better today. However, he continues to have stiffness in the bilateral knees, and quads. INR today remains subtherapeutic at 1.5. Continue with bridging of Lovenox until therapeutic Continue with wound Vac care as per wound team. [place] as needed for pain control. Continue with Zosyn IV for antimicrobial coverage as recommended by Dr Castorena. She recommends 2-3 more weeks of IV treatment which would be between November 26-, then followed by PO treatment. Will discuss further with Dr Castorena Will recheck CBC and BMP tomorrow morning to follow anemia, renal function and electrolytes. 11/16/16 Leukocytosis today - WBC increased to 13.6 - He continues on Zosyn per Dr. Castorena. He's been afebrile and other SIRS criteria have not been consistently noted. CRP has increased from last assessment. It was 119 on 11/06/16 and today it is 159.9. Anticipate discussion with Dr. Castorena today. Mild hypoglycemia this morning; fasting was 68. Review of blood sugars reveal no other episodes of hypoglycemia. Lantus HS dose reduced to 6U. INR up to 2.50 - DC Lovenox. Hgb stable at 7.8 s/p PRBC transfusion on 11/14 ADELINE MUÑIZ MD November 17, 2016 17:37
[2016-11-17 19:38] VITALS: BP 132/67; PULSE 78; RESP 18; TEMP 97.7; O2SAT 96
[2016-11-17] MEDS: TAMSULOSIN 0.4 MG CAPSULE PO SCH (21:29)
[2016-11-17] MEDS: ASPIRIN *EC* 81mg TABLET PO SCH (21:29)
[2016-11-17] MEDS: INSULIN GLARGINE 100 UNIT/ML SQ SCH (21:29)
[2016-11-17 22:52] VITALS: PULSE 78; RESP 18
[2016-11-18] MEDS: PIPERACILLIN/TAZOBACTAM 2.25 G in NORMAL SALINE 100 ML IV SCH ×4 (00:03→17:51)
[2016-11-18 04:33] LABS: INR 2.6 (0.76-1.04); PROTHROMBIN TIME 28.3 SEC (9.31-12.49)
[2016-11-18] MEDS: OMEPRAZOLE 20 MG CAPSULE PO SCH (05:08)
[2016-11-18 07:45] VITALS: BP 149/65; PULSE 75; RESP 16; TEMP 98.6; O2SAT 95
[2016-11-18 08:00] VITALS: PULSE 75; RESP 16
[2016-11-18] MEDS: CYANOCOBALAMIN (B-12) 500mcg TABLET PO SCH (08:55)
[2016-11-18] MEDS: LINAGLIPTIN 5 MG TABLET PO SCH (08:55)
[2016-11-18] MEDS: FOLIC ACID 1 MG TABLET PO SCH (08:55)
[2016-11-18] MEDS: CARVEDILOL 25 MG TABLET PO SCH ×2 (08:55→17:51)
[2016-11-18] MEDS: FUROSEMIDE 20 MG TABLET PO SCH (08:55)
[2016-11-18] MEDS: DOCUSATE SODIUM 100 MG CAPSULE PO SCH ×2 (08:56→21:00)
--- NOTE | 2016-11-18 09:56 | PNPDOC ---
PHOEBE MORALES V LICENSED MARINE ENGINEER 11/18/16 0952: Subjective Date DATE: 11/18/16 TIME: 09:47 Subjective Tim is seen this morning during breakfast. He is in good spirits and is feeling good. He verbalizes that his lower ext weakness seems to be slowly improving. He denies having pain or feeling short of breath. No GI complaints. Urinating without difficulty and bowels are moving regularly. Fasting sugar this morning was 77. Objective Vital Signs Vital signs Vital Signs Date Time Temp Pulse Resp B/P Pulse Ox O2 Delivery O2 Flow Rate FiO2 11/17/16 22:52 78 18 11/17/16 19:38 97.7 132/67 96 Room Air 11/14/16 15:53 2.00 Height (Feet): 6 Height (Inches): 0.00 Weight (Kilograms): 78.600 General General Appearance: Alert, Orientated x 3, Cooperative, No Acute Distress Eyes (Brief) Eyes: FOUND: EOMI ENMT (Brief) ENMT: FOUND: mucosa moist, normal dentition, NOT FOUND: pharnyx erythema Neck (Brief) Neck: FOUND: midline, NOT FOUND: adenopathy, carotid bruits, tracheal deviation Respiratory (Brief) Respiratory: FOUND: clear all miller, equal bilaterally, NOT FOUND: wheezes Cardiovascular (Brief) Cardiac: FOUND: regular rate, regular rhythm, NOT FOUND: murmur, pedal edema Capillary Refill: <2 sec Abdomen (Brief) Abdominal: FOUND: BS normo active x4, soft, NOT FOUND: distended, tender Lymphatic (Brief) Lymphatic: NOT FOUND: adenopathy Musculoskeletal (Brief) Musculoskeletal: NOT FOUND: tenderness Comments Cam [place] and Wound Vac intact to RLE Integumentary (Brief) Integumentary: FOUND: dry, pink, warm Neurologic (Brief) Neurological: FOUND: cranial 2-12 intact Psychiatric (Brief) Psychiatric: FOUND: alert, attentive, normal affect, oriented Laboratory Laboratory Laboratory Tests 11/17/16 04:09 Laboratory Tests 11/17/16 04:09 Assessment & Plan Problems: (1) Diabetes with ulcer of lower extremity Status: Acute Assessment & Plan: Right lower extremity wound, wound VAC intact (2) Anemia Status: Chronic (3) CAD (coronary artery disease) Status: Chronic (4) Diabetes mellitus Status: Chronic (5) CHF (congestive heart failure) Status: Chronic (6) CAD (coronary artery disease) Status: Chronic (7) HTN (hypertension) Status: Chronic (8) Dyslipidemia Status: Chronic (9) CKD (chronic kidney disease), stage III Status: Chronic (10) Peripheral vascular disease Status: Chronic (11) HS (hereditary spherocytosis) Status: Chronic (12) Anticoagulated Status: Chronic Assessment & Plan: Chronically anticoagulated on Coumadin (13) Myalgia Plan/Intensity of Service 11/18 Reviewed labs from yesterday 11/17. Leukocytosis, resolved. Hemoglobin remains low, however stable at 7.7. Transfusion on 11/14. Continue to monitor Accu-Cheks, fasting sugar this morning 77. Continue Lantus 6 units at at at bedtime INR remains therapeutic at 2.6. Coumadin dosing managed by pharmacy Continue to encourage work with PT and OT for ongoing strengthening as he has had lower extremity weakness Will recheck CBC and BMP tomorrow. 11/19 to follow blood counts, renal function, electrolytes Code Status Full Code Hospital Course Summary Disclaimer The hospital course summary below is not to be considered part of the above Progress Note. Hospital Course Summary 11/14/16 Given continued decrease in Hgb and lower ext weakness patient has agreed to a blood transfusion today. Suspect he will benefit from transfusion and this will improve strength. BP this morning is low at 108/60. Lower extremity myalgias seems to be slightly better today. However, he continues to have stiffness in the bilateral knees, and quads. INR today remains subtherapeutic at 1.5. Continue with bridging of Lovenox until therapeutic Continue with wound Vac care as per wound team. [place] as needed for pain control. Continue with Zosyn IV for antimicrobial coverage as recommended by Dr Castorena. She recommends 2-3 more weeks of IV treatment which would be between November 26-, then followed by PO treatment. Will discuss further with Dr Castorena Will recheck CBC and BMP tomorrow morning to follow anemia, renal function and electrolytes. 11/16/16 Leukocytosis today - WBC increased to 13.6 - He continues on Zosyn per Dr. Castorena. He's been afebrile and other SIRS criteria have not been consistently noted. CRP has increased from last assessment. It was 119 on 11/06/16 and today it is 159.9. Anticipate discussion with Dr. Castorena today. Mild hypoglycemia this morning; fasting was 68. Review of blood sugars reveal no other episodes of hypoglycemia. Lantus HS dose reduced to 6U. INR up to 2.50 - DC Lovenox. Hgb stable at 7.8 s/p PRBC transfusion on 11/14 11/18 Reviewed labs from yesterday 11/17. Leukocytosis, resolved. Hemoglobin remains low, however stable at 7.7. Transfusion on 11/14. Continue to monitor Accu-Cheks, fasting sugar this morning 77. Continue Lantus 6 units at at at bedtime INR remains therapeutic at 2.6. Coumadin dosing managed by pharmacy Continue to encourage work with PT and OT for ongoing strengthening as he has had lower extremity weakness Will recheck CBC and BMP tomorrow. 11/19 to follow blood counts, renal function, electrolytes KILO PIERSON MD 11/18/16 1207: Assessment & Plan Assessment I have independently evaluated and examined this patient. I reviewed the chart, the patient's history, and the LICENSED MARINE ENGINEER's documented findings as above. We discussed and formulated the assessment and plan as above with additions as below: Mr. Hernandez reports he is doing well. He has minimal pain and feels his strength is improving but ambulation is limited to 60 feet and he doesn't feel "steady" yet. He developed a minor skin tear on his left elbow related to a transfer. Respirations are nonlabored with good airflow and clear breath sounds. Cardiac rhythm regular with soft systolic murmur present. Wound VAC right ankle, Cam Walker on. INR 2.6, relatively stable on 5 mg for several days. May be able to decrease frequency of testing to 3 days a week if no change in dose tomorrow. Check CRP with labs tomorrow. Continue Zosyn through 11/23 and then switch to Augmentin per Dr. Castorena recommendation for polymicrobial infection right Achilles. Ejection fraction 45%, chronic diastolic CHF. PHOEBE MORALES V LICENSED MARINE ENGINEER November 18, 2016 09:52 KILO PIERSON MD November 18, 2016 12:07
[2016-11-18] MEDS: NORMAL SALINE 500 ML IV SCH (11:08)
[2016-11-18] MEDS ORDERED: WARFARIN 5 MG TABLET PO SCH (12:00)
[2016-11-18 16:00] VITALS: BP 181/81; PULSE 75; RESP 16; TEMP 97.5; O2SAT 99
[2016-11-18 17:31] VITALS: BP 172/73; PULSE 76
[2016-11-18] MEDS: TAMSULOSIN 0.4 MG CAPSULE PO SCH (21:08)
[2016-11-18] MEDS: ASPIRIN *EC* 81mg TABLET PO SCH (21:08)
[2016-11-18] MEDS: INSULIN GLARGINE 100 UNIT/ML SQ SCH (21:08)
[2016-11-18 21:12] VITALS: BP 134/67; PULSE 93; RESP 16; TEMP 97.6; O2SAT 100
--- NOTE | 2016-11-18 22:06 | PNPDOC ---
IRU Subjective Date DATE: 11/18/16 TIME: 22:03 Subjective Pt feels like he is gradually gaining strength. Working happily with PT nad OT. IRU Objective Vital Signs Vital signs Vital Signs Date Time Temp Pulse Resp B/P Pulse Ox O2 Delivery O2 Flow Rate FiO2 11/18/16 21:12 97.6 93 16 134/67 100 Room Air 11/14/16 15:53 2.00 Height (Feet): 6 Height (Inches): 0.00 Weight (Kilograms): 78.600 General General Appearance: Alert, Orientated x 2 Respiratory (Brief) Respiratory: FOUND: clear all miller, equal bilaterally Cardiovascular (Brief) Cardiac: FOUND: regular rate, regular rhythm Laboratory Laboratory Laboratory Tests Test 11/16/16 22:08 11/17/16 04:09 11/17/16 10:58 11/17/16 14:30 Glucometer 200mg/dL 136mg/dL 167mg/dL White Blood Count 8.5T/MM3 Red Blood Count 2.67M/MM3 Hemoglobin 7.7GM/DL Hematocrit 24.3% Mean Corpuscular Volume 91.0UM3 Mean Corpuscular Hemoglobin 28.8UUG Mean Corpuscular Hemoglobin Concent 31.7GM/DL RDW Standard Deviation 44.4FL Platelet Count 378T/MM3 Mean Platelet Volume 9.8UM3 Immature Granulocyte % (Auto) 0.2% Neutrophils (%) (Auto) 66.4% Lymphocytes (%) (Auto) 14.5% Monocytes (%) (Auto) 10.8% Eosinophils (%) (Auto) 7.6% Basophils (%) (Auto) 0.5% Absolute Immature Granulocyte (auto 0.02T/MM3 Absolute Neutrophils (auto) 5.7T/MM3 Absolute Lymphocytes (auto) 1.2T/MM3 Absolute Monocytes (auto) 0.9T/MM3 Absolute Eosinophils (auto) 0.7T/MM3 Absolute Basophils (auto) 0.0T/MM3 Prothromb Time International Ratio 2.62 Turbidity < 20 Sodium Level 141MEQ/L Potassium Level 3.7MEQ/L Chloride Level 108MEQ/L Carbon Dioxide Level 22MEQ/L Anion Gap 11MEQ/L Blood Urea Nitrogen 26.0MG/DL Creatinine 1.7MG/DL Glomerular Filtration Rate Calc 38 BUN/Creatinine Ratio 15RATIO Glucose Level 105MG/DL Calculated Osmolality 276MOSM/KG Calcium Level 8.8MG/DL Icterus Index < 2 Chemistry Specimen Hemolysis < 15 Test 11/17/16 19:34 11/18/16 04:08 11/18/16 05:03 11/18/16 10:22 Glucometer 210mg/dL 77mg/dL 160mg/dL Prothromb Time International Ratio 2.60 Test 11/18/16 14:37 11/18/16 19:57 Glucometer 191mg/dL 245mg/dL Assessment & Plan Problems: (1) Radiculopathy Status: Chronic Assessment & Plan: Pain continues to be an issue, but he is working through it with staff. Reeval PT and OT plan in am. (2) Neuropathy Status: Chronic Assessment & Plan: Diff with function of feet. Pt working on stairs. Feels improvement. PTand OT to recontinue tomorrrow in am. (3) Decubitus ulcer of heel, right, unstageable Assessment & Plan: wound care managing decub ulcer. (4) Type 2 diabetes mellitus Status: Chronic Assessment & Plan: managed by medical. (5) Myopathy Assessment I have independently evaluated and examined this patient. I reviewed the chart, the patient's history, and the HEALTHCARE ACCOUNT MANAGER's documented findings as above. We discussed and formulated the assessment and plan as above with additions as below: Mr. Hernandez reports he is doing well. He has minimal pain and feels his strength is improving but ambulation is limited to 60 feet and he doesn't feel "steady" yet. He developed a minor skin tear on his left elbow related to a transfer. Respirations are nonlabored with good airflow and clear breath sounds. Cardiac rhythm regular with soft systolic murmur present. Wound VAC right ankle, Cam [place] on. INR 2.6, relatively stable on 5 mg for several days. May be able to decrease frequency of testing to 3 days a week if no change in dose tomorrow. Check CRP with labs tomorrow. Continue Zosyn through 11/23 and then switch to Augmentin per Dr. Castorena recommendation for polymicrobial infection right Achilles. Ejection fraction 45%, chronic diastolic CHF. Code Status Full Code Interventions to Obtain Goals PT Treatment Plan: Therapeutic Exercise, Gait Training, Functional Activities , Patient/Family Education, Balance/Proprioception OT Treatment Plan: ADL's (basic care), Ther. Exercise for ADL's Hospital Course Summary Disclaimer The hospital course summary below is not to be considered part of the above Progress Note. Hospital Course Summary 11/14/16 Given continued decrease in Hgb and lower ext weakness patient has agreed to a blood transfusion today. Suspect he will benefit from transfusion and this will improve strength. BP this morning is low at 108/60. Lower extremity myalgias seems to be slightly better today. However, he continues to have stiffness in the bilateral knees, and quads. INR today remains subtherapeutic at 1.5. Continue with bridging of Lovenox until therapeutic Continue with wound Vac care as per wound team. [place] as needed for pain control. Continue with Zosyn IV for antimicrobial coverage as recommended by Dr Castorena. She recommends 2-3 more weeks of IV treatment which would be between November 26-, then followed by PO treatment. Will discuss further with Dr Castorena Will recheck CBC and BMP tomorrow morning to follow anemia, renal function and electrolytes. 11/16/16 Leukocytosis today - WBC increased to 13.6 - He continues on Zosyn per Dr. Castorena. He's been afebrile and other SIRS criteria have not been consistently noted. CRP has increased from last assessment. It was 119 on 11/06/16 and today it is 159.9. Anticipate discussion with Dr. Castorena today. Mild hypoglycemia this morning; fasting was 68. Review of blood sugars reveal no other episodes of hypoglycemia. Lantus HS dose reduced to 6U. INR up to 2.50 - DC Lovenox. Hgb stable at 7.8 s/p PRBC transfusion on 11/14 11/18 Reviewed labs from yesterday 11/17. Leukocytosis, resolved. Hemoglobin remains low, however stable at 7.7. Transfusion on 11/14. Continue to monitor Accu-Cheks, fasting sugar this morning 77. Continue Lantus 6 units at at at bedtime INR remains therapeutic at 2.6. Coumadin dosing managed by pharmacy Continue to encourage work with PT and OT for ongoing strengthening as he has had lower extremity weakness Will recheck CBC and BMP tomorrow. 11/19 to follow blood counts, renal function, electrolytes ADELINE MUÑIZ MD November 18, 2016 22:06
[2016-11-19] MEDS: PIPERACILLIN/TAZOBACTAM 2.25 G in NORMAL SALINE 100 ML IV SCH ×5 (00:12→23:52)
[2016-11-19 04:24] LABS: BASOPHILS # (AUTO) 0.1 T/MM3 (0-0.2); BASOPHILS % (AUTO) 0.7 % (0-2); EOSINOPHILS # (AUTO) 0.7 T/MM3 (0-0.5); EOSINOPHILS % (AUTO) 9.7 % (0-4); HCT - HEMATOCRIT 24.2 % (41-53); HGB - HEMOGLOBIN 7.8 GM/DL (13.5-17.5); IMMATURE GRANULOCYTE # (AUTO) 0.03 T/MM3 (0.00-0.03); IMMATURE GRANULOCYTE % (AUTO) 0.4 % (0.0-0.5); LYMPHOCYTES # (AUTO) 1.2 T/MM3 (1-4.8); LYMPHOCYTES % (AUTO) 16.2 % (23-45); MEAN CORPUSCULAR HGB 28.8 UUG (26-34); MEAN CORPUSCULAR HGB CONC(MCHC 32.2 GM/DL (31-37); MEAN CORPUSCULAR VOLUME 89.3 UM3 (80-100); MEAN PLATELET VOLUME 9.8 UM3 (9.4-12.4); MONOCYTES # (AUTO) 0.8 T/MM3 (0-0.8); MONOCYTES % (AUTO) 10.3 % (0-9.0); NEUTROPHILS #(AUTO)-ABSOLUTE 4.7 T/MM3 (1.8-7.7); NEUTROPHILS % (AUTO) 62.7 % (33-66); RED BLOOD COUNT 2.71 M/MM3 (4.50-5.90); WBC - WHITE BLOOD COUNT 7.4 T/MM3 (4.5-11.0)
[2016-11-19 04:26] LABS: INR 2.57 (0.76-1.04)
[2016-11-19 04:36] LABS: ANION GAP 9 MEQ/L (5-15); BUN/CREATININE RATIO 16 RATIO (6-26); CALCIUM 8.6 MG/DL (8.4-10.2); CHLORIDE 109 MEQ/L (98-107); CO2 - CARBON DIOXIDE 24 MEQ/L (22-30); CREATININE 1.6 MG/DL (0.8-1.5); GLOMERULAR FILTRATION RATE 41; GLUCOSE 85 MG/DL (75-110); POTASSIUM 3.9 MEQ/L (3.6-5); SODIUM 142 MEQ/L (134-144)
[2016-11-19] MEDS: NORMAL SALINE 500 ML IV SCH (05:55)
[2016-11-19] MEDS: OMEPRAZOLE 20 MG CAPSULE PO SCH (05:59)
[2016-11-19 08:00] VITALS: BP 132/54; PULSE 81; RESP 16; TEMP 98.2; O2SAT 96
[2016-11-19 08:30] VITALS: PULSE 81; RESP 16
[2016-11-19] MEDS: CARVEDILOL 25 MG TABLET PO SCH ×2 (09:00→17:34)
[2016-11-19] MEDS: FUROSEMIDE 20 MG TABLET PO SCH (09:00)
[2016-11-19] MEDS: LINAGLIPTIN 5 MG TABLET PO SCH (09:00)
[2016-11-19] MEDS: FOLIC ACID 1 MG TABLET PO SCH (09:00)
[2016-11-19] MEDS: DOCUSATE SODIUM 100 MG CAPSULE PO SCH ×2 (09:00→21:00)
[2016-11-19] MEDS: CYANOCOBALAMIN (B-12) 500mcg TABLET PO SCH (09:00)
--- NOTE | 2016-11-19 09:05 | PNPDOC ---
Subjective Date DATE: 11/19/16 TIME: 09:00 Subjective He was seen at the breakfast table. He denies any problems. No fevers, chills , nausea, vomiting, diarrhea or itching. States he is eager to go home. Wound VAC change planned today. Objective Vital Signs: RN Vital Signs have been reviewed: Yes, Temperature: 98.2, Heart Rate: 81, Respiratory Rate: 16, BP: 132/54, Pulse Oximetry: 96 Height (Feet): 6 Height (Inches): 0.00 General: FOUND: Alert, NOT FOUND: Acute Distress Skin: NOT FOUND: Rash HEENT: FOUND NC/AT Neck: NOT FOUND: Meningismus Cardiac: FOUND: Regular Rate/Rhythm, NOT FOUND: Murmur Lungs: FOUND: Clear to Auscultation, Symmetrical Expansion, NOT FOUND: Respiratory Distress Abdomen: FOUND: Non-tender, Soft Extremities: NOT FOUND Edema (Bilateral Lower Extremitites) Neurological: FOUND A/A/A, NOT FOUND Focal Deficits Psychological: FOUND Intact and Appropriate Wound R posterior heel with VAC on Antbiotics Zosyn Laboratory Laboratory Tests 11/19/16 04:01 Laboratory Tests 11/19/16 04:01 Cultures outpatient wound cultures with Enterobacter cloacae, Enterococcus faecalis, strep mitis and an anaerobe. Reviewed: Medications, Consult/Progress Notes Assessment & Plan Assessment IMPRESSION 1. Wound infection right posterior heel area with necrosis of the Achilles tendon, status post debridement on November 09, 2016, outpatient wound cultures with Enterobacter cloacae , Enterococcus faecalis, strep mitis and an anaerobe. 2. Diabetes mellitus type 2, insulin-requiring. 3. History of right lower extremity DVT. 4. Chronic systolic congestive heart failure. 5. Status post pacemaker placement. 6. Coronary artery disease. 7. Hereditary spherocytosis. 8. Chronic kidney disease. 9. Status post open reduction internal fixation of the right femur. Plan/Intensity of Service PLAN/RECOMMENDATIONS I would recommend continue with the Zosyn for at least two weeks after debridement procedure on November 09 so this would go through November 23. After that , I would anticipate changing him to oral antibiotics such as Augmentin. However, if he continues to have exposed tendon, then I would continue the IV antibiotics. I would recommend continuing to monitor a CBC and CMP at least on a weekly basis. If he will be discharged home and still has exposed tendon, the Zosyn could be changed to Invanz 1 gm IV daily. KOKO MYLES MD November 19, 2016 09:04
--- NOTE | 2016-11-19 11:51 | PNPDOC ---
IRU Subjective Date DATE: 11/19/16 TIME: 11:48 Subjective Pt working with PT today . He is having some pain with walking and some stiffness in knee. Cont to push to increase his distance walked. IRU Objective Vital Signs Vital signs Vital Signs Date Time Temp Pulse Resp B/P Pulse Ox O2 Delivery O2 Flow Rate FiO2 11/19/16 09:05 81 16 96 11/19/16 08:00 98.2 132/54 Room Air Height (Feet): 6 Height (Inches): 0.00 Weight (Kilograms): 78.600 General General Appearance: Alert, Orientated x 3 Respiratory (Brief) Respiratory: FOUND: clear all miller, equal bilaterally Cardiovascular (Brief) Cardiac: FOUND: regular rate, regular rhythm Laboratory Laboratory Laboratory Tests Test 11/17/16 14:30 11/17/16 19:34 11/18/16 04:08 11/18/16 05:03 Glucometer 167mg/dL 210mg/dL 77mg/dL Prothromb Time International Ratio 2.60 Test 11/18/16 10:22 11/18/16 14:37 11/18/16 19:57 11/19/16 04:01 Glucometer 160mg/dL 191mg/dL 245mg/dL White Blood Count 7.4T/MM3 Red Blood Count 2.71M/MM3 Hemoglobin 7.8GM/DL Hematocrit 24.2% Mean Corpuscular Volume 89.3UM3 Mean Corpuscular Hemoglobin 28.8UUG Mean Corpuscular Hemoglobin Concent 32.2GM/DL RDW Standard Deviation 44.0FL Platelet Count 390T/MM3 Mean Platelet Volume 9.8UM3 Immature Granulocyte % (Auto) 0.4% Neutrophils (%) (Auto) 62.7% Lymphocytes (%) (Auto) 16.2% Monocytes (%) (Auto) 10.3% Eosinophils (%) (Auto) 9.7% Basophils (%) (Auto) 0.7% Absolute Immature Granulocyte (auto 0.03T/MM3 Absolute Neutrophils (auto) 4.7T/MM3 Absolute Lymphocytes (auto) 1.2T/MM3 Absolute Monocytes (auto) 0.8T/MM3 Absolute Eosinophils (auto) 0.7T/MM3 Absolute Basophils (auto) 0.1T/MM3 Prothromb Time International Ratio 2.57 Turbidity < 20 Sodium Level 142MEQ/L Potassium Level 3.9MEQ/L Chloride Level 109MEQ/L Carbon Dioxide Level 24MEQ/L Anion Gap 9MEQ/L Blood Urea Nitrogen 25.0MG/DL Creatinine 1.6MG/DL Glomerular Filtration Rate Calc 41 BUN/Creatinine Ratio 16RATIO Glucose Level 85MG/DL Calculated Osmolality 276MOSM/KG Calcium Level 8.6MG/DL Icterus Index < 2 C-Reactive Protein 44.0MG/L Chemistry Specimen Hemolysis < 15 Test 11/19/16 06:01 11/19/16 10:35 Glucometer 86mg/dL 114mg/dL Assessment & Plan Problems: (1) Radiculopathy Status: Chronic Assessment & Plan: Pain managed and patient is improving strength. (2) Neuropathy Status: Chronic Assessment & Plan: Continues to have numbness, but is pushing with therapy. (3) Decubitus ulcer of heel, right, unstageable (4) Type 2 diabetes mellitus Status: Chronic Assessment & Plan: managed by medical. (5) Myopathy Assessment & Plan: PT and OT working with pt. Cont with plan of care. Team meeting on Saturday. Assessment I have independently evaluated and examined this patient. I reviewed the chart, the patient's history, and the [employer] TECHNICIAN's documented findings as above. We discussed and formulated the assessment and plan as above with additions as below: Mr. Hernandez reports he is doing well. He has minimal pain and feels his strength is improving but ambulation is limited to 60 feet and he doesn't feel "steady" yet. He developed a minor skin tear on his left elbow related to a transfer. Respirations are nonlabored with good airflow and clear breath sounds. Cardiac rhythm regular with soft systolic murmur present. Wound VAC right ankle, Cam Walker on. INR 2.6, relatively stable on 5 mg for several days. May be able to decrease frequency of testing to 3 days a week if no change in dose tomorrow. Check CRP with labs tomorrow. Continue Zosyn through 11/23 and then switch to Augmentin per Dr. Castorena recommendation for polymicrobial infection right Achilles. Ejection fraction 45%, chronic diastolic CHF. Code Status Full Code Interventions to Obtain Goals PT Treatment Plan: Therapeutic Exercise, Gait Training, Functional Activities , Patient/Family Education, Balance/Proprioception OT Treatment Plan: ADL's (basic care), Ther. Exercise for ADL's Hospital Course Summary Disclaimer The hospital course summary below is not to be considered part of the above Progress Note. Hospital Course Summary 11/14/16 Given continued decrease in Hgb and lower ext weakness patient has agreed to a blood transfusion today. Suspect he will benefit from transfusion and this will improve strength. BP this morning is low at 108/60. Lower extremity myalgias seems to be slightly better today. However, he continues to have stiffness in the bilateral knees, and quads. INR today remains subtherapeutic at 1.5. Continue with bridging of Lovenox until therapeutic Continue with wound Vac care as per wound team. [place] as needed for pain control. Continue with Zosyn IV for antimicrobial coverage as recommended by Dr Castorena. She recommends 2-3 more weeks of IV treatment which would be between November 26-, then followed by PO treatment. Will discuss further with Dr Castorena Will recheck CBC and BMP tomorrow morning to follow anemia, renal function and electrolytes. 11/16/16 Leukocytosis today - WBC increased to 13.6 - He continues on Zosyn per Dr. Castorena. He's been afebrile and other SIRS criteria have not been consistently noted. CRP has increased from last assessment. It was 119 on 11/06/16 and today it is 159.9. Anticipate discussion with Dr. Castorena today. Mild hypoglycemia this morning; fasting was 68. Review of blood sugars reveal no other episodes of hypoglycemia. Lantus HS dose reduced to 6U. INR up to 2.50 - DC Lovenox. Hgb stable at 7.8 s/p PRBC transfusion on 11/14 11/18 Reviewed labs from yesterday 11/17. Leukocytosis, resolved. Hemoglobin remains low, however stable at 7.7. Transfusion on 11/14. Continue to monitor Accu-Cheks, fasting sugar this morning 77. Continue Lantus 6 units at at at bedtime INR remains therapeutic at 2.6. Coumadin dosing managed by pharmacy Continue to encourage work with PT and OT for ongoing strengthening as he has had lower extremity weakness Will recheck CBC and BMP tomorrow. 11/19 to follow blood counts, renal function, electrolytes ADELINE MUÑIZ MD November 19, 2016 11:51
[2016-11-19] MEDS: WARFARIN 5 MG TABLET PO SCH (12:25)
[2016-11-19 16:11] VITALS: BP 135/67; PULSE 77; RESP 18; TEMP 97.6; O2SAT 100
--- NOTE | 2016-11-19 17:01 | PDWOUND ---
Wound Documentation Wound Management Wound : Location Modifier: Right Wound Location: Other (Anterior Tibia ) Wound Type: Stasis Ulcer Wound Dressing Frequency: two times per week Wound Dressing Status: FOUND: Changed Wound Drainage Amount: Moderate Wound Drainage Description: Serosanguineous Wound General Appearance: FOUND Draining, FOUND Well Approximated Wound Bed: gran red, slough Periwound Description: Indurated, Other (Denuded) Wound Length (cm): 2.5 Wound Width (cm): 1.8 Wound Depth (cm): 0.1 Exposed: subtissue Wound Cleanser: soap and water Wound Primary Dressing Type: Mepilex, Hydrofera Blue, Bogdan Wraps Wound Documentation Wound Management Wound : Location Modifier: Right Wound Location: Other (Achilles) Wound Type: Stasis Ulcer Wound Dressing Frequency: two times per week Wound Dressing Status: FOUND: Changed Wound Drainage Amount: Moderate Wound Drainage Description: Serosanguineous Wound General Appearance: FOUND Draining, FOUND Well Approximated Wound Bed: gran red, slough Periwound Description: Indurated, Other (Denuded) Wound Length (cm): 4.5 Wound Width (cm): 3 Wound Depth (cm): 0.3 Exposed: subtissue, tendon Wound Cleanser: soap and water Wound Packing Type: FOUND: Black Foam Wound Primary Dressing Type: Bogdan Wraps GAIL ALONSO RN November 19, 2016 17:00
[2016-11-19 20:00] VITALS: BP 129/63; PULSE 61; RESP 16; TEMP 97.3; O2SAT 99
[2016-11-19] MEDS: INSULIN GLARGINE 100 UNIT/ML SQ SCH (21:40)
[2016-11-19] MEDS: TAMSULOSIN 0.4 MG CAPSULE PO SCH (21:41)
[2016-11-19] MEDS: ASPIRIN *EC* 81mg TABLET PO SCH (21:45)
[2016-11-20] MEDS: OMEPRAZOLE 20 MG CAPSULE PO SCH (05:46)
[2016-11-20] MEDS: PIPERACILLIN/TAZOBACTAM 2.25 G in NORMAL SALINE 100 ML IV SCH ×3 (05:47→17:45)
[2016-11-20 08:00] VITALS: BP 159/71; PULSE 76; RESP 12; TEMP 98.1; O2SAT 98
[2016-11-20 08:30] VITALS: PULSE 76; RESP 12
[2016-11-20] MEDS: LINAGLIPTIN 5 MG TABLET PO SCH (08:44)
[2016-11-20] MEDS: FUROSEMIDE 20 MG TABLET PO SCH (08:44)
[2016-11-20] MEDS: CARVEDILOL 25 MG TABLET PO SCH ×2 (08:44→17:45)
[2016-11-20] MEDS: FOLIC ACID 1 MG TABLET PO SCH (08:44)
[2016-11-20] MEDS: CYANOCOBALAMIN (B-12) 500mcg TABLET PO SCH (08:44)
[2016-11-20] MEDS: DOCUSATE SODIUM 100 MG CAPSULE PO SCH ×2 (08:45→20:53)
--- NOTE | 2016-11-20 11:11 | PNPDOC ---
MIMI CONNOR ADMITTING OFFICER 11/20/16 1109: Subjective Date DATE: 11/20/16 TIME: 11:01 Subjective Tim was seen while working with therapy - his knee extension has improved. He denies any pain in his foot/achilles. No weakness/dizziness or SOA. No abdominal pain or GI complaints. He feels like his strength is slowly improving. Objective Vital Signs Vital signs Vital Signs Date Time Temp Pulse Resp B/P Pulse Ox O2 Delivery O2 Flow Rate FiO2 11/20/16 08:30 76 12 11/20/16 08:00 98.1 159/71 98 Room Air Height (Feet): 6 Height (Inches): 0.00 Weight (Kilograms): 79.600 General General Appearance: Alert, Orientated x 3, Well Nourished, Well Developed, No Acute Distress Eyes (Brief) Eyes: FOUND: PERRL, NOT FOUND: scleral icterus ENMT (Brief) ENMT: FOUND: mucosa moist, NOT FOUND: pharnyx erythema Respiratory (Brief) Respiratory: FOUND: clear all miller, equal bilaterally Cardiovascular (Brief) Cardiac: FOUND: regular rate, regular rhythm Abdomen (Brief) Abdominal: FOUND: BS normo active x4, soft, NOT FOUND: distended, tender Extremities (Brief) Extremity : Extremity Finding: NOT FOUND: edema Musculoskeletal (Brief) Comments wound vac to right ankle, cam walker on Integumentary (Brief) Integumentary: FOUND: dry, warm Psychiatric (Brief) Psychiatric: FOUND: alert, attentive, normal affect, oriented Laboratory Laboratory Laboratory Tests 11/19/16 04:01 Laboratory Tests 11/19/16 04:01 Assessment & Plan Problems: (1) Diabetes with ulcer of lower extremity Status: Acute Assessment & Plan: Right lower extremity wound, wound VAC intact (2) Anemia Status: Chronic (3) CAD (coronary artery disease) Status: Chronic (4) Diabetes mellitus Status: Chronic (5) CHF (congestive heart failure) Status: Chronic Assessment & Plan: Ejection fraction 45%, chronic diastolic CHF. (6) CAD (coronary artery disease) Status: Chronic (7) HTN (hypertension) Status: Chronic (8) Dyslipidemia Status: Chronic (9) CKD (chronic kidney disease), stage III Status: Chronic (10) Peripheral vascular disease Status: Chronic (11) HS (hereditary spherocytosis) Status: Chronic (12) Anticoagulated Status: Chronic Assessment & Plan: Chronically anticoagulated on Coumadin (13) Myalgia Plan/Intensity of Service Dr. Castorena recommends Zosyn through November 23, at which time can change to Augmentin if wound infection has healed up appropriately. If tendon is still exposed, she recommends Invanz so he could go home with a once-daily dose. Labs were done yesterday - Cr improved slightly 1.6 Blood sugars improving - has been elevated >200 after supper but this was better last night. Continue to monitor at current doses. Anemia stable with hgb of 7.8 - asymptomatic. INR therapeutic. DVT Prophylaxis: Coumadin Code Status Full Code Hospital Course Summary Disclaimer The hospital course summary below is not to be considered part of the above Progress Note. Hospital Course Summary 11/14/16 Given continued decrease in Hgb and lower ext weakness patient has agreed to a blood transfusion today. Suspect he will benefit from transfusion and this will improve strength. BP this morning is low at 108/60. Lower extremity myalgias seems to be slightly better today. However, he continues to have stiffness in the bilateral knees, and quads. INR today remains subtherapeutic at 1.5. Continue with bridging of Lovenox until therapeutic Continue with wound Vac care as per wound team. [place] as needed for pain control. Continue with Zosyn IV for antimicrobial coverage as recommended by Dr Castorena. She recommends 2-3 more weeks of IV treatment which would be between November 26-, then followed by PO treatment. Will discuss further with Dr Castorena Will recheck CBC and BMP tomorrow morning to follow anemia, renal function and electrolytes. 11/16/16 Leukocytosis today - WBC increased to 13.6 - He continues on Zosyn per Dr. Castorena. He's been afebrile and other SIRS criteria have not been consistently noted. CRP has increased from last assessment. It was 119 on 11/06/16 and today it is 159.9. Anticipate discussion with Dr. Castorena today. Mild hypoglycemia this morning; fasting was 68. Review of blood sugars reveal no other episodes of hypoglycemia. Lantus HS dose reduced to 6U. INR up to 2.50 - DC Lovenox. Hgb stable at 7.8 s/p PRBC transfusion on 11/14 11/18 Reviewed labs from yesterday 11/17. Leukocytosis, resolved. Hemoglobin remains low, however stable at 7.7. Transfusion on 11/14. Continue to monitor Accu-Cheks, fasting sugar this morning 77. Continue Lantus 6 units at at at bedtime INR remains therapeutic at 2.6. Coumadin dosing managed by pharmacy Continue to encourage work with PT and OT for ongoing strengthening as he has had lower extremity weakness Will recheck CBC and BMP tomorrow. 11/19 to follow blood counts, renal function, electrolytes 11/20/16 Dr. Castorena recommends Zosyn through November 23, at which time can change to Augmentin if wound infection has healed up appropriately. If tendon is still exposed, she recommends Invanz so he could go home with a once-daily dose. Labs were done yesterday - Cr improved slightly 1.6 Blood sugars improving - has been elevated >200 after supper but this was better last night. Continue to monitor at current doses. Anemia stable with hgb of 7.8 - asymptomatic. INR therapeutic. YESSI KAUFMAN MD 11/20/16 1638: Assessment & Plan Plan/Intensity of Service Have independently interviewed and examined pt. Chart reviewed. Case discussed with my ADMITTING OFFICER. Above care plan developed with my supervision; agree with above. Doing okay. Hard to get around due to wound on right leg and left knee acting up (stiff, sore, and weak due to OA). Breathing well. No chest pain. Eating well. Stools regular. Lungs: clear bilaterally CV: regular AB: soft nt/nd MSE: awake alert appropriate. Plan: Continue Antibiotics and wound vac. Encourage therapy. Continue current medications. Monitor INR. MIMI CONNOR APRN November 20, 2016 11:09 YESSI KAUFMAN MD November 20, 2016 16:38
[2016-11-20] MEDS: WARFARIN 5 MG TABLET PO SCH (12:13)
--- NOTE | 2016-11-20 15:52 | PDIRUTEAM ---
Multidisciplinary Team Meeting Nursing Hx Incontinence: No Bladder Goal: 6 Modified [place] Castellanos Y/N: No Bladder Continent or Incontine: Continent Incontinent Product Used: Pull-up Number of Times Incontinent of: 0 Cleaning Ability-Bladder: 5 Supervision/Setup Bowel Goal: 6 Modified [place] Colostomy Y/N: No Bowel Incontinent/Continent: Continent Bowel Number of Accidents: 0 Number of times Incontinent of: 0 Cleaning Ability-Bowel: 5 Supervision/Setup Toileting Ability: 4 Minimal Assistance Vital Signs Vital Signs Date Time Temp Pulse Resp B/P Pulse Ox O2 Delivery O2 Flow Rate FiO2 11/20/16 08:30 76 12 11/20/16 08:00 98.1 159/71 98 Room Air Current Medications Current Medications Medications (Trade) Dose Ordered Sig/Antoine Route PRN Reason Start Time Stop Time Status Last Admin Dose Admin Docusate Sodium (Colace) 100 mg BID PO 11/12/16 21:00 11/17/16 21:29 Aspirin (Ecotrin) 81 mg HS PO 11/12/16 22:00 11/19/16 21:45 Carvedilol (Coreg) 25 mg BIDWM PO 11/12/16 17:30 11/20/16 08:44 Enoxaparin Sodium (Lovenox) 40 mg DAILY SQ 11/13/16 09:00 11/16/16 09:02 DC 11/16/16 08:51 Furosemide (Lasix) 20 mg DAILY PO 11/13/16 09:00 11/20/16 08:44 Linagliptin (Tradjenta) 5 mg DAILY PO 11/13/16 09:00 11/20/16 08:44 Omeprazole (Prilosec) 20 mg ACB PO 11/13/16 06:30 11/20/16 05:46 Tamsulosin HCl (FLOMAX 0.4 mg) 0.4 mg HS PO 11/12/16 22:00 11/19/16 21:41 Cyanocobalamin (Vit. B-12) 1,000 mcg DAILY PO 11/13/16 09:00 11/20/16 08:44 Insulin Glargine 8 unit 8 unit HS SQ 11/12/16 22:00 11/16/16 07:56 DC 11/15/16 21:35 Piperacillin Sod/ Tazobactam Sod/ Sodium Chloride (Zosyn/NS) 100 ml @ 200 mls/hr Q6H IV 11/12/16 18:00 11/20/16 12:13 Acetaminophen (Tylenol Regular Strength) per prn orders Q3H PRN PO PAIN 11/13/16 09:15 11/15/16 01:11 Acetaminophen/ Hydrocodone Bitart ([place] 5/325) 1 tab Q4H PRN PO PAIN 11/13/16 10:15 11/13/16 10:35 Warfarin Sodium 7.5 mg 7.5 mg NOON PO 11/14/16 12:00 11/14/16 12:30 DC 11/14/16 12:31 Sodium Chloride (NS) 500 ml @ 0 mls/hr Q0M IV 11/14/16 10:51 11/19/16 05:55 Warfarin Sodium (COUMADIN 6 mg) 6 mg NOON PO 11/15/16 12:00 11/15/16 12:30 DC 11/15/16 12:29 Folic Acid (Folate) 1 mg DAILY PO 11/15/16 10:15 11/20/16 08:44 Insulin Glargine (Lantus) 6 unit HS SQ 11/16/16 22:00 11/19/16 21:40 Warfarin Sodium (COUMADIN 5 mg) 5 mg NOON PO 11/16/16 12:00 11/16/16 12:01 DC 11/16/16 12:14 Warfarin Sodium (COUMADIN 5 mg) 5 mg NOON PO 11/17/16 12:00 11/17/16 12:15 DC 11/17/16 12:11 Warfarin Sodium (COUMADIN 5 mg) 5 mg NOON PO 11/18/16 12:00 11/18/16 12:15 DC 11/18/16 11:01 Warfarin Sodium (COUMADIN 5 mg) 5 mg NOON PO 11/19/16 12:00 11/20/16 12:13 Comments wound vac to foot, minimal pain. Did well with slideboard. Hgb stable, on ivabx. Physical Therapy Bed Transfer Ability: 5 Supervision/Setup Bed Transfer Assistance Needed: 1 Person Bed FIM Score Reason: slide board Chair Transfer Ability: 3 Moderate Assistance Chair Transfer Assistance Need: 1 Person Overall Wheelchair Transfer Ab: 3 Moderate Assistance Wheelchair Transfer Assistance: 1 Person Wheelchair Transfer FIM Score: slide board, help to position and keep steady Overall Toilet / Commode Trans: 3 Moderate Assistance Ambulation Ability: 2 Maximum Assistance Ambulation Assistance Needed: 1 Person Walk FIM Score Reason: Pt performed gait training with SBA but is limited to < 150 ft. Ambulation Distance: 54 Comments would probably do best in wheelchair. Occupational Therapy Grooming Ability: 5 Supervision/Setup Grooming FIM Score Reason: w/c level Bathing Ability: 5 Supervision/Setup Upper Body Dressing Ability: 5 Supervision/Setup Dressing-Upper FIM Score Reaso: w/c level Lower Body Dressing Ability: 5 Supervision/Setup Lower Body Dressing Assistance: 1 Person Dressing-Lower FIM Score Reaso: w/c level Toileting Assistance Needed: 1 Person Toileting FIM Score Reason: urine only with urinal Comments Standing min to mod assist. Care Plan Condition at time of discharge: Fair IRU Discharge Disposition: Home Health Service Interventions/Goals At this point recommending home assessment to check fit of wheelchair vs transport chair. Will need mobility assist of some sort. Judgement of ability is exagerated and he is worried about his having to do care by herself. Barriers to d/c: safety,weakness,judgement, wound care, equipment, family training ADELINE MUÑIZ MD November 20, 2016 15:47
[2016-11-20 16:00] VITALS: BP 137/64; PULSE 73; RESP 16; TEMP 97.7; O2SAT 100
[2016-11-20 20:32] VITALS: PULSE 76; RESP 18
[2016-11-20 20:39] VITALS: BP 141/69; PULSE 76; RESP 18; TEMP 98.1; O2SAT 97
[2016-11-20] MEDS: TAMSULOSIN 0.4 MG CAPSULE PO SCH (20:54)
[2016-11-20] MEDS: ASPIRIN *EC* 81mg TABLET PO SCH (20:54)
[2016-11-20] MEDS: INSULIN GLARGINE 100 UNIT/ML SQ SCH (20:55)
[2016-11-21] MEDS: PIPERACILLIN/TAZOBACTAM 2.25 G in NORMAL SALINE 100 ML IV SCH ×5 (00:10→23:45)
[2016-11-21] MEDS: OMEPRAZOLE 20 MG CAPSULE PO SCH (06:16)
[2016-11-21 07:35] VITALS: BP 132/68; PULSE 79; RESP 16; TEMP 98.4; O2SAT 100
[2016-11-21] MEDS: CARVEDILOL 25 MG TABLET PO SCH ×2 (08:19→17:45)
[2016-11-21] MEDS: CYANOCOBALAMIN (B-12) 500mcg TABLET PO SCH (08:19)
[2016-11-21] MEDS: FUROSEMIDE 20 MG TABLET PO SCH (08:19)
[2016-11-21] MEDS: DOCUSATE SODIUM 100 MG CAPSULE PO SCH ×2 (08:19→21:00)
[2016-11-21] MEDS: FOLIC ACID 1 MG TABLET PO SCH (08:19)
[2016-11-21] MEDS: LINAGLIPTIN 5 MG TABLET PO SCH (08:19)
[2016-11-21] MEDS: WARFARIN 5 MG TABLET PO SCH (12:22)
[2016-11-21 16:01] VITALS: BP 140/69; PULSE 72; RESP 20; TEMP 97.6; O2SAT 97
[2016-11-21 19:31] VITALS: BP 130/70; PULSE 74; RESP 18; TEMP 97.6; O2SAT 100
[2016-11-21 20:09] VITALS: PULSE 74; RESP 18
[2016-11-21] MEDS: TAMSULOSIN 0.4 MG CAPSULE PO SCH (21:42)
[2016-11-21] MEDS: ASPIRIN *EC* 81mg TABLET PO SCH (21:43)
[2016-11-21] MEDS: INSULIN GLARGINE 100 UNIT/ML SQ SCH (21:43)
[2016-11-22] MEDS: PIPERACILLIN/TAZOBACTAM 2.25 G in NORMAL SALINE 100 ML IV SCH ×3 (05:30→17:38)
[2016-11-22] MEDS: OMEPRAZOLE 20 MG CAPSULE PO SCH (05:31)
[2016-11-22 05:40] LABS: INR 2.19 (0.77-1.03); PROTHROMBIN TIME 23.9 SEC (9.48-12.52)
[2016-11-22 07:30] VITALS: BP 142/67; PULSE 81; RESP 18; TEMP 98.8; O2SAT 97
[2016-11-22] MEDS: FOLIC ACID 1 MG TABLET PO SCH (08:21)
[2016-11-22] MEDS: CARVEDILOL 25 MG TABLET PO SCH ×2 (08:21→17:38)
[2016-11-22] MEDS: DOCUSATE SODIUM 100 MG CAPSULE PO SCH ×2 (08:21→20:59)
[2016-11-22] MEDS: CYANOCOBALAMIN (B-12) 500mcg TABLET PO SCH (08:21)
[2016-11-22] MEDS: LINAGLIPTIN 5 MG TABLET PO SCH (08:21)
[2016-11-22] MEDS: FUROSEMIDE 20 MG TABLET PO SCH (08:21)
[2016-11-22] MEDS: WARFARIN 5 MG TABLET PO SCH (12:23)
--- NOTE | 2016-11-22 15:32 | PNPDOC ---
PHOEBE MORALES V FLAME HARDENING MACHINE SETTER 11/22/16 1531: Subjective Date DATE: 11/22/16 TIME: 15:27 Subjective Tim is seen today in follow up while he is working with PT on the stairs. He reports having a challenge with using the stairs. He does have some bilateral knee discomfort at times that resolves with rest. Eyes denies having any pain or shortness of breath. Bowels are moving regularly and diet is good. Wound VAC remains intact. Blood pressure this morning 142/67. Objective Vital Signs Vital signs Vital Signs Date Time Temp Pulse Resp B/P Pulse Ox O2 Delivery O2 Flow Rate FiO2 11/22/16 07:30 98.8 81 18 142/67 97 Room Air Height (Feet): 6 Height (Inches): 0.00 Weight (Kilograms): 79.600 General General Appearance: Alert, Orientated x 3, Cooperative, No Acute Distress Eyes (Brief) Eyes: FOUND: EOMI ENMT (Brief) ENMT: FOUND: mucosa moist, normal dentition, NOT FOUND: pharnyx erythema Neck (Brief) Neck: FOUND: midline, NOT FOUND: adenopathy, carotid bruits, tracheal deviation Respiratory (Brief) Respiratory: FOUND: clear all miller, equal bilaterally, NOT FOUND: wheezes Cardiovascular (Brief) Cardiac: FOUND: regular rate, regular rhythm, NOT FOUND: murmur, pedal edema Capillary Refill: <2 sec Abdomen (Brief) Abdominal: FOUND: BS normo active x4, soft, NOT FOUND: distended, tender Lymphatic (Brief) Lymphatic: NOT FOUND: adenopathy Musculoskeletal (Brief) Comments Wound VAC and Cam Walker to right lower extremity. Integumentary (Brief) Integumentary: FOUND: dry, pink, warm Neurologic (Brief) Neurological: FOUND: cranial 2-12 intact Psychiatric (Brief) Psychiatric: FOUND: alert, attentive, normal affect, oriented Assessment & Plan Problems: (1) Diabetes with ulcer of lower extremity Status: Acute Assessment & Plan: Right lower extremity wound, wound VAC intact (2) Anemia Status: Chronic (3) CAD (coronary artery disease) Status: Chronic (4) Diabetes mellitus Status: Chronic (5) CHF (congestive heart failure) Status: Chronic Assessment & Plan: Ejection fraction 45%, chronic diastolic CHF. (6) CAD (coronary artery disease) Status: Chronic (7) HTN (hypertension) Status: Chronic (8) Dyslipidemia Status: Chronic (9) CKD (chronic kidney disease), stage III Status: Chronic (10) Peripheral vascular disease Status: Chronic (11) HS (hereditary spherocytosis) Status: Chronic (12) Anticoagulated Status: Chronic Assessment & Plan: Chronically anticoagulated on Coumadin (13) Myalgia Plan/Intensity of Service 11/22/16 Tim is doing good and continues to work hard with PT. He is working on stairs as he needs to go up 2 stairs to get in his home Continue with wound care and wound VAC to right lower extremity Monitor Accu-Cheks, fasting sugar this morning was 90. Continue with Lantus 6 units at at bedtime and Tradjenta. Continue on Zosyn for antimicrobial coverage. INR therapeutic at 2.19. Hemoglobin is stable at 7.8. Code Status Full Code Hospital Course Summary Disclaimer The hospital course summary below is not to be considered part of the above Progress Note. Hospital Course Summary 11/14/16 Given continued decrease in Hgb and lower ext weakness patient has agreed to a blood transfusion today. Suspect he will benefit from transfusion and this will improve strength. BP this morning is low at 108/60. Lower extremity myalgias seems to be slightly better today. However, he continues to have stiffness in the bilateral knees, and quads. INR today remains subtherapeutic at 1.5. Continue with bridging of Lovenox until therapeutic Continue with wound Vac care as per wound team. [place] as needed for pain control. Continue with Zosyn IV for antimicrobial coverage as recommended by Dr Castorena. She recommends 2-3 more weeks of IV treatment which would be between November 26-, then followed by PO treatment. Will discuss further with Dr Castorena Will recheck CBC and BMP tomorrow morning to follow anemia, renal function and electrolytes. 11/16/16 Leukocytosis today - WBC increased to 13.6 - He continues on Zosyn per Dr. Castorena. He's been afebrile and other SIRS criteria have not been consistently noted. CRP has increased from last assessment. It was 119 on 11/06/16 and today it is 159.9. Anticipate discussion with Dr. Castorena today. Mild hypoglycemia this morning; fasting was 68. Review of blood sugars reveal no other episodes of hypoglycemia. Lantus HS dose reduced to 6U. INR up to 2.50 - DC Lovenox. Hgb stable at 7.8 s/p PRBC transfusion on 11/14 11/18 Reviewed labs from yesterday 11/17. Leukocytosis, resolved. Hemoglobin remains low, however stable at 7.7. Transfusion on 11/14. Continue to monitor Accu-Cheks, fasting sugar this morning 77. Continue Lantus 6 units at at at bedtime INR remains therapeutic at 2.6. Coumadin dosing managed by pharmacy Continue to encourage work with PT and OT for ongoing strengthening as he has had lower extremity weakness Will recheck CBC and BMP tomorrow. 11/19 to follow blood counts, renal function, electrolytes 11/20/16 Dr. Castorena recommends Zosyn through November 23, at which time can change to Augmentin if wound infection has healed up appropriately. If tendon is still exposed, she recommends Invanz so he could go home with a once-daily dose. Labs were done yesterday - Cr improved slightly 1.6 Blood sugars improving - has been elevated >200 after supper but this was better last night. Continue to monitor at current doses. Anemia stable with hgb of 7.8 - asymptomatic. INR therapeutic. 11/22/16 Tim is doing good and continues to work hard with PT. He is working on stairs as he needs to go up 2 stairs to get in his home Continue with wound care and wound VAC to right lower extremity Monitor Accu-Cheks, fasting sugar this morning was 90. Continue with Lantus 6 units at at bedtime and Tradjenta. Continue on Zosyn for antimicrobial coverage. INR therapeutic at 2.19. Hemoglobin is stable at 7.8. YESSI KAUFMAN MD 11/22/16 6512: Assessment & Plan Plan/Intensity of Service Have independently interviewed and examined pt. Chart reviewed. Case discussed with my FLAME HARDENING MACHINE SETTER. Above care plan developed with my supervision; agree with above. Doing okay. Continues to work hard with therapy-hard work. Notes knees bothersome. Thighs feel weak. Breathing well. No chest pain. Eating well. Stools stable. No ab pain. Lungs; clear CV: regular AB; soft nt/nd +BS MSE: awake alert appropriate Plan: Continue with Zosyn and wound vac. Encourage continuation of therapy to maximize functional status. BP and sugars stable - continue current medications. PHOEBE MORALES APRN November 22, 2016 15:31 YESSI KAUFMAN MD November 22, 2016 16:55
[2016-11-22 17:40] VITALS: BP 142/65; PULSE 82; RESP 12; TEMP 98.5; O2SAT 99
[2016-11-22] MEDS: TAMSULOSIN 0.4 MG CAPSULE PO SCH (20:59)
[2016-11-22] MEDS: ASPIRIN *EC* 81mg TABLET PO SCH (20:59)
[2016-11-22] MEDS: INSULIN GLARGINE 100 UNIT/ML SQ SCH (21:01)
[2016-11-22 21:15] VITALS: BP 140/66; PULSE 74; PULSE 80; RESP 18; TEMP 97.6; O2SAT 97
[2016-11-23] MEDS: PIPERACILLIN/TAZOBACTAM 2.25 G in NORMAL SALINE 100 ML IV SCH ×4 (01:17→19:28)
[2016-11-23 05:28] LABS: BASOPHILS % (AUTO) 0.4 % (0-2); EOSINOPHILS # (AUTO) 0.8 T/MM3 (0-0.5); EOSINOPHILS % (AUTO) 10.1 % (0-4); HCT - HEMATOCRIT 26.8 % (41-53); HGB - HEMOGLOBIN 8.7 GM/DL (13.5-17.5); IMMATURE GRANULOCYTE # (AUTO) 0.04 T/MM3 (0.00-0.03); IMMATURE GRANULOCYTE % (AUTO) 0.5 % (0.0-0.5); LYMPHOCYTES # (AUTO) 1.3 T/MM3 (1-4.8); LYMPHOCYTES % (AUTO) 17.9 % (23-45); MEAN CORPUSCULAR HGB CONC(MCHC 32.5 GM/DL (31-37); MEAN CORPUSCULAR VOLUME 89.3 UM3 (80-100); MEAN PLATELET VOLUME 9.9 UM3 (9.4-12.4); MONOCYTES # (AUTO) 0.8 T/MM3 (0-0.8); NEUTROPHILS #(AUTO)-ABSOLUTE 4.5 T/MM3 (1.8-7.7); NEUTROPHILS % (AUTO) 60.1 % (33-66); WBC - WHITE BLOOD COUNT 7.4 T/MM3 (4.5-11.0)
[2016-11-23] MEDS: OMEPRAZOLE 20 MG CAPSULE PO SCH (05:40)
[2016-11-23] MEDS: DOCUSATE SODIUM 100 MG CAPSULE PO SCH ×2 (08:00→21:00)
[2016-11-23 08:36] VITALS: BP 133/65; PULSE 80; RESP 16; TEMP 98.2; O2SAT 95
[2016-11-23] MEDS: LINAGLIPTIN 5 MG TABLET PO SCH (08:38)
[2016-11-23] MEDS: CYANOCOBALAMIN (B-12) 500mcg TABLET PO SCH (08:39)
[2016-11-23] MEDS: FUROSEMIDE 20 MG TABLET PO SCH (08:39)
[2016-11-23] MEDS: FOLIC ACID 1 MG TABLET PO SCH (08:39)
[2016-11-23] MEDS: CARVEDILOL 25 MG TABLET PO SCH ×2 (08:51→19:39)
[2016-11-23] MEDS: WARFARIN 5 MG TABLET PO SCH (12:29)
--- NOTE | 2016-11-23 13:49 | PDWOUND ---
Wound Documentation Wound Management Wound : Location Modifier: Right, Lower Wound Location: Other ([place]) Wound Type: Stasis Ulcer Wound Dressing Frequency: two times per week Wound Dressing Status: FOUND: Changed Wound Drainage Amount: Moderate Wound Drainage Description: Serosanguineous Wound General Appearance: FOUND Draining, FOUND Well Approximated Wound Bed: gran red, slough Periwound Description: Indurated, Other (Denuded) Wound Length (cm): 4.5 Wound Width (cm): 3 Wound Depth (cm): 0.3 Exposed: subtissue, tendon Wound Cleanser: soap and water Wound Solution/Irrigant: Saline Irrigant Wound Packing Type: FOUND: Black Foam Wound Primary Dressing Type: Bogdan Wraps Comments 11/22/16 Late entery would vac removed and reapplied with instill vac. NS instill at 20cc, dwell time 15 mins every 3.5 hours. Pt tolerated change well. LUZ MUSA RN November 23, 2016 13:49
[2016-11-23 15:59] VITALS: BP 134/69; PULSE 78; RESP 20; TEMP 97.4; O2SAT 100
[2016-11-23] MEDS: NORMAL SALINE 500 ML IV SCH (19:28)
[2016-11-23 20:13] VITALS: BP 152/83; PULSE 83; RESP 16; TEMP 97.9; O2SAT 98
[2016-11-23 21:29] VITALS: PULSE 83; RESP 16
[2016-11-23] MEDS: ASPIRIN *EC* 81mg TABLET PO SCH (21:35)
[2016-11-23] MEDS: TAMSULOSIN 0.4 MG CAPSULE PO SCH (21:35)
[2016-11-23] MEDS: INSULIN GLARGINE 100 UNIT/ML SQ SCH (21:36)
[2016-11-24] MEDS: PIPERACILLIN/TAZOBACTAM 2.25 G in NORMAL SALINE 100 ML IV SCH ×4 (00:20→17:37)
[2016-11-24] MEDS: OMEPRAZOLE 20 MG CAPSULE PO SCH (06:10)
[2016-11-24 07:45] VITALS: BP 124/65; PULSE 82; RESP 18; TEMP 98.2; O2SAT 98
[2016-11-24] MEDS: DOCUSATE SODIUM 100 MG CAPSULE PO SCH ×2 (09:00→20:38)
[2016-11-24] MEDS: FUROSEMIDE 20 MG TABLET PO SCH (09:12)
[2016-11-24] MEDS: FOLIC ACID 1 MG TABLET PO SCH (09:12)
[2016-11-24] MEDS: CARVEDILOL 25 MG TABLET PO SCH ×2 (09:12→17:37)
[2016-11-24] MEDS: LINAGLIPTIN 5 MG TABLET PO SCH (09:12)
[2016-11-24] MEDS: CYANOCOBALAMIN (B-12) 500mcg TABLET PO SCH (09:13)
[2016-11-24] MEDS: WARFARIN 5 MG TABLET PO SCH (12:03)
[2016-11-24 16:33] VITALS: BP 147/71; PULSE 77; RESP 16; TEMP 97.6; O2SAT 99
[2016-11-24 19:30] VITALS: BP 140/67; PULSE 74; RESP 20; TEMP 97.7; O2SAT 100
[2016-11-24] MEDS: INSULIN GLARGINE 100 UNIT/ML SQ SCH (20:39)
[2016-11-24] MEDS: ASPIRIN *EC* 81mg TABLET PO SCH (20:40)
[2016-11-24] MEDS: TAMSULOSIN 0.4 MG CAPSULE PO SCH (20:40)
[2016-11-24 20:50] VITALS: PULSE 74; RESP 20
[2016-11-25] MEDS: PIPERACILLIN/TAZOBACTAM 2.25 G in NORMAL SALINE 100 ML IV SCH ×5 (00:14→23:33)
[2016-11-25] MEDS: NORMAL SALINE 500 ML IV SCH (00:15)
[2016-11-25] MEDS: OMEPRAZOLE 20 MG CAPSULE PO SCH (05:48)
[2016-11-25 08:23] VITALS: BP 140/64; PULSE 80; RESP 20; TEMP 98.7; O2SAT 97
[2016-11-25] MEDS: CARVEDILOL 25 MG TABLET PO SCH ×2 (08:34→17:10)
[2016-11-25] MEDS: DOCUSATE SODIUM 100 MG CAPSULE PO SCH ×2 (08:35→21:00)
[2016-11-25] MEDS: CYANOCOBALAMIN (B-12) 500mcg TABLET PO SCH (08:35)
[2016-11-25] MEDS: FUROSEMIDE 20 MG TABLET PO SCH (08:35)
[2016-11-25] MEDS: LINAGLIPTIN 5 MG TABLET PO SCH (08:35)
[2016-11-25] MEDS: FOLIC ACID 1 MG TABLET PO SCH (08:35)
[2016-11-25 09:46] LABS: BASOPHILS # (AUTO) 0.1 T/MM3 (0-0.2); BASOPHILS % (AUTO) 0.9 % (0-2); EOSINOPHILS # (AUTO) 0.6 T/MM3 (0-0.5); EOSINOPHILS % (AUTO) 9.1 % (0-4); HCT - HEMATOCRIT 28.2 % (41-53); HGB - HEMOGLOBIN 9.2 GM/DL (13.5-17.5); IMMATURE GRANULOCYTE # (AUTO) 0.01 T/MM3 (0.00-0.03); IMMATURE GRANULOCYTE % (AUTO) 0.1 % (0.0-0.5); LYMPHOCYTES # (AUTO) 0.8 T/MM3 (1-4.8); LYMPHOCYTES % (AUTO) 11.7 % (23-45); MEAN CORPUSCULAR HGB 29.3 UUG (26-34); MEAN CORPUSCULAR HGB CONC(MCHC 32.6 GM/DL (31-37); MEAN CORPUSCULAR VOLUME 89.8 UM3 (80-100); MEAN PLATELET VOLUME 10.1 UM3 (9.4-12.4); MONOCYTES # (AUTO) 0.6 T/MM3 (0-0.8); MONOCYTES % (AUTO) 8.4 % (0-9.0); NEUTROPHILS #(AUTO)-ABSOLUTE 4.8 T/MM3 (1.8-7.7); NEUTROPHILS % (AUTO) 69.8 % (33-66); RED BLOOD COUNT 3.14 M/MM3 (4.50-5.90); WBC - WHITE BLOOD COUNT 6.8 T/MM3 (4.5-11.0)
[2016-11-25 09:51] LABS: ANION GAP 10 MEQ/L (5-15); BUN/CREATININE RATIO 15 RATIO (6-26); CALCIUM 8.9 MG/DL (8.4-10.2); CHLORIDE 107 MEQ/L (98-107); CO2 - CARBON DIOXIDE 23 MEQ/L (22-30); CREATININE 1.6 MG/DL (0.8-1.5); GLOMERULAR FILTRATION RATE 41; GLUCOSE 194 MG/DL (75-110); POTASSIUM 4.3 MEQ/L (3.6-5); SODIUM 140 MEQ/L (134-144)
[2016-11-25] MEDS: WARFARIN 5 MG TABLET PO SCH (11:45)
[2016-11-25 16:23] VITALS: BP 157/71; PULSE 77; RESP 18; TEMP 97.6; O2SAT 99
--- NOTE | 2016-11-25 16:41 | PNPDOC ---
Subjective Date DATE: 11/25/16 TIME: 16:38 Subjective Sunitha is seen this afternoon while resting in his room with his at the bedside. States that overall he is doing well and can tell that he is gaining strength and more mobile. He and his both voiced concern about discharge plan as she is not sure she can handle him at home. They would like to speak more about home health versus care home skilled versus pace program. Tim denies having any pain currently. He denies feeling short of breath. He states that his appetite is good. No difficulty with urination or bowel movements. When back remains intact Objective Vital Signs Vital signs Vital Signs Date Time Temp Pulse Resp B/P Pulse Ox O2 Delivery O2 Flow Rate FiO2 11/25/16 16:23 97.6 77 18 157/71 99 Room Air Height (Feet): 6 Height (Inches): 0.00 Weight (Kilograms): 79.600 General General Appearance: Alert, Orientated x 3, Cooperative, No Acute Distress Eyes (Brief) Eyes: FOUND: EOMI ENMT (Brief) ENMT: FOUND: mucosa moist, normal dentition, NOT FOUND: pharnyx erythema Neck (Brief) Neck: FOUND: midline, NOT FOUND: adenopathy, carotid bruits, tracheal deviation Respiratory (Brief) Respiratory: FOUND: clear all miller, equal bilaterally, NOT FOUND: wheezes Cardiovascular (Brief) Cardiac: FOUND: regular rate, regular rhythm, NOT FOUND: murmur, pedal edema Capillary Refill: <2 sec Abdomen (Brief) Abdominal: FOUND: BS normo active x4, soft, NOT FOUND: distended, tender Lymphatic (Brief) Lymphatic: NOT FOUND: adenopathy Musculoskeletal (Brief) Musculoskeletal: NOT FOUND: tenderness Integumentary (Brief) Integumentary: FOUND: dry, pink, warm Neurologic (Brief) Neurological: FOUND: cranial 2-12 intact Psychiatric (Brief) Psychiatric: FOUND: alert, attentive, normal affect, oriented Laboratory Laboratory Laboratory Tests 11/25/16 09:01 Laboratory Tests 11/25/16 09:01 Assessment & Plan Problems: (1) Diabetes with ulcer of lower extremity Status: Acute Assessment & Plan: Right lower extremity wound, wound VAC intact (2) Anemia Status: Chronic (3) CAD (coronary artery disease) Status: Chronic (4) Diabetes mellitus Status: Chronic (5) CHF (congestive heart failure) Status: Chronic Assessment & Plan: Ejection fraction 45%, chronic diastolic CHF. (6) CAD (coronary artery disease) Status: Chronic (7) HTN (hypertension) Status: Chronic (8) Dyslipidemia Status: Chronic (9) CKD (chronic kidney disease), stage III Status: Chronic (10) Peripheral vascular disease Status: Chronic (11) HS (hereditary spherocytosis) Status: Chronic (12) Anticoagulated Status: Chronic Assessment & Plan: Chronically anticoagulated on Coumadin (13) Myalgia Plan/Intensity of Service 11/25/16 Will discuss with team tomorrow regarding discharge planning. Will speak with Dr. Castorena with infectious disease to confirm antibiotic recommendation length. Will speak tomorrow with Dr. Madera regarding discharge plan and time frame. We'll discuss with case management regarding potential discharge options, halfway, home health,PACE program Overall, Tim is doing well medically and gaining strength. Did sugars overall appear to be well controlled. Based on creatinine is unchanged at 1.6. Overall blood pressure remains well controlled. Code Status Full Code Hospital Course Summary Disclaimer The hospital course summary below is not to be considered part of the above Progress Note. Hospital Course Summary 11/14/16 Given continued decrease in Hgb and lower ext weakness patient has agreed to a blood transfusion today. Suspect he will benefit from transfusion and this will improve strength. BP this morning is low at 108/60. Lower extremity myalgias seems to be slightly better today. However, he continues to have stiffness in the bilateral knees, and quads. INR today remains subtherapeutic at 1.5. Continue with bridging of Lovenox until therapeutic Continue with wound Vac care as per wound team. [place] as needed for pain control. Continue with Zosyn IV for antimicrobial coverage as recommended by Dr Castorena. She recommends 2-3 more weeks of IV treatment which would be between November 26-, then followed by PO treatment. Will discuss further with Dr Castorena Will recheck CBC and BMP tomorrow morning to follow anemia, renal function and electrolytes. 11/16/16 Leukocytosis today - WBC increased to 13.6 - He continues on Zosyn per Dr. Castorena. He's been afebrile and other SIRS criteria have not been consistently noted. CRP has increased from last assessment. It was 119 on 11/06/16 and today it is 159.9. Anticipate discussion with Dr. Castorena today. Mild hypoglycemia this morning; fasting was 68. Review of blood sugars reveal no other episodes of hypoglycemia. Lantus HS dose reduced to 6U. INR up to 2.50 - DC Lovenox. Hgb stable at 7.8 s/p PRBC transfusion on 11/14 11/18 Reviewed labs from yesterday 11/17. Leukocytosis, resolved. Hemoglobin remains low, however stable at 7.7. Transfusion on 11/14. Continue to monitor Accu-Cheks, fasting sugar this morning 77. Continue Lantus 6 units at at at bedtime INR remains therapeutic at 2.6. Coumadin dosing managed by pharmacy Continue to encourage work with PT and OT for ongoing strengthening as he has had lower extremity weakness Will recheck CBC and BMP tomorrow. 11/19 to follow blood counts, renal function, electrolytes 11/20/16 Dr. Castorena recommends Zosyn through November 23, at which time can change to Augmentin if wound infection has healed up appropriately. If tendon is still exposed, she recommends Invanz so he could go home with a once-daily dose. Labs were done yesterday - Cr improved slightly 1.6 Blood sugars improving - has been elevated >200 after supper but this was better last night. Continue to monitor at current doses. Anemia stable with hgb of 7.8 - asymptomatic. INR therapeutic. 11/22/16 Tim is doing good and continues to work hard with PT. He is working on stairs as he needs to go up 2 stairs to get in his home Continue with wound care and wound VAC to right lower extremity Monitor Accu-Cheks, fasting sugar this morning was 90. Continue with Lantus 6 units at at bedtime and Tradjenta. Continue on Zosyn for antimicrobial coverage. INR therapeutic at 2.19. Hemoglobin is stable at 7.8. 11/25/16 Will discuss with team tomorrow regarding discharge planning. Will speak with Dr. Castorena with infectious disease to confirm antibiotic recommendation length. Will speak tomorrow with Dr. Madera regarding discharge plan and time frame. We'll discuss with case management regarding potential discharge options, halfway, home health,PACE program Overall, Tim is doing well medically and gaining strength. Did sugars overall appear to be well controlled. Based on creatinine is unchanged at 1.6. Overall blood pressure remains well controlled. PHOEBE MORALES APRN November 25, 2016 16:41
[2016-11-25 19:33] VITALS: BP 133/70; PULSE 79; RESP 18; TEMP 98.7; O2SAT 97
[2016-11-25] MEDS: TAMSULOSIN 0.4 MG CAPSULE PO SCH (21:48)
[2016-11-25] MEDS: ASPIRIN *EC* 81mg TABLET PO SCH (21:48)
[2016-11-25] MEDS: INSULIN GLARGINE 100 UNIT/ML SQ SCH (21:49)
--- NOTE | 2016-11-26 00:05 | PNPDOC ---
IRU Subjective Date DATE: 11/23/16 TIME: 1642 Subjective Working well with PT an OT. He is making appropriate progress and improving strength and stamina. IRU Objective Vital Signs Vital signs Vital Signs Date Time Temp Pulse Resp B/P Pulse Ox O2 Delivery O2 Flow Rate FiO2 11/25/16 19:33 98.7 79 18 133/70 97 Room Air Height (Feet): 6 Height (Inches): 0.00 Weight (Kilograms): 79.600 General General Appearance: Alert, Orientated x 2 Respiratory (Brief) Respiratory: FOUND: clear all miller, equal bilaterally Cardiovascular (Brief) Cardiac: FOUND: regular rate, regular rhythm Laboratory Laboratory Laboratory Tests Test 11/24/16 05:37 11/24/16 10:22 11/24/16 14:08 11/24/16 20:19 Glucometer 77mg/dL 216mg/dL 193mg/dL 161mg/dL Test 11/25/16 05:49 11/25/16 09:01 11/25/16 10:20 11/25/16 14:04 Glucometer 75mg/dL 128mg/dL 150mg/dL White Blood Count 6.8T/MM3 Red Blood Count 3.14M/MM3 Hemoglobin 9.2GM/DL Hematocrit 28.2% Mean Corpuscular Volume 89.8UM3 Mean Corpuscular Hemoglobin 29.3UUG Mean Corpuscular Hemoglobin Concent 32.6GM/DL RDW Standard Deviation 50.2FL Platelet Count 362T/MM3 Mean Platelet Volume 10.1UM3 Immature Granulocyte % (Auto) 0.1% Neutrophils (%) (Auto) 69.8% Lymphocytes (%) (Auto) 11.7% Monocytes (%) (Auto) 8.4% Eosinophils (%) (Auto) 9.1% Basophils (%) (Auto) 0.9% Absolute Immature Granulocyte (auto 0.01T/MM3 Absolute Neutrophils (auto) 4.8T/MM3 Absolute Lymphocytes (auto) 0.8T/MM3 Absolute Monocytes (auto) 0.6T/MM3 Absolute Eosinophils (auto) 0.6T/MM3 Absolute Basophils (auto) 0.1T/MM3 Turbidity < 20 Sodium Level 140MEQ/L Potassium Level 4.3MEQ/L Chloride Level 107MEQ/L Carbon Dioxide Level 23MEQ/L Anion Gap 10MEQ/L Blood Urea Nitrogen 24.0MG/DL Creatinine 1.6MG/DL Glomerular Filtration Rate Calc 41 BUN/Creatinine Ratio 15RATIO Glucose Level 194MG/DL Calculated Osmolality 278MOSM/KG Calcium Level 8.9MG/DL Icterus Index < 2 Chemistry Specimen Hemolysis < 15 Test 11/25/16 20:55 Glucometer 140mg/dL Assessment & Plan Problems: (1) Radiculopathy Status: Chronic Assessment & Plan: stable. Pt working with PT and OT to increse stamina and distance despite pain. (2) Neuropathy Status: Chronic Assessment & Plan: similar to above. (3) Decubitus ulcer of heel, right, unstageable Assessment & Plan: COntinues with wound care. Some impact on continued healing. (4) Type 2 diabetes mellitus Status: Chronic (5) Myopathy Assessment & Plan: Staff working with Pt onthis issue. He cont to put in effort to increase overall stamina and recovery. DVT Prophylaxis: SCD'S Code Status Full Code Interventions to Obtain Goals PT Treatment Plan: Therapeutic Exercise, Gait Training, Functional Activities , Patient/Family Education, Balance/Proprioception OT Treatment Plan: ADL's (basic care), Ther. Exercise for ADL's Hospital Course Summary Disclaimer The hospital course summary below is not to be considered part of the above Progress Note. Hospital Course Summary 11/14/16 Given continued decrease in Hgb and lower ext weakness patient has agreed to a blood transfusion today. Suspect he will benefit from transfusion and this will improve strength. BP this morning is low at 108/60. Lower extremity myalgias seems to be slightly better today. However, he continues to have stiffness in the bilateral knees, and quads. INR today remains subtherapeutic at 1.5. Continue with bridging of Lovenox until therapeutic Continue with wound Vac care as per wound team. [place] as needed for pain control. Continue with Zosyn IV for antimicrobial coverage as recommended by Dr Castorena. She recommends 2-3 more weeks of IV treatment which would be between November 26-, then followed by PO treatment. Will discuss further with Dr Castorena Will recheck CBC and BMP tomorrow morning to follow anemia, renal function and electrolytes. 11/16/16 Leukocytosis today - WBC increased to 13.6 - He continues on Zosyn per Dr. Castorena. He's been afebrile and other SIRS criteria have not been consistently noted. CRP has increased from last assessment. It was 119 on 11/06/16 and today it is 159.9. Anticipate discussion with Dr. Castorena today. Mild hypoglycemia this morning; fasting was 68. Review of blood sugars reveal no other episodes of hypoglycemia. Lantus HS dose reduced to 6U. INR up to 2.50 - DC Lovenox. Hgb stable at 7.8 s/p PRBC transfusion on 11/14 11/18 Reviewed labs from yesterday 11/17. Leukocytosis, resolved. Hemoglobin remains low, however stable at 7.7. Transfusion on 11/14. Continue to monitor Accu-Cheks, fasting sugar this morning 77. Continue Lantus 6 units at at at bedtime INR remains therapeutic at 2.6. Coumadin dosing managed by pharmacy Continue to encourage work with PT and OT for ongoing strengthening as he has had lower extremity weakness Will recheck CBC and BMP tomorrow. 11/19 to follow blood counts, renal function, electrolytes 11/20/16 Dr. Castorena recommends Zosyn through November 23, at which time can change to Augmentin if wound infection has healed up appropriately. If tendon is still exposed, she recommends Invanz so he could go home with a once-daily dose. Labs were done yesterday - Cr improved slightly 1.6 Blood sugars improving - has been elevated >200 after supper but this was better last night. Continue to monitor at current doses. Anemia stable with hgb of 7.8 - asymptomatic. INR therapeutic. 11/22/16 Tim is doing good and continues to work hard with PT. He is working on stairs as he needs to go up 2 stairs to get in his home Continue with wound care and wound VAC to right lower extremity Monitor Accu-Cheks, fasting sugar this morning was 90. Continue with Lantus 6 units at at bedtime and Tradjenta. Continue on Zosyn for antimicrobial coverage. INR therapeutic at 2.19. Hemoglobin is stable at 7.8. 11/25/16 Will discuss with team tomorrow regarding discharge planning. Will speak with Dr. Castorena with infectious disease to confirm antibiotic recommendation length. Will speak tomorrow with Dr. Muñiz regarding discharge plan and time frame. We'll discuss with case management regarding potential discharge options, intermediate, home health,PACE program Overall, Tim is doing well medically and gaining strength. Did sugars overall appear to be well controlled. Based on creatinine is unchanged at 1.6. Overall blood pressure remains well controlled. ADELINE MUÑIZ MD November 26, 2016 00:05
[2016-11-26 05:01] LABS: INR 2.07 (0.77-1.03); PROTHROMBIN TIME 22.6 SEC (9.48-12.52)
[2016-11-26] MEDS: OMEPRAZOLE 20 MG CAPSULE PO SCH (06:04)
[2016-11-26] MEDS: PIPERACILLIN/TAZOBACTAM 2.25 G in NORMAL SALINE 100 ML IV SCH ×4 (06:05→23:57)
[2016-11-26] MEDS: NORMAL SALINE 500 ML IV SCH (06:05)
[2016-11-26 08:19] VITALS: BP 123/63; PULSE 88; RESP 20; TEMP 98.5; O2SAT 100
[2016-11-26] MEDS: DOCUSATE SODIUM 100 MG CAPSULE PO SCH ×2 (08:22→20:14)
[2016-11-26] MEDS: FOLIC ACID 1 MG TABLET PO SCH (08:22)
[2016-11-26] MEDS: FUROSEMIDE 20 MG TABLET PO SCH (08:22)
[2016-11-26] MEDS: CARVEDILOL 25 MG TABLET PO SCH ×2 (08:22→17:35)
[2016-11-26] MEDS: LINAGLIPTIN 5 MG TABLET PO SCH (08:22)
[2016-11-26] MEDS: CYANOCOBALAMIN (B-12) 500mcg TABLET PO SCH (08:23)
[2016-11-26] MEDS: WARFARIN 5 MG TABLET PO SCH (12:05)
[2016-11-26 16:04] VITALS: BP 153/78; PULSE 87; RESP 20; TEMP 99.4; O2SAT 100
--- NOTE | 2016-11-26 16:43 | PDWOUND ---
Wound Documentation Wound Management Wound : Location Modifier: Right, Lower Wound Location: Other ([place]) Wound Type: Stasis Ulcer Wound Dressing Frequency: two times per week Wound Dressing Status: FOUND: Changed Wound Drainage Amount: Moderate Wound Drainage Description: Serosanguineous Wound General Appearance: FOUND Draining, FOUND Well Approximated Wound Bed: gran red, slough Periwound Description: Indurated, Other (Denuded) Wound Length (cm): 4.5 Wound Width (cm): 3 Wound Depth (cm): 0.2 Exposed: subtissue, tendon Wound Cleanser: soap and water Wound Solution/Irrigant: Saline Irrigant Wound Packing Type: FOUND: Black Foam Wound Primary Dressing Type: Bogdan Wraps Comments Wound vac changed today old drsging removed and wound cleaned. Periwound skin prepped and draped with I vac drape. Black veriflow foam placed and in wound bed. Covered with clear occlusive drsg, sensor track applied good suction, and instill completed on 2 test cycles. Will change again on . LUZ MUSA RN November 26, 2016 16:43
[2016-11-26 18:45] VITALS: TEMP 99
[2016-11-26] MEDS: TAMSULOSIN 0.4 MG CAPSULE PO SCH (20:15)
[2016-11-26] MEDS: ASPIRIN *EC* 81mg TABLET PO SCH (20:15)
[2016-11-26] MEDS: INSULIN GLARGINE 100 UNIT/ML SQ SCH (20:48)
[2016-11-26 23:58] VITALS: BP 134/65; PULSE 87; RESP 16; TEMP 98.7; O2SAT 100
[2016-11-27] MEDS: PIPERACILLIN/TAZOBACTAM 2.25 G in NORMAL SALINE 100 ML IV SCH ×3 (05:50→18:14)
[2016-11-27] MEDS: NORMAL SALINE 500 ML IV SCH (05:51)
[2016-11-27] MEDS: OMEPRAZOLE 20 MG CAPSULE PO SCH (05:52)
[2016-11-27] MEDS: HYDROCODONE/APAP 5 mg/325 mg TABLET PO PRN ×3 (06:46→17:16)
[2016-11-27] MEDS: CARVEDILOL 25 MG TABLET PO SCH ×2 (08:10→17:16)
[2016-11-27] MEDS: FOLIC ACID 1 MG TABLET PO SCH (08:10)
[2016-11-27] MEDS: DOCUSATE SODIUM 100 MG CAPSULE PO SCH ×2 (08:10→21:00)
[2016-11-27] MEDS: FUROSEMIDE 20 MG TABLET PO SCH (08:11)
[2016-11-27] MEDS: LINAGLIPTIN 5 MG TABLET PO SCH (08:11)
[2016-11-27] MEDS: CYANOCOBALAMIN (B-12) 500mcg TABLET PO SCH (08:11)
[2016-11-27 08:13] VITALS: BP 123/65; PULSE 92; RESP 20; O2SAT 97
[2016-11-27 08:16] VITALS: PULSE 92
[2016-11-27] MEDS: WARFARIN 5 MG TABLET PO SCH (12:07)
--- NOTE | 2016-11-27 12:26 | PDIRUTEAM ---
Multidisciplinary Team Meeting Nursing Hx Incontinence: No Bladder Goal: 6 Modified Foster Castellanos Y/N: No Bladder Continent or Incontine: Continent Incontinent Product Used: Patient's Own Underwear Number of Times Incontinent of: 0 Cleaning Ability-Bladder: 5 Supervision/Setup Bowel Goal: 7+ Complete Foster Colostomy Y/N: No Bowel Incontinent/Continent: Continent Bowel Number of Accidents: 0 Number of times Incontinent of: 0 Cleaning Ability-Bowel: 5 Supervision/Setup Toileting Ability: 4 Minimal Assistance Vital Signs Vital Signs Date Time Temp Pulse Resp B/P Pulse Ox O2 Delivery O2 Flow Rate FiO2 11/27/16 08:16 92 11/27/16 08:13 20 123/65 97 Room Air 11/26/16 23:58 98.7 Current Medications Current Medications Medications (Trade) Dose Ordered Sig/Antoine Route PRN Reason Start Time Stop Time Status Last Admin Dose Admin Docusate Sodium (Colace) 100 mg BID PO 11/12/16 21:00 11/17/16 21:29 Aspirin (Ecotrin) 81 mg HS PO 11/12/16 22:00 11/26/16 20:15 Carvedilol (Coreg) 25 mg BIDWM PO 11/12/16 17:30 11/27/16 08:10 Enoxaparin Sodium (Lovenox) 40 mg DAILY SQ 11/13/16 09:00 11/16/16 09:02 DC 11/16/16 08:51 Furosemide (Lasix) 20 mg DAILY PO 11/13/16 09:00 11/27/16 08:11 Linagliptin (Tradjenta) 5 mg DAILY PO 11/13/16 09:00 11/27/16 08:11 Omeprazole (Prilosec) 20 mg ACB PO 11/13/16 06:30 11/27/16 05:52 Tamsulosin HCl (FLOMAX 0.4 mg) 0.4 mg HS PO 11/12/16 22:00 11/26/16 20:15 Cyanocobalamin (Vit. B-12) 1,000 mcg DAILY PO 11/13/16 09:00 11/27/16 08:11 Insulin Glargine 8 unit 8 unit HS SQ 11/12/16 22:00 11/16/16 07:56 DC 11/15/16 21:35 Piperacillin Sod/ Tazobactam Sod/ Sodium Chloride (Zosyn/NS) 100 ml @ 200 mls/hr Q6H IV 11/12/16 18:00 11/27/16 12:03 Acetaminophen (Tylenol Regular Strength) per prn orders Q3H PRN PO PAIN 11/13/16 09:15 11/15/16 01:11 Acetaminophen/ Hydrocodone Bitart ([place] 5/325) 1 tab Q4H PRN PO PAIN 11/13/16 10:15 11/27/16 12:07 Warfarin Sodium 7.5 mg 7.5 mg NOON PO 11/14/16 12:00 11/14/16 12:30 DC 11/14/16 12:31 Sodium Chloride (NS) 500 ml @ 0 mls/hr Q0M IV 11/14/16 10:51 11/27/16 05:51 Warfarin Sodium (COUMADIN 6 mg) 6 mg NOON PO 11/15/16 12:00 11/15/16 12:30 DC 11/15/16 12:29 Folic Acid (Folate) 1 mg DAILY PO 11/15/16 10:15 11/27/16 08:10 Insulin Glargine (Lantus) 6 unit HS SQ 11/16/16 22:00 11/26/16 20:48 Warfarin Sodium (COUMADIN 5 mg) 5 mg NOON PO 11/16/16 12:00 11/16/16 12:01 DC 11/16/16 12:14 Warfarin Sodium (COUMADIN 5 mg) 5 mg NOON PO 11/17/16 12:00 11/17/16 12:15 DC 11/17/16 12:11 Warfarin Sodium (COUMADIN 5 mg) 5 mg NOON PO 11/18/16 12:00 11/18/16 12:15 DC 11/18/16 11:01 Warfarin Sodium (COUMADIN 5 mg) 5 mg NOON PO 11/19/16 12:00 11/27/16 12:07 Comments Slight fever overnight, doing well today. Physical Therapy Bed Transfer Ability: 5 Supervision/Setup Bed Transfer Assistance Needed: 1 Person Bed FIM Score Reason: slide board Chair Transfer Ability: 5 Supervision/Setup Chair Transfer Assistance Need: 1 Person Overall Wheelchair Transfer Ab: 4 Minimal Assistance Wheelchair Transfer Assistance: 1 Person Wheelchair Transfer FIM Score: slide board, help to position and keep steady Overall Toilet / Commode Trans: 4 Minimal Assistance Ambulation Ability: 1 Total Assistance Ambulation Assistance Needed: 1 Person Walk FIM Score Reason: Pt requires CGA to min (A) with maintaining balance but distance is limited to < 50 ft. Ambulation Distance: 45 Comments Still requiring sig support. Not able to return home due to safety. Occupational Therapy Grooming Ability: 6 Modified Foster Grooming FIM Score Reason: Seated in w/c Bathing Ability: 5 Supervision/Setup Upper Body Dressing Ability: 6 Modified Foster Dressing-Upper FIM Score Reaso: w/c level Lower Body Dressing Ability: 5 Supervision/Setup Lower Body Dressing Assistance: 1 Person Dressing-Lower FIM Score Reaso: Req'd MIN A for wound vac and CGA Toileting Assistance Needed: 1 Person Toileting FIM Score Reason: urinal Care Plan Condition at time of discharge: Fair IRU Discharge Disposition: Home Health Service Interventions/Goals Plan to d/c to [facility] today. Barriers to d/c to home: safety, strength, medical issues with iv antibiotics and wound vac. ADELINE MUÑIZ MD November 27, 2016 12:26
[2016-11-27 13:55] VITALS: TEMP 97.6
[2016-11-27 16:00] VITALS: BP 138/66; PULSE 79; RESP 16; TEMP 97.4; O2SAT 98
[2016-11-27 20:07] VITALS: BP 141/65; PULSE 75; RESP 16; TEMP 98.2; O2SAT 96
[2016-11-27] MEDS: ASPIRIN *EC* 81mg TABLET PO SCH (21:18)
[2016-11-27] MEDS: TAMSULOSIN 0.4 MG CAPSULE PO SCH (21:18)
[2016-11-27] MEDS: INSULIN GLARGINE 100 UNIT/ML SQ SCH (21:40)
[2016-11-28] MEDS: PIPERACILLIN/TAZOBACTAM 2.25 G in NORMAL SALINE 100 ML IV SCH ×3 (00:13→12:12)
[2016-11-28] MEDS: OMEPRAZOLE 20 MG CAPSULE PO SCH (06:16)
[2016-11-28 08:00] VITALS: BP 129/67; PULSE 81; RESP 16; TEMP 97.9; O2SAT 95
[2016-11-28] MEDS: CYANOCOBALAMIN (B-12) 500mcg TABLET PO SCH (08:31)
[2016-11-28] MEDS: DOCUSATE SODIUM 100 MG CAPSULE PO SCH (08:32)
[2016-11-28] MEDS: FUROSEMIDE 20 MG TABLET PO SCH (08:32)
[2016-11-28] MEDS: FOLIC ACID 1 MG TABLET PO SCH (08:32)
[2016-11-28] MEDS: CARVEDILOL 25 MG TABLET PO SCH (08:32)
[2016-11-28] MEDS: LINAGLIPTIN 5 MG TABLET PO SCH (08:33)
[2016-11-28] MEDS ORDERED: WARF5TAB8 PO (08:54)
[2016-11-28] MEDS ORDERED: CYAN500T2 PO (08:54)
[2016-11-28] MEDS ORDERED: INSU100V8 SQ (08:54)
[2016-11-28] MEDS ORDERED: HYDR-4246 PO (08:54)
--- NOTE | 2016-11-28 09:07 | PNPDOC ---
Subjective Date DATE: 11/28/16 TIME: 08:54 Subjective Tim is seen today for f/u infected right ankle. He is anticipating discharge this am at 1000 to [facility] for continued IV antibiotics and care. He states he is feeling "great" this morning. Denies any complaints. Taking Lortab for pain very prn, last dose yesterday. No fevers. No chest pain. Denies soa. Bowels moving. Appetite good. Objective Vital Signs Vital signs Vital Signs Date Time Temp Pulse Resp B/P Pulse Ox O2 Delivery O2 Flow Rate FiO2 11/27/16 20:07 98.2 75 16 141/65 96 Room Air Height (Feet): 6 Height (Inches): 0.00 Weight (Kilograms): 73.200 General General Appearance: Alert, Orientated x 3, Cooperative, No Acute Distress Respiratory (Brief) Respiratory: FOUND: clear all miller, equal bilaterally Cardiovascular (Brief) Cardiac: FOUND: regular rate, regular rhythm Abdomen (Brief) Abdominal: FOUND: BS normo active x4 Extremities (Brief) Extremity : Side: Right Extremity: leg Extremity Finding: FOUND: other (wound vac/dressings intact. ) Integumentary (Brief) Integumentary: FOUND: dry, pink, warm Psychiatric (Brief) Psychiatric: FOUND: alert, attentive, normal affect, oriented Laboratory Laboratory INR to be drawn tomorrow 11/29. 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 (6) CAD (coronary artery disease) Status: Chronic (7) HTN (hypertension) Status: Chronic (8) Dyslipidemia Status: Chronic (9) CKD (chronic kidney disease), stage III Status: Chronic (10) Peripheral vascular disease Status: Chronic (11) HS (hereditary spherocytosis) Status: Chronic (12) Anticoagulated Status: Chronic Assessment & Plan: Chronically anticoagulated on Coumadin (13) Myalgia Plan/Intensity of Service Med review completed. WIll continue Zosyn per Dr. Castorena recommendations. Continuing Coumadin 5 mg po daily and INR to be done tomorrow preferentially. Continue reduced Lantus dose of 6 units per HS, am blood sugars remain on lower end. Continue Lortab for pain prn #15 will be dispensed at time of discharge. Anticipating 1000 discharge to [facility] for continued cares with appropriate wound follow up. Code Status Full Code Hospital Course Summary Disclaimer The hospital course summary below is not to be considered part of the above Progress Note. Hospital Course Summary 11/14/16 Given continued decrease in Hgb and lower ext weakness patient has agreed to a blood transfusion today. Suspect he will benefit from transfusion and this will improve strength. BP this morning is low at 108/60. Lower extremity myalgias seems to be slightly better today. However, he continues to have stiffness in the bilateral knees, and quads. INR today remains subtherapeutic at 1.5. Continue with bridging of Lovenox until therapeutic Continue with wound Vac care as per wound team. [place] as needed for pain control. Continue with Zosyn IV for antimicrobial coverage as recommended by Dr Castorena. She recommends 2-3 more weeks of IV treatment which would be between November 26-, then followed by PO treatment. Will discuss further with Dr Castorena Will recheck CBC and BMP tomorrow morning to follow anemia, renal function and electrolytes. 11/16/16 Leukocytosis today - WBC increased to 13.6 - He continues on Zosyn per Dr. Castorena. He's been afebrile and other SIRS criteria have not been consistently noted. CRP has increased from last assessment. It was 119 on 11/06/16 and today it is 159.9. Anticipate discussion with Dr. Castorena today. Mild hypoglycemia this morning; fasting was 68. Review of blood sugars reveal no other episodes of hypoglycemia. Lantus HS dose reduced to 6U. INR up to 2.50 - DC Lovenox. Hgb stable at 7.8 s/p PRBC transfusion on 11/14 11/18 Reviewed labs from yesterday 11/17. Leukocytosis, resolved. Hemoglobin remains low, however stable at 7.7. Transfusion on 11/14. Continue to monitor Accu-Cheks, fasting sugar this morning 77. Continue Lantus 6 units at at at bedtime INR remains therapeutic at 2.6. Coumadin dosing managed by pharmacy Continue to encourage work with PT and OT for ongoing strengthening as he has had lower extremity weakness Will recheck CBC and BMP tomorrow. 11/19 to follow blood counts, renal function, electrolytes 11/20/16 Dr. Castorena recommends Zosyn through November 23, at which time can change to Augmentin if wound infection has healed up appropriately. If tendon is still exposed, she recommends Invanz so he could go home with a once-daily dose. Labs were done yesterday - Cr improved slightly 1.6 Blood sugars improving - has been elevated >200 after supper but this was better last night. Continue to monitor at current doses. Anemia stable with hgb of 7.8 - asymptomatic. INR therapeutic. 11/22/16 Tim is doing good and continues to work hard with PT. He is working on stairs as he needs to go up 2 stairs to get in his home Continue with wound care and wound VAC to right lower extremity Monitor Accu-Cheks, fasting sugar this morning was 90. Continue with Lantus 6 units at at bedtime and Tradjenta. Continue on Zosyn for antimicrobial coverage. INR therapeutic at 2.19. Hemoglobin is stable at 7.8. 11/25/16 Will discuss with team tomorrow regarding discharge planning. Will speak with Dr. Castorena with infectious disease to confirm antibiotic recommendation length. Will speak tomorrow with Dr. Madera regarding discharge plan and time frame. We'll discuss with case management regarding potential discharge options, [facility], home health,PACE program Overall, Tim is doing well medically and gaining strength. Did sugars overall appear to be well controlled. Based on creatinine is unchanged at 1.6. Overall blood pressure remains well controlled. SANDRA CATHERINE APRN November 28, 2016 09:00
--- NOTE | 2016-11-28 10:10 | PDOCECFAO ---
Admission Orders Admission Orders Admit to: [facility] Allergies: Coded Allergies: No Known Allergies (Unverified , 11/06/16) Admitting Diagnosis Suspect Myopathy Admitting Physician Artemio Muñiz MD Code Status Full Code Anticipated LOS: 30 days or less Rehab Potential: Good Rehab Prognosis: Good Evaluations/Treat: PT, OT [facility] Certification I certify that SNF services are required to be given on an Inpatient basis because of the patients need for penitentiary care on a continuing basis for the condition(s) for which he/she received inpatient hospital services prior to his/her transfer to the SNF. SNF inpatient care is necessary for the following reasons Wound Care/Assessment ARTEMIO MUÑIZ MD November 28, 2016 10:09
[2016-11-28] MEDS: WARFARIN 5 MG TABLET PO SCH (12:12)
== END 2016-11-28 13:40 | DRG 92 ==
PROVIDERS: ADMIT Family Medicine; ATTEND Family Medicine
PROC: F07Z9FZ Gait Training/Functional Ambulation Treatment using Assistive, Adaptive, Supportive or Protective Equipment (ICD-10-PCS; principal; 2016-11-12)
PROC: F07M6ZZ Therapeutic Exercise Treatment of Musculoskeletal System - Whole Body (ICD-10-PCS; 2016-11-12)
PROC: F08Z4ZZ Home Management Treatment (ICD-10-PCS; 2016-11-12)
PROC: 30233N1 Transfusion of Nonautologous Red Blood Cells into Peripheral Vein, Percutaneous Approach (ICD-10-PCS; 2016-11-14)
DX: G72.9 Myopathy, unspecified (principal); I13.0 Hypertensive heart and chronic kidney disease with heart failure and stage 1 through stage 4 chronic kidney disease, or unspecified chronic kidney disease; I50.22 Chronic systolic (congestive) heart failure; I82.501 Chronic embolism and thrombosis of unspecified deep veins of right lower extremity; L97.812 Non-pressure chronic ulcer of other part of right lower leg with fat layer exposed; L89.610 Pressure ulcer of right heel, unstageable; M54.10 Radiculopathy, site unspecified; G62.9 Polyneuropathy, unspecified; N18.9 Chronic kidney disease, unspecified; E11.22 Type 2 diabetes mellitus with diabetic chronic kidney disease; I25.5 Ischemic cardiomyopathy; I87.2 Venous insufficiency (chronic) (peripheral); E78.5 Hyperlipidemia, unspecified; D58.0 Hereditary spherocytosis; Z79.01 Long term (current) use of anticoagulants; I73.9 Peripheral vascular disease, unspecified; Z79.4 Long term (current) use of insulin; Z79.82 Long term (current) use of aspirin; Z95.0 Presence of cardiac pacemaker; Z95.5 Presence of coronary angioplasty implant and graft
CPT/HCPCS: 36415; 80048; 80069; 80076; 82272; 82550; 82948; 85018; 85025; 85610; 86140; 86850; 86900; 86901; 86922